=== PATIENT | female | born 1940 | race Caucasian/White ===

== ENCOUNTER 2017-02-17 17:23 | Inpatient (IN) | payer MEDICARE, OTHER ==
[~2017-02-17] VITALS: Ht 167.6 cm; Wt 94.8 kg
[~2017-02-17 17:23] MED LIST: ACID1TAB11 PO; ALBU8.5H6 IH; ASPI-482 PO; ASPI325T11 PO; ASPI325T70 PO; Amoxicillin/Potassium Clav PO; CALC667C6 PO; CALC667T PO; CARV6.25 PO; CIPR250T30 PO; CIPR500T94 PO; CITA20TA9 PO; CLOP75TA PO; DARB60DI IJ; ESCI10TA PO; ESTR42.53 VG; FAMO-63 PO; FURO-69 PO; GABA-586 PO; HYDR-2762 PO; HYDR-963 PO; HYDR25TA9 PO; INSU100I13 SQ; INSU100V8 SQ; ISOS30TA PO; ISOS30TA4 PO; LEVO250T25 PO; LEVO50TA5 PO; LEVO75TA5 PO; LOVA10TA PO; METH-37 PO; METO25TA4 PO; METR500T PO; MORP15TA PO; MORP15TA3 PO; Metoprolol Tartrate PO; NITR0.4T SL; NITR0.4T6 SL; NITR100C62 PO; OXYC-244 PO; OXYC-250 PO; OXYC15TA PO; OXYC1TAB8 PO; PANT40GR PO; PANT40TA3 PO; PROAIR HFA8.5 GM IH; TRIA10PO2 MC; TRIA15CR3 TP; VIT1TABL57 PO; WARF3TAB PO; ZOLP5TAB5 PO
[2017-02-17 19:09] VITALS: BP 109/47
[2017-02-17] MEDS ORDERED: NITROGLYCERIN SUBLINGUAL 0.4 MG BOTTLE OF 25. SL PRN (20:30)
[2017-02-17] MEDS ORDERED: FAMOTIDINE 20 MG TABLET. PO SCH (21:00)
[2017-02-17] MEDS ORDERED: INSULIN DETEMIR 300 UNITS/3 ML INSULN.PEN. SQ SCH (21:00)
[2017-02-17] MEDS: METOPROLOL TART IMMED RELEASE 25 MG TABLET. PO SCH (21:06)
[2017-02-17 23:00] VITALS: BP 118/40
[2017-02-18 02:42] VITALS: BP 152/67
[2017-02-18] MEDS: HYDROCODONE/APAP 7.5/325MG TABLET. PO PRN ×2 (03:17→09:03)
[2017-02-18 07:18] LABS: CALCIUM 7.6 mg/dL (8.5-10.1); CREATININE 7.5 mg/dL (0.6-1.0); GFR 5.3; POTASSIUM 5.1 mmol/L (3.5-5.1)
[2017-02-18 07:30] VITALS: BP 137/44
[2017-02-18] MEDS ORDERED: CLOPIDOGREL BISULFATE 75 MG TABLET PO SCH (08:00)
[2017-02-18] MEDS ORDERED: ASPIRIN ENTERIC COATED 325 MG TABLET.DR. PO SCH (08:00)
--- NOTE | 2017-02-18 08:07 | RAD ---
Abdomen radiograph History: Nausea and vomiting. Comparison: July 09, 2015. Findings: AP portable supine abdomen radiograph. Bowel gas pattern is nonspecific, without evidence of obstruction. Moderate colonic stool is seen. Multiple surgical clips are seen in the upper abdomen. Degenerative changes are present in the spine. Impression: Nonspecific bowel gas pattern.
--- NOTE | 2017-02-18 08:39 | PDOC ---
Provider Note Provider Note full H&P dictated but she missed dialysis on due to nausea, vomiting and ear pain and had myalgias "like someone beat me up" and went to ER at [facility] where troponin was 9 but that was a lab error but by the time that was discovered she had transferred here and is admitted for control of nausea, vomiting, treatment of ear pain and dialysis. She will likely be ready for discharged after dialysis today as she is feeling better and eating RAFAEL NAVARRETE MD Feb 18, 2017 08:39
[2017-02-18] MEDS ORDERED: ONDANSETRON ODT 4 MG TAB.RAPDIS. PO PRN (08:45)
[2017-02-18] MEDS ORDERED: ISOSORBIDE MONONITRATE ER 30 MG TAB.ER.24H PO SCH (09:00)
[2017-02-18] MEDS ORDERED: ESCITALOPRAM 10 MG TABLET. PO SCH (09:00)
[2017-02-18] MEDS ORDERED: FOLIC/VIT B COMP W-C (RENAL) TABLET. PO SCH (09:00)
[2017-02-18] MEDS: METOPROLOL TART IMMED RELEASE 25 MG TABLET. PO SCH (09:02)
[2017-02-18] MEDS: CALCIUM ACETATE 667 MG CAPSULE PO SCH ×3 (09:03→17:00)
[2017-02-18] MEDS: NEOMYCIN/POLYMYXIN/HC OTIC SUSPENSION 10ML BOTTLE. AD SCH ×3 (09:30→17:00)
[2017-02-18] MEDS ORDERED: AMOXICILLIN 250 MG CAPSULE. PO SCH (09:30)
[2017-02-18 11:55] VITALS: BP 99/55
--- NOTE | 2017-02-18 12:10 | PDOC2 ---
CONSULT Date of Consult Date of Consult DATE: 02/18/17 TIME: 12:03 Reason for Consult Reason for Consult: ESRD Referring Physician Referring Physician: Dr Crouch Identification/Chief Complaint Chief Complaint NV Problems: Source Source: Chart review, Patient Past Medical History Cardiovascular: CAD, CHF, HTN, GA, Hyperlipidemia, Aortic stenosis Pulmonary: COPD CENTRAL NERVOUS SYSTEM: CVA, Periperal neuropathy GI: Constipation, GERD Heme/Onc: Anemia NOS Hepatobiliary: No pertinent hx Psych: Depression Musculoskeletal: Osteoarthritis Rheumatologic: No pertinent hx Infectious disease: No pertinent hx Renal/: Chronic renal failure Endocrine: Diabetes, Hypothyroidism, Hyperparathyroidism Past Surgical History Past Surgical History: Pacemaker, Appendectomy, Cholecystectomy, Cataract Removal, Hernia Repair, Hysterectomy, Other Family History Family History: Hypertension Social History ALCOHOL: none Drugs: None Lives: with Family Domestic Violence: Neg Current Medications Current Medications Current Medications Aspirin (Ecotrin) 325 mg DAILYWBKFT PO ; Start 02/18/17 at 08:00 Clopidogrel Bisulfate (Plavix) 75 mg DAILYWBKFT PO ; Start 02/18/17 at 08:00 Escitalopram Oxalate (Lexapro) 10 mg DAILY PO ; Start 02/18/17 at 09:00 Famotidine (Pepcid) 20 mg HS PO Last administered on 02/17/17 21:06; Start 02/17 at 21:00 Acetaminophen/ Hydrocodone Bitart (Lortab 7.5/325) 1 tab PRN Q6HRS PRN PO PAIN Last administered on 02/18/17 09:03; Start 02/17/17 at 20:30 Isosorbide Mononitrate (Imdur) 30 mg DAILY PO ; Start 02/18/17 at 09:00 Metoprolol Tartrate (Lopressor) 25 mg BID PO Last administered on 02/18/17 09: 02; Start 02/17/17 at 21:00 Nitroglycerin (Nitrostat) 0.4 mg PRN Q5MIN PRN SL CHEST PAIN; Start 02/17/17 at 20:30 Calcium Acetate (Phoslo) 667 mg TIDWMEALS PO Last administered on 02/18/17 09: 03; Start 02/18/17 at 08:00 Insulin Detemir (Levemir) 14 units QHS SQ ; Start 02/17/17 at 21:00 Vitamin B Complex/ Vitamin C (Tanisha-Prashanth) 1 tab DAILY PO ; Start 02/18/17 at 09:00 Amoxicillin (Amoxil) 500 mg DAILY PO ; Start 02/18/17 at 09:30 Neomycin/ Polymyxin/ Hydrocortisone (Cortisporin Otic) 1 drop QID AD ; Start 02/18/17 at 09:30 Ondansetron HCl (Zofran Odt) 4 mg PRN Q6HRS PRN PO NAUSEA/VOMITING; Start at 08:45 Active Scripts Active Escitalopram Oxalate 10 Mg Tablet 10 Mg PO DAILY Clopidogrel (Clopidogrel Bisulfate) 75 Mg Tablet 75 Mg PO DAILYWBKFT Restart per Dr. Mayen and cardiology recommendations. Continue for 2 more weeks, then stop. Aspirin Ec (Aspirin) 325 Mg Tablet.dr 325 Mg PO DAILYWBKFT Isosorbide Mononitrate Er (Isosorbide Mononitrate) 30 Mg Tab.er.24h 30 Mg PO DAILY Pepcid (Famotidine) 20 Mg Tablet 20 Mg PO HS Nitrostat (Nitroglycerin) 0.4 Mg Tab.subl 0.4 Mg SL PRN Q5MIN PRN Reported Nephro-Prashanth Rx Tablet (Vit B Cmplx 3/Fa/Vit C/Biotin) 1 Each Tablet 1 Each PO DAILY Hydrocodone-Apap 7.5-325 (Hydrocodone Bit/Acetaminophen) 1 Each Tablet 1 Tab PO PRN Q6HRS PRN Calcium Acetate 667 Mg Tablet 667 Mg PO TIDWMEALS Metoprolol Tartrate 25 Mg Tablet 1 Tab PO BID Lantus Solostar (Insulin Glargine,Hum.rec.anlog) 100 Unit/1 Ml Insuln.pen 14 Unit SQ QHS LAST DOSE GIVEN: DATE: 07/09/16 TIME: 9 PM NEXT DOSE DUE: DATE: 07/10/16 -tonight TIME: 9 PM Allergies Allergies: Coded Allergies: Sulfa (Sulfonamide Antibiotics) (Verified Allergy, Intermediate, Nausea/ Vomiting, Rash, 09/22/16) morphine (Verified Allergy, Intermediate, itching, 09/22/16) adhesive (Verified Adverse Reaction, Intermediate, Itching, 09/22/16) ROS Review of System GEN: no Fevers no Chills EYES: no Visual Complaints ENT: no EN Drainage no Hearing deficiets CVS: no Orthopnea no CP RESP: no SOB no MATHEWS GI: + Nausea + Vomiting + Constipation : no Dysuria no Urgency HEME: no easy bruising no Palp Ly Nodes NEURO no Focal Weakness no Sz PSYCH: no Suicidal Ideation no Depression SKIN: no Rashes ENDO: no Polyuria or Polydipsia no Hot/Cold Intolerance MU SK: no Arthraigia no Myalgia Physical Exam Physical Exam General Appearance: Awake Alert Oriented x In no Distress Eyes: VIsion Unchanged Conjunctiva Normal EN: No EN Drainage Mucous Memb. moist Neck: no JVD no JVP Supple no Thyromegaly CVS: S1 S2 + Murmur No Gallop No Rub no Edema Resp: no Rales no Rhonchi no Acc. Muscle use GI: BAS +ve NO Bruit Non Tender Non Distended : no CVA tenderness; no Suprapubic Tenderness SKIN: no Rashes Breast Exam deferred Mu.Sk: Adequate ROM no Muscle Atrophy Heme: Unable to palpate Obvious LAD no pALP Splenomegaly NEURO: Good Strength and Tone Cranial Nerves II - XII grossly intact Psych: min Depressed no Active hallucination Vital Signs Vital Signs Date Time Temp Pulse Resp B/P Pulse Ox O2 Delivery O2 Flow Rate FiO2 02/18/17 11:55 97.9 60 18 99/55 95 Room Air 97.9 Assessment & Plan ESRD: Dialysis as below F 180 NR 3.5 Hrs 2 K 2.5 Ca 140 Na 40 HC03 Qb 350 + Qd 500+ Heparin 0 Units Uf to dry weight as tolerated May give 25-50 gms of 25% Albumin if needed to maintain Hemodynamic stability Treatment plan reviewed and discussed with contact lens blocker and cutter Anemia: Epogen as per OP regimen, no Hgb done here. Transfuse as needed. NV - suspect due to Viral etio or due to constipation - RN reports pt had "LARGE " BM this am HypoTN: Current BP meds reviewed. ? asso with ear infection Bone & Mineral: follow PHOS and PTh as OP Discussed Plan of Care and prognosis etc. at length withpt . Labs Labs Laboratory Tests Test 02/17/17 21:00 02/18/17 03:00 02/18/17 07:48 Troponin I Quantitative 0.031ng/mL (0.000-0.055) 0.047ng/mL (0.000-0.055) Sodium Level 132mmol/L (136-145) Potassium Level 5.1mmol/L (3.5-5.1) Chloride Level 92mmol/L (98-107) Carbon Dioxide Level 25mmol/L (21-32) Anion Gap 15 (6-14) Blood Urea Nitrogen 91mg/dL (7-20) Creatinine 7.5mg/dL (0.6-1.0) Estimated GFR (Cockcroft-Gault) 5.3 Glucose Level 143mg/dL (70-99) Calcium Level 7.6mg/dL (8.5-10.1) Glucose (Fingerstick) 132mg/dL (70-99) Laboratory Tests Test 02/17/17 21:00 02/18/17 03:00 02/18/17 07:48 Troponin I Quantitative 0.031ng/mL (0.000-0.055) 0.047ng/mL (0.000-0.055) Sodium Level 132mmol/L (136-145) Potassium Level 5.1mmol/L (3.5-5.1) Chloride Level 92mmol/L (98-107) Carbon Dioxide Level 25mmol/L (21-32) Anion Gap 15 (6-14) Blood Urea Nitrogen 91mg/dL (7-20) Creatinine 7.5mg/dL (0.6-1.0) Estimated GFR (Cockcroft-Gault) 5.3 Glucose Level 143mg/dL (70-99) Calcium Level 7.6mg/dL (8.5-10.1) Glucose (Fingerstick) 132mg/dL (70-99) Images Images Comparison: July 09, 2015. Findings: AP portable supine abdomen radiograph. Bowel gas pattern is nonspecific, without evidence of obstruction. Moderate colonic stool is seen. Multiple surgical clips are seen in the upper abdomen. Degenerative changes are present in the spine. Impression: Nonspecific bowel gas pattern. GABI SILVESTRE MD Feb 18, 2017 12:10
[2017-02-18] MEDS ORDERED: IV NORMAL SALINE 1000ML BAG 1,000 ML IV PRN (13:17)
[2017-02-18] MEDS ORDERED: ALBUMIN HUMAN 25% 200 ML IV PRN (13:30)
[2017-02-18] MEDS ORDERED: DIALYSIS PATIENT. MC PRN (13:30)
--- NOTE | 2017-02-18 14:33 | PDOC ---
Dialysis Progress Note Dialysis Note Dialysis Note Seen on Hemodialysis, tolerating treatment Okay so farl Vitals on Hemodialysis: 115/63 60 97.3 16 General Appearance: Awake: Alert Oriented x 3 Neck: No JVD or JVP Chest: CTA Amilcar Heart: S1 S2 Abdomen - Soft NTND Extremities - No Edema ESRD: Dialysis as ordered Treatment plan reviewed and discussed with guest relations manager Vitals Vital Signs Vital Signs Date Time Temp Pulse Resp B/P Pulse Ox O2 Delivery O2 Flow Rate FiO2 02/18/17 12:19 95 Room Air 02/18/17 11:55 97.9 60 18 99/55 97.9 Labs Last Labs Laboratory Tests Test 02/17/17 21:00 02/18/17 03:00 02/18/17 07:48 02/18/17 12:01 Troponin I Quantitative 0.031ng/mL (0.000-0.055) 0.047ng/mL (0.000-0.055) Sodium Level 132mmol/L (136-145) Potassium Level 5.1mmol/L (3.5-5.1) Chloride Level 92mmol/L (98-107) Carbon Dioxide Level 25mmol/L (21-32) Anion Gap 15 (6-14) Blood Urea Nitrogen 91mg/dL (7-20) Creatinine 7.5mg/dL (0.6-1.0) Estimated GFR (Cockcroft-Gault) 5.3 Glucose Level 143mg/dL (70-99) Calcium Level 7.6mg/dL (8.5-10.1) Glucose (Fingerstick) 132mg/dL (70-99) 169mg/dL (70-99) Laboratory Tests Test 02/17/17 21:00 02/18/17 03:00 02/18/17 07:48 02/18/17 12:01 Troponin I Quantitative 0.031ng/mL (0.000-0.055) 0.047ng/mL (0.000-0.055) Sodium Level 132mmol/L (136-145) Potassium Level 5.1mmol/L (3.5-5.1) Chloride Level 92mmol/L (98-107) Carbon Dioxide Level 25mmol/L (21-32) Anion Gap 15 (6-14) Blood Urea Nitrogen 91mg/dL (7-20) Creatinine 7.5mg/dL (0.6-1.0) Estimated GFR (Cockcroft-Gault) 5.3 Glucose Level 143mg/dL (70-99) Calcium Level 7.6mg/dL (8.5-10.1) Glucose (Fingerstick) 132mg/dL (70-99) 169mg/dL (70-99) GABI SILVESTRE MD Feb 18, 2017 14:33
[2017-02-18] MEDS ORDERED: CIPR10DR AD (17:54)
[2017-02-18] MEDS ORDERED: AMOX250C PO (17:54)
--- NOTE | 2017-02-18 18:10 | PDOC ---
Provider Note Provider Note summary dictation #[id number] RAFAEL NAVARRETE MD Feb 18, 2017 18:10
--- NOTE | 2017-02-18 23:15 | HP ---
ADMIT DATE: 02/18/2017 COMBINED ADMISSION HISTORY AND PHYSICAL AND DISCHARGE SUMMARY ADMISSION DIAGNOSIS: Nausea and vomiting with acute renal failure on chronic renal disease. DISCHARGE DIAGNOSIS: End-stage renal disease, requiring urgent dialysis. ASSOCIATED DIAGNOSES: Nausea and vomiting with right ear pain and otitis media, acute. HISTORY AND HOSPITAL COURSE: This is a 76-year-old white female with end-stage renal disease. She normally does Tuesday, Tuesday, and Tuesday dialysis, but on Tuesday, did not feel well enough to go to dialysis. She had some nausea. She had some ear pain. By Tuesday, her symptoms worsened and she presented to [facility] Emergency Room. In the process of evaluating there, the lab found her troponin that was elevated at 9. She has a history of a significant heart disease and it was thought her nausea and vomiting were caused by an acute cardiac event, but her EKG was unremarkable. 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 About the time of transfer though, the lab notified the Emergency Room that there was a mistake on the reading and her troponin was only mildly elevated. Still, she was transferred and admitted for serial cardiac enzymes, which have remained stable and not shown any evidence of acute myocardial damage. Her nausea and vomiting have stopped. Her ear pain persists, but other symptoms have improved. She still needs urgently dialysis, which is done today without any complications. She has been able to eat today and has not had any other new symptoms develop. PAST MEDICAL HISTORY: Significant for a prior CVA, coronary artery disease with a history of a heart attack, heart failure, valvular heart disease, cardiomyopathy, peripheral vascular disease, anticoagulant therapy, hyperlipidemia, atrial fibrillation, COPD, pneumonia, sleep apnea, irritable bowel, GERD, uterine cancer, end-stage renal disease, kidney stones, urinary tract infections, hiatal hernia, inguinal hernia, osteoarthritis, degenerative disk disease, back pain, type 2 diabetes, depression, anxiety, anemia, skin cancer, pressure ulcer, and MRSA. PAST SURGICAL HISTORY: Include cataract extraction, tonsillectomy, valve replacement, coronary stent, pacemaker with internal defibrillator, gastric bypass, appendectomy, cholecystectomy, ventral hernia repair, hysterectomy, oophorectomy, dialysis, shunt placement, and repair of left femur fracture and left fibular fracture. FAMILY HISTORY: Father and brother with heart disease. Mother with obesity. Multiple relatives with hypertension. Brother with diabetes. SOCIAL HISTORY: No tobacco or alcohol. ALLERGIES: SULFA, ADHESIVE, AND MORPHINE. HOME MEDICATIONS: Aspirin 325 mg daily with breakfast, calcium acetate 667 mg t.i.d. with meals, clopidogrel 75 mg with breakfast, Lexapro 10 mg daily, famotidine 20 mg at bedtime, hydrocodone/APAP 7.5/325 mg one q. 6h. p.r.n. pain, Lantus 14 units subcu at bedtime, isosorbide mononitrate extended release 30 mg daily, metoprolol 25 mg b.i.d., Nitrostat 0.4 mg sublingual p.r.n., and Nephro-Prashanth 1 daily. REVIEW OF SYSTEMS: HEENT: Significant for right ear pain over the last several days that has worsened. Denies sinus symptoms or other ENT symptoms. GASTROINTESTINAL: Nausea and vomiting prior to admission. GENITOURINARY: Negative for dysuria or frequency. MUSCULOSKELETAL: Arthritic joint, aches and pains without acute redness or swelling of joints. PSYCHIATRIC: Negative for mental status changes. NEUROLOGIC: Negative for seizures, headaches, or tremor. SKIN: Negative for bleeding or bruising. CARDIAC: Negative for chest pain or palpitations. PULMONARY: Negative for cough or wheezing. PHYSICAL EXAMINATION: VITAL SIGNS: Since admission, blood pressures have been controlled. She has been afebrile with room air oxygen saturations normal and normal respiratory effort. HEENT: Unable to see into her right ear, but per ER report from [facility], there was sign of infection. Sinuses are nontender. Sclerae are nonicteric. Conjunctivae are clear. Mucous membranes are moist. NECK: Supple. No bruit was heard. HEART: Paced on the monitor, rate of 60. LUNGS: Clear to auscultation. ABDOMEN: Soft and nontender. No hepatosplenomegaly was noted. No epigastric pain was noted. No other masses were noted. EXTREMITIES: Without clubbing, cyanosis, or peripheral edema. SKIN: Skin turgor was intact, warm, and dry. No significant bruising was noted. She is alert and oriented. LABORATORY DATA: Show sodium slightly low at 132, chloride slightly low at 92, potassium borderline elevated at 5.1, BUN of 91, creatinine of 7.5, glucose 143, and calcium is 7.6. Her troponins range from 0.031-0.047. KUB showed a nonspecific bowel gas pattern. There was no evidence of obstruction. There was a moderate amount of stool in the colon. Multiple surgical clips were present, and degenerative changes were noted in the spine. She was seen in Renal consultation. She was dialyzed without difficulty. A Cardiology consultation was requested, but canceled as there was no strong evidence for anything acutely cardiac-related. Her initial troponin report of 9 was a lab error. She has been able to eat, her nausea and vomiting have not returned. She was started on amoxicillin 250 mg 1 t.i.d. #30 for her ear along with the Cipro Otic drops, three drops b.i.d. She will be discharged home, resume her home medications, including her aspirin 325 mg daily, calcium acetate 667 mg t.i.d. with meals, clopidogrel 75 mg daily, Lexapro 10 mg daily, famotidine 20 mg at bedtime, hydrocodone/APAP 7.5/325 mg one q. 6h. p.r.n., Lantus 14 units at bedtime, isosorbide mononitrate 30 mg daily, metoprolol tartrate 25 mg b.i.d., Nitrostat 0.4 mg sublingual p.r.n., and her Nephro-Prashanth vitamin daily. DIET: Will be renal. ACTIVITY: As tolerated. DISCHARGE INSTRUCTIONS/PLAN: She will follow up in the office within the next week or two. She will continue her Tuesday, Tuesday, and Tuesday dialysis. W Liv NAVARRETE MD DR: LUPE/eliezer JOB#: [id number] / [id number]
--- NOTE | 2017-02-19 03:24 | CONS ---
DATE OF CONSULTATION: 02/18/2017 PRIMARY PHYSICIAN: Dr. Crouch. REASON FOR CONSULTATION: ESRD dialysis. HISTORY OF PRESENT ILLNESS: The patient is a 76-year-old female who I follow for ESRD needs. She had not gone to dialysis since Tuesday of last week. Tuesday, Tuesday and Tuesday are regular days. She claims she was not feeling good. She has had nausea and vomiting. She was seen at [facility] ER and was initially felt to have positive troponins; however, those were rechecked and were negative; however, because of her nausea and vomiting and it was felt that she needed to be transferred here for further evaluation as well as for missed dialysis. Her potassium was normal at [facility], is 5.1 this morning. She did have a large bowel movement today and is feeling much better. Her KUB did also show moderate amount of colonic stool ____ multiple surgical clips. She is hungry and willing to eat currently. She will be set up for dialysis later today. Rest of details per electronic records. GABI SILVESTRE MD DR: KELLY/eliezer JOB#: [id number] / [id number]
== END 2017-02-18 18:45 | disposition home or self-care (01) | DRG 291 ==
LOC: 2 NORTH 19:53
PROVIDERS: ADMIT Family Medicine; ATTEND Family Medicine
PROC: 5A1D00Z (ICD-10-PCS; principal; 2017-02-18)
DX: I13.2 Hypertensive heart and chronic kidney disease with heart failure and with stage 5 chronic kidney disease, or end stage renal disease (principal); N18.6 End stage renal disease; I42.9 Cardiomyopathy, unspecified; E03.9 Hypothyroidism, unspecified; E11.22 Type 2 diabetes mellitus with diabetic chronic kidney disease; E78.5 Hyperlipidemia, unspecified; G47.30 Sleep apnea, unspecified; H66.90 Otitis media, unspecified, unspecified ear; I25.10 Atherosclerotic heart disease of native coronary artery without angina pectoris; I35.0 Nonrheumatic aortic (valve) stenosis; I48.91 Unspecified atrial fibrillation; I50.9 Heart failure, unspecified; J44.9 Chronic obstructive pulmonary disease, unspecified; K21.9 Gastro-esophageal reflux disease without esophagitis; K58.9 Irritable bowel syndrome, unspecified; D64.9 Anemia, unspecified; E21.3 Hyperparathyroidism, unspecified; F32.9 Major depressive disorder, single episode, unspecified; F41.9 Anxiety disorder, unspecified; K43.9 Ventral hernia without obstruction or gangrene; M19.90 Unspecified osteoarthritis, unspecified site; Z99.2 Dependence on renal dialysis; Z98.84 Bariatric surgery status; Z95.5 Presence of coronary angioplasty implant and graft; I25.2 Old myocardial infarction; Z95.2 Presence of prosthetic heart valve; Z87.442 Personal history of urinary calculi; Z86.73 Personal history of transient ischemic attack (TIA), and cerebral infarction without residual deficits; Z85.828 Personal history of other malignant neoplasm of skin; Z85.42 Personal history of malignant neoplasm of other parts of uterus; Z82.49 Family history of ischemic heart disease and other diseases of the circulatory system; Z88.6 Allergy status to analgesic agent; Z88.2 Allergy status to sulfonamides; Z91.048 Other nonmedicinal substance allergy status
CPT/HCPCS: 36415; 74000; 80048; 82947; 84484; J1815

== ENCOUNTER 2017-04-21 18:28 | Observation (INO) | payer MEDICARE, OTHER ==
[~2017-04-21] VITALS: Ht 167.6 cm; Wt 97.1 kg
[~2017-04-21 18:28] MED LIST changes: +AMOX250C PO; +CIPR10DR AD; -ESCI10TA PO; +ESCITALOPRAM OX10 MG PO; +NITR0.4T22 SL; -NITR0.4T6 SL; -OXYC-244 PO; -OXYC-250 PO; +OXYC-327 PO; +OXYC-328 PO; -WARF3TAB PO; +WARF3TAB54 PO
[2017-04-21] MEDS ORDERED: NITROGLYCERIN SUBLINGUAL 0.4 MG BOTTLE OF 25. SL PRN (18:45)
[2017-04-21 18:59] LABS: BASO % 1 % (0-3); EOS % 9 % (0-3); HEMATOCRIT 38.2 % (36.0-47.0); HEMOGLOBIN 12.5 g/dL (12.0-15.5); LYMPH % 23 % (24-48); MEAN CORPUSCULAR HEMOGLOBIN 33 pg (25-35); MEAN CORPUSCULAR HGB CONC 33 g/dL (31-37); MEAN CORPUSCULAR VOLUME 100 fL (79-100); MONO % 16 % (0-9); NEUT % 52 % (31-73); PLATELET COUNT 118 x10^3/uL (140-400); RED BLOOD COUNT 3.84 x10^6/uL (3.50-5.40); RED CELL DISTRIBUTION WIDTH 15.2 % (11.5-14.5); WHITE BLOOD COUNT 4.6 x10^3/uL (4.0-11.0)
[2017-04-21 19:09] LABS: CALCIUM 8.6 mg/dL (8.5-10.1); CREATININE 5.1 mg/dL (0.6-1.0); GFR 8.2; POTASSIUM 4.2 mmol/L (3.5-5.1)
[2017-04-21 19:15] LABS: ALBUMIN 3.1 g/dL (3.4-5.0); DIRECT BILIRUBIN 0.2 mg/dL (0.0-0.2); MAGNESIUM 2.3 mg/dL (1.8-2.4); TOTAL BILIRUBIN 0.5 mg/dL (0.2-1.0); TOTAL PROTEIN 7.9 g/dL (6.4-8.2)
[2017-04-21] MEDS ORDERED: fentaNYL PF VIAL 100 MCG/2 ML VIAL IV ONE (19:15)
[2017-04-21] MEDS ORDERED: ONDANSETRON PF 4 MG/2 ML VIAL. IV ONE (19:15)
[2017-04-21 19:22] LABS: CKMB MASS 1.1 ng/mL (0.0-3.6)
--- NOTE | 2017-04-21 19:23 | PHYS DOC ---
Past Medical History Past Medical History: A-Fib, Diabetes-Type II, Hypertension, PA, Renal Failure Additional Past Medical Histor: kidney failure Past Surgical History: Appendectomy, Cholecystectomy, Hysterectomy, Other Additional Past Surgical Histo: FISTULA in right upper extremity, pins left femur, PACEMAKER WITH DEFIB Alcohol Use: None Drug Use: None Adult General Chief Complaint Chief Complaint: CHEST PAIN HPI HPI Patient is a 76 year old female who presents with chest pain. She has the past medical history of Coronary artery disease, ischemic cardiomyopathy , severe aortic stenosis, hypertension, hyperlipidemia, end-stage renal disease , on dialysis, COPD, chronic back pain, chronic anemia. She states it started at 4:30 this afternoon and has been constant. She states is in the right side of her chest and goes to her neck and her arm. She states is a sharp sensation. She took 3 nitroglycerin and it helped her discomfort. She denies any nausea, she states she has had a heart attack back in 2008. She has end-stage renal disease and dialyzes Tuesday. She states she takes aspirin intermittently. She states over the last several weeks she's been having a take more and more nitroglycerin for chest discomfort. She did receive 324 aspirin in route. Review of Systems Review of Systems Constitutional: Denies fever or chills [] Eyes: Denies change in visual acuity, redness, or eye pain [] HENT: Denies nasal congestion or sore throat [] Respiratory: Denies cough or shortness of breath [] Cardiovascular: No additional information not addressed in HPI [] GI: Denies abdominal pain, nausea, vomiting, bloody stools or diarrhea [] : Denies dysuria or hematuria [] Musculoskeletal: Denies back pain or joint pain [] Integument: Denies rash or skin lesions [] Neurologic: Denies headache, focal weakness or sensory changes [] Endocrine: Denies polyuria or polydipsia [] Current Medications Current Medications Current Medications Medications (Trade) Dose Ordered Sig/Payton Start Time Stop Time Status Last Admin Dose Admin Fentanyl Citrate (Fentanyl 2ml Vial) 25 mcg 1X ONCE 04/21/17 19:15 04/21/17 19:16 DC 04/21/17 19:41 25 MCG Heparin Sodium (Porcine) (Heparin Sodium) 2,400 unit PRN Q6HRS PRN 04/21/17 20:30 Heparin Sodium/ Dextrose 500 ml @ 20 mls/hr CONT PRN 04/21/17 20:30 Nitroglycerin (Nitrostat) 0.4 mg PRN Q5MIN PRN 04/21/17 18:45 04/22/17 18:44 Ondansetron HCl (Zofran) 4 mg 1X ONCE 04/21/17 19:15 04/21/17 19:16 DC 04/21/17 19:40 4 MG Allergies Allergies Allergies Coded Allergies Type Severity Reaction Last Updated Verified Sulfa (Sulfonamide Antibiotics) Allergy Intermediate Nausea/Vomiting, Rash 09/22/16 Yes morphine Allergy Intermediate itching 09/22/16 Yes adhesive Adverse Reaction Intermediate Itching 09/22/16 Yes Physical Exam Physical Exam Constitutional: Well developed, well nourished, no acute distress, non-toxic appearance. [] HENT: Normocephalic, atraumatic, bilateral external ears normal, oropharynx moist, no oral exudates, nose normal. [] Eyes: PERRLA, EOMI, conjunctiva normal, no discharge. [] Neck: Normal range of motion, no tenderness, supple, no stridor. [] Cardiovascular:Heart rate regular rhythm, no murmur [] Lungs & Thorax: Bilateral breath sounds clear to auscultation [] Abdomen: Bowel sounds normal, soft, no tenderness, no masses, no pulsatile masses. [] Skin: Warm, dry, no erythema, no rash. [] Back: No tenderness, no CVA tenderness. [] Extremities: No tenderness, no cyanosis, no clubbing, ROM intact, no edema. [] Neurologic: Alert and oriented X 3, normal motor function, normal sensory function, no focal deficits noted. [] Psychologic: Affect normal, judgement normal, mood normal. [] Current Patient Data Vital Signs Vital Signs Date Time Temp Pulse Resp B/P (MAP) Pulse Ox O2 Delivery O2 Flow Rate FiO2 04/21/17 20:36 Nasal Cannula 04/21/17 20:12 74 23 121/57 (78) 98 3.0 04/21/17 18:30 98.5 98.5 Lab Values Laboratory Tests Test 04/21/17 18:50 White Blood Count 4.6 x10^3/uL (4.0-11.0) Red Blood Count 3.84 x10^6/uL (3.50-5.40) Hemoglobin 12.5 g/dL (12.0-15.5) Hematocrit 38.2 % (36.0-47.0) Mean Corpuscular Volume 100 fL (79-100) Mean Corpuscular Hemoglobin 33 pg (25-35) Mean Corpuscular Hemoglobin Concent 33 g/dL (31-37) Red Cell Distribution Width 15.2 % (11.5-14.5) H Platelet Count 118 x10^3/uL (140-400) L Neutrophils (%) (Auto) 52 % (31-73) Lymphocytes (%) (Auto) 23 % (24-48) L Monocytes (%) (Auto) 16 % (0-9) H Eosinophils (%) (Auto) 9 % (0-3) H Basophils (%) (Auto) 1 % (0-3) Neutrophils # (Auto) 2.4 x10^3uL (1.8-7.7) Lymphocytes # (Auto) 1.0 x10^3/uL (1.0-4.8) Monocytes # (Auto) 0.7 x10^3/uL (0.0-1.1) Eosinophils # (Auto) 0.4 x10^3/uL (0.0-0.7) Basophils # (Auto) 0.0 x10^3/uL (0.0-0.2) Prothrombin Time 13.1 SEC (11.7-14.0) Prothrombin Time INR 1.1 (0.8-1.1) Sodium Level 133 mmol/L (136-145) L Potassium Level 4.2 mmol/L (3.5-5.1) Chloride Level 93 mmol/L (98-107) L Carbon Dioxide Level 31 mmol/L (21-32) Anion Gap 9 (6-14) Blood Urea Nitrogen 62 mg/dL (7-20) H Creatinine 5.1 mg/dL (0.6-1.0) H Estimated GFR (Cockcroft-Gault) 8.2 Glucose Level 153 mg/dL (70-99) H Calcium Level 8.6 mg/dL (8.5-10.1) Magnesium Level 2.3 mg/dL (1.8-2.4) Total Bilirubin 0.5 mg/dL (0.2-1.0) Direct Bilirubin 0.2 mg/dL (0.0-0.2) Aspartate Amino Transferase (AST) 32 U/L (15-37) Alanine Aminotransferase (ALT) 30 U/L (14-59) Alkaline Phosphatase 119 U/L (46-116) H Creatine Kinase 88 U/L (26-192) Creatine Kinase MB (Mass) 1.1 ng/mL (0.0-3.6) Creatine Kinase MB Relative Index 1.3 % (0-4) Troponin I Quantitative 0.093 ng/mL (0.000-0.055) AP-Siq-T-Type Natriuretic Peptide 16497 pg/mL (0-449) H Total Protein 7.9 g/dL (6.4-8.2) Albumin 3.1 g/dL (3.4-5.0) L Lipase 314 U/L (73-393) Thyroid Stimulating Hormone (TSH) 4.584 uIU/mL (0.358-3.74) H Laboratory Tests 04/21/17 18:50 Laboratory Tests 04/21/17 18:50 EKG EKG EKG shows a paced rhythm with out any ST elevations, QTC 512 ms, EKG similar to one on August 27, 2016, as interpreted by me. Radiology/Procedures Radiology/Procedures View chest x-ray does not show any focal consolidations, bony abnormalities, ICD noted in the left hemithorax, as interpreted by me. Impressions: Chest pain Coronary artery disease End stage renal disease Course & Med Decision Making Course & Med Decision Making Pertinent Labs and Imaging studies reviewed. (See chart for details) Patient presented with chest pain that is resolved now. Her troponin slightly elevated at 0.09. Her EKG looks to like similar EKGs. Patient received aspirin in route by EMS. Patient is on a heparin drip currently. Patient is admitted to the hospitalist with interim orders written. Consultation placed to Dr. Foster , who I spoke with and told him about the patient's symptoms and labs. She is in stable condition this time being admitted. Dragon Disclaimer Dragon Disclaimer This electronic medical record was generated, in whole or in part, using a voice recognition dictation system. Departure Departure Referrals: ERIC SANTO MD (PCP) BARRINGTON SAVAGE MD Apr 21, 2017 19:23
[2017-04-21 19:27] LABS: INR 1.1 (0.8-1.1); PROTHROMBIN TIME PATIENT 13.1 SEC (11.7-14.0)
--- NOTE | 2017-04-21 20:00 | ACF ---
Admission Forms Criteria CHEST PAIN Clinical Indications for Admission to Inpatient Care (Place 'X' for any and all applicable criteria): Admission is indicated for chest pain and ANY ONE of the following(1)(2)(3)(4)(5 ): [ ]I. Angina with acute coronary syndrome (Also use Myocardial Infarction or Angina guideline) [ ]II. Hemodynamic instability [ ]III. Angina needing acute intervention as indicated by ALL of the following( 11)(12): [ ]a) Unstable angina is present as indicated by angina that is ANY ONE of the following: [ ]i) New onset [ ]ii) Nocturnal [ ]iii) Prolonged at rest [ ]iv) Progressive [ ]b) Angina warrants acute intervention as indicated by ANY ONE of the following: [ ]i) Recurrent angina (e.g, not responding as previously to treatment) [ ]ii) Angina at rest or with low-level activities despite initial medical therapy [ ]iii) New or presumably new ST-segment depression on ECG [ ]iv) Signs or symptoms of heart failure (eg, dyspnea, pulmonary edema) [ ]v) New or worsening mitral regurgitation [ ]vi) Hemodynamic instability [ ]vii) Dangerous arrhythmia (eg, sustained ventricular tachycardia) [ ]viii) History of percutaneous coronary intervention within 6 months [ ]ix) History of coronary artery bypass graft surgery [ ]x) NENA risk score of 2 or greater[A] [ ]xi) History of Diabetes(14) [ ]xii) High-risk cardiac ischemia findings on noninvasive testing (e.g, echocardiogram, treadmill testing, nuclear scan) [ ]xiii) Chronic renal insufficiency (ie, estimated GFR less than 60 mL/min/1.732m) [ ]xiv) Left ventricular ejection fraction less than 40% [X]IV. Evidence of NH (eg, cardiac biomarkers positive, ST-segment elevation on ECG) also use Myocardial Infarction Criteria Form. [ ]V. Pulmonary edema [ ]. Respiratory distress [ ]VII. Chest pain indicative of serious diagnosis other than coronary artery disease (eg, aortic dissection) [ ]VIII. Contraindications and/or Inappropriate clinical situations for Observational Care in patients with Chest Pain, when ANY ONE of the following is required: [ ]a) Patient with risk factor for pulmonary embolism, acute coronary syndrome and myocardial infarction (18) [ ]b) Patient with Pulmonary embolism require an average LOS of 4.3 days, therefore emergency department observation management is inappropriate 18,23 [ ]c) Painful condition/s in the elderly, have the highest rate of recidivism after emergency department observation management (10.8%) 20,21,22 [ ]d) Elevated cardiac biomarker requires intensive and exhaustive care (19) [X]IX. General contraindications and/or Inappropriate clinical situations for Observational Care in patients with Chest Pain, when ANY ONE of the following is required: [X]a) Prediction of prolongation of LOS based on ANY ONE of the following may be considered as a contraindication for observational care 2, 3, 4, 5, 6, 7, 8, 9, 10, 11 [X]i) Age > 65 yrs. [ ]ii) Patient arriving by ambulance [ ]iii) Patient with high acuity [ ]iv) Patient requiring vital sign monitoring [ ]v) Patient on IV medication [ ]b) Systolic blood pressures 180mmHg 3,12 [ ]c) Patient with altered mental status including delirium and other alteration of consciousness, (3) [ ]d) Patient whose discharge disposition will be to a assisted home or rehabilitation home should not be managed in Emergency Department Observation Unit. CMS rule requires 3 days hospital stay before such placement. 3,13 [ ]e) Patient with failure to thrive due to broad array of etiologies 3,16,17 [ ]f) Inability to ambulate 3,14 Extended stay beyond goal length of stay may be needed for (1)(28): [ ]a) Specific condition diagnosed after evaluation (eg, pulmonary embolism, aortic dissection) [ ]b) Unstable angina [ ]c) Continued suspicion of acute coronary syndrome with inability to complete needed cardiac evaluation (eg, patient clinically unable to undergo stress testing) [ ]d) Myocardial infarction (Contents from ANGINA and CHEST PAIN clinical indications for admission to inpatient care have been integrated in this form) The original [facility] content created by [employer] has been revised. The portions of the content which have been revised are identified through the use of italic text or in bold, and [facility] has neither reviewed nor approved the modified material. All other unmodified content is copyright [facility]. Please see references footnoted in the original [facility] [employer] edition 2016 Admission Criteria Met?: Yes NIKITA HAWKINS Apr 21, 2017 20:00
[2017-04-21] MEDS ORDERED: HEPARIN for IV BOLUS 10,000 UNIT/10 ML VIAL. IV PRN (20:30)
[2017-04-21] MEDS ORDERED: HEPARIN 25,000UTS/500ML PREMIX 500 ML IV PRN (20:30)
[2017-04-21] MEDS ORDERED: ONDANSETRON PF 4 MG/2 ML VIAL. IV PRN (20:45)
[2017-04-21 21:48] VITALS: BP 145/67
[2017-04-21] MEDS ORDERED: METO50TA2 (22:03)
[2017-04-21] MEDS ORDERED: fentaNYL PF VIAL 100 MCG/2 ML VIAL IV PRN (22:15)
[2017-04-21] MEDS: METOPROLOL TART IMMED RELEASE 50 MG TABLET. PO SCH (22:56)
[2017-04-21 23:00] VITALS: BP 132/61
[2017-04-21] MEDS ORDERED: FAMOTIDINE 20 MG TABLET. PO SCH (23:00)
[2017-04-21] MEDS: INSULIN DETEMIR 300 UNITS/3 ML INSULN.PEN. SQ SCH (23:11)
[2017-04-22] MEDS: HYDROcodone/APAP 7.5/325MG 1 TAB TABLET PO PRN ×3 (02:16→20:25)
[2017-04-22 02:19] VITALS: BP 140/65
[2017-04-22 03:43] LABS: BASO # 0.1 x10^3/uL (0.0-0.2); BASO % 2 % (0-3); EOS % 10 % (0-3); HEMATOCRIT 32.2 % (36.0-47.0); HEMOGLOBIN 10.7 g/dL (12.0-15.5); LYMPH # 1.1 x10^3/uL (1.0-4.8); LYMPH % 24 % (24-48); MEAN CORPUSCULAR HEMOGLOBIN 33 pg (25-35); MEAN CORPUSCULAR HGB CONC 33 g/dL (31-37); MEAN CORPUSCULAR VOLUME 98 fL (79-100); MONO % 14 % (0-9); NEUT % 51 % (31-73); PLATELET COUNT 99 x10^3/uL (140-400); RED BLOOD COUNT 3.28 x10^6/uL (3.50-5.40); RED CELL DISTRIBUTION WIDTH 14.9 % (11.5-14.5); WHITE BLOOD COUNT 4.8 x10^3/uL (4.0-11.0)
[2017-04-22 04:05] LABS: ALBUMIN 2.5 g/dL (3.4-5.0); ALBUMIN/GLOBULIN RATIO 0.6 (1.0-1.7); CALCIUM 7.7 mg/dL (8.5-10.1); CREATININE 5.7 mg/dL (0.6-1.0); GFR 7.2; POTASSIUM 4.6 mmol/L (3.5-5.1); TOTAL BILIRUBIN 0.4 mg/dL (0.2-1.0); TOTAL PROTEIN 6.4 g/dL (6.4-8.2)
--- NOTE | 2017-04-22 06:34 | EKG ---
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
[2017-04-22 07:53] VITALS: BP 134/61
[2017-04-22] MEDS: ASPIRIN ENTERIC COATED 325 MG TABLET.DR. PO SCH (08:00)
[2017-04-22] MEDS: CLOPIDOGREL BISULFATE 75 MG TABLET PO SCH (08:00)
[2017-04-22] MEDS: CALCIUM ACETATE 667 MG CAPSULE PO SCH ×3 (08:00→17:39)
--- NOTE | 2017-04-22 08:02 | RAD ---
Indication chest pain. Shortness of breath. A single view of the chest was obtained and is compared to an exam 08/20/2016. Mild cardiomegaly is noted, similar. There are probable chronic background changes of fibrosis or emphysema. This also appears similar. An acute finding in the chest or significant change compared to the prior study is not seen. Defibrillating and tripolar cardiac pacing device is noted. There is vascular stent in the right hemithorax. Chronic deformity is noted about the left shoulder. IMPRESSION: Chronic changes. No acute finding. No significant change
[2017-04-22] MEDS: FOLIC/VIT B COMP W-C (RENAL) TABLET. PO SCH (09:00)
[2017-04-22] MEDS: METOPROLOL TART IMMED RELEASE 50 MG TABLET. PO SCH ×2 (09:00→20:26)
[2017-04-22] MEDS: ESCITALOPRAM 10 MG TABLET. PO SCH (09:00)
[2017-04-22] MEDS ORDERED: ISOSORBIDE MONONITRATE ER 30 MG TAB.ER.24H PO SCH (09:00)
[2017-04-22] MEDS ORDERED: IV NORMAL SALINE 1000ML BAG 1,000 ML IV PRN (09:25)
[2017-04-22] MEDS ORDERED: DIALYSIS PATIENT. MC PRN (09:30)
[2017-04-22] MEDS ORDERED: diphenhydrAMINE 50 MG/ML VIAL IV PRN ×2 (09:30)
--- NOTE | 2017-04-22 09:52 | PDOC1 ---
History and Physical Past Medical History Cardiovascular: CAD, CHF, HTN, CA, Hyperlipidemia, Aortic stenosis Pulmonary: COPD CENTRAL NERVOUS SYSTEM: CVA, Periperal neuropathy GI: Constipation, GERD Heme/Onc: Anemia NOS Hepatobiliary: No pertinent hx Psych: Depression Rheumatologic: No pertinent hx Infectious disease: No pertinent hx Renal/: Chronic renal failure Endocrine: Diabetes, Hypothyroidism, Hyperparathyroidism Past Surgical History Past Surgical History: Pacemaker, Appendectomy, Cholecystectomy, Cataract Removal, Hernia Repair, Hysterectomy, Other Family History Family History: Hypertension Social History ALCOHOL: none Drugs: None Current Problem List Problem List Problems Medical Problems: (1) Chest pain Status: Acute Current Medications Current Medications Current Medications Medications (Trade) Dose Ordered Sig/Payton Start Time Stop Time Status Last Admin Dose Admin Acetaminophen/ Hydrocodone Bitart (Lortab 7.5/325) 1 tab PRN Q6HRS PRN 04/21/17 22:30 04/22/17 02:16 1 TAB Aspirin (Ecotrin) 325 mg DAILYWBKFT 04/22/17 08:00 Calcium Acetate (Phoslo) 667 mg TIDWMEALS 04/22/17 08:00 Clopidogrel Bisulfate (Plavix) 75 mg DAILYWBKFT 04/22/17 08:00 Diphenhydramine HCl (Benadryl) 25 mg 1X PRN PRN 04/22/17 09:30 04/23/17 09:29 Escitalopram Oxalate (Lexapro) 10 mg DAILY 04/22/17 09:00 Famotidine (Pepcid) 20 mg HS 04/21/17 23:00 04/21/17 22:56 20 MG Fentanyl Citrate (Fentanyl 2ml Vial) 25 mcg PRN Q4HRS PRN 04/21/17 22:15 04/21/17 22:57 25 MCG Heparin Sodium (Porcine) (Heparin Sodium) 2,400 unit PRN Q6HRS PRN 04/21/17 20:30 04/21/17 21:03 2,400 UNIT Heparin Sodium/ Dextrose 500 ml @ 20 mls/hr CONT PRN 04/21/17 20:30 04/22/17 09:31 DC 04/21/17 21:02 20 MLS/HR Info (PHARMACY MONITORING -- do not chart) 1 each PRN DAILY PRN 04/22/17 09:30 Insulin Detemir (Levemir) 14 units QHS 04/21/17 23:00 04/21/17 23:11 14 UNITS Isosorbide Mononitrate (Imdur) 30 mg DAILY 04/22/17 09:00 Metoprolol Tartrate (Lopressor) 50 mg BID 04/21/17 23:00 04/21/17 22:56 50 MG Nitroglycerin (Nitrostat) 0.4 mg PRN Q5MIN PRN 04/21/17 18:45 04/22/17 18:44 04/21/17 21:55 0.4 MG Nystatin (Nystop) 1 umm BID 04/22/17 10:00 Ondansetron HCl (Zofran) 4 mg PRN Q8HRS PRN 04/21/17 20:45 04/22/17 20:44 Sodium Chloride 1,000 ml @ 1,000 mls/hr Q1H PRN 04/22/17 09:25 04/22/17 15:24 Vitamin B Complex/ Vitamin C (Tanisha-Prashanth) 1 tab DAILY 04/22/17 09:00 Allergies Allergies Allergies Coded Allergies Type Severity Reaction Last Updated Verified Sulfa (Sulfonamide Antibiotics) Allergy Intermediate Nausea/Vomiting, Rash 09/22/16 Yes morphine Allergy Intermediate itching 09/22/16 Yes adhesive Adverse Reaction Intermediate Itching 09/22/16 Yes ROS Review of System CONSTITUTIONAL: No fever or chills EYES: No recent changes SKIN: No rash or itching CARDIOVASCULAR: chest pain,NO syncope, palpitations, or edema RESPIRATORY: No SOB or cough GASTROINTESTINAL: No nausea, vomiting or abdominal pain NEUROLOGICAL: No headaches or weakness ENDOCRINE: No cold or heat intolerance GENITOURINARY: No urgency or frequency of urination MUSCULOSKELETAL: No back pain or joint pain LYMPHATICS: No enlarged lymph nodes PSYCHIATRIC: No anxiety or depression Physical Exam Physical Exam GEN.: No apparent distress. Alert and oriented times3 HEENT: Head is normocephalic, atraumatic NECK: Supple. no JV LUNGS: Clear to auscultation. HEART: RRR, S1, S2 present. Peripheral pulses intact SYSTOLIC MURMUR ABDOMEN: Soft, nontender. Positive bowel sounds. EXTREMITIES: Without any cyanosis. NEUROLOGIC: Normal speech, normal tone PSYCHIATRIC: Normal affect, normal mood. SKIN: No Visible ulcerations Vitals Vitals Vital Signs Date Time Temp Pulse Resp B/P (MAP) Pulse Ox O2 Delivery O2 Flow Rate FiO2 04/22/17 07:58 Nasal Cannula 2.0 04/22/17 07:53 97.8 60 21 134/61 (85) 98 97.8 Labs Labs Laboratory Tests Test 04/21/17 18:50 04/21/17 23:08 04/22/17 03:05 04/22/17 07:59 White Blood Count 4.6 x10^3/uL (4.0-11.0) 4.8 x10^3/uL (4.0-11.0) Red Blood Count 3.84 x10^6/uL (3.50-5.40) 3.28 x10^6/uL (3.50-5.40) Hemoglobin 12.5 g/dL (12.0-15.5) 10.7 g/dL (12.0-15.5) Hematocrit 38.2 % (36.0-47.0) 32.2 % (36.0-47.0) Mean Corpuscular Volume 100 fL (79-100) 98 fL (79-100) Mean Corpuscular Hemoglobin 33 pg (25-35) 33 pg (25-35) Mean Corpuscular Hemoglobin Concent 33 g/dL (31-37) 33 g/dL (31-37) Red Cell Distribution Width 15.2 % (11.5-14.5) 14.9 % (11.5-14.5) Platelet Count 118 x10^3/uL (140-400) 99 x10^3/uL (140-400) Neutrophils (%) (Auto) 52 % (31-73) 51 % (31-73) Lymphocytes (%) (Auto) 23 % (24-48) 24 % (24-48) Monocytes (%) (Auto) 16 % (0-9) 14 % (0-9) Eosinophils (%) (Auto) 9 % (0-3) 10 % (0-3) Basophils (%) (Auto) 1 % (0-3) 2 % (0-3) Neutrophils # (Auto) 2.4 x10^3uL (1.8-7.7) 2.5 x10^3uL (1.8-7.7) Lymphocytes # (Auto) 1.0 x10^3/uL (1.0-4.8) 1.1 x10^3/uL (1.0-4.8) Monocytes # (Auto) 0.7 x10^3/uL (0.0-1.1) 0.7 x10^3/uL (0.0-1.1) Eosinophils # (Auto) 0.4 x10^3/uL (0.0-0.7) 0.5 x10^3/uL (0.0-0.7) Basophils # (Auto) 0.0 x10^3/uL (0.0-0.2) 0.1 x10^3/uL (0.0-0.2) Prothrombin Time 13.1 SEC (11.7-14.0) Prothromb Time International Ratio 1.1 (0.8-1.1) Sodium Level 133 mmol/L (136-145) 134 mmol/L (136-145) Potassium Level 4.2 mmol/L (3.5-5.1) 4.6 mmol/L (3.5-5.1) Chloride Level 93 mmol/L (98-107) 96 mmol/L (98-107) Carbon Dioxide Level 31 mmol/L (21-32) 29 mmol/L (21-32) Anion Gap 9 (6-14) 9 (6-14) Blood Urea Nitrogen 62 mg/dL (7-20) 70 mg/dL (7-20) Creatinine 5.1 mg/dL (0.6-1.0) 5.7 mg/dL (0.6-1.0) Estimated GFR (Cockcroft-Gault) 8.2 7.2 Glucose Level 153 mg/dL (70-99) 118 mg/dL (70-99) Calcium Level 8.6 mg/dL (8.5-10.1) 7.7 mg/dL (8.5-10.1) Magnesium Level 2.3 mg/dL (1.8-2.4) Total Bilirubin 0.5 mg/dL (0.2-1.0) 0.4 mg/dL (0.2-1.0) Direct Bilirubin 0.2 mg/dL (0.0-0.2) Aspartate Amino Transf (AST/SGOT) 32 U/L (15-37) 29 U/L (15-37) Alanine Aminotransferase (ALT/SGPT) 30 U/L (14-59) 26 U/L (14-59) Alkaline Phosphatase 119 U/L (46-116) 98 U/L (46-116) Creatine Kinase 88 U/L (26-192) Creatine Kinase MB (Mass) 1.1 ng/mL (0.0-3.6) Creatine Kinase MB Relative Index 1.3 % (0-4) Troponin I Quantitative 0.093 ng/mL (0.000-0.055) 0.100 ng/mL (0.000-0.055) FP-Zbi-G-Type Natriuretic Peptide 69309 pg/mL (0-449) Total Protein 7.9 g/dL (6.4-8.2) 6.4 g/dL (6.4-8.2) Albumin 3.1 g/dL (3.4-5.0) 2.5 g/dL (3.4-5.0) Lipase 314 U/L (73-393) Thyroid Stimulating Hormone (TSH) 4.584 uIU/mL (0.358-3.74) Glucose (Fingerstick) 153 mg/dL (70-99) 87 mg/dL (70-99) Heparin Anti-Xa Act, Unfractionated 0.48 IU/mL (0.30-0.70) BUN/Creatinine Ratio 12 (6-20) Albumin/Globulin Ratio 0.6 (1.0-1.7) Test 04/22/17 08:45 Heparin Anti-Xa Act, Unfractionated > 1.10 IU/mL (0.30-0.70) Troponin I Quantitative 0.107 ng/mL (0.000-0.055) Laboratory Tests Test 04/21/17 18:50 04/21/17 23:08 04/22/17 03:05 04/22/17 07:59 White Blood Count 4.6 x10^3/uL (4.0-11.0) 4.8 x10^3/uL (4.0-11.0) Red Blood Count 3.84 x10^6/uL (3.50-5.40) 3.28 x10^6/uL (3.50-5.40) Hemoglobin 12.5 g/dL (12.0-15.5) 10.7 g/dL (12.0-15.5) Hematocrit 38.2 % (36.0-47.0) 32.2 % (36.0-47.0) Mean Corpuscular Volume 100 fL (79-100) 98 fL (79-100) Mean Corpuscular Hemoglobin 33 pg (25-35) 33 pg (25-35) Mean Corpuscular Hemoglobin Concent 33 g/dL (31-37) 33 g/dL (31-37) Red Cell Distribution Width 15.2 % (11.5-14.5) 14.9 % (11.5-14.5) Platelet Count 118 x10^3/uL (140-400) 99 x10^3/uL (140-400) Neutrophils (%) (Auto) 52 % (31-73) 51 % (31-73) Lymphocytes (%) (Auto) 23 % (24-48) 24 % (24-48) Monocytes (%) (Auto) 16 % (0-9) 14 % (0-9) Eosinophils (%) (Auto) 9 % (0-3) 10 % (0-3) Basophils (%) (Auto) 1 % (0-3) 2 % (0-3) Neutrophils # (Auto) 2.4 x10^3uL (1.8-7.7) 2.5 x10^3uL (1.8-7.7) Lymphocytes # (Auto) 1.0 x10^3/uL (1.0-4.8) 1.1 x10^3/uL (1.0-4.8) Monocytes # (Auto) 0.7 x10^3/uL (0.0-1.1) 0.7 x10^3/uL (0.0-1.1) Eosinophils # (Auto) 0.4 x10^3/uL (0.0-0.7) 0.5 x10^3/uL (0.0-0.7) Basophils # (Auto) 0.0 x10^3/uL (0.0-0.2) 0.1 x10^3/uL (0.0-0.2) Prothrombin Time 13.1 SEC (11.7-14.0) Prothromb Time International Ratio 1.1 (0.8-1.1) Sodium Level 133 mmol/L (136-145) 134 mmol/L (136-145) Potassium Level 4.2 mmol/L (3.5-5.1) 4.6 mmol/L (3.5-5.1) Chloride Level 93 mmol/L (98-107) 96 mmol/L (98-107) Carbon Dioxide Level 31 mmol/L (21-32) 29 mmol/L (21-32) Anion Gap 9 (6-14) 9 (6-14) Blood Urea Nitrogen 62 mg/dL (7-20) 70 mg/dL (7-20) Creatinine 5.1 mg/dL (0.6-1.0) 5.7 mg/dL (0.6-1.0) Estimated GFR (Cockcroft-Gault) 8.2 7.2 Glucose Level 153 mg/dL (70-99) 118 mg/dL (70-99) Calcium Level 8.6 mg/dL (8.5-10.1) 7.7 mg/dL (8.5-10.1) Magnesium Level 2.3 mg/dL (1.8-2.4) Total Bilirubin 0.5 mg/dL (0.2-1.0) 0.4 mg/dL (0.2-1.0) Direct Bilirubin 0.2 mg/dL (0.0-0.2) Aspartate Amino Transf (AST/SGOT) 32 U/L (15-37) 29 U/L (15-37) Alanine Aminotransferase (ALT/SGPT) 30 U/L (14-59) 26 U/L (14-59) Alkaline Phosphatase 119 U/L (46-116) 98 U/L (46-116) Creatine Kinase 88 U/L (26-192) Creatine Kinase MB (Mass) 1.1 ng/mL (0.0-3.6) Creatine Kinase MB Relative Index 1.3 % (0-4) Troponin I Quantitative 0.093 ng/mL (0.000-0.055) 0.100 ng/mL (0.000-0.055) NV-Kvz-T-Type Natriuretic Peptide 06835 pg/mL (0-449) Total Protein 7.9 g/dL (6.4-8.2) 6.4 g/dL (6.4-8.2) Albumin 3.1 g/dL (3.4-5.0) 2.5 g/dL (3.4-5.0) Lipase 314 U/L (73-393) Thyroid Stimulating Hormone (TSH) 4.584 uIU/mL (0.358-3.74) Glucose (Fingerstick) 153 mg/dL (70-99) 87 mg/dL (70-99) Heparin Anti-Xa Act, Unfractionated 0.48 IU/mL (0.30-0.70) BUN/Creatinine Ratio 12 (6-20) Albumin/Globulin Ratio 0.6 (1.0-1.7) Test 04/22/17 08:45 Heparin Anti-Xa Act, Unfractionated > 1.10 IU/mL (0.30-0.70) Troponin I Quantitative 0.107 ng/mL (0.000-0.055) VTE Prophylaxis Ordered VTE Prophylaxis Devices: Yes VTE Pharmacological Prophylaxi: No BRANDI CARROLL MD Apr 22, 2017 09:52
[2017-04-22] MEDS: NYSTATIN TOPICAL POWDER 15GM BOTTLE. TP SCH ×2 (10:00→20:30)
--- NOTE | 2017-04-22 13:09 | PDOC2 ---
CARDIAC CONSULT DATE OF CONSULT Date of Consult DATE: 04/22/17 TIME: 13:05 REASON FOR CONSULT Reason for Consult: chest pain REFERRING PHYSICIAN Referring Physician: Dr. Alyson Blount SOURCE Source: Chart review HISTORY OF PRESENT ILLNESS HISTORY OF PRESENT ILLNESS 76 year old female well known to this service admitted through the ER with chest pain. Reports awakening from nap about 1430 yesterday with substernal CP radiating into her back as well as both arms with numbness and right neck numbness. Dyspnea but no other symptoms. Reports routinely sleeping in a recliner. EKG V paced; troponin levels 0.1 in the setting of ESRD with Cr of 5.7. Currently pain free and evaluated in dialysis. Reason for Visit: CP PAST MEDICAL HISTORY Past Medical History Cardiovascular: CAD, CHF (ischemic cardiomyopathy with ICD [facility]), HTN, Hyperlipidemia, Other (PVD) Aortic stenosis - severe; pulmonary HTN Pulmonary: Pneumonia, O2 2LPM at home CENTRAL NERVOUS SYSTEM: Other (No pertinent history) GI: GERD, internal hemorrhoids and diverticulosis Heme/Onc: No pertinent hx Hepatobiliary: No pertinent hx Psych: No pertinent hx Musculoskeletal: Osteoarthritis Rheumatologic: No pertinent hx Infectious disease: No pertinent hx ENT: No pertinent hx Renal/: Chronic renal failure (ESRD) Endocrine: Diabetes, Hypothyroidism Dermatology: No pertinent hx PAST SURGICAL HISTORY Past Surgical History Pacemaker (CEID - [facility]), Cholecystectomy, Other (Cardiac cath with stent to LAD); (Closed left distal femur fracture with ORIF 12/21/2014) FAMILY HISTORY Family History: Hypertension SOCIAL HISTORY Social History Smoke: No ALCOHOL: none Drugs: None Lives: with Family CURRENT MEDICATIONS CURRENT MEDICATIONS Current Medications Medications (Trade) Dose Ordered Sig/Payton Route PRN Reason Start Time Stop Time Status Last Admin Dose Admin Nitroglycerin (Nitrostat) 0.4 mg PRN Q5MIN PRN SL CP RATING > 1/10 04/21/17 18:45 04/22/17 18:44 04/21/17 21:55 Fentanyl Citrate (Fentanyl 2ml Vial) 25 mcg 1X ONCE IV 04/21/17 19:15 04/21/17 19:16 DC 04/21/17 19:41 Ondansetron HCl (Zofran) 4 mg 1X ONCE IV 04/21/17 19:15 04/21/17 19:16 DC 04/21/17 19:40 Heparin Sodium/ Dextrose 500 ml @ 20 mls/hr CONT PRN IV SEE I/O RECORD 04/21/17 20:30 04/22/17 09:31 DC 04/21/17 21:02 Heparin Sodium (Porcine) (Heparin Sodium) 2,400 unit PRN Q6HRS PRN IV FOR UFH LEVEL LESS THAN 0.2 04/21/17 20:30 04/22/17 10:45 DC 04/21/17 21:03 Fentanyl Citrate (Fentanyl 2ml Vial) 25 mcg PRN Q4HRS PRN IV SEVERE PAIN 04/21/17 22:15 04/21/17 22:57 Famotidine (Pepcid) 20 mg HS PO 04/21/17 23:00 04/22/17 10:45 DC 04/21/17 22:56 Acetaminophen/ Hydrocodone Bitart (Lortab 7.5/325) 1 tab PRN Q6HRS PRN PO SEVERE PAIN 04/21/17 22:30 04/22/17 02:16 Metoprolol Tartrate (Lopressor) 50 mg BID PO 04/21/17 23:00 04/21/17 22:56 Insulin Detemir (Levemir) 14 units QHS SQ 04/21/17 23:00 04/21/17 23:11 Nystatin (Nystop) 1 umm BID TP 04/22/17 10:00 04/22/17 10:00 ALLERGIES ALLERGIES: Coded Allergies: Sulfa (Sulfonamide Antibiotics) (Verified Allergy, Intermediate, Nausea/ Vomiting, Rash, 09/22/16) morphine (Verified Allergy, Intermediate, itching, 09/22/16) adhesive (Verified Adverse Reaction, Intermediate, Itching, 09/22/16) ROS Review of System 14 point review with pertinent positives in HPI PHYSICAL EXAM General: Alert, Oriented X3, Cooperative HEENT: Atraumatic, PERRLA Lungs: Other (diminished anteriorly; no crackles) Heart: Normal S1, Normal S2, Other (2/6 LSB; left carotid bruit) Abdomen: Normal bowel sounds, Soft, Other (truncal obesity) Extremities: No edema Skin: No rashes, Other (venous stasis changes bilaterally) Neuro: Normal speech Psych/Mental Status: Mental status NL, Mood NL MUSCULOSKELETAL: Osteoarthritic changes both hands VITALS VITALS Vital Signs Date Time Temp Pulse Resp B/P (MAP) Pulse Ox O2 Delivery O2 Flow Rate FiO2 04/22/17 07:58 Nasal Cannula 2.0 04/22/17 07:53 97.8 60 21 134/61 (85) 98 97.8 LABS Lab: Laboratory Tests Test 04/21/17 18:50 04/21/17 23:08 04/22/17 03:05 04/22/17 07:59 White Blood Count 4.6 x10^3/uL (4.0-11.0) 4.8 x10^3/uL (4.0-11.0) Red Blood Count 3.84 x10^6/uL (3.50-5.40) 3.28 x10^6/uL (3.50-5.40) Hemoglobin 12.5 g/dL (12.0-15.5) 10.7 g/dL (12.0-15.5) Hematocrit 38.2 % (36.0-47.0) 32.2 % (36.0-47.0) Mean Corpuscular Volume 100 fL (79-100) 98 fL (79-100) Mean Corpuscular Hemoglobin 33 pg (25-35) 33 pg (25-35) Mean Corpuscular Hemoglobin Concent 33 g/dL (31-37) 33 g/dL (31-37) Red Cell Distribution Width 15.2 % (11.5-14.5) 14.9 % (11.5-14.5) Platelet Count 118 x10^3/uL (140-400) 99 x10^3/uL (140-400) Neutrophils (%) (Auto) 52 % (31-73) 51 % (31-73) Lymphocytes (%) (Auto) 23 % (24-48) 24 % (24-48) Monocytes (%) (Auto) 16 % (0-9) 14 % (0-9) Eosinophils (%) (Auto) 9 % (0-3) 10 % (0-3) Basophils (%) (Auto) 1 % (0-3) 2 % (0-3) Neutrophils # (Auto) 2.4 x10^3uL (1.8-7.7) 2.5 x10^3uL (1.8-7.7) Lymphocytes # (Auto) 1.0 x10^3/uL (1.0-4.8) 1.1 x10^3/uL (1.0-4.8) Monocytes # (Auto) 0.7 x10^3/uL (0.0-1.1) 0.7 x10^3/uL (0.0-1.1) Eosinophils # (Auto) 0.4 x10^3/uL (0.0-0.7) 0.5 x10^3/uL (0.0-0.7) Basophils # (Auto) 0.0 x10^3/uL (0.0-0.2) 0.1 x10^3/uL (0.0-0.2) Prothrombin Time 13.1 SEC (11.7-14.0) Prothromb Time International Ratio 1.1 (0.8-1.1) Sodium Level 133 mmol/L (136-145) 134 mmol/L (136-145) Potassium Level 4.2 mmol/L (3.5-5.1) 4.6 mmol/L (3.5-5.1) Chloride Level 93 mmol/L (98-107) 96 mmol/L (98-107) Carbon Dioxide Level 31 mmol/L (21-32) 29 mmol/L (21-32) Anion Gap 9 (6-14) 9 (6-14) Blood Urea Nitrogen 62 mg/dL (7-20) 70 mg/dL (7-20) Creatinine 5.1 mg/dL (0.6-1.0) 5.7 mg/dL (0.6-1.0) Estimated GFR (Cockcroft-Gault) 8.2 7.2 Glucose Level 153 mg/dL (70-99) 118 mg/dL (70-99) Calcium Level 8.6 mg/dL (8.5-10.1) 7.7 mg/dL (8.5-10.1) Magnesium Level 2.3 mg/dL (1.8-2.4) Total Bilirubin 0.5 mg/dL (0.2-1.0) 0.4 mg/dL (0.2-1.0) Direct Bilirubin 0.2 mg/dL (0.0-0.2) Aspartate Amino Transf (AST/SGOT) 32 U/L (15-37) 29 U/L (15-37) Alanine Aminotransferase (ALT/SGPT) 30 U/L (14-59) 26 U/L (14-59) Alkaline Phosphatase 119 U/L (46-116) 98 U/L (46-116) Creatine Kinase 88 U/L (26-192) Creatine Kinase MB (Mass) 1.1 ng/mL (0.0-3.6) Creatine Kinase MB Relative Index 1.3 % (0-4) Troponin I Quantitative 0.093 ng/mL (0.000-0.055) 0.100 ng/mL (0.000-0.055) YW-Xyu-O-Type Natriuretic Peptide 52301 pg/mL (0-449) Total Protein 7.9 g/dL (6.4-8.2) 6.4 g/dL (6.4-8.2) Albumin 3.1 g/dL (3.4-5.0) 2.5 g/dL (3.4-5.0) Lipase 314 U/L (73-393) Thyroid Stimulating Hormone (TSH) 4.584 uIU/mL (0.358-3.74) Glucose (Fingerstick) 153 mg/dL (70-99) 87 mg/dL (70-99) Heparin Anti-Xa Act, Unfractionated 0.48 IU/mL (0.30-0.70) BUN/Creatinine Ratio 12 (6-20) Albumin/Globulin Ratio 0.6 (1.0-1.7) Test 04/22/17 08:45 04/22/17 09:35 Heparin Anti-Xa Act, Unfractionated > 1.10 IU/mL (0.30-0.70) 0.44 IU/mL (0.30-0.70) Troponin I Quantitative 0.107 ng/mL (0.000-0.055) IMAGES IMAGES CXR: A single view of the chest was obtained and is compared to an exam 08/20/2016. Mild cardiomegaly is noted, similar. There are probable chronic background changes of fibrosis or emphysema. This also appears similar. An acute finding in the chest or significant change compared to the prior study is not seen. Defibrillating and tripolar cardiac pacing device is noted. There is vascular stent in the right hemithorax. Chronic deformity is noted about the left shoulder. IMPRESSION: Chronic changes. No acute finding. No significant change EKG EKG V-paced; underlying sinus ECHOCARDIOGRAM ECHOCARDIOGRAM 07/20/2016: TTE: The left ventricular systolic function is normal. The Ejection Fraction is estiamted at 50-55%. The left atrium is mildly dilated. A pacemaker is seen in the right atrium consistent with history. Severe aortic stenosis with calculated aortic valve area is 0.8 cm2 and mean pressure gradient of 37 mmHg. Mild mitral regurgitation. Moderate tricuspid regurgitation. There is severe pulmonary hypertension. The PA pressure was estimated at 80 mmHg. There is no evidence of significant pericardial effusion. HEART CATH HEART CATH 09/2016: Severe single vessel coronary disease with hemodynamically significant lesions in the proximal LAD stented with a 3.0 x 23 bare metal stent with 0% residual. Patent stents in the mid LAD and first diagonal. Moderate disease in the left circumflex vessel. Mild disease in the right coronary artery. Mild aortic stenosis. Elevated LVEDP at 26 mmHg. ASSESSMENT/PLAN ASSESSMENT/PLAN a1. CP no acute changes in EKG and troponin levels mildly elevated in the setting of ESRD symptoms more consistent with panic/anxiety given bilateral UE numbness ? also GERD due to sleeping in recliner increase Imdur 2. severe with LUCILA of 0.8 cm2 ? pain etiology not a surgical candidate with her multiple co-morbidities 3. CAD medical management with BB, statin, long acting nitrates 4. HTN control with meds 5. ESRD with HD HD today Problems: NILDA HERNANDEZ APRN Apr 22, 2017 13:09
[2017-04-22 15:00] VITALS: BP 123/57
--- NOTE | 2017-04-22 16:57 | HP ---
ADMIT DATE: 04/22/2017 CHIEF COMPLAINT: Chest pain. HISTORY OF PRESENT ILLNESS: A 76-year-old female patient with prior history of coronary artery disease, congestive heart failure, end-stage renal disease, type 2 diabetes mellitus, and other several comorbid conditions, presented to the ER with complaints of chest pain. The patient says she has symptoms for nearly 3 weeks, coming and going. However, pain was intolerable yesterday around afternoon. Symptoms are recurrent, which made her to come to the ER. She described it as sharp and this morning, she described it as an 8/10 and pain is moving sometimes to her back. She denies any nausea, vomiting or sweating. She had a coronary angiogram in 10/2016. Her symptoms improved with nitroglycerin. PAST MEDICAL HISTORY: AFib, type 2 diabetes mellitus, hypertension, PR, renal failure, and kidney failure. PAST SURGICAL HISTORY: Appendectomy, cholecystectomy, hysterectomy, fistula right upper extremity, pacemaker with defibrillator. PERSONAL HISTORY: No smoking, no alcohol, no drug abuse. FAMILY HISTORY: Hypertension ALLERGIES: SULFA, ADHESIVE, AND MORPHINE. REVIEW OF SYSTEMS: Please see my electronic H and P. PHYSICAL EXAMINATION: Please see my electronic H and P. LABORATORY DATA: 1. Sodium 134, potassium 4.6, chloride 96, carbon dioxide 29, anion gap is 9, BUN 70, creatinine 5.7. GFR is 7.2. Magnesium is not detected. Glucose is 153. 2. Troponin is 0.100 and 0.107. 3. ProBNP 13,155. 4. TSH is 4.58. 5. CBC: Hemoglobin is 12.5, MCV is 100 and MCHC 33, platelets is 118. IMAGING STUDIES: Chest x-ray: Chronic changes, no acute findings seen. EKG: Personally, reviewed. EKG is sinus rhythm at a rate around 83, no acute ST-T wave changes seen, T-wave inversions noted in V2 and V3 and V4. ASSESSMENT: 1. Elevated troponins with chest pain, needs to rule out acute coronary syndrome. The patient is at high risk for coronary artery disease. 2. Thrombocytopenia. 3. End-stage renal disease, on hemodialysis. 4. Type 2 diabetes mellitus. 5. History of atrial fibrillation. PLAN: 1. The patient has been placed in the cardiac floor, currently on telemetry. Pain has been controlled with p.r.n. fentanyl 25 mcg. 2. Cardiology has been consulted and initially, the patient was placed on heparin GTT as per ACS protocol due to her symptoms and elevated troponins and Cardiology this morning has been consulted. 3. The patient had coronary artery angiogram in 10/2016, now waiting for Cardiology final recommendations and treatment options. 4. Monitor platelets. 5. Nephrology has been consulted for hemodialysis. 6. Home medications reviewed and reconciled, sliding scale insulin. 7. CBC, BMP. 8. Continue telemetry. 9. Physical therapy and occupational therapy. 10. P.r.n. hydralazine for high blood pressure. 11. P.r.n. nitroglycerin for chest pain. 12. Prognosis is guarded. 13. Plan explained to the patient, agree with the current plan. BRANDI CARROLL MD DR: AMBER/eliezer JOB#: [id number] / [id number] EZEQUIEL
[2017-04-22 19:30] VITALS: BP 137/62
[2017-04-22] MEDS: INSULIN DETEMIR 300 UNITS/3 ML INSULN.PEN. SQ SCH (20:30)
[2017-04-22] MEDS ORDERED: FAMOTIDINE 20 MG TABLET. PO SCH (21:00)
[2017-04-22 23:31] VITALS: BP 134/50
--- NOTE | 2017-04-22 23:42 | PDOC2 ---
Consult: RENAL CONSULT / CANDIDO CC : ESRD. HISTORY OF PRESENT ILLNESS: A 76-year-old female patient with prior history of coronary artery disease, congestive heart failure, end-stage renal disease, type 2 diabetes mellitus, and other several comorbid conditions, presented to the ER with complaints of chest pain. The patient says she has symptoms for nearly 3 weeks, coming and going. However, pain was intolerable yesterday around afternoon. Symptoms are recurrent, which made her to come to the ER. She described it as sharp and this morning, she described it as an 8/10 and pain is moving sometimes to her back. She denies any nausea, vomiting or sweating. She had a coronary angiogram in 10/2016. Her symptoms improved with nitroglycerin. PAST MEDICAL HISTORY: AFib, type 2 diabetes mellitus, hypertension, CT, renal failure, and kidney failure. PAST SURGICAL HISTORY: Appendectomy, cholecystectomy, hysterectomy, fistula right upper extremity, pacemaker with defibrillator. PERSONAL HISTORY: No smoking, no alcohol, no drug abuse. FAMILY HISTORY: Hypertension ____. ALLERGIES: SULFA, ADHESIVE, AND MORPHINE. REVIEW OF SYSTEMS: Please see my electronic H and P. PHYSICAL EXAMINATION: Awake, alert. VSS Afebrile. Neck : Supple. Lungs : Non labored CVS : RRR Abd : Porlty. No masses 1 + edema A/P: ESRD HTN and DM II w CKD CHEST PAIN. Seen on HD Supportive care. Thank you. RHETT REY MD Apr 22, 2017 23:42
[2017-04-23 03:30] VITALS: BP 139/62
[2017-04-23] MEDS: HYDROcodone/APAP 7.5/325MG 1 TAB TABLET PO PRN (05:09)
[2017-04-23 07:00] VITALS: BP 132/49
--- NOTE | 2017-04-23 08:34 | PDOC ---
PROGRESS NOTES Vitals Vitals Vital Signs Date Time Temp Pulse Resp B/P (MAP) Pulse Ox O2 Delivery O2 Flow Rate FiO2 04/23/17 07:00 97.8 64 20 132/49 (76) 98 Nasal Cannula 97.8 04/23/17 05:09 1.0 Physical Exam General: Alert, Oriented X3, Cooperative Heart: Normal S1, Normal S2, Other (2/6 LSB; left carotid bruit) Lungs: Clear Abdomen: Normal bowel sounds, Soft, Other (truncal obesity) Extremities: No edema Skin: No rashes, Other (venous stasis changes bilaterally) Labs LABS Laboratory Tests Test 04/22/17 08:45 04/22/17 09:35 04/22/17 16:02 04/22/17 20:24 Heparin Anti-Xa Act, Unfractionated > 1.10 IU/mL (0.30-0.70) 0.44 IU/mL (0.30-0.70) Troponin I Quantitative 0.107 ng/mL (0.000-0.055) Glucose (Fingerstick) 145 mg/dL (70-99) 216 mg/dL (70-99) Test 04/23/17 07:30 Glucose (Fingerstick) 77 mg/dL (70-99) Assessment and Plan Assessmemt and Plan Problems Medical Problems: (1) Chest pain Status: Acute Problems: Comment Review of Relevant I have reviewed the following items adrián (where applicable) has been applied. Labs Laboratory Tests Test 04/21/17 18:50 04/21/17 23:08 04/22/17 03:05 04/22/17 07:59 White Blood Count 4.6 x10^3/uL (4.0-11.0) 4.8 x10^3/uL (4.0-11.0) Red Blood Count 3.84 x10^6/uL (3.50-5.40) 3.28 x10^6/uL (3.50-5.40) Hemoglobin 12.5 g/dL (12.0-15.5) 10.7 g/dL (12.0-15.5) Hematocrit 38.2 % (36.0-47.0) 32.2 % (36.0-47.0) Mean Corpuscular Volume 100 fL (79-100) 98 fL (79-100) Mean Corpuscular Hemoglobin 33 pg (25-35) 33 pg (25-35) Mean Corpuscular Hemoglobin Concent 33 g/dL (31-37) 33 g/dL (31-37) Red Cell Distribution Width 15.2 % (11.5-14.5) 14.9 % (11.5-14.5) Platelet Count 118 x10^3/uL (140-400) 99 x10^3/uL (140-400) Neutrophils (%) (Auto) 52 % (31-73) 51 % (31-73) Lymphocytes (%) (Auto) 23 % (24-48) 24 % (24-48) Monocytes (%) (Auto) 16 % (0-9) 14 % (0-9) Eosinophils (%) (Auto) 9 % (0-3) 10 % (0-3) Basophils (%) (Auto) 1 % (0-3) 2 % (0-3) Neutrophils # (Auto) 2.4 x10^3uL (1.8-7.7) 2.5 x10^3uL (1.8-7.7) Lymphocytes # (Auto) 1.0 x10^3/uL (1.0-4.8) 1.1 x10^3/uL (1.0-4.8) Monocytes # (Auto) 0.7 x10^3/uL (0.0-1.1) 0.7 x10^3/uL (0.0-1.1) Eosinophils # (Auto) 0.4 x10^3/uL (0.0-0.7) 0.5 x10^3/uL (0.0-0.7) Basophils # (Auto) 0.0 x10^3/uL (0.0-0.2) 0.1 x10^3/uL (0.0-0.2) Prothrombin Time 13.1 SEC (11.7-14.0) Prothromb Time International Ratio 1.1 (0.8-1.1) Sodium Level 133 mmol/L (136-145) 134 mmol/L (136-145) Potassium Level 4.2 mmol/L (3.5-5.1) 4.6 mmol/L (3.5-5.1) Chloride Level 93 mmol/L (98-107) 96 mmol/L (98-107) Carbon Dioxide Level 31 mmol/L (21-32) 29 mmol/L (21-32) Anion Gap 9 (6-14) 9 (6-14) Blood Urea Nitrogen 62 mg/dL (7-20) 70 mg/dL (7-20) Creatinine 5.1 mg/dL (0.6-1.0) 5.7 mg/dL (0.6-1.0) Estimated GFR (Cockcroft-Gault) 8.2 7.2 Glucose Level 153 mg/dL (70-99) 118 mg/dL (70-99) Calcium Level 8.6 mg/dL (8.5-10.1) 7.7 mg/dL (8.5-10.1) Magnesium Level 2.3 mg/dL (1.8-2.4) Total Bilirubin 0.5 mg/dL (0.2-1.0) 0.4 mg/dL (0.2-1.0) Direct Bilirubin 0.2 mg/dL (0.0-0.2) Aspartate Amino Transf (AST/SGOT) 32 U/L (15-37) 29 U/L (15-37) Alanine Aminotransferase (ALT/SGPT) 30 U/L (14-59) 26 U/L (14-59) Alkaline Phosphatase 119 U/L (46-116) 98 U/L (46-116) Creatine Kinase 88 U/L (26-192) Creatine Kinase MB (Mass) 1.1 ng/mL (0.0-3.6) Creatine Kinase MB Relative Index 1.3 % (0-4) Troponin I Quantitative 0.093 ng/mL (0.000-0.055) 0.100 ng/mL (0.000-0.055) SB-Qpb-L-Type Natriuretic Peptide 05584 pg/mL (0-449) Total Protein 7.9 g/dL (6.4-8.2) 6.4 g/dL (6.4-8.2) Albumin 3.1 g/dL (3.4-5.0) 2.5 g/dL (3.4-5.0) Lipase 314 U/L (73-393) Thyroid Stimulating Hormone (TSH) 4.584 uIU/mL (0.358-3.74) Glucose (Fingerstick) 153 mg/dL (70-99) 87 mg/dL (70-99) Heparin Anti-Xa Act, Unfractionated 0.48 IU/mL (0.30-0.70) BUN/Creatinine Ratio 12 (6-20) Albumin/Globulin Ratio 0.6 (1.0-1.7) Hepatitis B Surface Antigen Negative (Negative) Test 04/22/17 08:45 04/22/17 09:35 04/22/17 16:02 04/22/17 20:24 Heparin Anti-Xa Act, Unfractionated > 1.10 IU/mL (0.30-0.70) 0.44 IU/mL (0.30-0.70) Troponin I Quantitative 0.107 ng/mL (0.000-0.055) Glucose (Fingerstick) 145 mg/dL (70-99) 216 mg/dL (70-99) Test 04/23/17 07:30 Glucose (Fingerstick) 77 mg/dL (70-99) Laboratory Tests Test 04/22/17 08:45 04/22/17 09:35 04/22/17 16:02 04/22/17 20:24 Heparin Anti-Xa Act, Unfractionated > 1.10 IU/mL (0.30-0.70) 0.44 IU/mL (0.30-0.70) Troponin I Quantitative 0.107 ng/mL (0.000-0.055) Glucose (Fingerstick) 145 mg/dL (70-99) 216 mg/dL (70-99) Test 04/23/17 07:30 Glucose (Fingerstick) 77 mg/dL (70-99) Medications Current Medications Nitroglycerin (Nitrostat) 0.4 mg PRN Q5MIN PRN SL CP RATING > 1/10 Last administered on 04/21/17 21:55; Start 04/21/17 at 18:45; Stop 04/22/17 at 18:44; Status DC Fentanyl Citrate (Fentanyl 2ml Vial) 25 mcg 1X ONCE IV Last administered on 19:41; Start 04/21/17 at 19:15; Stop 04/21/17 at 19:16; Status DC Ondansetron HCl (Zofran) 4 mg 1X ONCE IV Last administered on 04/21/17 19:40; Start 04/21/17 at 19:15; Stop 04/21/17 at 19:16; Status DC Heparin Sodium/ Dextrose 500 ml @ 20 mls/hr CONT PRN IV SEE I/O RECORD Last administered on 04/21/17 21:02; Start 04/21/17 at 20:30; Stop 04/22/17 at 09:31; Status DC Heparin Sodium (Porcine) (Heparin Sodium) 2,400 unit PRN Q6HRS PRN IV FOR UFH LEVEL LESS THAN 0.2 Last administered on 04/21/17 21:03; Start 04/21/17 at 20:30 ; Stop 04/22/17 at 10:45; Status DC Ondansetron HCl (Zofran) 4 mg PRN Q8HRS PRN IV NAUSEA/VOMITING; Start 04/21/17 at 20:45; Stop 04/22/17 at 20:44; Status DC Fentanyl Citrate (Fentanyl 2ml Vial) 25 mcg PRN Q4HRS PRN IV SEVERE PAIN Last administered on 04/21/17 22:57; Start 04/21/17 at 22:15 Aspirin (Ecotrin) 325 mg DAILYWBKFT PO ; Start 04/22/17 at 08:00 Clopidogrel Bisulfate (Plavix) 75 mg DAILYWBKFT PO ; Start 04/22/17 at 08:00 Escitalopram Oxalate (Lexapro) 10 mg DAILY PO ; Start 04/22/17 at 09:00 Famotidine (Pepcid) 20 mg HS PO Last administered on 04/21/17 22:56; Start 04/21 at 23:00; Stop 04/22/17 at 10:45; Status DC Acetaminophen/ Hydrocodone Bitart (Lortab 7.5/325) 1 tab PRN Q6HRS PRN PO SEVERE PAIN Last administered on 04/23/17 05:09; Start 04/21/17 at 22:30 Isosorbide Mononitrate (Imdur) 30 mg DAILY PO ; Start 04/22/17 at 09:00; Stop 04/22/17 at 15:12; Status DC Metoprolol Tartrate (Lopressor) 50 mg BID PO Last administered on 04/22/17 20: 26; Start 04/21/17 at 23:00 Calcium Acetate (Phoslo) 667 mg TIDWMEALS PO Last administered on 04/22/17 17: 39; Start 04/22/17 at 08:00 Insulin Detemir (Levemir) 14 units QHS SQ Last administered on 04/22/17 20:30; Start 04/21/17 at 23:00 Vitamin B Complex/ Vitamin C (Tanisha-Prashanth) 1 tab DAILY PO ; Start 04/22/17 at 09:00 Nystatin (Nystop) 1 umm BID TP Last administered on 04/22/17 20:30; Start at 10:00 Sodium Chloride 1,000 ml @ 1,000 mls/hr Q1H PRN IV hypotension; Start 04/22/17 at 09:25; Stop 04/22/17 at 15:27; Status DC Diphenhydramine HCl (Benadryl) 25 mg 1X PRN PRN IV ITCHING; Start 04/22/17 at 09 :30; Stop 04/23/17 at 09:29 Diphenhydramine HCl (Benadryl) 25 mg 1X PRN PRN IV ITCHING; Start 04/22/17 at 09 :30; Stop 04/23/17 at 09:29 Info (PHARMACY MONITORING -- do not chart) 1 each PRN DAILY PRN MC SEE COMMENTS ; Start 04/22/17 at 09:30 Famotidine (Pepcid) 20 mg Q48H PO Last administered on 04/22/17 20:25; Start at 21:00 Isosorbide Mononitrate (Imdur) 60 mg DAILY PO ; Start 04/23/17 at 09:00 Active Scripts Active Escitalopram Oxalate 10 Mg Tablet 10 Mg PO DAILY Clopidogrel (Clopidogrel Bisulfate) 75 Mg Tablet 75 Mg PO DAILYWBKFT Restart per Dr. Mayen and cardiology recommendations. Continue for 2 more weeks, then stop. Aspirin Ec (Aspirin) 325 Mg Tablet.dr 325 Mg PO DAILYWBKFT Isosorbide Mononitrate Er (Isosorbide Mononitrate) 30 Mg Tab.er.24h 30 Mg PO DAILY Pepcid (Famotidine) 20 Mg Tablet 20 Mg PO HS Nitrostat (Nitroglycerin) 0.4 Mg Tab.subl 0.4 Mg SL PRN Q5MIN PRN Reported Metoprolol Tartrate 50 Mg Tablet 50 Nephro-Prashanth Rx Tablet (Vit B Cmplx 3/Fa/Vit C/Biotin) 1 Each Tablet 1 Each PO DAILY Hydrocodone-Apap 7.5-325 (Hydrocodone Bit/Acetaminophen) 1 Each Tablet 1 Tab PO PRN Q6HRS PRN Calcium Acetate 667 Mg Tablet 667 Mg PO TIDWMEALS Lantus Solostar (Insulin Glargine,Hum.rec.anlog) 100 Unit/1 Ml Insuln.pen 14 Unit SQ QHS LAST DOSE GIVEN: DATE: 07/09/16 TIME: 9 PM NEXT DOSE DUE: DATE: 07/10/16 -tonight TIME: 9 PM Vitals/I & O Vital Sign - Last 24 Hours 04/22/17 04/22/17 04/22/17 04/22/17 13:10 14:10 15:00 19:30 Temp 98.4 98.1 98.4 98.1 Pulse 72 60 Resp 14 18 22 B/P (MAP) 123/57 (79) 137/62 (87) Pulse Ox 96 100 100 94 O2 Delivery Nasal Cannula Nasal Cannula Nasal Cannula Nasal Cannula O2 Flow Rate 2.0 2.0 2.0 1.0 04/22/17 04/22/17 04/22/17 04/22/17 19:33 20:25 20:26 23:31 Temp 97.9 97.9 Pulse 66 59 Resp 14 19 B/P (MAP) 137/62 134/50 (78) Pulse Ox 95 97 O2 Delivery Nasal Cannula Nasal Cannula Room Air O2 Flow Rate 2.0 04/23/17 04/23/17 04/23/17 03:30 05:09 07:00 Temp 97.7 97.8 97.7 97.8 Pulse 67 64 Resp 20 20 B/P (MAP) 139/62 (87) 132/49 (76) Pulse Ox 98 98 98 O2 Delivery Nasal Cannula Nasal Cannula Nasal Cannula O2 Flow Rate 1.0 1.0 Intake and Output 04/22/17 04/22/17 04/23/17 15:00 23:00 07:00 Intake Total 0 ml 360 ml Output Total 15 ml 50 ml Balance -15 ml 310 ml BRANDI CARROLL MD Apr 23, 2017 08:34
[2017-04-23] MEDS ORDERED: ISOSORBIDE MONONITRATE ER 60 MG TAB.ER.24H. PO SCH (09:00)
[2017-04-23] MEDS ORDERED: FOLIC/VIT B COMP W-C (RENAL) TABLET. ONE (09:00)
[2017-04-23] MEDS: METOPROLOL TART IMMED RELEASE 50 MG TABLET. PO SCH (09:08)
[2017-04-23] MEDS: CLOPIDOGREL BISULFATE 75 MG TABLET PO SCH (09:08)
[2017-04-23] MEDS: ASPIRIN ENTERIC COATED 325 MG TABLET.DR. PO SCH (09:08)
[2017-04-23] MEDS: ESCITALOPRAM 10 MG TABLET. PO SCH (09:08)
[2017-04-23] MEDS: CALCIUM ACETATE 667 MG CAPSULE PO SCH ×2 (09:08→12:47)
[2017-04-23] MEDS: FOLIC/VIT B COMP W-C (RENAL) TABLET. PO SCH (09:08)
[2017-04-23] MEDS: NYSTATIN TOPICAL POWDER 15GM BOTTLE. TP SCH (09:09)
[2017-04-23 11:07] VITALS: BP 115/39
--- NOTE | 2017-04-23 11:11 | PDOC ---
CARDIO Progress Notes Date and Time Date of Service 04/23/17 Time of Evaluation 1105 Subjective Subjective: No Chest Pain, No shortness of breath, No Palpitations, Other (c/o "kidney pain") Comments: sitting up in chair Vitals Vitals Vital Signs Date Time Temp Pulse Resp B/P (MAP) Pulse Ox O2 Delivery O2 Flow Rate FiO2 04/23/17 11:07 97.7 61 20 115/39 (64) 97 Nasal Cannula 97.7 04/23/17 08:00 2.0 Weight Weight [ ] Input and Output Intake and Output Intake and Output 04/23/17 07:00 Intake Total 360 ml Output Total 65 ml Balance 295 ml Intake Oral 360 ml Output Urine Total 65 ml # Voids 1 Laboratory Labs Laboratory Tests Test 04/22/17 16:02 04/22/17 20:24 04/23/17 07:30 Glucose (Fingerstick) 145 mg/dL (70-99) 216 mg/dL (70-99) 77 mg/dL (70-99) Physical Exam HEENT: Neck Supple W Full Motion Chest: Symmetric LUNGS: Clear to Auscultation, Other (diminished bases ) Heart: S1S2, RRR, murmurs (2/6 systolic murmur ) Abdomen: Soft N/T, Other (truncal obesity ) Extremities: No Calf Tenderness, Other (chronic venous stasis changes to bilateral LE ) Neurology: alert, oriented, follow commands Assessment Assessment 1. Chest pain, atypical now resolved. EKG without acute changes. Mild troponin elevation likely type II, demand ischemia in the setting of ESRD. recent cath report noted Imdur increased. Continue secondary prevention Will f/u on an outpatient basis; if symptoms recurrent, could consider further ischemic workup at that time. 2. severe with LUCILA of 0.8 cm2 ? pain etiology not a surgical candidate with her multiple co-morbidities continue medical management 3. CAD medical management with DAPT, BB, statin, long acting nitrates add low-dose EUGENIA 4. HTN control with meds 5. ESRD with HD fluid offloading/management via HD per nephrology LASHAUN PERRIN APRN Apr 23, 2017 11:11
[2017-04-23] MEDS ORDERED: LISINOPRIL 5 MG TABLET. PO SCH (12:00)
[2017-04-23] MEDS ORDERED: ISOS60TA2 PO (12:53)
[2017-04-23] MEDS ORDERED: LISI-338 PO (14:51)
[2017-04-23 15:02] VITALS: BP 168/69
--- NOTE | 2017-04-28 22:46 | DS ---
DATE OF DISCHARGE: 04/23/2017 DISCHARGE DIAGNOSES: 1. Mild elevation of troponin, acute coronary syndrome ruled out due to end-stage renal disease, thrombocytopenia. 2. End-stage renal disease, on hemodialysis. 3. Type 2 diabetes mellitus. 4. History of atrial fibrillation. 5. Aortic stenosis. BRIEF HOSPITAL COURSE: This is a 76-year-old female patient admitted to the hospital for chest pain, which is atypical in nature. She has mild elevation of troponin which is likely due to end-stage renal disease. She was evaluated by Cardiology, Dr. Anderson. The patient had history of aortic stenosis and probably she may need a TAVR for symptomatic relief, this will be arranged as an outpatient. Case d/w cardiology, no further inpatient treatment is recommended , recommend her to follow up with them in clinic. DISCHARGE EXAMINATION: GENERAL: Alert, oriented x 3. HEART: S1, S2 present. CHEST: clear anterior ABDOMEN: Soft, nontender, no organomegaly. EXTREMITIES: No edema. DISCHARGE DISPOSITION: Home. DISCHARGE CONDITION: Stable. MEDICATIONS: Reviewed and reconciled. Please see MRAD. Total time spent for discharge is 31 minutes for patient education, counseling, and coordination of care. BRANDI CARROLL MD DR: AMBER/eliezer JOB#: [id number] / [id number] AYLAD
== END 2017-04-23 15:00 | disposition home or self-care (01) ==
LOC: ER 18:28 → 2 SOUTH 20:30
PROVIDERS: ADMIT Internal Medicine; ATTEND Internal Medicine
DX: R07.89 Other chest pain (principal); I25.10 Atherosclerotic heart disease of native coronary artery without angina pectoris; E03.9 Hypothyroidism, unspecified; E11.22 Type 2 diabetes mellitus with diabetic chronic kidney disease; I50.9 Heart failure, unspecified; I13.2 Hypertensive heart and chronic kidney disease with heart failure and with stage 5 chronic kidney disease, or end stage renal disease; E78.5 Hyperlipidemia, unspecified; N18.6 End stage renal disease; D69.6 Thrombocytopenia, unspecified; I07.1 Rheumatic tricuspid insufficiency; I24.8 Other forms of acute ischemic heart disease; I25.5 Ischemic cardiomyopathy; I34.0 Nonrheumatic mitral (valve) insufficiency; I35.0 Nonrheumatic aortic (valve) stenosis; J44.9 Chronic obstructive pulmonary disease, unspecified; Z82.49 Family history of ischemic heart disease and other diseases of the circulatory system; Z86.73 Personal history of transient ischemic attack (TIA), and cerebral infarction without residual deficits; Z90.49 Acquired absence of other specified parts of digestive tract; Z79.82 Long term (current) use of aspirin; Z95.5 Presence of coronary angioplasty implant and graft; Z99.2 Dependence on renal dialysis
CPT/HCPCS: 36415; 71010; 80048; 80053; 80076; 82553; 82962; 83690; 83735; 83880; 84443; 84484; 85027; 85520; 85610; 87340; 87341; 93005; 96365; 96366; 96372; 96375; 96376; 99285; G0378; J1815; J2405; J3010; G0379

== ENCOUNTER 2017-05-11 15:13 | Observation (INO) | payer MEDICARE, OTHER ==
[~2017-05-11] VITALS: Ht 167.6 cm; Wt 98.1 kg
[~2017-05-11 15:13] MED LIST changes: +ISOS60TA2 PO; +LISI-338 PO; +METO50TA2 PO
[2017-05-11] MEDS ORDERED: ASPIRIN 325 MG TABLET PO ONE (15:30)
[2017-05-11] MEDS ORDERED: fentaNYL PF VIAL 100 MCG/2 ML VIAL IV PRN ×2 (15:30→17:15)
--- NOTE | 2017-05-11 15:43 | PHYS DOC ---
Past Medical History Past Medical History: A-Fib, Diabetes-Type II, Hypertension, LA, Renal Failure Additional Past Medical Histor: kidney failure Past Surgical History: Appendectomy, Cholecystectomy, Hysterectomy, Other Additional Past Surgical Histo: FISTULA in right upper extremity, pins left femur, PACEMAKER WITH DEFIB Alcohol Use: None Drug Use: None Adult General Chief Complaint Chief Complaint: CHEST PAIN-CARDIAC NATURE HPI HPI Patient is a 76 year old female who presents with chest pain. She reports sudden onset of sharp substernal chest pain while undergoing dialysis. She states pain radiated to her back. She reports shortness of breath & nausea, denies diaphoresis. Reports bilateral lower extremity edema. She denies fevers /chills, cough. She has history of previous similar pain associated with LA and stent placement. She reports compliance with dialysis although today she had to leave 30 minutes before completing her session. She has history of diabetes, atrial fibrillation, pacemaker AICD placement. Her primary care physician is Dr. Santo and her peer specialist is Dr. Anderson. Review of Systems Review of Systems Constitutional: Denies fever or chills Eyes: Denies change in visual acuity HENT: Denies nasal congestion or sore throat Respiratory: Denies cough, reports shortness of breath Cardiovascular: Reports chest pain and edema GI: Reports nausea. Denies abdominal pain, vomiting, bloody stools or diarrhea : Denies dysuria or hematuria Musculoskeletal: Denies back pain or joint pain Integument: Denies rash or skin lesions Neurologic: Denies headache, focal weakness or sensory changes Current Medications Current Medications Current Medications Medications (Trade) Dose Ordered Sig/Payton Start Time Stop Time Status Last Admin Dose Admin Aspirin (Opal Aspirin) 325 mg 1X ONCE 05/11/17 15:30 05/11/17 15:31 DC 05/11/17 15:30 325 MG Fentanyl Citrate (Fentanyl 2ml Vial) 50 mcg PRN Q15MIN PRN 05/11/17 15:30 05/12/17 15:29 05/11/17 16:34 50 MCG Allergies Allergies Allergies Coded Allergies Type Severity Reaction Last Updated Verified Sulfa (Sulfonamide Antibiotics) Allergy Intermediate Nausea/Vomiting, Rash 09/22/16 Yes morphine Allergy Intermediate itching 09/22/16 Yes adhesive Adverse Reaction Intermediate Itching 09/22/16 Yes Physical Exam Physical Exam Constitutional: Obese, no acute distress, non-toxic appearance. HENT: Normocephalic, atraumatic, bilateral external ears normal, oropharynx moist, nose normal. Eyes: PERRLA, EOMI, conjunctiva normal, no discharge. Neck: supple, no stridor. Cardiovascular: RRR, systolic murmur, lower extremity edema as below. Lungs & Thorax: Diminished, LCTAB, no wheezing, no respiratory distress. No reproducible tenderness with palpation of her anterior chest wall. Abdomen: soft, nontender, nondistended. Skin: Warm, dry, no erythema, no rash. Back: No tenderness. Extremities: No tenderness, 3+ pitting edema to bilateral lower extremities. Neurologic: Alert and oriented X 3, no focal deficits noted. Psychologic: Affect normal, judgement normal, mood normal. Current Patient Data Vital Signs Vital Signs Date Time Temp Pulse Resp B/P (MAP) Pulse Ox O2 Delivery O2 Flow Rate FiO2 05/11/17 15:42 80 19 125/55 (78) Nasal Cannula 1.0 05/11/17 15:13 98.1 98 98.1 Lab Values Laboratory Tests Test 05/11/17 15:20 White Blood Count 6.3 x10^3/uL (4.0-11.0) Red Blood Count 3.46 x10^6/uL (3.50-5.40) L Hemoglobin 11.4 g/dL (12.0-15.5) L Hematocrit 34.3 % (36.0-47.0) L Mean Corpuscular Volume 99 fL (79-100) Mean Corpuscular Hemoglobin 33 pg (25-35) Mean Corpuscular Hemoglobin Concent 33 g/dL (31-37) Red Cell Distribution Width 14.6 % (11.5-14.5) H Platelet Count 115 x10^3/uL (140-400) L Neutrophils (%) (Auto) 67 % (31-73) Lymphocytes (%) (Auto) 13 % (24-48) L Monocytes (%) (Auto) 14 % (0-9) H Eosinophils (%) (Auto) 5 % (0-3) H Basophils (%) (Auto) 1 % (0-3) Neutrophils # (Auto) 4.2 x10^3uL (1.8-7.7) Lymphocytes # (Auto) 0.8 x10^3/uL (1.0-4.8) L Monocytes # (Auto) 0.9 x10^3/uL (0.0-1.1) Eosinophils # (Auto) 0.3 x10^3/uL (0.0-0.7) Basophils # (Auto) 0.0 x10^3/uL (0.0-0.2) Prothrombin Time 12.9 SEC (11.7-14.0) Prothrombin Time INR 1.0 (0.8-1.1) PTT 37 SEC (24-38) Sodium Level 131 mmol/L (136-145) L Potassium Level 3.4 mmol/L (3.5-5.1) L Chloride Level 93 mmol/L (98-107) L Carbon Dioxide Level 28 mmol/L (21-32) Anion Gap 10 (6-14) Blood Urea Nitrogen 32 mg/dL (7-20) H Creatinine 3.3 mg/dL (0.6-1.0) H Estimated GFR (Cockcroft-Gault) 13.6 BUN/Creatinine Ratio 10 (6-20) Glucose Level 265 mg/dL (70-99) H Calcium Level 8.0 mg/dL (8.5-10.1) L Magnesium Level 1.8 mg/dL (1.8-2.4) Total Bilirubin 0.5 mg/dL (0.2-1.0) Aspartate Amino Transferase (AST) 40 U/L (15-37) H Alanine Aminotransferase (ALT) 39 U/L (14-59) Alkaline Phosphatase 144 U/L (46-116) H Troponin I Quantitative 0.047 ng/mL (0.000-0.055) FF-Zmp-O-Type Natriuretic Peptide 06614 pg/mL (0-449) H Total Protein 7.7 g/dL (6.4-8.2) Albumin 2.9 g/dL (3.4-5.0) L Albumin/Globulin Ratio 0.6 (1.0-1.7) L Laboratory Tests 05/11/17 15:20 Laboratory Tests 05/11/17 15:20 EKG EKG Interpreted by me: Normal sinus rhythm rate 88, paced [] Radiology/Procedures Radiology/Procedures PROCEDURE: CHEST AP ONLY Indication: Mid chest pain. Time of exam 1548 hours. Correlation is made with prior exam from 04/21/2017. The heart is enlarged but stable. The cardiac defibrillator remains in place. No infiltrate or failure is detected. No effusion or pneumothorax is seen. Impression: No acute cardiopulmonary process is detected. DICTATED and SIGNED BY: BERONICA SIDDIQUI MD DATE: 05/11/17 1552[] Course & Med Decision Making Course & Med Decision Making Pertinent Labs and Imaging studies reviewed. (See chart for details) The patient presents with chest pain. She received aspirin and nitroglycerin by EMS. Obtained labs, EKG, chest x-ray. Recommended admission to the hospital for further evaluation and treatment. She agrees with plan of care. Discussed with Dr. Schultz who agrees to admit to inpatient status, consults to Dr. Anderson of cardiology & Dr. Bains of nephrology. The patient is admitted in stable condition. [] Dragon Disclaimer Dragon Disclaimer This electronic medical record was generated, in whole or in part, using a voice recognition dictation system. Departure Departure Impression: Primary Impression: Chest pain Additional Impressions: CAD (coronary artery disease) ESRD (end stage renal disease) Elevated brain natriuretic peptide (BNP) level Disposition: ADMITTED INPATIENT Condition: STABLE Referrals: ERIC SANTO MD (PCP) Problem Qualifiers DNAIEL SPRINGER MD May 11, 2017 15:43
[2017-05-11 15:51] LABS: BASO % 1 % (0-3); EOS % 5 % (0-3); HEMATOCRIT 34.3 % (36.0-47.0); HEMOGLOBIN 11.4 g/dL (12.0-15.5); LYMPH # 0.8 x10^3/uL (1.0-4.8); LYMPH % 13 % (24-48); MEAN CORPUSCULAR HEMOGLOBIN 33 pg (25-35); MEAN CORPUSCULAR HGB CONC 33 g/dL (31-37); MEAN CORPUSCULAR VOLUME 99 fL (79-100); MONO % 14 % (0-9); NEUT % 67 % (31-73); PLATELET COUNT 115 x10^3/uL (140-400); RED BLOOD COUNT 3.46 x10^6/uL (3.50-5.40); RED CELL DISTRIBUTION WIDTH 14.6 % (11.5-14.5); WHITE BLOOD COUNT 6.3 x10^3/uL (4.0-11.0)
--- NOTE | 2017-05-11 15:55 | RAD ---
Indication: Mid chest pain. Time of exam 1548 hours. Correlation is made with prior exam from 04/21/2017. The heart is enlarged but stable. The cardiac defibrillator remains in place. No infiltrate or failure is detected. No effusion or pneumothorax is seen. Impression: No acute cardiopulmonary process is detected.
[2017-05-11 15:59] LABS: PROTHROMBIN TIME PATIENT 12.9 SEC (11.7-14.0)
[2017-05-11 16:05] LABS: CREATININE 3.3 mg/dL (0.6-1.0); GFR 13.6; POTASSIUM 3.4 mmol/L (3.5-5.1)
[2017-05-11 16:11] LABS: ALBUMIN 2.9 g/dL (3.4-5.0); ALBUMIN/GLOBULIN RATIO 0.6 (1.0-1.7); MAGNESIUM 1.8 mg/dL (1.8-2.4); TOTAL BILIRUBIN 0.5 mg/dL (0.2-1.0); TOTAL PROTEIN 7.7 g/dL (6.4-8.2)
--- NOTE | 2017-05-11 16:16 | EKG ---
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
[2017-05-11] MEDS ORDERED: NITROGLYCERIN SUBLINGUAL 0.4 MG BOTTLE OF 25. SL PRN ×2 (17:15→20:45)
[2017-05-11] MEDS ORDERED: ONDANSETRON PF 4 MG/2 ML VIAL. IV PRN (17:15)
[2017-05-11] MEDS ORDERED: ACETAMINOPHEN 325 MG TABLET. PO PRN (17:15)
[2017-05-11 19:33] VITALS: BP 134/63
[2017-05-11 19:34] VITALS: BP 134/63
[2017-05-11] MEDS: FAMOTIDINE 20 MG TABLET. PO SCH (21:12)
[2017-05-11] MEDS: predniSONE 20 MG TABLET PO SCH (21:12)
--- NOTE | 2017-05-11 22:30 | PDOC1 ---
History and Physical Date of Admission Date of Admission DATE: 05/11/17 TIME: 20:30 Identification/Chief Complaint Chief Complaint Chest wall pain Problems: Source Source: Patient History of Present Illness History of Present Illness Mrs Berry is a76 y/o woman with significant heart history, including CAD, CHF, Afib, as well as ESRD on dialysis, who presented with sternal chest wall pain that started just prior to her dialysis session today, worsening during the session and prompting her to stop dialysis about 30 minutes early and come the to the ER. Pain is worse with deep breathing and direct pressure. Pain radiates to her back as well. She affirms some nausea, no vomiting. denies diaphoresis, fever, chills or cough. She states this reminds her of a previous episode when she was diagnosed with AL. Of note, she is frequently admitted to the hospital, including most recently on for chest pain. Past Medical History Cardiovascular: CAD, CHF, HTN, AL, Hyperlipidemia, Aortic stenosis Pulmonary: COPD CENTRAL NERVOUS SYSTEM: CVA, Periperal neuropathy GI: Constipation, GERD Heme/Onc: Anemia NOS Hepatobiliary: No pertinent hx Psych: Depression Musculoskeletal: Osteoarthritis Rheumatologic: No pertinent hx Infectious disease: No pertinent hx Renal/: Chronic renal failure Endocrine: Diabetes, Hypothyroidism, Hyperparathyroidism Past Surgical History Past Surgical History: Pacemaker, Appendectomy, Cholecystectomy, Cataract Removal, Hernia Repair, Hysterectomy, Other Family History Family History: Hypertension Social History Smoke: No ALCOHOL: none Drugs: None Current Problem List Problem List Problems Medical Problems: (1) CAD (coronary artery disease) Status: Acute (2) Chest pain Status: Acute (3) Elevated brain natriuretic peptide (BNP) level Status: Acute (4) ESRD (end stage renal disease) Status: Acute Problems: Current Medications Current Medications Current Medications Aspirin (Opal Aspirin) 325 mg 1X ONCE PO Last administered on 05/11/17 15:30 ; Start 05/11/17 at 15:30; Stop 05/11/17 at 15:31; Status DC Fentanyl Citrate (Fentanyl 2ml Vial) 50 mcg PRN Q15MIN PRN IV PAIN GREATER THAN 3/10 Last administered on 05/11/17 16:34; Start 05/11/17 at 15:30; Stop at 15:29 Ondansetron HCl (Zofran) 4 mg PRN Q8HRS PRN IV NAUSEA/VOMITING; Start 05/11/17 at 17:15; Stop 05/12/17 at 17:14 Fentanyl Citrate (Fentanyl 2ml Vial) 50 mcg PRN Q2HR PRN IV PAIN; Start at 17:15; Stop 05/12/17 at 17:14 Acetaminophen (Tylenol) 650 mg PRN Q4HRS PRN PO FEVER; Start 05/11/17 at 17:15 ; Stop 05/12/17 at 17:14 Nitroglycerin (Nitrostat) 0.4 mg PRN Q5MIN PRN SL CHEST PAIN; Start 05/11/17 at 17:15; Stop 05/12/17 at 17:14 Prednisone (Prednisone) 20 mg DAILY PO Last administered on 05/11/17 21:12; Start 05/11/17 at 21:00 Aspirin (Ecotrin) 325 mg DAILYWBKFT PO ; Start 05/12/17 at 08:00 Clopidogrel Bisulfate (Plavix) 75 mg DAILYWBKFT PO ; Start 05/12/17 at 08:00 Famotidine (Pepcid) 20 mg HS PO Last administered on 05/11/17 21:12; Start at 21:00 Acetaminophen/ Hydrocodone Bitart (Lortab 7.5/325) 1 tab PRN Q6HRS PRN PO PAIN ; Start 05/11/17 at 20:45 Lisinopril (Prinivil) 5 mg DAILY PO ; Start 05/12/17 at 09:00 Metoprolol Tartrate (Lopressor) 50 mg DAILY PO ; Start 05/12/17 at 09:00 Nitroglycerin (Nitrostat) 0.4 mg PRN Q5MIN PRN SL CHEST PAIN; Start 05/11/17 at 20:45 Calcium Acetate (Phoslo) 1,334 mg TIDWMEALS PO ; Start 05/12/17 at 08:00 Escitalopram Oxalate (Lexapro) 10 mg DAILY PO ; Start 05/12/17 at 09:00 Insulin Detemir (Levemir) 14 units QHS SQ ; Start 05/12/17 at 21:00 Isosorbide Mononitrate (Imdur) 60 mg DAILY PO ; Start 05/12/17 at 09:00 Vitamin B Complex/ Vitamin C (Tanisha-Prashanth) 1 tab DAILY PO ; Start 05/12/17 at 09: 00 Active Scripts Active Isosorbide Mononitrate Er (Isosorbide Mononitrate) 60 Mg Tab.er.24h 60 Mg PO DAILY 30 Days Escitalopram Oxalate 10 Mg Tablet 10 Mg PO DAILY Clopidogrel (Clopidogrel Bisulfate) 75 Mg Tablet 75 Mg PO DAILYWBKFT Restart per Dr. Mayen and cardiology recommendations. Continue for 2 more weeks, then stop. Aspirin Ec (Aspirin) 325 Mg Tablet.dr 325 Mg PO DAILYWBKFT Pepcid (Famotidine) 20 Mg Tablet 20 Mg PO HS Nitrostat (Nitroglycerin) 0.4 Mg Tab.subl 0.4 Mg SL PRN Q5MIN PRN Reported Lisinopril 5 Mg Tablet 1 Tab PO DAILY Metoprolol Tartrate 50 Mg Tablet 50 Nephro-Prashanth Rx Tablet (Vit B Cmplx 3/Fa/Vit C/Biotin) 1 Each Tablet 1 Each PO DAILY Hydrocodone-Apap 7.5-325 (Hydrocodone Bit/Acetaminophen) 1 Each Tablet 1 Tab PO PRN Q6HRS PRN Calcium Acetate 667 Mg Tablet 667 Mg PO TIDWMEALS Lantus Solostar (Insulin Glargine,Hum.rec.anlog) 100 Unit/1 Ml Insuln.pen 14 Unit SQ QHS LAST DOSE GIVEN: DATE: 07/09/16 TIME: 9 PM NEXT DOSE DUE: DATE: 07/10/16 -tonight TIME: 9 PM Allergies Allergies: Coded Allergies: Sulfa (Sulfonamide Antibiotics) (Verified Allergy, Intermediate, Nausea/ Vomiting, Rash, 09/22/16) morphine (Verified Allergy, Intermediate, itching, 09/22/16) adhesive (Verified Adverse Reaction, Intermediate, Itching, 09/22/16) ROS Review of System positive as per HPI. has chronic leg edema with some pain. denies any other symptoms in rest of organs system review. Physical Exam General: Alert, Oriented X3, Cooperative, No acute distress HEENT: Atraumatic, EOMI Lungs: Clear to auscultation Heart: RRR, murmurs Abdomen: Normal bowel sounds, Soft, No tenderness Extremities: Other (1+ LE edema) Vitals Vitals Vital Signs Date Time Temp Pulse Resp B/P (MAP) Pulse Ox O2 Delivery O2 Flow Rate FiO2 05/11/17 21:49 Nasal Cannula 1.0 05/11/17 19:34 98.3 77 20 134/63 (86) 95 98.3 Labs Labs Laboratory Tests Test 05/11/17 15:20 05/11/17 20:59 White Blood Count 6.3 x10^3/uL (4.0-11.0) Red Blood Count 3.46 x10^6/uL (3.50-5.40) Hemoglobin 11.4 g/dL (12.0-15.5) Hematocrit 34.3 % (36.0-47.0) Mean Corpuscular Volume 99 fL (79-100) Mean Corpuscular Hemoglobin 33 pg (25-35) Mean Corpuscular Hemoglobin Concent 33 g/dL (31-37) Red Cell Distribution Width 14.6 % (11.5-14.5) Platelet Count 115 x10^3/uL (140-400) Neutrophils (%) (Auto) 67 % (31-73) Lymphocytes (%) (Auto) 13 % (24-48) Monocytes (%) (Auto) 14 % (0-9) Eosinophils (%) (Auto) 5 % (0-3) Basophils (%) (Auto) 1 % (0-3) Neutrophils # (Auto) 4.2 x10^3uL (1.8-7.7) Lymphocytes # (Auto) 0.8 x10^3/uL (1.0-4.8) Monocytes # (Auto) 0.9 x10^3/uL (0.0-1.1) Eosinophils # (Auto) 0.3 x10^3/uL (0.0-0.7) Basophils # (Auto) 0.0 x10^3/uL (0.0-0.2) Prothrombin Time 12.9 SEC (11.7-14.0) Prothromb Time International Ratio 1.0 (0.8-1.1) Activated Partial Thromboplast Time 37 SEC (24-38) Sodium Level 131 mmol/L (136-145) Potassium Level 3.4 mmol/L (3.5-5.1) Chloride Level 93 mmol/L (98-107) Carbon Dioxide Level 28 mmol/L (21-32) Anion Gap 10 (6-14) Blood Urea Nitrogen 32 mg/dL (7-20) Creatinine 3.3 mg/dL (0.6-1.0) Estimated GFR (Cockcroft-Gault) 13.6 BUN/Creatinine Ratio 10 (6-20) Glucose Level 265 mg/dL (70-99) Calcium Level 8.0 mg/dL (8.5-10.1) Magnesium Level 1.8 mg/dL (1.8-2.4) Total Bilirubin 0.5 mg/dL (0.2-1.0) Aspartate Amino Transf (AST/SGOT) 40 U/L (15-37) Alanine Aminotransferase (ALT/SGPT) 39 U/L (14-59) Alkaline Phosphatase 144 U/L (46-116) Troponin I Quantitative 0.047 ng/mL (0.000-0.055) IC-Kwd-O-Type Natriuretic Peptide 64463 pg/mL (0-449) Total Protein 7.7 g/dL (6.4-8.2) Albumin 2.9 g/dL (3.4-5.0) Albumin/Globulin Ratio 0.6 (1.0-1.7) Glucose (Fingerstick) 269 mg/dL (70-99) Laboratory Tests Test 05/11/17 15:20 05/11/17 20:59 White Blood Count 6.3 x10^3/uL (4.0-11.0) Red Blood Count 3.46 x10^6/uL (3.50-5.40) Hemoglobin 11.4 g/dL (12.0-15.5) Hematocrit 34.3 % (36.0-47.0) Mean Corpuscular Volume 99 fL (79-100) Mean Corpuscular Hemoglobin 33 pg (25-35) Mean Corpuscular Hemoglobin Concent 33 g/dL (31-37) Red Cell Distribution Width 14.6 % (11.5-14.5) Platelet Count 115 x10^3/uL (140-400) Neutrophils (%) (Auto) 67 % (31-73) Lymphocytes (%) (Auto) 13 % (24-48) Monocytes (%) (Auto) 14 % (0-9) Eosinophils (%) (Auto) 5 % (0-3) Basophils (%) (Auto) 1 % (0-3) Neutrophils # (Auto) 4.2 x10^3uL (1.8-7.7) Lymphocytes # (Auto) 0.8 x10^3/uL (1.0-4.8) Monocytes # (Auto) 0.9 x10^3/uL (0.0-1.1) Eosinophils # (Auto) 0.3 x10^3/uL (0.0-0.7) Basophils # (Auto) 0.0 x10^3/uL (0.0-0.2) Prothrombin Time 12.9 SEC (11.7-14.0) Prothromb Time International Ratio 1.0 (0.8-1.1) Activated Partial Thromboplast Time 37 SEC (24-38) Sodium Level 131 mmol/L (136-145) Potassium Level 3.4 mmol/L (3.5-5.1) Chloride Level 93 mmol/L (98-107) Carbon Dioxide Level 28 mmol/L (21-32) Anion Gap 10 (6-14) Blood Urea Nitrogen 32 mg/dL (7-20) Creatinine 3.3 mg/dL (0.6-1.0) Estimated GFR (Cockcroft-Gault) 13.6 BUN/Creatinine Ratio 10 (6-20) Glucose Level 265 mg/dL (70-99) Calcium Level 8.0 mg/dL (8.5-10.1) Magnesium Level 1.8 mg/dL (1.8-2.4) Total Bilirubin 0.5 mg/dL (0.2-1.0) Aspartate Amino Transf (AST/SGOT) 40 U/L (15-37) Alanine Aminotransferase (ALT/SGPT) 39 U/L (14-59) Alkaline Phosphatase 144 U/L (46-116) Troponin I Quantitative 0.047 ng/mL (0.000-0.055) HG-Tpd-Q-Type Natriuretic Peptide 79702 pg/mL (0-449) Total Protein 7.7 g/dL (6.4-8.2) Albumin 2.9 g/dL (3.4-5.0) Albumin/Globulin Ratio 0.6 (1.0-1.7) Glucose (Fingerstick) 269 mg/dL (70-99) VTE Prophylaxis Ordered VTE Prophylaxis Devices: Yes VTE Pharmacological Prophylaxi: No Assessment/Plan Assessment/Plan Mrs Berry is a 76 y/o woman with significant heart disease who presented with acute chest wall pain. Because of her history, she has been admitted for rule out ACS. For her suspected costochondritis, she will receive a steroid dose, as NSAIDs are relatively contraindicated with her renal disease. will continue her home medications. UNA BARAJAS MD May 11, 2017 22:30
[2017-05-11 22:34] VITALS: BP 164/59
[2017-05-11] MEDS: HYDROcodone/APAP 7.5/325MG 1 TAB TABLET PO PRN (22:52)
[2017-05-12 02:31] VITALS: BP 128/48
[2017-05-12] MEDS: HYDROcodone/APAP 7.5/325MG 1 TAB TABLET PO PRN ×2 (05:38→17:48)
--- NOTE | 2017-05-12 05:44 | EKG ---
[facility] [address] [place] [address] Test Date: 2017-05-12 Test Time: 04:36:11 Pat Name: MK BIRD Department: Room: 201 1 Gender: F Assembly Associate: RONNELL : 1940 Requested By: JORDON HALL Order Number: [id number] Reading MD: Vidhi Wilkinson Measurements Intervals [place] Rate: 81 P: 56 LA: 108 QRS: 131 QRSD: 194 T: -22 QT: 450 QTc: 529 Interpretive Statements SINUS RHYTHM RIGHT BUNDLE BRANCH BLOCK Electronically Signed On 05-14-2017 14:02:23 CDT by Vidhi Wilkinson
[2017-05-12 05:45] VITALS: BP 176/60
[2017-05-12 06:52] LABS: BASO % 0 % (0-3); EOS % 0 % (0-3); HEMATOCRIT 32.8 % (36.0-47.0); HEMOGLOBIN 11.2 g/dL (12.0-15.5); LYMPH # 0.7 x10^3/uL (1.0-4.8); LYMPH % 15 % (24-48); MEAN CORPUSCULAR HEMOGLOBIN 33 pg (25-35); MEAN CORPUSCULAR HGB CONC 34 g/dL (31-37); MEAN CORPUSCULAR VOLUME 96 fL (79-100); MONO % 6 % (0-9); NEUT % 79 % (31-73); PLATELET COUNT 93 x10^3/uL (140-400); RED CELL DISTRIBUTION WIDTH 14.6 % (11.5-14.5); WHITE BLOOD COUNT 4.6 x10^3/uL (4.0-11.0)
[2017-05-12 07:00] VITALS: BP 140/53
[2017-05-12 07:14] LABS: CALCIUM 7.9 mg/dL (8.5-10.1); CREATININE 4.2 mg/dL (0.6-1.0); GFR 10.3; POTASSIUM 4.1 mmol/L (3.5-5.1)
[2017-05-12] MEDS: CALCIUM ACETATE 667 MG CAPSULE PO SCH ×3 (08:00→17:48)
[2017-05-12] MEDS ORDERED: ASPIRIN ENTERIC COATED 325 MG TABLET.DR. PO SCH (08:00)
[2017-05-12] MEDS ORDERED: METOPROLOL TART IMMED RELEASE 50 MG TABLET. PO SCH (09:00)
--- NOTE | 2017-05-12 10:38 | PDOC2 ---
CARDIAC CONSULT DATE OF CONSULT Date of Consult DATE: 05/12/17 TIME: 0945 REASON FOR CONSULT Reason for Consult: Chest pain REFERRING PHYSICIAN Referring Physician: Vanita SOURCE Source: Chart review, Patient HISTORY OF PRESENT ILLNESS HISTORY OF PRESENT ILLNESS This is a pleasant 76 yo female admitted for complains of chest pain. Reports of midchest pressure starting during dialysis when there was about 30 minutes left in her treatment. There was associated left arm numbness, mild diaphoresis mainly to her forehead and slight nausea. No SOA. Reports no palpitations and her chest pressure last about 2 hours waxing and waning. She went home initially but her CP remains promting her to call for help. Presently she denies any discomfort. She is significant for CAD with recent PCI/stent to LAD on 09/2016. She has been doing well prior to dialysis yesterday. Verbalized compliance with her medications including her DAPT PAST MEDICAL HISTORY Past Medical History Cardiovascular: CAD, CHF (ischemic cardiomyopathy with ICD [facility]), HTN, Hyperlipidemia, Other (PVD) Aortic stenosis, right groin pseudoaneurysm with thrombin inj 09/2016 Pulmonary: Pneumonia, O2 2LPM at home CENTRAL NERVOUS SYSTEM: Other (No pertinent history) GI: GERD, internal hemorrhoids and diverticulosis Heme/Onc: No pertinent hx Hepatobiliary: No pertinent hx Psych: No pertinent hx Musculoskeletal: Osteoarthritis Rheumatologic: No pertinent hx Infectious disease: No pertinent hx ENT: No pertinent hx Renal/: Chronic renal failure (ESRD) Endocrine: Diabetes, Hypothyroidism Dermatology: No pertinent hx PAST SURGICAL HISTORY Past Surgical History Pacemaker (AICD), Cholecystectomy, Other (Cardiac cath with stent to LAD); ( Closed left distal femur fracture with ORIF 12/21/2014) FAMILY HISTORY Family History: Hypertension SOCIAL HISTORY Smoke: No ALCOHOL: none Drugs: None Lives: with Family () CURRENT MEDICATIONS CURRENT MEDICATIONS Current Medications Medications (Trade) Dose Ordered Sig/Payton Route PRN Reason Start Time Stop Time Status Last Admin Dose Admin Aspirin (Opal Aspirin) 325 mg 1X ONCE PO 05/11/17 15:30 05/11/17 15:31 DC 05/11/17 15:30 Fentanyl Citrate (Fentanyl 2ml Vial) 50 mcg PRN Q15MIN PRN IV PAIN GREATER THAN 3/10 05/11/17 15:30 05/12/17 15:29 05/11/17 16:34 Prednisone (Prednisone) 20 mg DAILY PO 05/11/17 21:00 05/11/17 21:12 Famotidine (Pepcid) 20 mg HS PO 05/11/17 21:00 05/11/17 21:12 Acetaminophen/ Hydrocodone Bitart (Lortab 7.5/325) 1 tab PRN Q6HRS PRN PO PAIN 05/11/17 20:45 05/12/17 05:38 ALLERGIES ALLERGIES: Coded Allergies: Sulfa (Sulfonamide Antibiotics) (Verified Allergy, Intermediate, Nausea/ Vomiting, Rash, 09/22/16) morphine (Verified Allergy, Intermediate, itching, 09/22/16) adhesive (Verified Adverse Reaction, Intermediate, Itching, 09/22/16) ROS Review of System 14 point ROS evaluated with pertinent positives noted per HPI PHYSICAL EXAM General: Alert, Oriented X3, Cooperative, No acute distress HEENT: Atraumatic, Mucous membr. moist/pink Lungs: Clear to auscultation, Normal air movement Heart: Regular rate (paced ), Normal S1, Normal S2, Other (S4; 5/6 systolic murmur to DELFINA border) Abdomen: Soft, No tenderness, Other (large pannus) Extremities: No cyanosis, Other (1-2+ bilateral LE pitting edema) Skin: No breakdown, No significant lesion Neuro: Normal speech, Sensation intact Psych/Mental Status: Mental status NL, Mood NL MUSCULOSKELETAL: Osteoarthritic changes both hands VITALS VITALS Vital Signs Date Time Temp Pulse Resp B/P (MAP) Pulse Ox O2 Delivery O2 Flow Rate FiO2 05/12/17 07:00 97.6 74 18 140/53 (82) 96 Room Air 97.6 05/11/17 21:49 1.0 LABS Lab: Laboratory Tests Test 05/11/17 15:20 05/11/17 20:59 05/11/17 23:15 05/12/17 05:40 White Blood Count 6.3 x10^3/uL (4.0-11.0) 4.6 x10^3/uL (4.0-11.0) Red Blood Count 3.46 x10^6/uL (3.50-5.40) 3.40 x10^6/uL (3.50-5.40) Hemoglobin 11.4 g/dL (12.0-15.5) 11.2 g/dL (12.0-15.5) Hematocrit 34.3 % (36.0-47.0) 32.8 % (36.0-47.0) Mean Corpuscular Volume 99 fL (79-100) 96 fL (79-100) Mean Corpuscular Hemoglobin 33 pg (25-35) 33 pg (25-35) Mean Corpuscular Hemoglobin Concent 33 g/dL (31-37) 34 g/dL (31-37) Red Cell Distribution Width 14.6 % (11.5-14.5) 14.6 % (11.5-14.5) Platelet Count 115 x10^3/uL (140-400) 93 x10^3/uL (140-400) Neutrophils (%) (Auto) 67 % (31-73) 79 % (31-73) Lymphocytes (%) (Auto) 13 % (24-48) 15 % (24-48) Monocytes (%) (Auto) 14 % (0-9) 6 % (0-9) Eosinophils (%) (Auto) 5 % (0-3) 0 % (0-3) Basophils (%) (Auto) 1 % (0-3) 0 % (0-3) Neutrophils # (Auto) 4.2 x10^3uL (1.8-7.7) 3.6 x10^3uL (1.8-7.7) Lymphocytes # (Auto) 0.8 x10^3/uL (1.0-4.8) 0.7 x10^3/uL (1.0-4.8) Monocytes # (Auto) 0.9 x10^3/uL (0.0-1.1) 0.3 x10^3/uL (0.0-1.1) Eosinophils # (Auto) 0.3 x10^3/uL (0.0-0.7) 0.0 x10^3/uL (0.0-0.7) Basophils # (Auto) 0.0 x10^3/uL (0.0-0.2) 0.0 x10^3/uL (0.0-0.2) Prothrombin Time 12.9 SEC (11.7-14.0) Prothromb Time International Ratio 1.0 (0.8-1.1) Activated Partial Thromboplast Time 37 SEC (24-38) Sodium Level 131 mmol/L (136-145) 132 mmol/L (136-145) Potassium Level 3.4 mmol/L (3.5-5.1) 4.1 mmol/L (3.5-5.1) Chloride Level 93 mmol/L (98-107) 95 mmol/L (98-107) Carbon Dioxide Level 28 mmol/L (21-32) 24 mmol/L (21-32) Anion Gap 10 (6-14) 13 (6-14) Blood Urea Nitrogen 32 mg/dL (7-20) 49 mg/dL (7-20) Creatinine 3.3 mg/dL (0.6-1.0) 4.2 mg/dL (0.6-1.0) Estimated GFR (Cockcroft-Gault) 13.6 10.3 BUN/Creatinine Ratio 10 (6-20) Glucose Level 265 mg/dL (70-99) 232 mg/dL (70-99) Calcium Level 8.0 mg/dL (8.5-10.1) 7.9 mg/dL (8.5-10.1) Magnesium Level 1.8 mg/dL (1.8-2.4) Total Bilirubin 0.5 mg/dL (0.2-1.0) Aspartate Amino Transf (AST/SGOT) 40 U/L (15-37) Alanine Aminotransferase (ALT/SGPT) 39 U/L (14-59) Alkaline Phosphatase 144 U/L (46-116) Troponin I Quantitative 0.047 ng/mL (0.000-0.055) 0.056 ng/mL (0.000-0.055) 0.054 ng/mL (0.000-0.055) IZ-Xte-D-Type Natriuretic Peptide 87343 pg/mL (0-449) Total Protein 7.7 g/dL (6.4-8.2) Albumin 2.9 g/dL (3.4-5.0) Albumin/Globulin Ratio 0.6 (1.0-1.7) Glucose (Fingerstick) 269 mg/dL (70-99) Test 05/12/17 07:14 Glucose (Fingerstick) 216 mg/dL (70-99) ECHOCARDIOGRAM ECHOCARDIOGRAM <Conclusion> The left ventricular systolic function is normal. The Ejection Fraction is estiamted at 50-55%. The left atrium is mildly dilated. A pacemaker is seen in the right atrium consistent with history. Severe aortic stenosis with calculated aortic valve area is 0.8 cm2 and mean pressure gradient of 37 mmHg. Mild mitral regurgitation. Moderate tricuspid regurgitation. There is severe pulmonary hypertension. The PA pressure was estimated at 80 mmHg. There is no evidence of significant pericardial effusion. DATE: 08/10/16 1544 HEART CATH HEART CATH <Conclusion> Severe single vessel coronary disease with hemodynamically significant lesions in the proximal LAD stented with a 3.0 x 23 bare metal stent with 0% residual. Patent stents in the mid LAD and first diagonal. Moderate disease in the left circumflex vessel. Mild disease in the right coronary artery. Mild aortic stenosis. Elevated LVEDP at 26 mmHg. DATE: 09/22/16 1741 ASSESSMENT/PLAN ASSESSMENT/PLAN 1. Chest pain: peaked trop 0.056 in the setting of ESRD. EKG paced with no acute changes. 2. CAD: multiple stenting in the past with recent PCI/BMS to LAD 3. Severe 4. Chronic CHF with diastolic/systolic dysfunction; compensated 5. ICM: Last EF at 55% 6. 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 [facility]. notable for intermittent NSVT overnight 7. ESRD 8. HTN: 9. DM2/HLP Recommendations 1. MPI and TTE today. Check Mg and replace as warranted. 2. Continue with secondary prevention including DAPT. 3. HD per nephrology 4. Interrogate device today Problems: SILVESTRE FARNSWORTH APRN May 12, 2017 10:38
[2017-05-12 11:00] VITALS: BP 120/42
[2017-05-12] MEDS ORDERED: REGADENOSON 0.4 MG/5 ML DISP.SYRIN. IV ONE (11:45)
--- NOTE | 2017-05-12 12:31 | PDOC2 ---
CONSULT Date of Consult Date of Consult DATE: 05/12/17 TIME: 12:28 Reason for Consult Reason for Consult: ESRD Referring Physician Referring Physician: KARL Identification/Chief Complaint Chief Complaint CHEST PAIN AND SOB Problems: Source Source: Chart review, Patient History of Present Illness Reason for Visit: THIS IS A 76 YR OLD ADMITTED WITH CHEST PAIN AND SOB. SHE HAS ESRD AND IS ON OP HD ON MWF. HER LAST TX WAS YESTERDAY. LABS ARE C/W ESRD Past Medical History Cardiovascular: CAD, CHF, HTN, DE, Hyperlipidemia, Aortic stenosis Pulmonary: COPD CENTRAL NERVOUS SYSTEM: CVA, Periperal neuropathy GI: Constipation, GERD Heme/Onc: Anemia NOS Hepatobiliary: No pertinent hx Psych: Depression Musculoskeletal: Osteoarthritis Rheumatologic: No pertinent hx Infectious disease: No pertinent hx Renal/: Chronic renal failure Endocrine: Diabetes, Hypothyroidism, Hyperparathyroidism Past Surgical History Past Surgical History: Pacemaker, Appendectomy, Cholecystectomy, Cataract Removal, Hernia Repair, Hysterectomy, Other Family History Family History: Hypertension Social History No ALCOHOL: none Drugs: None Lives: with Family () Domestic Violence: Neg Current Problem List Problem List Problems Medical Problems: (1) CAD (coronary artery disease) Status: Acute (2) Chest pain Status: Acute (3) Elevated brain natriuretic peptide (BNP) level Status: Acute (4) ESRD (end stage renal disease) Status: Acute Current Medications Current Medications Current Medications Aspirin (Opal Aspirin) 325 mg 1X ONCE PO Last administered on 05/11/17 15:30 ; Start 05/11/17 at 15:30; Stop 05/11/17 at 15:31; Status DC Fentanyl Citrate (Fentanyl 2ml Vial) 50 mcg PRN Q15MIN PRN IV PAIN GREATER THAN 3/10 Last administered on 05/11/17 16:34; Start 05/11/17 at 15:30; Stop at 15:29 Ondansetron HCl (Zofran) 4 mg PRN Q8HRS PRN IV NAUSEA/VOMITING; Start 05/11/17 at 17:15; Stop 05/12/17 at 17:14 Fentanyl Citrate (Fentanyl 2ml Vial) 50 mcg PRN Q2HR PRN IV PAIN; Start at 17:15; Stop 05/12/17 at 17:14 Acetaminophen (Tylenol) 650 mg PRN Q4HRS PRN PO FEVER; Start 05/11/17 at 17:15 ; Stop 05/12/17 at 17:14 Nitroglycerin (Nitrostat) 0.4 mg PRN Q5MIN PRN SL CHEST PAIN; Start 05/11/17 at 17:15; Stop 05/12/17 at 17:14 Prednisone (Prednisone) 20 mg DAILY PO Last administered on 05/11/17 21:12; Start 05/11/17 at 21:00 Aspirin (Ecotrin) 325 mg DAILYWBKFT PO ; Start 05/12/17 at 08:00; Stop 05/12/17 at 10:38; Status DC Clopidogrel Bisulfate (Plavix) 75 mg DAILYWBKFT PO ; Start 05/12/17 at 08:00 Famotidine (Pepcid) 20 mg HS PO Last administered on 05/11/17 21:12; Start at 21:00 Acetaminophen/ Hydrocodone Bitart (Lortab 7.5/325) 1 tab PRN Q6HRS PRN PO PAIN Last administered on 05/12/17 05:38; Start 05/11/17 at 20:45 Lisinopril (Prinivil) 5 mg DAILY PO ; Start 05/12/17 at 09:00 Metoprolol Tartrate (Lopressor) 50 mg DAILY PO ; Start 05/12/17 at 09:00 Nitroglycerin (Nitrostat) 0.4 mg PRN Q5MIN PRN SL CHEST PAIN; Start 05/11/17 at 20:45 Calcium Acetate (Phoslo) 1,334 mg TIDWMEALS PO ; Start 05/12/17 at 08:00 Escitalopram Oxalate (Lexapro) 10 mg DAILY PO ; Start 05/12/17 at 09:00 Insulin Detemir (Levemir) 14 units QHS SQ ; Start 05/12/17 at 21:00 Isosorbide Mononitrate (Imdur) 60 mg DAILY PO ; Start 05/12/17 at 09:00 Vitamin B Complex/ Vitamin C (Tanisha-Prashanth) 1 tab DAILY PO ; Start 05/12/17 at 09: 00 Aspirin (Ecotrin) 81 mg DAILYWBKFT PO ; Start 05/12/17 at 11:00 Regadenoson (Lexiscan) 0.4 mg 1X ONCE IV ; Start 05/12/17 at 11:45; Stop at 11:46; Status DC Active Scripts Active Isosorbide Mononitrate Er (Isosorbide Mononitrate) 60 Mg Tab.er.24h 60 Mg PO DAILY 30 Days Escitalopram Oxalate 10 Mg Tablet 10 Mg PO DAILY Clopidogrel (Clopidogrel Bisulfate) 75 Mg Tablet 75 Mg PO DAILYWBKFT Restart per Dr. Mayen and cardiology recommendations. Continue for 2 more weeks, then stop. Aspirin Ec (Aspirin) 325 Mg Tablet.dr 325 Mg PO DAILYWBKFT Pepcid (Famotidine) 20 Mg Tablet 20 Mg PO HS Nitrostat (Nitroglycerin) 0.4 Mg Tab.subl 0.4 Mg SL PRN Q5MIN PRN Reported Lisinopril 5 Mg Tablet 1 Tab PO DAILY Metoprolol Tartrate 50 Mg Tablet 50 Nephro-Prashanth Rx Tablet (Vit B Cmplx 3/Fa/Vit C/Biotin) 1 Each Tablet 1 Each PO DAILY Hydrocodone-Apap 7.5-325 (Hydrocodone Bit/Acetaminophen) 1 Each Tablet 1 Tab PO PRN Q6HRS PRN Calcium Acetate 667 Mg Tablet 667 Mg PO TIDWMEALS Lantus Solostar (Insulin Glargine,Hum.rec.anlog) 100 Unit/1 Ml Insuln.pen 14 Unit SQ QHS LAST DOSE GIVEN: DATE: 07/09/16 TIME: 9 PM NEXT DOSE DUE: DATE: 07/10/16 -tonight TIME: 9 PM Allergies Allergies: Coded Allergies: Sulfa (Sulfonamide Antibiotics) (Verified Allergy, Intermediate, Nausea/ Vomiting, Rash, 09/22/16) morphine (Verified Allergy, Intermediate, itching, 09/22/16) adhesive (Verified Adverse Reaction, Intermediate, Itching, 09/22/16) ROS General: YES: Fatigue, Malaise PSYCHOLOGICAL ROS: YES: Anxiety, Depression Eyes: Yes Decreased vision HEENT: YES: Heacaches Respiratory: YES: Cough, Shortness of breath Cardiovascular: yes Chest Pain Gastrointestinal: Yes Constipation Genitourinary: YES Other (ANURIA) Musculoskeletal: Yes Muscular Weakness Neurological: Yes Weakness Skin: Yes Dry Skin Physical Exam General: Alert, Oriented X3, Cooperative, No acute distress HEENT: Atraumatic, PERRLA, EOMI Lungs: Clear to auscultation Heart: Regular rate, Normal S1, Normal S2 Abdomen: Normal bowel sounds, Soft, No tenderness Extremities: No clubbing, No edema Skin: No breakdown Neuro: Normal speech, Cranial nerves 3-12 NL Psych/Mental Status: Mental status NL, Mood NL MUSCULOSKELETAL: No deformity, No swelling Vitals VITALS Vital Signs Date Time Temp Pulse Resp B/P (MAP) Pulse Ox O2 Delivery O2 Flow Rate FiO2 05/12/17 11:00 97.7 65 18 120/42 (68) 98 Nasal Cannula 2.0 97.7 Labs Labs Laboratory Tests Test 05/11/17 15:20 05/11/17 20:59 05/11/17 23:15 05/12/17 05:40 White Blood Count 6.3 x10^3/uL (4.0-11.0) 4.6 x10^3/uL (4.0-11.0) Red Blood Count 3.46 x10^6/uL (3.50-5.40) 3.40 x10^6/uL (3.50-5.40) Hemoglobin 11.4 g/dL (12.0-15.5) 11.2 g/dL (12.0-15.5) Hematocrit 34.3 % (36.0-47.0) 32.8 % (36.0-47.0) Mean Corpuscular Volume 99 fL (79-100) 96 fL (79-100) Mean Corpuscular Hemoglobin 33 pg (25-35) 33 pg (25-35) Mean Corpuscular Hemoglobin Concent 33 g/dL (31-37) 34 g/dL (31-37) Red Cell Distribution Width 14.6 % (11.5-14.5) 14.6 % (11.5-14.5) Platelet Count 115 x10^3/uL (140-400) 93 x10^3/uL (140-400) Neutrophils (%) (Auto) 67 % (31-73) 79 % (31-73) Lymphocytes (%) (Auto) 13 % (24-48) 15 % (24-48) Monocytes (%) (Auto) 14 % (0-9) 6 % (0-9) Eosinophils (%) (Auto) 5 % (0-3) 0 % (0-3) Basophils (%) (Auto) 1 % (0-3) 0 % (0-3) Neutrophils # (Auto) 4.2 x10^3uL (1.8-7.7) 3.6 x10^3uL (1.8-7.7) Lymphocytes # (Auto) 0.8 x10^3/uL (1.0-4.8) 0.7 x10^3/uL (1.0-4.8) Monocytes # (Auto) 0.9 x10^3/uL (0.0-1.1) 0.3 x10^3/uL (0.0-1.1) Eosinophils # (Auto) 0.3 x10^3/uL (0.0-0.7) 0.0 x10^3/uL (0.0-0.7) Basophils # (Auto) 0.0 x10^3/uL (0.0-0.2) 0.0 x10^3/uL (0.0-0.2) Prothrombin Time 12.9 SEC (11.7-14.0) Prothromb Time International Ratio 1.0 (0.8-1.1) Activated Partial Thromboplast Time 37 SEC (24-38) Sodium Level 131 mmol/L (136-145) 132 mmol/L (136-145) Potassium Level 3.4 mmol/L (3.5-5.1) 4.1 mmol/L (3.5-5.1) Chloride Level 93 mmol/L (98-107) 95 mmol/L (98-107) Carbon Dioxide Level 28 mmol/L (21-32) 24 mmol/L (21-32) Anion Gap 10 (6-14) 13 (6-14) Blood Urea Nitrogen 32 mg/dL (7-20) 49 mg/dL (7-20) Creatinine 3.3 mg/dL (0.6-1.0) 4.2 mg/dL (0.6-1.0) Estimated GFR (Cockcroft-Gault) 13.6 10.3 BUN/Creatinine Ratio 10 (6-20) Glucose Level 265 mg/dL (70-99) 232 mg/dL (70-99) Calcium Level 8.0 mg/dL (8.5-10.1) 7.9 mg/dL (8.5-10.1) Magnesium Level 1.8 mg/dL (1.8-2.4) 2.2 mg/dL (1.8-2.4) Total Bilirubin 0.5 mg/dL (0.2-1.0) Aspartate Amino Transf (AST/SGOT) 40 U/L (15-37) Alanine Aminotransferase (ALT/SGPT) 39 U/L (14-59) Alkaline Phosphatase 144 U/L (46-116) Troponin I Quantitative 0.047 ng/mL (0.000-0.055) 0.056 ng/mL (0.000-0.055) 0.054 ng/mL (0.000-0.055) PR-Uqi-P-Type Natriuretic Peptide 45397 pg/mL (0-449) Total Protein 7.7 g/dL (6.4-8.2) Albumin 2.9 g/dL (3.4-5.0) Albumin/Globulin Ratio 0.6 (1.0-1.7) Glucose (Fingerstick) 269 mg/dL (70-99) Test 05/12/17 07:14 05/12/17 11:12 Glucose (Fingerstick) 216 mg/dL (70-99) 147 mg/dL (70-99) Laboratory Tests Test 05/11/17 15:20 05/11/17 20:59 05/11/17 23:15 05/12/17 05:40 White Blood Count 6.3 x10^3/uL (4.0-11.0) 4.6 x10^3/uL (4.0-11.0) Red Blood Count 3.46 x10^6/uL (3.50-5.40) 3.40 x10^6/uL (3.50-5.40) Hemoglobin 11.4 g/dL (12.0-15.5) 11.2 g/dL (12.0-15.5) Hematocrit 34.3 % (36.0-47.0) 32.8 % (36.0-47.0) Mean Corpuscular Volume 99 fL (79-100) 96 fL (79-100) Mean Corpuscular Hemoglobin 33 pg (25-35) 33 pg (25-35) Mean Corpuscular Hemoglobin Concent 33 g/dL (31-37) 34 g/dL (31-37) Red Cell Distribution Width 14.6 % (11.5-14.5) 14.6 % (11.5-14.5) Platelet Count 115 x10^3/uL (140-400) 93 x10^3/uL (140-400) Neutrophils (%) (Auto) 67 % (31-73) 79 % (31-73) Lymphocytes (%) (Auto) 13 % (24-48) 15 % (24-48) Monocytes (%) (Auto) 14 % (0-9) 6 % (0-9) Eosinophils (%) (Auto) 5 % (0-3) 0 % (0-3) Basophils (%) (Auto) 1 % (0-3) 0 % (0-3) Neutrophils # (Auto) 4.2 x10^3uL (1.8-7.7) 3.6 x10^3uL (1.8-7.7) Lymphocytes # (Auto) 0.8 x10^3/uL (1.0-4.8) 0.7 x10^3/uL (1.0-4.8) Monocytes # (Auto) 0.9 x10^3/uL (0.0-1.1) 0.3 x10^3/uL (0.0-1.1) Eosinophils # (Auto) 0.3 x10^3/uL (0.0-0.7) 0.0 x10^3/uL (0.0-0.7) Basophils # (Auto) 0.0 x10^3/uL (0.0-0.2) 0.0 x10^3/uL (0.0-0.2) Prothrombin Time 12.9 SEC (11.7-14.0) Prothromb Time International Ratio 1.0 (0.8-1.1) Activated Partial Thromboplast Time 37 SEC (24-38) Sodium Level 131 mmol/L (136-145) 132 mmol/L (136-145) Potassium Level 3.4 mmol/L (3.5-5.1) 4.1 mmol/L (3.5-5.1) Chloride Level 93 mmol/L (98-107) 95 mmol/L (98-107) Carbon Dioxide Level 28 mmol/L (21-32) 24 mmol/L (21-32) Anion Gap 10 (6-14) 13 (6-14) Blood Urea Nitrogen 32 mg/dL (7-20) 49 mg/dL (7-20) Creatinine 3.3 mg/dL (0.6-1.0) 4.2 mg/dL (0.6-1.0) Estimated GFR (Cockcroft-Gault) 13.6 10.3 BUN/Creatinine Ratio 10 (6-20) Glucose Level 265 mg/dL (70-99) 232 mg/dL (70-99) Calcium Level 8.0 mg/dL (8.5-10.1) 7.9 mg/dL (8.5-10.1) Magnesium Level 1.8 mg/dL (1.8-2.4) 2.2 mg/dL (1.8-2.4) Total Bilirubin 0.5 mg/dL (0.2-1.0) Aspartate Amino Transf (AST/SGOT) 40 U/L (15-37) Alanine Aminotransferase (ALT/SGPT) 39 U/L (14-59) Alkaline Phosphatase 144 U/L (46-116) Troponin I Quantitative 0.047 ng/mL (0.000-0.055) 0.056 ng/mL (0.000-0.055) 0.054 ng/mL (0.000-0.055) SB-Wiv-C-Type Natriuretic Peptide 28165 pg/mL (0-449) Total Protein 7.7 g/dL (6.4-8.2) Albumin 2.9 g/dL (3.4-5.0) Albumin/Globulin Ratio 0.6 (1.0-1.7) Glucose (Fingerstick) 269 mg/dL (70-99) Test 05/12/17 07:14 05/12/17 11:12 Glucose (Fingerstick) 216 mg/dL (70-99) 147 mg/dL (70-99) Assessment/Plan Assessment/Plan IMP CHEST PAIN ANEMIA HTN DM II ESRD PLAN CARDIOLOGY EVAL AND TX HD MWF RICKY ON HOLD DUE TO HIGH HCT WILL FOLLOW CHLOE JONES MD May 12, 2017 12:31
[2017-05-12] MEDS: ESCITALOPRAM 10 MG TABLET. PO SCH (13:47)
[2017-05-12] MEDS: ISOSORBIDE MONONITRATE ER 30 MG TAB.ER.24H PO SCH (13:48)
[2017-05-12] MEDS: predniSONE 20 MG TABLET PO SCH (13:49)
[2017-05-12] MEDS: LISINOPRIL 5 MG TABLET. PO SCH (13:49)
[2017-05-12] MEDS: FOLIC/VIT B COMP W-C (RENAL) TABLET. PO SCH (13:49)
[2017-05-12] MEDS: CLOPIDOGREL BISULFATE 75 MG TABLET PO SCH (13:50)
--- NOTE | 2017-05-12 13:55 | PDOC ---
PROGRESS NOTES Chief Complaint Chief Complaint Chest wall pain ASSESSMENT AND PLAN: 1. Chest wall pain: reproducible. suspect costochondritis. responded well to steroids last nite instead of NSAIDs. 2. CAD, CHF, Afib: appreciate cariology service input. MPI in progress, echo pending. continue 2ary prevention meds 3. ESRD: on HD; due tomorrow. Dr Nidia coughlin. 4. DM: borderline control on home levemir and ISS. possibly influenced by steroids last night. monitor for now. 5. Chronic back pain; has lortab 6. Depression: stablwe modd. cont home lexapro 7. Prophylaxis: heparin, H2B History of Present Illness History of Present Illness feels ok, CP resolved. no SOB Vitals Vitals Vital Signs Date Time Temp Pulse Resp B/P (MAP) Pulse Ox O2 Delivery O2 Flow Rate FiO2 05/12/17 11:00 97.7 65 18 120/42 (68) 98 Nasal Cannula 2.0 97.7 Physical Exam General: Alert, Oriented X3, Cooperative, No acute distress Heart: Regular rate, Other (3/6 systolic murmur) Lungs: Clear Abdomen: Normal bowel sounds, Soft, No tenderness Extremities: No clubbing, No edema Skin: No breakdown Labs LABS Laboratory Tests Test 05/11/17 15:20 05/11/17 20:59 05/11/17 23:15 05/12/17 05:40 White Blood Count 6.3 x10^3/uL (4.0-11.0) 4.6 x10^3/uL (4.0-11.0) Red Blood Count 3.46 x10^6/uL (3.50-5.40) 3.40 x10^6/uL (3.50-5.40) Hemoglobin 11.4 g/dL (12.0-15.5) 11.2 g/dL (12.0-15.5) Hematocrit 34.3 % (36.0-47.0) 32.8 % (36.0-47.0) Mean Corpuscular Volume 99 fL (79-100) 96 fL (79-100) Mean Corpuscular Hemoglobin 33 pg (25-35) 33 pg (25-35) Mean Corpuscular Hemoglobin Concent 33 g/dL (31-37) 34 g/dL (31-37) Red Cell Distribution Width 14.6 % (11.5-14.5) 14.6 % (11.5-14.5) Platelet Count 115 x10^3/uL (140-400) 93 x10^3/uL (140-400) Neutrophils (%) (Auto) 67 % (31-73) 79 % (31-73) Lymphocytes (%) (Auto) 13 % (24-48) 15 % (24-48) Monocytes (%) (Auto) 14 % (0-9) 6 % (0-9) Eosinophils (%) (Auto) 5 % (0-3) 0 % (0-3) Basophils (%) (Auto) 1 % (0-3) 0 % (0-3) Neutrophils # (Auto) 4.2 x10^3uL (1.8-7.7) 3.6 x10^3uL (1.8-7.7) Lymphocytes # (Auto) 0.8 x10^3/uL (1.0-4.8) 0.7 x10^3/uL (1.0-4.8) Monocytes # (Auto) 0.9 x10^3/uL (0.0-1.1) 0.3 x10^3/uL (0.0-1.1) Eosinophils # (Auto) 0.3 x10^3/uL (0.0-0.7) 0.0 x10^3/uL (0.0-0.7) Basophils # (Auto) 0.0 x10^3/uL (0.0-0.2) 0.0 x10^3/uL (0.0-0.2) Prothrombin Time 12.9 SEC (11.7-14.0) Prothromb Time International Ratio 1.0 (0.8-1.1) Activated Partial Thromboplast Time 37 SEC (24-38) Sodium Level 131 mmol/L (136-145) 132 mmol/L (136-145) Potassium Level 3.4 mmol/L (3.5-5.1) 4.1 mmol/L (3.5-5.1) Chloride Level 93 mmol/L (98-107) 95 mmol/L (98-107) Carbon Dioxide Level 28 mmol/L (21-32) 24 mmol/L (21-32) Anion Gap 10 (6-14) 13 (6-14) Blood Urea Nitrogen 32 mg/dL (7-20) 49 mg/dL (7-20) Creatinine 3.3 mg/dL (0.6-1.0) 4.2 mg/dL (0.6-1.0) Estimated GFR (Cockcroft-Gault) 13.6 10.3 BUN/Creatinine Ratio 10 (6-20) Glucose Level 265 mg/dL (70-99) 232 mg/dL (70-99) Calcium Level 8.0 mg/dL (8.5-10.1) 7.9 mg/dL (8.5-10.1) Magnesium Level 1.8 mg/dL (1.8-2.4) 2.2 mg/dL (1.8-2.4) Total Bilirubin 0.5 mg/dL (0.2-1.0) Aspartate Amino Transf (AST/SGOT) 40 U/L (15-37) Alanine Aminotransferase (ALT/SGPT) 39 U/L (14-59) Alkaline Phosphatase 144 U/L (46-116) Troponin I Quantitative 0.047 ng/mL (0.000-0.055) 0.056 ng/mL (0.000-0.055) 0.054 ng/mL (0.000-0.055) DD-Nkm-A-Type Natriuretic Peptide 59214 pg/mL (0-449) Total Protein 7.7 g/dL (6.4-8.2) Albumin 2.9 g/dL (3.4-5.0) Albumin/Globulin Ratio 0.6 (1.0-1.7) Glucose (Fingerstick) 269 mg/dL (70-99) Test 05/12/17 07:14 05/12/17 11:12 Glucose (Fingerstick) 216 mg/dL (70-99) 147 mg/dL (70-99) UNA BARAJAS MD May 12, 2017 13:55
[2017-05-12] MEDS: HEPARIN PF for SUB-Q USE 5,000 UNIT/0.5 ML VIAL. SQ SCH ×2 (14:00→21:27)
--- NOTE | 2017-05-12 15:18 | CARD ---
APPROVED REPORT EXAM: Two-dimensional and M-mode echocardiogram with Doppler and color Doppler. Other Information Quality : GoodHR: 66bpm Rhythm : NSR INDICATION Chest pain 2D DIMENSIONS RVDd2.6 (2.9-3.5cm)Left Atrium(2D)4.0 (1.6-4.0cm) IVSd0.9 (0.7-1.1cm)Aortic Root(2D)2.3 (2.0-3.7cm) LVDd6.6 (3.9-5.9cm)LVOT Diameter2.0 (1.8-2.4cm) PWd0.9 (0.7-1.1cm)LVDs4.1 (2.5-4.0cm) FS (%) 37.2 %SV146.4 ml LVEF(%)65.9 (>50%) Aortic Valve AoV Peak Sylvester.423.6cm/sAoV VTI86.2cm AO Peak GR.71.8mmHgLVOT Peak Sylvester.111.7cm/s AO Mean GR.48mmHgAVA (VMAX)0.85cm2 Mitral Valve MV E Ohrgqiwo59.5cm/sMV E Peak Gr.9mmHg MV DECEL [id number] A Isnovbdr843.1cm/s MV E Mean Gr.4mmHgE/A Ratio0.8 MV A [id number] LEFT VENTRICLE The Left Ventricle is mildly dilated. There is mild concentric left ventricular hypertrophy. The left ventricular systolic function is normal and the ejection fraction is within normal range. The Ejecti on Fraction is 55%. There is normal LV segmental wall motion. Septal motion consistent with conductio n abnormality. Transmitral Doppler flow pattern is Grade I-abnormal relaxation pattern. RIGHT VENTRICLE The right ventricle is normal size. There is normal right ventricular wall thickness. The right ventr icular systolic function is normal. There is a pacemaker lead in the right ventricle. ATRIA The left atrium is mildly dilated. The right atrium size is normal. The interatrial septum is intact with no evidence for an atrial septal defect or patent foramen ovale as noted on 2-D or Doppler imagi ng. AORTIC VALVE The aortic valve is severely sclerotic. The aortic valve is trileaflet. Doppler and Color Flow reveal ed no significant aortic regurgitation. There is severe valvular aortic stenosis. Calculated aortic v alve area is .9- 1.2 cm2 with maximum pressure gradient of 72 mmHg and mean pressure gradient of 48 m mHg. MITRAL VALVE Mitral annular calcification is mild. The mitral valve leaflets are thickened. There is no evidence o f mitral valve prolapse. There is no mitral valve stenosis. Doppler and Color Flow revealed no mitral valve regurgitation noted. TRICUSPID VALVE Doppler and Color Flow revealed mild tricuspid regurgitation. The pulmonary artery systolic pressure is estimated at 43 mmHg. There is mild pulmonary hypertension. PULMONIC VALVE Doppler and Color Flow revealed mild pulmonic valvular regurgitation. There is no pulmonic valvular s tenosis. GREAT VESSELS The aortic root is normal in size. The ascending aorta is normal in size. The IVC is normal in size a nd collapses >50% with inspiration. PERICARDIAL EFFUSION There is no evidence of significant pericardial effusion. Critical Notification Critical Value: No <Conclusion> The left ventricular systolic function is normal and the ejection fraction is within normal range. Th e Ejection Fraction is 55%. There is normal LV segmental wall motion. Septal motion consistent with conduction abnormality. There is a pacemaker lead in the right ventricle. There is severe valvular aortic stenosis. Calculated aortic valve area is .9- 1.2 cm2 with maximum p ressure gradient of 72 mmHg and mean pressure gradient of 48 mmHg.
--- NOTE | 2017-05-12 16:42 | RAD ---
APPROVED REPORT Test Type: Pharmacological Stress Nurse/Tech: Karlene Beltran R.N. Test Indications: Chest pain Cardiac History: AICD, Stents Medications: SEE EMR Medical History: COPD, Stroke, DM Resting ECG: SR PPM Resting Heart Rate: 65 bpm Resting Blood Pressure: 138/54mmHg Pretest Chest Pain: None Nurse/Tech Notes S1S2, Murmur, lungs CTA, diminished in bases, denied chest pain, dizziness and SOA. Consent: The procedure was explained to the patient in lay terms. Informed consent was witnessed. Mati eout was entered into [employer]. History and Stress Test performed by Karlene Beltran R.N. Pharm. Details Pharmacologic stress testing was performed using 0.4mg per 5ml of regadenoson given intravenously ove r 7-10 seconds. Stress Symptoms SOA, nausea, vomiting. POST EXERCISE Reason for Termination: Infusion complete Max HR: 113 bpm Max Blood Pressure: 148/46mmHg Blood Pressure response to exercise: Normal blood pressure response during stress. Heart Rate response to exercise: Normal Chest Pain: No. Arrhythmia: Yes. Occasional PVC's ST Change: No. INTERPRETATION Stress EKG Conclusion: Pt was V-pacing with intermittent AV pacing, occasional PVC's. Denied chest pa in. Did experience N/V. Pt was taken to cardiac center for ECHO s/p stress testing. No acute changes were noted. Imaging Protocol IMAGE PROTOCOL: Rest Tc-99m/stress Tc-99m 1 day Rest: Stress: Viability: Radiopharm.Tc99m [id number] Sestamibi Dose10.5mCi 33.6mCi Duration 15min. 15min. Img Date 05/12/2017 05/12/2017 Inj-Img [id number]. 60min. Rest Admin Site:IV - Left AntecubitalAdministrator:RT Mily (R)(N) Stress Admin Site: IV - Left AntecubitalAdministrator: RT Mily (R)(N) STRESS DATA End Diast. Vol.160.0mlAv. Heart Rate60.0bpm End Syst. Vol.84.0mlCO Index BSA0.0L/min Myocardial Ixop591.0gEject. Xcnqcibq13.0% Stress Rates Pk. Fill Rate1.78EDV/secLVtime Pk. Fill 284.88msec Pk. Empty Rate1.67ESV/secLVtime Pk. Zjoam437.38msec 1/3 Pk. Fill0.69EDV/sec Stress Scores Regional WT2.00Summed WT27.00 Regional WM0.00Summed WM8.00 LV Perfusion There is a moderate sized severe in intensity fixed apical perfusion defect suggestive of prior infar ct. There is also a large sized, mild intensity inferior/inferolateral suggestive of diaphragmatic attenu ation artifact. Wall Motion Mild LV dysfunction. EF 45%. LV Perf. Quant 17 Seg. SSS12.00 17 Seg. SRS15.00 17 Seg. SDS0.00 Stress Defect Extent (% LAD)23.80Rest Defect Extent (% LAD)20.00Rev. Defect Extent (% LAD)8.80 Stress Defect Extent (% LCX) 63.80Rest Defect Extent (% LCX)57.50Rev. Defect Extent (% LCX)3.80 Stress Defect Extent (% RCA)11.10Rest Defect Extent (% RCA)15.60Rev. Defect Extent (% RCA)0.00 Stress Defect Extent (% LILI)31.70Rest Defect Extent (% LILI)30.40Rev. Defect Extent (% LILI)3.90 Other Information Quality:Fair Risk Assessment: Moderate Risk Conclusion 1. Non diagnostic EKG due to pacing. 2. Fixed apical and inferior defects. 3. Mild LV dysfunction. EF 48% 4. Moderate risk.
[2017-05-12] MEDS: ASPIRIN ENTERIC COATED 81 MG TABLET.DR. PO SCH (17:48)
[2017-05-12 19:55] VITALS: BP 121/58
[2017-05-12] MEDS ORDERED: INSULIN DETEMIR 300 UNITS/3 ML INSULN.PEN. SQ SCH (21:00)
[2017-05-12] MEDS: FAMOTIDINE 20 MG TABLET. PO SCH (21:22)
[2017-05-12] MEDS: NYSTATIN TOPICAL POWDER 15GM BOTTLE. TP SCH (21:22)
[2017-05-12] MEDS: METOPROLOL TART IMMED RELEASE 50 MG TABLET. PO SCH (21:23)
[2017-05-12 22:45] VITALS: BP 134/60
[2017-05-13] MEDS: HYDROcodone/APAP 7.5/325MG 1 TAB TABLET PO PRN ×2 (01:01→09:26)
[2017-05-13 02:58] VITALS: BP 118/48
[2017-05-13] MEDS: HEPARIN PF for SUB-Q USE 5,000 UNIT/0.5 ML VIAL. SQ SCH ×2 (06:44→14:00)
[2017-05-13 06:59] VITALS: BP 103/45
[2017-05-13] MEDS: FOLIC/VIT B COMP W-C (RENAL) TABLET. PO SCH (09:26)
[2017-05-13] MEDS: ISOSORBIDE MONONITRATE ER 30 MG TAB.ER.24H PO SCH (09:26)
[2017-05-13] MEDS: ASPIRIN ENTERIC COATED 81 MG TABLET.DR. PO SCH (09:27)
[2017-05-13] MEDS: predniSONE 20 MG TABLET PO SCH (09:27)
[2017-05-13] MEDS: METOPROLOL TART IMMED RELEASE 50 MG TABLET. PO SCH (09:27)
[2017-05-13] MEDS: CALCIUM ACETATE 667 MG CAPSULE PO SCH ×2 (09:27→12:00)
[2017-05-13] MEDS: ESCITALOPRAM 10 MG TABLET. PO SCH (09:27)
[2017-05-13] MEDS: CLOPIDOGREL BISULFATE 75 MG TABLET PO SCH (09:27)
[2017-05-13] MEDS: LISINOPRIL 5 MG TABLET. PO SCH (09:28)
[2017-05-13] MEDS: NYSTATIN TOPICAL POWDER 15GM BOTTLE. TP SCH (09:28)
[2017-05-13 11:00] VITALS: BP 93/44
[2017-05-13] MEDS ORDERED: IV NORMAL SALINE 1000ML BAG 1,000 ML IV PRN ×2 (12:13)
[2017-05-13] MEDS ORDERED: DIALYSIS PATIENT. MC PRN ×2 (12:15)
--- NOTE | 2017-05-13 12:17 | PDOC ---
PROGRESS NOTES Chief Complaint Chief Complaint Chest wall pain ASSESSMENT AND PLAN: 1. Chest wall pain: reproducible. suspect costochondritis. responded well to steroids last nite instead of NSAIDs. 2. CAD, CHF, Afib: appreciate cariology service input. MPI with fixed hypokinesis, EF 45%, giving her moderate risk. echo report pending. continue 2ary prevention meds, no interventions indicated at this time 3. ESRD: on HD; due today. Dr Jacob following. 4. DM: control great on home levemir. hyperglycemia 2/2 steroids resolved 5. Chronic back pain; has lortab 6. Depression: stable mood. cont home lexapro 7. Prophylaxis: heparin, H2B 8. Dispo: home after HD History of Present Illness History of Present Illness feels ok, CP resolved. no SOB Vitals Vitals Vital Signs Date Time Temp Pulse Resp B/P (MAP) Pulse Ox O2 Delivery O2 Flow Rate FiO2 05/13/17 11:00 97.4 60 19 93/44 (60) 94 Nasal Cannula 2.0 97.4 Physical Exam General: Alert, Oriented X3, Cooperative, No acute distress Heart: Regular rate, Other (3/6 systolic murmur) Lungs: Clear Abdomen: Normal bowel sounds, Soft, No tenderness Extremities: No clubbing, No edema Skin: No breakdown Labs LABS Laboratory Tests Test 05/12/17 16:25 05/12/17 20:56 05/13/17 07:53 05/13/17 10:47 Glucose (Fingerstick) 283 mg/dL (70-99) 324 mg/dL (70-99) 104 mg/dL (70-99) 163 mg/dL (70-99) UNA BARAJAS MD May 13, 2017 12:17
--- NOTE | 2017-05-13 12:27 | PDOC ---
Renal-Progress Notes Subjective Notes Notes NO CHEST PAIN History of Present Illness Hx of present illness STABLE Vitals Vitals Vital Signs Date Time Temp Pulse Resp B/P (MAP) Pulse Ox O2 Delivery O2 Flow Rate FiO2 05/13/17 11:00 97.4 60 19 93/44 (60) 94 Nasal Cannula 2.0 97.4 Weight Weight [ ] I.O. Intake and Output Intake and Output 05/13/17 07:00 Intake Total 1400 ml Output Total 75 ml Balance 1325 ml Intake Oral 1400 ml Output Urine Total 75 ml # Voids 3 Labs Labs Laboratory Tests Test 05/12/17 16:25 05/12/17 20:56 05/13/17 07:53 05/13/17 10:47 Glucose (Fingerstick) 283 mg/dL (70-99) 324 mg/dL (70-99) 104 mg/dL (70-99) 163 mg/dL (70-99) Review of Systems Constitutional: yes: no symptom reported Eyes: Yes: no symptom reported Pulmonary: Yes no symptom reported Cardiovascular: Yes no symptom reported Gastrointestional: Yes: no symptom reported Genitourinary: Yes: no symptom reported Psychiatric/Neurological: Yes: no symptom reported Physical Exam General Appearance: no apparent distress Skin: warm Respiratory: decreased breath sounds Heart: S1S2, RRR Abdomen: soft, bowel sounds present Extremities: pulses present Neurology: alert Musculoskeletal: Osteoarthritis Assessment Assessment IMP CHEST PAIN ANEMIA HTN ESRD PLAN HD TODAY UF TO [facility] CHLOE ROSENTHAL MD May 13, 2017 12:27
[2017-05-13] MEDS ORDERED: NYST60PO TP (12:33)
[2017-05-13] MEDS ORDERED: ASPI-612 PO (12:33)
[2017-05-13 13:58] LABS: HEMATOCRIT 29.2 % (36.0-47.0); HEMOGLOBIN 9.8 g/dL (12.0-15.5); RED BLOOD COUNT 2.97 x10^6/uL (3.50-5.40); RED CELL DISTRIBUTION WIDTH 14.5 % (11.5-14.5); WHITE BLOOD COUNT 4.8 x10^3/uL (4.0-11.0)
[2017-05-13] MEDS ORDERED: CLOP75TA PO (16:46)
--- NOTE | 2017-05-15 18:56 | PDOC3 ---
Discharge Summary* Date of Admission: May 11, 2007 Date of Discharge: May 13, 2017 Admitting Diagnosis Chest pain Problems: Final Diagnosis Chest wall pain CAD ESRD CONSULTS Cardiology Nephrology Brief Hospital Course Mrs Berry is a76 y/o woman with significant heart history, including CAD, CHF, Afib, as well as ESRD on dialysis, who presented with sternal chest wall pain that started just prior to her dialysis session today, worsening during the session and prompting her to stop dialysis about 30 minutes early and come the to the ER. Pain is worse with deep breathing and direct pressure. Pain radiates to her back as well. She affirms some nausea, no vomiting. denies diaphoresis, fever, chills or cough. She states this reminds her of a previous episode when she was diagnosed with [place]. Of note, she is frequently admitted to the hospital, including most recently on for chest pain. 1. Chest wall pain: reproducible. suspect costochondritis. responded well to steroids last nite instead of NSAIDs. 2. CAD, CHF, Afib: appreciate cariology service input. MPI with fixed hypokinesis, EF 45%, giving her moderate risk. continue 2ary prevention meds, no interventions indicated at this time 3. ESRD: on HD; due today. Dr Nidia coughlin. 4. DM: control great on home levemir. hyperglycemia 2/2 steroids resolved 5. Chronic back pain; has lortab 6. Depression: stable mood. cont home lexapro Disposition/Orders: D/C to Home CONDITION AT DISCHARGE: Stable Diet: Renal, Cardiac Scheduled Aspirin (Aspirin Ec), 81 MG PO DAILYWBKFT Calcium Acetate (Calcium Acetate), 667 MG PO TIDWMEALS, (Reported) Clopidogrel Bisulfate (Clopidogrel), 75 MG PO DAILY, (Reported) Escitalopram Oxalate (Escitalopram Oxalate), 10 MG PO DAILY Famotidine (Pepcid), 20 MG PO HS Insulin Glargine,Hum.rec.anlog (Lantus Solostar), 14 UNIT SQ QHS, (Reported) Isosorbide Mononitrate (Isosorbide Mononitrate Er), 60 MG PO DAILY Lisinopril (Lisinopril), 1 TAB PO DAILY, (Reported) Metoprolol Tartrate (Metoprolol Tartrate), 50 MG PO BID, (Reported) Nystatin (Nystop), 1 YOLIE TP BID Vit B Cmplx 3/Fa/Vit C/Biotin (Nephro-Prashanth Rx Tablet), 1 EACH PO DAILY, ( Reported) Scheduled PRN Hydrocodone Bit/Acetaminophen (Hydrocodone-Apap 7.5-325 ), 1 TAB PO PRN Q6HRS PRN for PAIN, (Reported) Nitroglycerin (Nitrostat), 0.4 MG SL PRN Q5MIN PRN for CHEST PAIN FOLLOW UP APPOINTMENT: HD as per usual schedule. PCP in 2-4 weeks. UNA BARAJAS MD May 15, 2017 18:56
== END 2017-05-13 17:57 | disposition home or self-care (01) ==
LOC: ER 15:13 → 2 NORTH 16:20
PROVIDERS: ADMIT Internal Medicine Hematology & Oncology; ATTEND Internal Medicine Hematology & Oncology
DX: R07.89 Other chest pain (principal); E11.22 Type 2 diabetes mellitus with diabetic chronic kidney disease; I13.0 Hypertensive heart and chronic kidney disease with heart failure and stage 1 through stage 4 chronic kidney disease, or unspecified chronic kidney disease; N18.9 Chronic kidney disease, unspecified; M19.90 Unspecified osteoarthritis, unspecified site; J44.9 Chronic obstructive pulmonary disease, unspecified; K21.9 Gastro-esophageal reflux disease without esophagitis; F32.9 Major depressive disorder, single episode, unspecified; E78.5 Hyperlipidemia, unspecified; I25.10 Atherosclerotic heart disease of native coronary artery without angina pectoris; E21.3 Hyperparathyroidism, unspecified
CPT/HCPCS: 36415; 71010; 78452; 80048; 80053; 82962; 83735; 83880; 84484; 85027; 85610; 85730; 87340; 87341; 93005; 93017; 93306; 96372; 96374; 96375; 99285; A9500; G0378; J1815; J2405; J2785; J3010; J7512; 96376; G0379

== ENCOUNTER 2017-05-16 18:09 | Inpatient (IN) | payer MEDICARE, OTHER ==
[~2017-05-16] VITALS: Ht 167.6 cm; Wt 93.9 kg
[~2017-05-16 18:09] MED LIST changes: +ASPI-612 PO; +NYST60PO TP
[2017-05-16 22:30] VITALS: BP 117/71
[2017-05-16] MEDS ORDERED: ACETAMINOPHEN 325 MG TABLET. PO PRN (23:00)
[2017-05-16] MEDS ORDERED: IV NORMAL SALINE 1000ML BAG 1,000 ML IV SCH (23:00)
[2017-05-16] MEDS: HYDROcodone/APAP 7.5/325MG 1 TAB TABLET PO PRN (23:35)
[2017-05-16] MEDS: NITROGLYCERIN SUBLINGUAL 0.4 MG BOTTLE OF 25. SL PRN ×2 (23:40→23:48)
--- NOTE | 2017-05-16 23:48 | EKG ---
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1940 Requested By: MARIAM MOJICA Order Number: [id number] Reading MD: Measurements Intervals [place] Rate: 117 P: -31 [place]: 138 QRS: -120 QRSD: 126 T: 66 QT: 360 QTc: 507 Interpretive Statements SUPRAVENTRICULAR RHYTHM ABNORMAL RIGHT SUPERIOR AXIS DEVIATION S1,S2,S3 PATTERN LEFT ANTERIOR FASCICULAR BLOCK NON SPECIFIC INTRAVENTRICULAR BLOCK CONSIDER RIGHT VENTRICULAR HYPERTROPHY QRS(T) CONTOUR ABNORMALITY CONSISTENT WITH ANTEROSEPTAL INFARCT PROBABLY OLD ABNORMAL ECG RI6.01 Unconfirmed report Compared to ECG 05/12/2017 04:36:11 Supraventricular rhythm now present Right superior axis now present Left anterior fascicular block now present Myocardial infarct finding now present Sinus rhythm no longer present Right bundle-branch block no longer present
[2017-05-17] VITALS (7 sets, daily range): BP systolic 91–157; BP diastolic 30–75
[2017-05-17] MEDS ORDERED: INSULIN DETEMIR 300 UNITS/3 ML INSULN.PEN. SQ SCH
[2017-05-17] MEDS ORDERED: PIPERACILLIN/TAZOBACTAM 3.375 GM in IV NORMAL SALINE 50ML 50 ML IV SCH ×2
[2017-05-17] MEDS: PIPERACILLIN/TAZOBACTAM 2.25 GM in IV NORMAL SALINE 50ML 50 ML IV SCH ×4 (00:16→20:56)
[2017-05-17 00:41] LABS: CKMB MASS 0.7 ng/mL (0.0-3.6); CREATINE KINASE 57 U/L (26-192)
[2017-05-17 01:20] LABS: BASO % 1 % (0-3); EOS % 4 % (0-3); HEMATOCRIT 34.3 % (36.0-47.0); HEMOGLOBIN 11.4 g/dL (12.0-15.5); LYMPH # 1.9 x10^3/uL (1.0-4.8); LYMPH % 29 % (24-48); MEAN CORPUSCULAR HEMOGLOBIN 33 pg (25-35); MEAN CORPUSCULAR HGB CONC 33 g/dL (31-37); MEAN CORPUSCULAR VOLUME 100 fL (79-100); MONO % 16 % (0-9); NEUT % 50 % (31-73); PLATELET COUNT 114 x10^3/uL (140-400); RED BLOOD COUNT 3.44 x10^6/uL (3.50-5.40); RED CELL DISTRIBUTION WIDTH 15.5 % (11.5-14.5); WHITE BLOOD COUNT 6.6 x10^3/uL (4.0-11.0)
[2017-05-17 01:26] LABS: CALCIUM 7.2 mg/dL (8.5-10.1); CREATININE 3.8 mg/dL (0.6-1.0); GFR 11.5; POTASSIUM 3.3 mmol/L (3.5-5.1)
[2017-05-17] MEDS ORDERED: DEXTROSE 50% 25 GM / 50ML DISP.SYRIN. IV PRN ×2 (02:00→11:15)
[2017-05-17] MEDS ORDERED: POTASSIUM CHLORIDE 20 MEQ TABLET.ER. PO ONE (02:15)
[2017-05-17] MEDS: ONDANSETRON PF 4 MG/2 ML VIAL. IV PRN (02:32)
[2017-05-17] MEDS: HYDROcodone/APAP 7.5/325MG 1 TAB TABLET PO PRN (06:35)
[2017-05-17] MEDS: NITROGLYCERIN SUBLINGUAL 0.4 MG BOTTLE OF 25. SL PRN (08:39)
[2017-05-17] MEDS: ASPIRIN ENTERIC COATED 81 MG TABLET.DR. PO SCH (08:52)
[2017-05-17] MEDS: CLOPIDOGREL BISULFATE 75 MG TABLET PO SCH (08:53)
[2017-05-17] MEDS: FOLIC/VIT B COMP W-C (RENAL) TABLET. PO SCH (08:53)
[2017-05-17] MEDS: ESCITALOPRAM 10 MG TABLET. PO SCH (08:53)
[2017-05-17] MEDS: CALCIUM ACETATE 667 MG CAPSULE PO SCH ×3 (08:53→16:47)
--- NOTE | 2017-05-17 10:20 | EKG ---
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
[2017-05-17] MEDS: oxyCODONE/APAP 5/325 1 TAB TABLET PO PRN ×2 (10:52→17:57)
[2017-05-17] MEDS: LISINOPRIL 5 MG TABLET. PO SCH (10:53)
[2017-05-17] MEDS: METOPROLOL TART IMMED RELEASE 50 MG TABLET. PO SCH ×2 (10:53→20:55)
--- NOTE | 2017-05-17 10:53 | PDOC ---
CARDIOLOGY PROGRESS NOTE SUBJECTIVE: Brief continuity of care note. 76 y.o woman with multiple medical problems recently discharged after stress test revealed fixed defects. Has known and s/p BiV ICD. Denies any anginal pain. Has significant intraabd and pain likely related to UTI. OBJECTIVE: Vital SIgns: Vital Signs Date Time Temp Pulse Resp B/P (MAP) Pulse Ox O2 Delivery O2 Flow Rate FiO2 05/17/17 10:48 98.4 77 18 151/69 (96) 97 Room Air 98.4 I & O Intake and Output 05/17/17 07:00 Intake Total 240 ml Output Total 250 ml Balance -10 ml Intake Oral 240 ml Output Urine Total 0 ml Emesis 250 ml Objective: Moderate distress from bladder spams. pain with palpation of the chest wall and abd rrr, 4/6 systolic murmur. diminished S2 hypoactive bowel sounds mild edema in the LE. CURRENT MEDICATIONS: asa, plavix, lisinopril and imdur. DIAGNOSTIC TESTING: Trop minimally elevated. ASSESSMENT: 1. Severe 2. non-cardiac Chest pain 3. CAD s/p PCI - recent stress with fixed defects 4. UTI. 5. Debility, failure to thrive. Problems: PLAN: 1. Continue present meds. 2. Will uptitrate lisinopril and imdur after pain control if BP remains high. Supportive care. outpt eval for . Thanks TIMOTHY RUSSO MD May 17, 2017 10:53
[2017-05-17] MEDS: ISOSORBIDE MONONITRATE ER 30 MG TAB.ER.24H PO SCH (10:54)
[2017-05-17] MEDS: INSULIN ASPART 300 UNITS/3 ML INSULN.PEN SQ SCH ×2 (12:07→16:45)
[2017-05-17] MEDS: OXYBUTYNIN CHLORIDE 5 MG TABLET PO SCH ×2 (13:09→20:55)
--- NOTE | 2017-05-17 13:34 | PDOC1 ---
History and Physical Date of Admission Date of Admission 05/16/17 Identification/Chief Complaint Chief Complaint lower abd pain, chest pain Problems: Source Source: Chart review, Patient History of Present Illness History of Present Illness 71yoF, multiple commobidities including CHF, esrd on HD, was transferred from [facility] for lower abd pain Pt was actually just DCed here on 05/15 for chest pain, MPI + moderate risk , EF 48%, + chest wall tenderness, no intervention done. pt said she has had 3 days of suprabupic abd pain, still has 1-2 times of urination with HD. denies fever, chills. + UA in [facility]. denies N/V, diarrhea, constipation, cough, sob. Past Medical History Cardiovascular: CAD, CHF, HTN, ID, Hyperlipidemia, Aortic stenosis Pulmonary: COPD CENTRAL NERVOUS SYSTEM: CVA, Periperal neuropathy GI: Constipation, GERD Heme/Onc: Anemia NOS Hepatobiliary: No pertinent hx Psych: Depression Rheumatologic: No pertinent hx Infectious disease: No pertinent hx Renal/: Chronic renal failure Endocrine: Diabetes, Hypothyroidism, Hyperparathyroidism Past Surgical History Past Surgical History: Pacemaker, Appendectomy, Cholecystectomy, Cataract Removal, Hernia Repair, Hysterectomy, Other Family History Family History: Hypertension Social History Smoke: No ALCOHOL: none Drugs: None Current Medications Current Medications Current Medications Medications (Trade) Dose Ordered Sig/Payton Start Time Stop Time Status Last Admin Dose Admin Acetaminophen (Tylenol) 650 mg PRN Q6HRS PRN 05/16/17 23:00 Acetaminophen/ Hydrocodone Bitart (Lortab 7.5/325) 1 tab PRN Q6HRS PRN 05/16/17 23:00 05/17/17 11:12 DC 05/17/17 06:35 1 TAB Aspirin (Ecotrin) 81 mg DAILYWBKFT 05/17/17 08:00 05/17/17 08:52 81 MG Calcium Acetate (Phoslo) 667 mg TIDWMEALS 05/17/17 08:00 05/17/17 11:58 667 MG Clopidogrel Bisulfate (Plavix) 75 mg DAILY 05/17/17 09:00 05/17/17 08:53 75 MG Dextrose (Dextrose 50%-Water Syringe) 12.5 gm PRN Q15MIN PRN 05/17/17 11:15 Escitalopram Oxalate (Lexapro) 10 mg DAILY 05/17/17 09:00 05/17/17 08:53 10 MG Famotidine (Pepcid) 20 mg HS 05/17/17 21:00 Insulin Aspart (NovoLOG) 0-9 UNITS TIDWMEALS 05/17/17 12:00 05/17/17 12:07 5 UNITS Insulin Detemir (Levemir) 10 units QHS 05/17/17 21:00 Isosorbide Mononitrate (Imdur) 60 mg DAILY 05/17/17 09:00 05/17/17 10:54 60 MG Lisinopril (Prinivil) 5 mg DAILY 05/17/17 09:00 05/17/17 10:53 5 MG Metoprolol Tartrate (Lopressor) 50 mg BID 05/17/17 09:00 05/17/17 10:53 50 MG Nitroglycerin (Nitrostat) 0.4 mg PRN Q5MIN PRN 05/16/17 23:00 05/17/17 08:39 0.4 MG Nystatin (Nystop) 1 umm BID 05/17/17 09:00 Ondansetron HCl (Zofran) 4 mg PRN Q6HRS PRN 05/17/17 02:00 05/17/17 02:32 4 MG Oxybutynin Chloride (Ditropan) 5 mg UCQ750 05/17/17 14:00 05/17/17 13:09 5 MG Oxycodone/ Acetaminophen (Percocet 5/325) 1 tab PRN Q4HRS PRN 05/17/17 10:45 05/17/17 10:52 1 TAB Piperacillin Sod/ Tazobactam Sod 2.25 gm/Sodium Chloride 50 ml @ 100 mls/hr Q6HRS 05/17/17 00:00 05/17/17 11:59 100 MLS/HR Piperacillin Sod/ Tazobactam Sod 3.375 gm/Sodium Chloride 50 ml @ 100 mls/hr Q6HRS 05/17/17 00:00 UNV Potassium Chloride (Klor-Con) 40 meq 1X ONCE 05/17/17 02:15 05/17/17 02:16 DC 05/17/17 02:32 40 MEQ Sodium Chloride 1,000 ml @ 75 mls/hr [id number] 05/16/17 23:00 05/17/17 11:12 DC 05/17/17 00:17 75 MLS/HR Vitamin B Complex/ Vitamin C (Tanisha-Prashanth) 1 tab DAILY 05/17/17 09:00 05/17/17 08:53 1 TAB Allergies Allergies Allergies Coded Allergies Type Severity Reaction Last Updated Verified Sulfa (Sulfonamide Antibiotics) Allergy Intermediate Nausea/Vomiting, Rash 09/22/16 Yes morphine Allergy Intermediate itching 09/22/16 Yes adhesive Adverse Reaction Intermediate Itching 09/22/16 Yes ROS Review of System CONSTITUTIONAL: No fever or chills EYES: No recent changes SKIN: No rash or itching CARDIOVASCULAR: No chest pain, syncope, palpitations, or edema RESPIRATORY: No SOB or cough GASTROINTESTINAL: No nausea, vomiting or abdominal pain NEUROLOGICAL: No headaches or weakness ENDOCRINE: No cold or heat intolerance GENITOURINARY: No urgency or frequency of urination MUSCULOSKELETAL: No back pain or joint pain LYMPHATICS: No enlarged lymph nodes PSYCHIATRIC: No anxiety or depression Physical Exam Physical Exam GEN.: in pain. Alert and oriented. middle chest and lower abd + tenderness. HEENT: Head is normocephalic, atraumatic NECK: Supple. LUNGS: Clear to auscultation. HEART: RRR, S1, S2 present. Peripheral pulses intact ABDOMEN: Soft, Positive bowel sounds. EXTREMITIES: Without any cyanosis. NEUROLOGIC: Normal speech, normal tone PSYCHIATRIC: Normal affect, normal mood. SKIN: No ulcerations Vitals Vitals Vital Signs Date Time Temp Pulse Resp B/P (MAP) Pulse Ox O2 Delivery O2 Flow Rate FiO2 05/17/17 11:52 19 97 Room Air 1.0 05/17/17 10:54 94 177/80 05/17/17 10:48 98.4 98.4 Labs Labs Laboratory Tests Test 05/16/17 00:05 05/17/17 00:05 05/17/17 00:15 05/17/17 00:25 Creatine Kinase 57 U/L (26-192) Creatine Kinase MB (Mass) 0.7 ng/mL (0.0-3.6) Creatine Kinase MB Relative Index % (0-4) White Blood Count 6.6 x10^3/uL (4.0-11.0) Red Blood Count 3.44 x10^6/uL (3.50-5.40) Hemoglobin 11.4 g/dL (12.0-15.5) Hematocrit 34.3 % (36.0-47.0) Mean Corpuscular Volume 100 fL (79-100) Mean Corpuscular Hemoglobin 33 pg (25-35) Mean Corpuscular Hemoglobin Concent 33 g/dL (31-37) Red Cell Distribution Width 15.5 % (11.5-14.5) Platelet Count 114 x10^3/uL (140-400) Neutrophils (%) (Auto) 50 % (31-73) Lymphocytes (%) (Auto) 29 % (24-48) Monocytes (%) (Auto) 16 % (0-9) Eosinophils (%) (Auto) 4 % (0-3) Basophils (%) (Auto) 1 % (0-3) Neutrophils # (Auto) 3.3 x10^3uL (1.8-7.7) Lymphocytes # (Auto) 1.9 x10^3/uL (1.0-4.8) Monocytes # (Auto) 1.1 x10^3/uL (0.0-1.1) Eosinophils # (Auto) 0.3 x10^3/uL (0.0-0.7) Basophils # (Auto) 0.0 x10^3/uL (0.0-0.2) Sodium Level 138 mmol/L (136-145) Potassium Level 3.3 mmol/L (3.5-5.1) Chloride Level 96 mmol/L (98-107) Carbon Dioxide Level 31 mmol/L (21-32) Anion Gap 11 (6-14) Blood Urea Nitrogen 36 mg/dL (7-20) Creatinine 3.8 mg/dL (0.6-1.0) Estimated GFR (Cockcroft-Gault) 11.5 Glucose Level 192 mg/dL (70-99) Calcium Level 7.2 mg/dL (8.5-10.1) Magnesium Level 1.9 mg/dL (1.8-2.4) Glucose (Fingerstick) 182 mg/dL (70-99) Troponin I Quantitative 0.098 ng/mL (0.000-0.055) Test 05/17/17 07:17 05/17/17 08:09 05/17/17 11:09 Glucose (Fingerstick) 66 mg/dL (70-99) 92 mg/dL (70-99) 221 mg/dL (70-99) Laboratory Tests Test 05/17/17 00:05 05/17/17 00:15 05/17/17 00:25 05/17/17 07:17 White Blood Count 6.6 x10^3/uL (4.0-11.0) Red Blood Count 3.44 x10^6/uL (3.50-5.40) Hemoglobin 11.4 g/dL (12.0-15.5) Hematocrit 34.3 % (36.0-47.0) Mean Corpuscular Volume 100 fL (79-100) Mean Corpuscular Hemoglobin 33 pg (25-35) Mean Corpuscular Hemoglobin Concent 33 g/dL (31-37) Red Cell Distribution Width 15.5 % (11.5-14.5) Platelet Count 114 x10^3/uL (140-400) Neutrophils (%) (Auto) 50 % (31-73) Lymphocytes (%) (Auto) 29 % (24-48) Monocytes (%) (Auto) 16 % (0-9) Eosinophils (%) (Auto) 4 % (0-3) Basophils (%) (Auto) 1 % (0-3) Neutrophils # (Auto) 3.3 x10^3uL (1.8-7.7) Lymphocytes # (Auto) 1.9 x10^3/uL (1.0-4.8) Monocytes # (Auto) 1.1 x10^3/uL (0.0-1.1) Eosinophils # (Auto) 0.3 x10^3/uL (0.0-0.7) Basophils # (Auto) 0.0 x10^3/uL (0.0-0.2) Sodium Level 138 mmol/L (136-145) Potassium Level 3.3 mmol/L (3.5-5.1) Chloride Level 96 mmol/L (98-107) Carbon Dioxide Level 31 mmol/L (21-32) Anion Gap 11 (6-14) Blood Urea Nitrogen 36 mg/dL (7-20) Creatinine 3.8 mg/dL (0.6-1.0) Estimated GFR (Cockcroft-Gault) 11.5 Glucose Level 192 mg/dL (70-99) Calcium Level 7.2 mg/dL (8.5-10.1) Magnesium Level 1.9 mg/dL (1.8-2.4) Glucose (Fingerstick) 182 mg/dL (70-99) 66 mg/dL (70-99) Troponin I Quantitative 0.098 ng/mL (0.000-0.055) Test 05/17/17 08:09 05/17/17 11:09 Glucose (Fingerstick) 92 mg/dL (70-99) 221 mg/dL (70-99) VTE Prophylaxis Ordered VTE Prophylaxis Devices: Yes VTE Pharmacological Prophylaxi: Yes Assessment/Plan Assessment/Plan lower abd pain, 2/2 UTI possibly with +UA reproducible chest wall pain, 2/2 costochondritis h/o CAD stable systolic CHF EF 48% PAFIB ESRD on HD dm2 htn chronic back pain depression COPD use home o2 sometime plan: fu with renal, card HD as per renal cont zosyn for now, fu ucx in [facility]. add oxybutinin KUB cont home meds decrease levemir to 10u qhs since hypoglycemia today, SSI ptot dvt ppx add duoneb, albuterol prn pain control KOURTNEY MUSTAFA MD May 17, 2017 13:34
[2017-05-17] MEDS ORDERED: ALBUTEROL SULFATE 2.5 MG/3 ML NEBU. NEB PRN (13:45)
[2017-05-17] MEDS: NYSTATIN TOPICAL POWDER 15GM BOTTLE. TP SCH ×2 (15:03→21:00)
[2017-05-17] MEDS: HEPARIN PF for SUB-Q USE 5,000 UNIT/0.5 ML VIAL. SQ SCH ×2 (15:08→21:00)
[2017-05-17] MEDS: IPRATRPIUM/ALBUTEROL 0.5/2.5MG 3 ML NEBU. NEB SCH ×2 (15:13→19:09)
[2017-05-17] MEDS: FAMOTIDINE 20 MG TABLET. PO SCH (20:55)
[2017-05-17] MEDS: INSULIN DETEMIR 300 UNITS/3 ML INSULN.PEN. SQ SCH (20:59)
[2017-05-18] VITALS (7 sets, daily range): BP systolic 106–136; BP diastolic 25–47
--- NOTE | 2017-05-18 00:02 | PDOC2 ---
CONSULT Date of Consult Date of Consult DATE: 05/17/17 TIME: 1500 Reason for Consult Reason for Consult: ESRD History of Present Illness Reason for Visit: 71yoF, multiple commobidities including CHF, esrd on HD, was transferred from [facility] for lower abd pain Pt was actually just DCed here on 05/15 for chest pain, MPI + moderate risk , EF 48%, + chest wall tenderness, no intervention done. pt said she has had 3 days of suprabupic abd pain, still has 1-2 times of urination with HD. denies fever, chills. + UA in [facility]. denies N/V, diarrhea, constipation, cough, sob. Past Medical History Cardiovascular: CAD, CHF, HTN, PR, Hyperlipidemia, Aortic stenosis Pulmonary: COPD CENTRAL NERVOUS SYSTEM: CVA, Periperal neuropathy GI: Constipation, GERD Heme/Onc: Anemia NOS Hepatobiliary: No pertinent hx Psych: Depression Musculoskeletal: Osteoarthritis Rheumatologic: No pertinent hx Infectious disease: No pertinent hx Renal/: Chronic renal failure Endocrine: Diabetes, Hypothyroidism, Hyperparathyroidism Past Surgical History Past Surgical History: Pacemaker, Appendectomy, Cholecystectomy, Cataract Removal, Hernia Repair, Hysterectomy, Other Family History Family History: Hypertension Social History No ALCOHOL: none Drugs: None Lives: with Family Domestic Violence: Neg Current Medications Current Medications Current Medications Acetaminophen (Tylenol) 650 mg PRN Q6HRS PRN PO MILD PAIN / TEMP; Start at 23:00 Sodium Chloride 1,000 ml @ 75 mls/hr [id number] IV Last administered on 05/17/17 00:17; Start 05/16/17 at 23:00; Stop 05/17/17 at 11:12; Status DC Piperacillin Sod/ Tazobactam Sod 3.375 gm/Sodium Chloride 50 ml @ 100 mls/hr Q6HRS IV ; Start 05/17/17 at 00:00; Status UNV Aspirin (Ecotrin) 81 mg DAILYWBKFT PO Last administered on 05/17/17 08:52; Start 05/17/17 at 08:00 Clopidogrel Bisulfate (Plavix) 75 mg DAILY PO Last administered on 05/17/17 08: 53; Start 05/17/17 at 09:00 Famotidine (Pepcid) 20 mg HS PO Last administered on 05/17/17 20:55; Start 05/17 at 21:00 Acetaminophen/ Hydrocodone Bitart (Lortab 7.5/325) 1 tab PRN Q6HRS PRN PO PAIN Last administered on 05/17/17 06:35; Start 05/16/17 at 23:00; Stop 05/17/17 at 11: 12; Status DC Lisinopril (Prinivil) 5 mg DAILY PO Last administered on 05/17/17 10:53; Start 05/17/17 at 09:00 Metoprolol Tartrate (Lopressor) 50 mg BID PO Last administered on 05/17/17 20: 55; Start 05/17/17 at 09:00 Nitroglycerin (Nitrostat) 0.4 mg PRN Q5MIN PRN SL CHEST PAIN Last administered on 05/17/17 08:39; Start 05/16/17 at 23:00 Nystatin (Nystop) 1 tiffany BID TP Last administered on 05/17/17 21:00; Start at 09:00 Calcium Acetate (Phoslo) 667 mg TIDWMEALS PO Last administered on 05/17/17 16: 47; Start 05/17/17 at 08:00 Escitalopram Oxalate (Lexapro) 10 mg DAILY PO Last administered on 05/17/17 08: 53; Start 05/17/17 at 09:00 Insulin Detemir (Levemir) 14 units QHS SQ Last administered on 05/17/17 00:23; Start 05/17/17 at 00:00; Stop 05/17/17 at 11:12; Status DC Isosorbide Mononitrate (Imdur) 60 mg DAILY PO Last administered on 05/17/17 10: 54; Start 05/17/17 at 09:00 Vitamin B Complex/ Vitamin C (Tanisha-Prashanth) 1 tab DAILY PO Last administered on 08:53; Start 05/17/17 at 09:00 Piperacillin Sod/ Tazobactam Sod 2.25 gm/Sodium Chloride 50 ml @ 100 mls/hr Q6HRS IV Last administered on 05/17/17 11:59; Start 05/17/17 at 00:00; Stop 05/17 at 14:47; Status DC Potassium Chloride (Klor-Con) 40 meq 1X ONCE PO Last administered on 05/17/17 02:32; Start 05/17/17 at 02:15; Stop 05/17/17 at 02:16; Status DC Ondansetron HCl (Zofran) 4 mg PRN Q6HRS PRN IV NAUSEA/VOMITING Last administered on 05/17/17 02:32; Start 05/17/17 at 02:00 Dextrose (Dextrose 50%-Water Syringe) 12.5 gm PRN Q15MIN PRN IV SEE COMMENTS; Start 05/17/17 at 02:00; Stop 05/17/17 at 14:42; Status DC Oxycodone/ Acetaminophen (Percocet 5/325) 1 tab PRN Q4HRS PRN PO PAIN Last administered on 05/17/17 17:57; Start 05/17/17 at 10:45 Insulin Detemir (Levemir) 10 units QHS SQ Last administered on 05/17/17 20:59; Start 05/17/17 at 21:00 Oxybutynin Chloride (Ditropan) 5 mg [id number] PO Last administered on 05/17/17 20: 55; Start 05/17/17 at 14:00 Insulin Aspart (NovoLOG) 0-9 UNITS TIDWMEALS SQ Last administered on 05/17/17 12:07; Start 05/17/17 at 12:00 Dextrose (Dextrose 50%-Water Syringe) 12.5 gm PRN Q15MIN PRN IV SEE COMMENTS; Start 05/17/17 at 11:15 Heparin Sodium (Porcine) (Heparin Sq) 5,000 unit Q8HRS SQ Last administered on 05/17/17 21:00; Start 05/17/17 at 14:00 Albuterol/ Ipratropium (Duoneb) 3 ml RTQID NEB Last administered on 05/17/17 19 :09; Start 05/17/17 at 16:00 Albuterol Sulfate (Ventolin Neb Soln) 2.5 mg PRN Q2HR PRN NEB SHORTNESS OF BREATH; Start 05/17/17 at 13:45 Guaifenesin (Mucinex) 600 mg BID PO Last administered on 05/17/17 20:55; Start 05/17/17 at 21:00 Piperacillin Sod/ Tazobactam Sod 2.25 gm/Sodium Chloride 50 ml @ 100 mls/hr Q12HR IV Last administered on 05/17/17t 20:56; Start 05/17/17 at 23:00 Active Scripts Active Aspirin Ec (Aspirin) 81 Mg Tablet.dr 81 Mg PO DAILYWBKFT Nystop (Nystatin) 60 Gm Powder 1 Tiffany TP BID Isosorbide Mononitrate Er (Isosorbide Mononitrate) 60 Mg Tab.er.24h 60 Mg PO DAILY 30 Days Escitalopram Oxalate 10 Mg Tablet 10 Mg PO DAILY Pepcid (Famotidine) 20 Mg Tablet 20 Mg PO HS Nitrostat (Nitroglycerin) 0.4 Mg Tab.subl 0.4 Mg SL PRN Q5MIN PRN Reported Clopidogrel (Clopidogrel Bisulfate) 75 Mg Tablet 75 Mg PO DAILY Lisinopril 5 Mg Tablet 1 Tab PO DAILY Metoprolol Tartrate 50 Mg Tablet 50 Mg PO BID Nephro-Prashanth Rx Tablet (Vit B Cmplx 3/Fa/Vit C/Biotin) 1 Each Tablet 1 Each PO DAILY Hydrocodone-Apap 7.5-325 (Hydrocodone Bit/Acetaminophen) 1 Each Tablet 1 Tab PO PRN Q6HRS PRN Calcium Acetate 667 Mg Tablet 667 Mg PO TIDWMEALS Lantus Solostar (Insulin Glargine,Hum.rec.anlog) 100 Unit/1 Ml Insuln.pen 14 Unit SQ QHS Allergies Allergies: Coded Allergies: Sulfa (Sulfonamide Antibiotics) (Verified Allergy, Intermediate, Nausea/ Vomiting, Rash, 09/22/16) morphine (Verified Allergy, Intermediate, itching, 09/22/16) adhesive (Verified Adverse Reaction, Intermediate, Itching, 09/22/16) Vitals VITALS Vital Signs Date Time Temp Pulse Resp B/P (MAP) Pulse Ox O2 Delivery O2 Flow Rate FiO2 05/17/17 23:05 98.1 59 16 91/34 (53) 96 Nasal Cannula 2.0 98.1 Labs Labs Laboratory Tests Test 05/16/17 00:05 05/17/17 00:05 05/17/17 00:15 05/17/17 00:25 Creatine Kinase 57 U/L (26-192) Creatine Kinase MB (Mass) 0.7 ng/mL (0.0-3.6) Creatine Kinase MB Relative Index % (0-4) White Blood Count 6.6 x10^3/uL (4.0-11.0) Red Blood Count 3.44 x10^6/uL (3.50-5.40) Hemoglobin 11.4 g/dL (12.0-15.5) Hematocrit 34.3 % (36.0-47.0) Mean Corpuscular Volume 100 fL (79-100) Mean Corpuscular Hemoglobin 33 pg (25-35) Mean Corpuscular Hemoglobin Concent 33 g/dL (31-37) Red Cell Distribution Width 15.5 % (11.5-14.5) Platelet Count 114 x10^3/uL (140-400) Neutrophils (%) (Auto) 50 % (31-73) Lymphocytes (%) (Auto) 29 % (24-48) Monocytes (%) (Auto) 16 % (0-9) Eosinophils (%) (Auto) 4 % (0-3) Basophils (%) (Auto) 1 % (0-3) Neutrophils # (Auto) 3.3 x10^3uL (1.8-7.7) Lymphocytes # (Auto) 1.9 x10^3/uL (1.0-4.8) Monocytes # (Auto) 1.1 x10^3/uL (0.0-1.1) Eosinophils # (Auto) 0.3 x10^3/uL (0.0-0.7) Basophils # (Auto) 0.0 x10^3/uL (0.0-0.2) Sodium Level 138 mmol/L (136-145) Potassium Level 3.3 mmol/L (3.5-5.1) Chloride Level 96 mmol/L (98-107) Carbon Dioxide Level 31 mmol/L (21-32) Anion Gap 11 (6-14) Blood Urea Nitrogen 36 mg/dL (7-20) Creatinine 3.8 mg/dL (0.6-1.0) Estimated GFR (Cockcroft-Gault) 11.5 Glucose Level 192 mg/dL (70-99) Calcium Level 7.2 mg/dL (8.5-10.1) Magnesium Level 1.9 mg/dL (1.8-2.4) Glucose (Fingerstick) 182 mg/dL (70-99) Troponin I Quantitative 0.098 ng/mL (0.000-0.055) Test 05/17/17 07:17 05/17/17 08:09 05/17/17 11:09 05/17/17 16:11 Glucose (Fingerstick) 66 mg/dL (70-99) 92 mg/dL (70-99) 221 mg/dL (70-99) 124 mg/dL (70-99) Test 05/17/17 20:49 Glucose (Fingerstick) 230 mg/dL (70-99) Laboratory Tests Test 05/17/17 00:05 05/17/17 00:15 05/17/17 00:25 05/17/17 07:17 White Blood Count 6.6 x10^3/uL (4.0-11.0) Red Blood Count 3.44 x10^6/uL (3.50-5.40) Hemoglobin 11.4 g/dL (12.0-15.5) Hematocrit 34.3 % (36.0-47.0) Mean Corpuscular Volume 100 fL (79-100) Mean Corpuscular Hemoglobin 33 pg (25-35) Mean Corpuscular Hemoglobin Concent 33 g/dL (31-37) Red Cell Distribution Width 15.5 % (11.5-14.5) Platelet Count 114 x10^3/uL (140-400) Neutrophils (%) (Auto) 50 % (31-73) Lymphocytes (%) (Auto) 29 % (24-48) Monocytes (%) (Auto) 16 % (0-9) Eosinophils (%) (Auto) 4 % (0-3) Basophils (%) (Auto) 1 % (0-3) Neutrophils # (Auto) 3.3 x10^3uL (1.8-7.7) Lymphocytes # (Auto) 1.9 x10^3/uL (1.0-4.8) Monocytes # (Auto) 1.1 x10^3/uL (0.0-1.1) Eosinophils # (Auto) 0.3 x10^3/uL (0.0-0.7) Basophils # (Auto) 0.0 x10^3/uL (0.0-0.2) Sodium Level 138 mmol/L (136-145) Potassium Level 3.3 mmol/L (3.5-5.1) Chloride Level 96 mmol/L (98-107) Carbon Dioxide Level 31 mmol/L (21-32) Anion Gap 11 (6-14) Blood Urea Nitrogen 36 mg/dL (7-20) Creatinine 3.8 mg/dL (0.6-1.0) Estimated GFR (Cockcroft-Gault) 11.5 Glucose Level 192 mg/dL (70-99) Calcium Level 7.2 mg/dL (8.5-10.1) Magnesium Level 1.9 mg/dL (1.8-2.4) Glucose (Fingerstick) 182 mg/dL (70-99) 66 mg/dL (70-99) Troponin I Quantitative 0.098 ng/mL (0.000-0.055) Test 05/17/17 08:09 05/17/17 11:09 05/17/17 16:11 05/17/17 20:49 Glucose (Fingerstick) 92 mg/dL (70-99) 221 mg/dL (70-99) 124 mg/dL (70-99) 230 mg/dL (70-99) Assessment/Plan Assessment/Plan ESRD HTN WEAKNESS CPM HD support MWF Labs. RHETT REY MD May 18, 2017 00:02
[2017-05-18] MEDS: oxyCODONE/APAP 5/325 1 TAB TABLET PO PRN ×2 (03:48→16:04)
[2017-05-18] MEDS: HEPARIN PF for SUB-Q USE 5,000 UNIT/0.5 ML VIAL. SQ SCH ×3 (05:36→22:25)
[2017-05-18 07:00] LABS: BASO % 1 % (0-3); EOS % 7 % (0-3); HEMATOCRIT 29.8 % (36.0-47.0); HEMOGLOBIN 9.8 g/dL (12.0-15.5); LYMPH # 0.7 x10^3/uL (1.0-4.8); LYMPH % 14 % (24-48); MEAN CORPUSCULAR HEMOGLOBIN 33 pg (25-35); MEAN CORPUSCULAR HGB CONC 33 g/dL (31-37); MEAN CORPUSCULAR VOLUME 100 fL (79-100); MONO % 15 % (0-9); NEUT % 63 % (31-73); PLATELET COUNT 85 x10^3/uL (140-400); RED BLOOD COUNT 2.98 x10^6/uL (3.50-5.40); RED CELL DISTRIBUTION WIDTH 15.1 % (11.5-14.5)
[2017-05-18 07:09] LABS: CALCIUM 7.4 mg/dL (8.5-10.1); CREATININE 5.7 mg/dL (0.6-1.0); GFR 7.2; POTASSIUM 4.1 mmol/L (3.5-5.1)
--- NOTE | 2017-05-18 07:25 | PDOC ---
PROGRESS NOTES Chief Complaint Chief Complaint cc: abdominal pain A/P lower abd pain,possible UTI, Reproducible chest wall pain, 2/2 costochondritis h/o CAD stable systolic CHF EF 48% PAFIB ESRD on HD dm2 htn chronic back pain depression COPD use home o2 sometime plan HD Per nephrology labs reviewed BCX no growth pt says her symptoms similar to pervious UTI cardiology follow up supportive care PT.OT Vitals Vitals Vital Signs Date Time Temp Pulse Resp B/P (MAP) Pulse Ox O2 Delivery O2 Flow Rate FiO2 05/18/17 05:30 Room Air 05/18/17 03:48 99 05/18/17 03:28 97.7 59 20 125/46 (72) 2.0 97.7 Physical Exam General: Alert, Oriented X3 Heart: Normal S1, Normal S2 Lungs: Clear Abdomen: Normal bowel sounds Labs LABS Laboratory Tests Test 05/17/17 08:09 05/17/17 11:09 05/17/17 16:11 05/17/17 20:49 Glucose (Fingerstick) 92 mg/dL (70-99) 221 mg/dL (70-99) 124 mg/dL (70-99) 230 mg/dL (70-99) Test 05/18/17 06:20 White Blood Count 5.0 x10^3/uL (4.0-11.0) Red Blood Count 2.98 x10^6/uL (3.50-5.40) Hemoglobin 9.8 g/dL (12.0-15.5) Hematocrit 29.8 % (36.0-47.0) Mean Corpuscular Volume 100 fL (79-100) Mean Corpuscular Hemoglobin 33 pg (25-35) Mean Corpuscular Hemoglobin Concent 33 g/dL (31-37) Red Cell Distribution Width 15.1 % (11.5-14.5) Platelet Count 85 x10^3/uL (140-400) Neutrophils (%) (Auto) 63 % (31-73) Lymphocytes (%) (Auto) 14 % (24-48) Monocytes (%) (Auto) 15 % (0-9) Eosinophils (%) (Auto) 7 % (0-3) Basophils (%) (Auto) 1 % (0-3) Neutrophils # (Auto) 3.1 x10^3uL (1.8-7.7) Lymphocytes # (Auto) 0.7 x10^3/uL (1.0-4.8) Monocytes # (Auto) 0.8 x10^3/uL (0.0-1.1) Eosinophils # (Auto) 0.3 x10^3/uL (0.0-0.7) Basophils # (Auto) 0.0 x10^3/uL (0.0-0.2) Sodium Level 139 mmol/L (136-145) Potassium Level 4.1 mmol/L (3.5-5.1) Chloride Level 97 mmol/L (98-107) Carbon Dioxide Level 32 mmol/L (21-32) Anion Gap 10 (6-14) Blood Urea Nitrogen 51 mg/dL (7-20) Creatinine 5.7 mg/dL (0.6-1.0) Estimated GFR (Cockcroft-Gault) 7.2 Glucose Level 78 mg/dL (70-99) Calcium Level 7.4 mg/dL (8.5-10.1) Comment Review of Relevant I have reviewed the following items adrián (where applicable) has been applied. Labs Laboratory Tests Test 05/17/17 00:05 05/17/17 00:15 05/17/17 00:25 05/17/17 07:17 White Blood Count 6.6 x10^3/uL (4.0-11.0) Red Blood Count 3.44 x10^6/uL (3.50-5.40) Hemoglobin 11.4 g/dL (12.0-15.5) Hematocrit 34.3 % (36.0-47.0) Mean Corpuscular Volume 100 fL (79-100) Mean Corpuscular Hemoglobin 33 pg (25-35) Mean Corpuscular Hemoglobin Concent 33 g/dL (31-37) Red Cell Distribution Width 15.5 % (11.5-14.5) Platelet Count 114 x10^3/uL (140-400) Neutrophils (%) (Auto) 50 % (31-73) Lymphocytes (%) (Auto) 29 % (24-48) Monocytes (%) (Auto) 16 % (0-9) Eosinophils (%) (Auto) 4 % (0-3) Basophils (%) (Auto) 1 % (0-3) Neutrophils # (Auto) 3.3 x10^3uL (1.8-7.7) Lymphocytes # (Auto) 1.9 x10^3/uL (1.0-4.8) Monocytes # (Auto) 1.1 x10^3/uL (0.0-1.1) Eosinophils # (Auto) 0.3 x10^3/uL (0.0-0.7) Basophils # (Auto) 0.0 x10^3/uL (0.0-0.2) Sodium Level 138 mmol/L (136-145) Potassium Level 3.3 mmol/L (3.5-5.1) Chloride Level 96 mmol/L (98-107) Carbon Dioxide Level 31 mmol/L (21-32) Anion Gap 11 (6-14) Blood Urea Nitrogen 36 mg/dL (7-20) Creatinine 3.8 mg/dL (0.6-1.0) Estimated GFR (Cockcroft-Gault) 11.5 Glucose Level 192 mg/dL (70-99) Calcium Level 7.2 mg/dL (8.5-10.1) Magnesium Level 1.9 mg/dL (1.8-2.4) Glucose (Fingerstick) 182 mg/dL (70-99) 66 mg/dL (70-99) Troponin I Quantitative 0.098 ng/mL (0.000-0.055) Test 05/17/17 08:09 05/17/17 11:09 05/17/17 16:11 05/17/17 20:49 Glucose (Fingerstick) 92 mg/dL (70-99) 221 mg/dL (70-99) 124 mg/dL (70-99) 230 mg/dL (70-99) Test 05/18/17 06:20 White Blood Count 5.0 x10^3/uL (4.0-11.0) Red Blood Count 2.98 x10^6/uL (3.50-5.40) Hemoglobin 9.8 g/dL (12.0-15.5) Hematocrit 29.8 % (36.0-47.0) Mean Corpuscular Volume 100 fL (79-100) Mean Corpuscular Hemoglobin 33 pg (25-35) Mean Corpuscular Hemoglobin Concent 33 g/dL (31-37) Red Cell Distribution Width 15.1 % (11.5-14.5) Platelet Count 85 x10^3/uL (140-400) Neutrophils (%) (Auto) 63 % (31-73) Lymphocytes (%) (Auto) 14 % (24-48) Monocytes (%) (Auto) 15 % (0-9) Eosinophils (%) (Auto) 7 % (0-3) Basophils (%) (Auto) 1 % (0-3) Neutrophils # (Auto) 3.1 x10^3uL (1.8-7.7) Lymphocytes # (Auto) 0.7 x10^3/uL (1.0-4.8) Monocytes # (Auto) 0.8 x10^3/uL (0.0-1.1) Eosinophils # (Auto) 0.3 x10^3/uL (0.0-0.7) Basophils # (Auto) 0.0 x10^3/uL (0.0-0.2) Sodium Level 139 mmol/L (136-145) Potassium Level 4.1 mmol/L (3.5-5.1) Chloride Level 97 mmol/L (98-107) Carbon Dioxide Level 32 mmol/L (21-32) Anion Gap 10 (6-14) Blood Urea Nitrogen 51 mg/dL (7-20) Creatinine 5.7 mg/dL (0.6-1.0) Estimated GFR (Cockcroft-Gault) 7.2 Glucose Level 78 mg/dL (70-99) Calcium Level 7.4 mg/dL (8.5-10.1) Laboratory Tests Test 05/17/17 08:09 05/17/17 11:09 05/17/17 16:11 05/17/17 20:49 Glucose (Fingerstick) 92 mg/dL (70-99) 221 mg/dL (70-99) 124 mg/dL (70-99) 230 mg/dL (70-99) Test 05/18/17 06:20 White Blood Count 5.0 x10^3/uL (4.0-11.0) Red Blood Count 2.98 x10^6/uL (3.50-5.40) Hemoglobin 9.8 g/dL (12.0-15.5) Hematocrit 29.8 % (36.0-47.0) Mean Corpuscular Volume 100 fL (79-100) Mean Corpuscular Hemoglobin 33 pg (25-35) Mean Corpuscular Hemoglobin Concent 33 g/dL (31-37) Red Cell Distribution Width 15.1 % (11.5-14.5) Platelet Count 85 x10^3/uL (140-400) Neutrophils (%) (Auto) 63 % (31-73) Lymphocytes (%) (Auto) 14 % (24-48) Monocytes (%) (Auto) 15 % (0-9) Eosinophils (%) (Auto) 7 % (0-3) Basophils (%) (Auto) 1 % (0-3) Neutrophils # (Auto) 3.1 x10^3uL (1.8-7.7) Lymphocytes # (Auto) 0.7 x10^3/uL (1.0-4.8) Monocytes # (Auto) 0.8 x10^3/uL (0.0-1.1) Eosinophils # (Auto) 0.3 x10^3/uL (0.0-0.7) Basophils # (Auto) 0.0 x10^3/uL (0.0-0.2) Sodium Level 139 mmol/L (136-145) Potassium Level 4.1 mmol/L (3.5-5.1) Chloride Level 97 mmol/L (98-107) Carbon Dioxide Level 32 mmol/L (21-32) Anion Gap 10 (6-14) Blood Urea Nitrogen 51 mg/dL (7-20) Creatinine 5.7 mg/dL (0.6-1.0) Estimated GFR (Cockcroft-Gault) 7.2 Glucose Level 78 mg/dL (70-99) Calcium Level 7.4 mg/dL (8.5-10.1) Microbiology 05/16/17 Blood Culture - Preliminary, Resulted NO GROWTH AFTER 1 DAY Medications Current Medications Acetaminophen (Tylenol) 650 mg PRN Q6HRS PRN PO MILD PAIN / TEMP; Start at 23:00 Sodium Chloride 1,000 ml @ 75 mls/hr [id number] IV Last administered on 05/17/17t 00:17; Start 05/16/17 at 23:00; Stop 05/17/17 at 11:12; Status DC Piperacillin Sod/ Tazobactam Sod 3.375 gm/Sodium Chloride 50 ml @ 100 mls/hr Q6HRS IV ; Start 05/17/17 at 00:00; Status UNV Aspirin (Ecotrin) 81 mg DAILYWBKFT PO Last administered on 05/17/17 08:52; Start 05/17/17 at 08:00 Clopidogrel Bisulfate (Plavix) 75 mg DAILY PO Last administered on 05/17/17 08: 53; Start 05/17/17 at 09:00 Famotidine (Pepcid) 20 mg HS PO Last administered on 05/17/17 20:55; Start 05/17 at 21:00 Acetaminophen/ Hydrocodone Bitart (Lortab 7.5/325) 1 tab PRN Q6HRS PRN PO PAIN Last administered on 05/17/17 06:35; Start 05/16/17 at 23:00; Stop 05/17/17 at 11: 12; Status DC Lisinopril (Prinivil) 5 mg DAILY PO Last administered on 05/17/17 10:53; Start 05/17/17 at 09:00 Metoprolol Tartrate (Lopressor) 50 mg BID PO Last administered on 05/17/17 20: 55; Start 05/17/17 at 09:00 Nitroglycerin (Nitrostat) 0.4 mg PRN Q5MIN PRN SL CHEST PAIN Last administered on 05/17/17 08:39; Start 05/16/17 at 23:00 Nystatin (Nystop) 1 tiffany BID TP Last administered on 05/17/17 21:00; Start at 09:00 Calcium Acetate (Phoslo) 667 mg TIDWMEALS PO Last administered on 05/17/17 16: 47; Start 05/17/17 at 08:00 Escitalopram Oxalate (Lexapro) 10 mg DAILY PO Last administered on 05/17/17 08: 53; Start 05/17/17 at 09:00 Insulin Detemir (Levemir) 14 units QHS SQ Last administered on 05/17/17 00:23; Start 05/17/17 at 00:00; Stop 05/17/17 at 11:12; Status DC Isosorbide Mononitrate (Imdur) 60 mg DAILY PO Last administered on 05/17/17 10: 54; Start 05/17/17 at 09:00 Vitamin B Complex/ Vitamin C (Tanisha-Prashanth) 1 tab DAILY PO Last administered on 08:53; Start 05/17/17 at 09:00 Piperacillin Sod/ Tazobactam Sod 2.25 gm/Sodium Chloride 50 ml @ 100 mls/hr Q6HRS IV Last administered on 05/17/17 11:59; Start 05/17/17 at 00:00; Stop 05/17 at 14:47; Status DC Potassium Chloride (Klor-Con) 40 meq 1X ONCE PO Last administered on 05/17/17 02:32; Start 05/17/17 at 02:15; Stop 05/17/17 at 02:16; Status DC Ondansetron HCl (Zofran) 4 mg PRN Q6HRS PRN IV NAUSEA/VOMITING Last administered on 05/17/17 02:32; Start 05/17/17 at 02:00 Dextrose (Dextrose 50%-Water Syringe) 12.5 gm PRN Q15MIN PRN IV SEE COMMENTS; Start 05/17/17 at 02:00; Stop 05/17/17 at 14:42; Status DC Oxycodone/ Acetaminophen (Percocet 5/325) 1 tab PRN Q4HRS PRN PO PAIN Last administered on 05/18/17 03:48; Start 05/17/17 at 10:45 Insulin Detemir (Levemir) 10 units QHS SQ Last administered on 05/17/17 20:59; Start 05/17/17 at 21:00 Oxybutynin Chloride (Ditropan) 5 mg [id number] PO Last administered on 05/17/17 20: 55; Start 05/17/17 at 14:00 Insulin Aspart (NovoLOG) 0-9 UNITS TIDWMEALS SQ Last administered on 05/17/17 12:07; Start 05/17/17 at 12:00 Dextrose (Dextrose 50%-Water Syringe) 12.5 gm PRN Q15MIN PRN IV SEE COMMENTS; Start 05/17/17 at 11:15 Heparin Sodium (Porcine) (Heparin Sq) 5,000 unit Q8HRS SQ Last administered on 05/18/17 05:36; Start 05/17/17 at 14:00 Albuterol/ Ipratropium (Duoneb) 3 ml RTQID NEB Last administered on 05/17/17 19 :09; Start 05/17/17 at 16:00 Albuterol Sulfate (Ventolin Neb Soln) 2.5 mg PRN Q2HR PRN NEB SHORTNESS OF BREATH; Start 05/17/17 at 13:45 Guaifenesin (Mucinex) 600 mg BID PO Last administered on 05/17/17 20:55; Start 05/17/17 at 21:00 Piperacillin Sod/ Tazobactam Sod 2.25 gm/Sodium Chloride 50 ml @ 100 mls/hr Q12HR IV Last administered on 05/17/17 20:56; Start 05/17/17 at 23:00 Active Scripts Active Aspirin Ec (Aspirin) 81 Mg Tablet.dr 81 Mg PO DAILYWBKFT Nystop (Nystatin) 60 Gm Powder 1 Tiffany TP BID Isosorbide Mononitrate Er (Isosorbide Mononitrate) 60 Mg Tab.er.24h 60 Mg PO DAILY 30 Days Escitalopram Oxalate 10 Mg Tablet 10 Mg PO DAILY Pepcid (Famotidine) 20 Mg Tablet 20 Mg PO HS Nitrostat (Nitroglycerin) 0.4 Mg Tab.subl 0.4 Mg SL PRN Q5MIN PRN Reported Clopidogrel (Clopidogrel Bisulfate) 75 Mg Tablet 75 Mg PO DAILY Lisinopril 5 Mg Tablet 1 Tab PO DAILY Metoprolol Tartrate 50 Mg Tablet 50 Mg PO BID Nephro-Prashanth Rx Tablet (Vit B Cmplx 3/Fa/Vit C/Biotin) 1 Each Tablet 1 Each PO DAILY Hydrocodone-Apap 7.5-325 (Hydrocodone Bit/Acetaminophen) 1 Each Tablet 1 Tab PO PRN Q6HRS PRN Calcium Acetate 667 Mg Tablet 667 Mg PO TIDWMEALS Lantus Solostar (Insulin Glargine,Hum.rec.anlog) 100 Unit/1 Ml Insuln.pen 14 Unit SQ QHS Vitals/I & O Vital Sign - Last 24 Hours 05/17/17 05/17/17 05/17/17 05/17/17 07:35 08:00 08:39 10:48 Temp 98.4 98.4 Pulse 94 77 Resp 22 18 B/P (MAP) 148/70 151/69 (96) Pulse Ox 94 97 O2 Delivery Room Air Room Air Room Air 05/17/17 05/17/17 05/17/17 05/17/17 10:52 10:53 10:53 10:54 Pulse 94 94 94 Resp 22 B/P (MAP) 177/80 177/80 177/80 Pulse Ox 97 O2 Delivery Nasal Cannula O2 Flow Rate 1.0 05/17/17 05/17/17 05/17/17 05/17/17 11:52 14:22 15:16 17:57 Temp 97.8 97.8 Pulse 51 Resp 19 18 21 B/P (MAP) 92/36 (54) Pulse Ox 97 98 92 92 O2 Delivery Nasal Cannula Room Air Room Air O2 Flow Rate 1.0 2.0 2.0 05/17/17 05/17/17 05/17/17 05/17/17 19:10 19:52 20:00 20:55 Temp 98.0 98.0 Pulse 62 62 Resp 20 B/P (MAP) 104/41 (62) 104/41 Pulse Ox 100 O2 Delivery Nasal Cannula Nasal Cannula Room Air O2 Flow Rate 2.0 2.0 05/17/17 05/18/17 05/18/17 05/18/17 23:05 03:28 03:48 05:30 Temp 98.1 97.7 98.1 97.7 Pulse 59 59 Resp 16 20 B/P (MAP) 91/34 (53) 125/46 (72) Pulse Ox 96 99 99 O2 Delivery Nasal Cannula Nasal Cannula Room Air Room Air O2 Flow Rate 2.0 2.0 Intake and Output 05/17/17 05/17/17 05/18/17 15:00 23:00 07:00 Intake Total 320 ml 700 ml 300 ml Output Total 0 ml Balance 320 ml 700 ml 300 ml BRANDI CARROLL MD May 18, 2017 07:25
[2017-05-18] MEDS: CALCIUM ACETATE 667 MG CAPSULE PO SCH ×3 (08:00→17:17)
[2017-05-18] MEDS: INSULIN ASPART 300 UNITS/3 ML INSULN.PEN SQ SCH ×3 (08:00→17:00)
--- NOTE | 2017-05-18 08:09 | RAD ---
KUB, 05/17/2017: History: Abdominal pain Gas is present in large and small bowel in a nonspecific pattern. Multiple surgical clips and sutures are present in the upper abdomen. The lower pelvis was not completely included on this study. Scattered arterial calcifications are present. Moderate degenerative change is present in the lower lumbar spine. IMPRESSION: No acute abdominal abnormality is detected.
[2017-05-18] MEDS: IPRATRPIUM/ALBUTEROL 0.5/2.5MG 3 ML NEBU. NEB SCH ×4 (08:38→21:01)
[2017-05-18] MEDS: NYSTATIN TOPICAL POWDER 15GM BOTTLE. TP SCH ×2 (09:00→22:26)
[2017-05-18] MEDS: ISOSORBIDE MONONITRATE ER 30 MG TAB.ER.24H PO SCH (09:00)
[2017-05-18] MEDS: LISINOPRIL 5 MG TABLET. PO SCH (09:00)
[2017-05-18] MEDS: OXYBUTYNIN CHLORIDE 5 MG TABLET PO SCH ×3 (09:00→22:24)
[2017-05-18] MEDS: METOPROLOL TART IMMED RELEASE 50 MG TABLET. PO SCH ×2 (09:00→21:00)
[2017-05-18] MEDS: PIPERACILLIN/TAZOBACTAM 2.25 GM in IV NORMAL SALINE 50ML 50 ML IV SCH ×2 (09:00→22:19)
[2017-05-18] MEDS ORDERED: IV NORMAL SALINE 1000ML BAG 1,000 ML IV PRN ×2 (10:41)
[2017-05-18] MEDS ORDERED: diphenhydrAMINE 50 MG/ML VIAL IV PRN ×2 (10:45)
[2017-05-18] MEDS ORDERED: DIALYSIS PATIENT. MC PRN (10:45)
--- NOTE | 2017-05-18 11:15 | PDOC ---
Dialysis Progress Note Dialysis Note Dialysis Note Seen on Hemodialysis, tolerating treatment Okay so far Vitals on Hemodialysis: 118/42 62 afeb General Appearance: Awake: Alert Oriented x 3 Neck: No JVD or JVP Chest: CTA Amilcar Heart: S1 S2 Abdomen - Soft NTND Extremities - No Edema ESRD: Dialysis as below F 180 NR 3.5 Hrs 3 K 3.0 Ca 140 Na 30 HC03 Qb 350 + Qd 500+ Heparin 0 Units Uf 2- 3 Kgs or to dry weight as tolerated May give 25-50 gms of 25% Albumin if needed to maintain Hemodynamic stability Treatment plan reviewed and discussed with jalousies installer Vitals Vital Signs Vital Signs Date Time Temp Pulse Resp B/P (MAP) Pulse Ox O2 Delivery O2 Flow Rate FiO2 05/18/17 09:00 106/44 05/18/17 08:39 98 Nasal Cannula 2.0 05/18/17 07:00 97.8 60 97.8 05/18/17 03:28 20 Labs Last Labs Laboratory Tests Test 05/17/17 00:05 05/17/17 00:15 05/17/17 00:25 05/17/17 07:17 White Blood Count 6.6 x10^3/uL (4.0-11.0) Red Blood Count 3.44 x10^6/uL (3.50-5.40) Hemoglobin 11.4 g/dL (12.0-15.5) Hematocrit 34.3 % (36.0-47.0) Mean Corpuscular Volume 100 fL (79-100) Mean Corpuscular Hemoglobin 33 pg (25-35) Mean Corpuscular Hemoglobin Concent 33 g/dL (31-37) Red Cell Distribution Width 15.5 % (11.5-14.5) Platelet Count 114 x10^3/uL (140-400) Neutrophils (%) (Auto) 50 % (31-73) Lymphocytes (%) (Auto) 29 % (24-48) Monocytes (%) (Auto) 16 % (0-9) Eosinophils (%) (Auto) 4 % (0-3) Basophils (%) (Auto) 1 % (0-3) Neutrophils # (Auto) 3.3 x10^3uL (1.8-7.7) Lymphocytes # (Auto) 1.9 x10^3/uL (1.0-4.8) Monocytes # (Auto) 1.1 x10^3/uL (0.0-1.1) Eosinophils # (Auto) 0.3 x10^3/uL (0.0-0.7) Basophils # (Auto) 0.0 x10^3/uL (0.0-0.2) Sodium Level 138 mmol/L (136-145) Potassium Level 3.3 mmol/L (3.5-5.1) Chloride Level 96 mmol/L (98-107) Carbon Dioxide Level 31 mmol/L (21-32) Anion Gap 11 (6-14) Blood Urea Nitrogen 36 mg/dL (7-20) Creatinine 3.8 mg/dL (0.6-1.0) Estimated GFR (Cockcroft-Gault) 11.5 Glucose Level 192 mg/dL (70-99) Calcium Level 7.2 mg/dL (8.5-10.1) Magnesium Level 1.9 mg/dL (1.8-2.4) Glucose (Fingerstick) 182 mg/dL (70-99) 66 mg/dL (70-99) Troponin I Quantitative 0.098 ng/mL (0.000-0.055) Test 05/17/17 08:09 05/17/17 11:09 05/17/17 16:11 05/17/17 20:49 Glucose (Fingerstick) 92 mg/dL (70-99) 221 mg/dL (70-99) 124 mg/dL (70-99) 230 mg/dL (70-99) Test 05/18/17 06:20 05/18/17 07:53 White Blood Count 5.0 x10^3/uL (4.0-11.0) Red Blood Count 2.98 x10^6/uL (3.50-5.40) Hemoglobin 9.8 g/dL (12.0-15.5) Hematocrit 29.8 % (36.0-47.0) Mean Corpuscular Volume 100 fL (79-100) Mean Corpuscular Hemoglobin 33 pg (25-35) Mean Corpuscular Hemoglobin Concent 33 g/dL (31-37) Red Cell Distribution Width 15.1 % (11.5-14.5) Platelet Count 85 x10^3/uL (140-400) Neutrophils (%) (Auto) 63 % (31-73) Lymphocytes (%) (Auto) 14 % (24-48) Monocytes (%) (Auto) 15 % (0-9) Eosinophils (%) (Auto) 7 % (0-3) Basophils (%) (Auto) 1 % (0-3) Neutrophils # (Auto) 3.1 x10^3uL (1.8-7.7) Lymphocytes # (Auto) 0.7 x10^3/uL (1.0-4.8) Monocytes # (Auto) 0.8 x10^3/uL (0.0-1.1) Eosinophils # (Auto) 0.3 x10^3/uL (0.0-0.7) Basophils # (Auto) 0.0 x10^3/uL (0.0-0.2) Sodium Level 139 mmol/L (136-145) Potassium Level 4.1 mmol/L (3.5-5.1) Chloride Level 97 mmol/L (98-107) Carbon Dioxide Level 32 mmol/L (21-32) Anion Gap 10 (6-14) Blood Urea Nitrogen 51 mg/dL (7-20) Creatinine 5.7 mg/dL (0.6-1.0) Estimated GFR (Cockcroft-Gault) 7.2 Glucose Level 78 mg/dL (70-99) Calcium Level 7.4 mg/dL (8.5-10.1) Glucose (Fingerstick) 89 mg/dL (70-99) Laboratory Tests Test 05/17/17 16:11 05/17/17 20:49 05/18/17 06:20 05/18/17 07:53 Glucose (Fingerstick) 124 mg/dL (70-99) 230 mg/dL (70-99) 89 mg/dL (70-99) White Blood Count 5.0 x10^3/uL (4.0-11.0) Red Blood Count 2.98 x10^6/uL (3.50-5.40) Hemoglobin 9.8 g/dL (12.0-15.5) Hematocrit 29.8 % (36.0-47.0) Mean Corpuscular Volume 100 fL (79-100) Mean Corpuscular Hemoglobin 33 pg (25-35) Mean Corpuscular Hemoglobin Concent 33 g/dL (31-37) Red Cell Distribution Width 15.1 % (11.5-14.5) Platelet Count 85 x10^3/uL (140-400) Neutrophils (%) (Auto) 63 % (31-73) Lymphocytes (%) (Auto) 14 % (24-48) Monocytes (%) (Auto) 15 % (0-9) Eosinophils (%) (Auto) 7 % (0-3) Basophils (%) (Auto) 1 % (0-3) Neutrophils # (Auto) 3.1 x10^3uL (1.8-7.7) Lymphocytes # (Auto) 0.7 x10^3/uL (1.0-4.8) Monocytes # (Auto) 0.8 x10^3/uL (0.0-1.1) Eosinophils # (Auto) 0.3 x10^3/uL (0.0-0.7) Basophils # (Auto) 0.0 x10^3/uL (0.0-0.2) Sodium Level 139 mmol/L (136-145) Potassium Level 4.1 mmol/L (3.5-5.1) Chloride Level 97 mmol/L (98-107) Carbon Dioxide Level 32 mmol/L (21-32) Anion Gap 10 (6-14) Blood Urea Nitrogen 51 mg/dL (7-20) Creatinine 5.7 mg/dL (0.6-1.0) Estimated GFR (Cockcroft-Gault) 7.2 Glucose Level 78 mg/dL (70-99) Calcium Level 7.4 mg/dL (8.5-10.1) GABI SILVESTRE MD May 18, 2017 11:15
--- NOTE | 2017-05-18 15:36 | PDOC ---
CARDIO Progress Notes Date and Time Date of Service 05/18/17 Time of Evaluation 1320 Subjective Subjective: No shortness of breath, No Palpitations, No Dizziness Vitals Vitals Vital Signs Date Time Temp Pulse Resp B/P (MAP) Pulse Ox O2 Delivery O2 Flow Rate FiO2 05/18/17 15:29 62 117/47 (70) 05/18/17 15:00 18 100 Nasal Cannula 22.0 05/18/17 07:00 97.8 97.8 Weight Weight [ ] Input and Output Intake and Output Intake and Output 05/18/17 07:00 Intake Total 1320 ml Output Total 0 ml Balance 1320 ml Intake Oral 1320 ml Output Urine Total 0 ml # Voids 2 # Bowel Movements 1 Laboratory Labs Laboratory Tests Test 05/17/17 16:11 05/17/17 20:49 05/18/17 06:20 05/18/17 07:53 Glucose (Fingerstick) 124 mg/dL (70-99) 230 mg/dL (70-99) 89 mg/dL (70-99) White Blood Count 5.0 x10^3/uL (4.0-11.0) Red Blood Count 2.98 x10^6/uL (3.50-5.40) Hemoglobin 9.8 g/dL (12.0-15.5) Hematocrit 29.8 % (36.0-47.0) Mean Corpuscular Volume 100 fL (79-100) Mean Corpuscular Hemoglobin 33 pg (25-35) Mean Corpuscular Hemoglobin Concent 33 g/dL (31-37) Red Cell Distribution Width 15.1 % (11.5-14.5) Platelet Count 85 x10^3/uL (140-400) Neutrophils (%) (Auto) 63 % (31-73) Lymphocytes (%) (Auto) 14 % (24-48) Monocytes (%) (Auto) 15 % (0-9) Eosinophils (%) (Auto) 7 % (0-3) Basophils (%) (Auto) 1 % (0-3) Neutrophils # (Auto) 3.1 x10^3uL (1.8-7.7) Lymphocytes # (Auto) 0.7 x10^3/uL (1.0-4.8) Monocytes # (Auto) 0.8 x10^3/uL (0.0-1.1) Eosinophils # (Auto) 0.3 x10^3/uL (0.0-0.7) Basophils # (Auto) 0.0 x10^3/uL (0.0-0.2) Sodium Level 139 mmol/L (136-145) Potassium Level 4.1 mmol/L (3.5-5.1) Chloride Level 97 mmol/L (98-107) Carbon Dioxide Level 32 mmol/L (21-32) Anion Gap 10 (6-14) Blood Urea Nitrogen 51 mg/dL (7-20) Creatinine 5.7 mg/dL (0.6-1.0) Estimated GFR (Cockcroft-Gault) 7.2 Glucose Level 78 mg/dL (70-99) Calcium Level 7.4 mg/dL (8.5-10.1) Microbiology Micro Microbiology 05/16/17 Blood Culture - Preliminary, Resulted NO GROWTH AFTER 1 DAY Physical Exam HEENT: Neck Supple W Full Motion Chest: Symmetric LUNGS: Clear to Auscultation Heart: S1S2, RRR, other (tenerness with palpation to left chest, 4/6 systolic murmur) Abdomen: Soft N/T, Other (obese ) Extremities: 2+ Dorsalis Pedis, No Calf Tenderness Neurology: alert, oriented, follow commands Assessment Assessment 1. Severe 2. Chest pain, non-cardiac 3. CAD s/p PCI - recent stress with fixed defects 4. UTI; antibiotic therapy as per IM 5. Debility, failure to thrive. 6. ESRD on HD; per nephrology Recommendations Supportive care. No further cardiac workup warranted at this time Patient to follow-up an an outpatient basis with LASHAUN Lainez APRN May 18, 2017 15:36
[2017-05-18] MEDS: CLOPIDOGREL BISULFATE 75 MG TABLET PO SCH (16:01)
[2017-05-18] MEDS: ESCITALOPRAM 10 MG TABLET. PO SCH (16:01)
[2017-05-18] MEDS: FOLIC/VIT B COMP W-C (RENAL) TABLET. PO SCH (16:01)
[2017-05-18] MEDS: ASPIRIN ENTERIC COATED 81 MG TABLET.DR. PO SCH (16:01)
[2017-05-18] MEDS: ONDANSETRON PF 4 MG/2 ML VIAL. IV PRN (17:48)
[2017-05-18] MEDS: FAMOTIDINE 20 MG TABLET. PO SCH (22:24)
[2017-05-18] MEDS: INSULIN DETEMIR 300 UNITS/3 ML INSULN.PEN. SQ SCH (22:26)
[2017-05-19] MEDS: oxyCODONE/APAP 5/325 1 TAB TABLET PO PRN (03:28)
[2017-05-19 03:30] VITALS: BP 129/43
[2017-05-19] MEDS: HEPARIN PF for SUB-Q USE 5,000 UNIT/0.5 ML VIAL. SQ SCH ×2 (06:05→14:51)
[2017-05-19 06:19] LABS: BASO % 1 % (0-3); EOS % 11 % (0-3); HEMATOCRIT 29.6 % (36.0-47.0); HEMOGLOBIN 10.2 g/dL (12.0-15.5); LYMPH # 0.8 x10^3/uL (1.0-4.8); LYMPH % 20 % (24-48); MEAN CORPUSCULAR HEMOGLOBIN 34 pg (25-35); MEAN CORPUSCULAR HGB CONC 34 g/dL (31-37); MEAN CORPUSCULAR VOLUME 98 fL (79-100); MONO % 17 % (0-9); NEUT % 51 % (31-73); PLATELET COUNT 85 x10^3/uL (140-400); RED BLOOD COUNT 3.03 x10^6/uL (3.50-5.40); RED CELL DISTRIBUTION WIDTH 15.2 % (11.5-14.5); WHITE BLOOD COUNT 3.8 x10^3/uL (4.0-11.0)
[2017-05-19 07:00] VITALS: BP 131/44
[2017-05-19] MEDS: IPRATRPIUM/ALBUTEROL 0.5/2.5MG 3 ML NEBU. NEB SCH ×3 (07:37→15:36)
[2017-05-19] MEDS: INSULIN ASPART 300 UNITS/3 ML INSULN.PEN SQ SCH ×2 (08:00→12:00)
[2017-05-19] MEDS: METOPROLOL TART IMMED RELEASE 50 MG TABLET. PO SCH (09:00)
[2017-05-19] MEDS: NYSTATIN TOPICAL POWDER 15GM BOTTLE. TP SCH (09:00)
[2017-05-19] MEDS: LISINOPRIL 5 MG TABLET. PO SCH (09:00)
[2017-05-19] MEDS: ASPIRIN ENTERIC COATED 81 MG TABLET.DR. PO SCH (09:17)
[2017-05-19] MEDS: CALCIUM ACETATE 667 MG CAPSULE PO SCH ×2 (09:17→12:25)
[2017-05-19] MEDS: FOLIC/VIT B COMP W-C (RENAL) TABLET. PO SCH (09:17)
[2017-05-19] MEDS: CLOPIDOGREL BISULFATE 75 MG TABLET PO SCH (09:18)
[2017-05-19] MEDS: OXYBUTYNIN CHLORIDE 5 MG TABLET PO SCH ×2 (09:18→14:49)
[2017-05-19] MEDS: ESCITALOPRAM 10 MG TABLET. PO SCH (09:18)
[2017-05-19] MEDS: PIPERACILLIN/TAZOBACTAM 2.25 GM in IV NORMAL SALINE 50ML 50 ML IV SCH (10:16)
[2017-05-19] MEDS: ISOSORBIDE MONONITRATE ER 30 MG TAB.ER.24H PO SCH (10:25)
--- NOTE | 2017-05-19 10:39 | PDOC ---
SUBJECTIVE ROS ESRD Doing and feeling OK Overall CVS: no Orthopnea, no CP RESP: no SOB, no MATHEWS GI: no Nausea, no Vomiting : no Dysuria, no Urgency OBJECTIVE Vital Signs Vital Signs Date Time Temp Pulse Resp B/P (MAP) Pulse Ox O2 Delivery O2 Flow Rate FiO2 05/19/17 10:25 63 135/44 05/19/17 08:00 Room Air 05/19/17 07:38 94 05/19/17 07:00 98.6 18 98.6 05/18/17 17:10 22.0 I & 0 Intake and Output 05/19/17 07:00 Intake Total 1070 ml Balance 1070 ml Intake Oral 1070 ml # Bowel Movements 3 PHYSICAL EXAM Physical Exam GEN: Awake, Oriented x 3, In no distress EYES: Vision Unchanged, Conjunctiva Normal EN: No EN Drainage, Mucous Membranes moist NECK: no JVD, no JVP, Supple, no Thyromegaly CVS: S1S2, + Murmur, No Gallop, No Rub,no Edema RESP: no Rales, no Rhonchi,no Acc. Muscle Use GI: BS + ve, NO Bruit, Non Tender, Non Distended : no CVA tenderness, no Suprapubic Tenderness DIAGNOSIS/ASSESSMENT Assessment & Plan ESRD: Current fluid and E-lyte status does not necessitate emergent need for dialysis. Will re-evaluate for dialysis in the am and continue on MWF schedule. ANEMIA; Aranesp as ordered, Transfuse with next HD as needed HTN: Current BP meds as reviewed. See orders for changes. BONE & MINERAL: will follow phos and alter binder regimen as needed Discussed Plan of Care with pt at bedside Problems: COMMENT/RELEVANT DATA Meds Current Medications Medications (Trade) Dose Ordered Sig/Payton Start Time Stop Time Status Last Admin Dose Admin Acetaminophen (Tylenol) 650 mg PRN Q6HRS PRN 05/16/17 23:00 Acetaminophen/ Hydrocodone Bitart (Lortab 7.5/325) 1 tab PRN Q6HRS PRN 05/16/17 23:00 05/17/17 11:12 DC 05/17/17 06:35 1 TAB Albuterol Sulfate (Ventolin Neb Soln) 2.5 mg PRN Q2HR PRN 05/17/17 13:45 Albuterol/ Ipratropium (Duoneb) 3 ml RTQID 7/4/17 16:00 05/19/17 07:37 3 ML Aspirin (Ecotrin) 81 mg [id number] 05/17/17 08:00 05/19/17 09:17 81 MG Calcium Acetate (Phoslo) 667 mg TIDWMEALS 05/17/17 08:00 05/19/17 09:17 667 MG Clopidogrel Bisulfate (Plavix) 75 mg DAILY 05/17/17 09:00 05/19/17 09:18 75 MG Dextrose (Dextrose 50%-Water Syringe) 12.5 gm PRN Q15MIN PRN 05/17/17 11:15 Diphenhydramine HCl (Benadryl) 25 mg 1X PRN PRN 05/18/17 10:45 05/19/17 10:44 Escitalopram Oxalate (Lexapro) 10 mg DAILY 05/17/17 09:00 05/19/17 09:18 10 MG Famotidine (Pepcid) 20 mg HS 05/17/17 21:00 05/18/17 22:24 20 MG Guaifenesin (Mucinex) 600 mg BID 05/17/17 21:00 05/19/17 09:18 600 MG Heparin Sodium (Porcine) (Heparin Sq) 5,000 unit Q8HRS 05/17/17 14:00 05/19/17 06:05 5,000 UNIT Info (PHARMACY MONITORING -- do not chart) 1 each PRN DAILY PRN 05/18/17 10:45 Insulin Aspart (NovoLOG) 0-9 UNITS TIDWMEALS 05/17/17 12:00 05/17/17 12:07 5 UNITS Insulin Detemir (Levemir) 10 units QHS 05/17/17 21:00 05/18/17 22:26 10 UNITS Isosorbide Mononitrate (Imdur) 60 mg DAILY 05/17/17 09:00 05/19/17 10:25 60 MG Lisinopril (Prinivil) 5 mg DAILY 05/17/17 09:00 05/17/17 10:53 5 MG Metoprolol Tartrate (Lopressor) 50 mg BID 05/17/17 09:00 05/17/17 20:55 50 MG Nitroglycerin (Nitrostat) 0.4 mg PRN Q5MIN PRN 05/16/17 23:00 05/17/17 08:39 0.4 MG Nystatin (Nystop) 1 umm BID 05/17/17 09:00 05/19/17 09:00 1 UMM Ondansetron HCl (Zofran) 4 mg PRN Q6HRS PRN 05/17/17 02:00 05/18/17 17:48 4 MG Oxybutynin Chloride (Ditropan) 5 mg [id number] 05/17/17 14:00 05/19/17 09:18 5 MG Oxycodone/ Acetaminophen (Percocet 5/325) 1 tab PRN Q4HRS PRN 05/17/17 10:45 05/19/17 03:28 1 TAB Piperacillin Sod/ Tazobactam Sod 2.25 gm/Sodium Chloride 50 ml @ 100 mls/hr Q12HR 05/17/17 23:00 05/19/17 10:16 100 MLS/HR Piperacillin Sod/ Tazobactam Sod 3.375 gm/Sodium Chloride 50 ml @ 100 mls/hr Q6HRS 05/17/17 00:00 UNV Potassium Chloride (Klor-Con) 40 meq 1X ONCE 05/17/17 02:15 05/17/17 02:16 DC 05/17/17 02:32 40 MEQ Sodium Chloride 1,000 ml @ 400 mls/hr Q2H30M PRN 05/18/17 10:41 05/18/17 22:40 DC Vitamin B Complex/ Vitamin C (Tanisha-Prashanth) 1 tab DAILY 05/17/17 09:00 05/19/17 09:17 1 TAB Lab Laboratory Tests Test 05/18/17 16:33 05/18/17 20:55 05/19/17 06:00 05/19/17 08:02 Glucose (Fingerstick) 99 mg/dL (70-99) 141 mg/dL (70-99) 71 mg/dL (70-99) White Blood Count 3.8 x10^3/uL (4.0-11.0) Red Blood Count 3.03 x10^6/uL (3.50-5.40) Hemoglobin 10.2 g/dL (12.0-15.5) Hematocrit 29.6 % (36.0-47.0) Mean Corpuscular Volume 98 fL (79-100) Mean Corpuscular Hemoglobin 34 pg (25-35) Mean Corpuscular Hemoglobin Concent 34 g/dL (31-37) Red Cell Distribution Width 15.2 % (11.5-14.5) Platelet Count 85 x10^3/uL (140-400) Neutrophils (%) (Auto) 51 % (31-73) Lymphocytes (%) (Auto) 20 % (24-48) Monocytes (%) (Auto) 17 % (0-9) Eosinophils (%) (Auto) 11 % (0-3) Basophils (%) (Auto) 1 % (0-3) Neutrophils # (Auto) 1.9 x10^3uL (1.8-7.7) Lymphocytes # (Auto) 0.8 x10^3/uL (1.0-4.8) Monocytes # (Auto) 0.7 x10^3/uL (0.0-1.1) Eosinophils # (Auto) 0.4 x10^3/uL (0.0-0.7) Basophils # (Auto) 0.0 x10^3/uL (0.0-0.2) GABI SILVESTRE MD May 19, 2017 10:39
[2017-05-19 11:00] VITALS: BP 135/44
--- NOTE | 2017-05-19 14:39 | PDOC ---
PROGRESS NOTES Subjective Subjective The patient is more comfortable today. Objective Objective Vital Signs Date Time Temp Pulse Resp B/P (MAP) Pulse Ox O2 Delivery O2 Flow Rate FiO2 05/19/17 11:00 98.7 63 18 135/44 (74) 94 Room Air 98.7 05/18/17 17:10 22.0 Intake and Output 05/19/17 07:00 Intake Total 1070 ml Balance 1070 ml Intake Oral 1070 ml # Bowel Movements 3 Physical Exam Abdomen: Normal bowel sounds Heart: Regular rate General: mild distress Lungs: Other (mildly decreased breath sounds) Assessment Assessment Assessment 1. Severe . Continuing medical treatment at this time. 2. Chest pain, no acute ischemic changes. Continue present treatments. 3. CAD s/p PCI - recent stress with fixed defects 4. UTI; antibiotic therapy as per IM 5. Debility, failure to thrive. 6. ESRD on HD; per nephrology Comment Review of Relevant I have reviewed the following items adrián (where applicable) has been applied. Labs Laboratory Tests Test 05/17/17 16:11 05/17/17 20:49 05/18/17 06:20 05/18/17 07:53 Glucose (Fingerstick) 124 mg/dL (70-99) 230 mg/dL (70-99) 89 mg/dL (70-99) White Blood Count 5.0 x10^3/uL (4.0-11.0) Red Blood Count 2.98 x10^6/uL (3.50-5.40) Hemoglobin 9.8 g/dL (12.0-15.5) Hematocrit 29.8 % (36.0-47.0) Mean Corpuscular Volume 100 fL (79-100) Mean Corpuscular Hemoglobin 33 pg (25-35) Mean Corpuscular Hemoglobin Concent 33 g/dL (31-37) Red Cell Distribution Width 15.1 % (11.5-14.5) Platelet Count 85 x10^3/uL (140-400) Neutrophils (%) (Auto) 63 % (31-73) Lymphocytes (%) (Auto) 14 % (24-48) Monocytes (%) (Auto) 15 % (0-9) Eosinophils (%) (Auto) 7 % (0-3) Basophils (%) (Auto) 1 % (0-3) Neutrophils # (Auto) 3.1 x10^3uL (1.8-7.7) Lymphocytes # (Auto) 0.7 x10^3/uL (1.0-4.8) Monocytes # (Auto) 0.8 x10^3/uL (0.0-1.1) Eosinophils # (Auto) 0.3 x10^3/uL (0.0-0.7) Basophils # (Auto) 0.0 x10^3/uL (0.0-0.2) Sodium Level 139 mmol/L (136-145) Potassium Level 4.1 mmol/L (3.5-5.1) Chloride Level 97 mmol/L (98-107) Carbon Dioxide Level 32 mmol/L (21-32) Anion Gap 10 (6-14) Blood Urea Nitrogen 51 mg/dL (7-20) Creatinine 5.7 mg/dL (0.6-1.0) Estimated GFR (Cockcroft-Gault) 7.2 Glucose Level 78 mg/dL (70-99) Calcium Level 7.4 mg/dL (8.5-10.1) Test 05/18/17 16:33 05/18/17 20:55 05/19/17 06:00 05/19/17 08:02 Glucose (Fingerstick) 99 mg/dL (70-99) 141 mg/dL (70-99) 71 mg/dL (70-99) White Blood Count 3.8 x10^3/uL (4.0-11.0) Red Blood Count 3.03 x10^6/uL (3.50-5.40) Hemoglobin 10.2 g/dL (12.0-15.5) Hematocrit 29.6 % (36.0-47.0) Mean Corpuscular Volume 98 fL (79-100) Mean Corpuscular Hemoglobin 34 pg (25-35) Mean Corpuscular Hemoglobin Concent 34 g/dL (31-37) Red Cell Distribution Width 15.2 % (11.5-14.5) Platelet Count 85 x10^3/uL (140-400) Neutrophils (%) (Auto) 51 % (31-73) Lymphocytes (%) (Auto) 20 % (24-48) Monocytes (%) (Auto) 17 % (0-9) Eosinophils (%) (Auto) 11 % (0-3) Basophils (%) (Auto) 1 % (0-3) Neutrophils # (Auto) 1.9 x10^3uL (1.8-7.7) Lymphocytes # (Auto) 0.8 x10^3/uL (1.0-4.8) Monocytes # (Auto) 0.7 x10^3/uL (0.0-1.1) Eosinophils # (Auto) 0.4 x10^3/uL (0.0-0.7) Basophils # (Auto) 0.0 x10^3/uL (0.0-0.2) Test 05/19/17 11:50 Glucose (Fingerstick) 150 mg/dL (70-99) Laboratory Tests Test 05/18/17 16:33 05/18/17 20:55 05/19/17 06:00 05/19/17 08:02 Glucose (Fingerstick) 99 mg/dL (70-99) 141 mg/dL (70-99) 71 mg/dL (70-99) White Blood Count 3.8 x10^3/uL (4.0-11.0) Red Blood Count 3.03 x10^6/uL (3.50-5.40) Hemoglobin 10.2 g/dL (12.0-15.5) Hematocrit 29.6 % (36.0-47.0) Mean Corpuscular Volume 98 fL (79-100) Mean Corpuscular Hemoglobin 34 pg (25-35) Mean Corpuscular Hemoglobin Concent 34 g/dL (31-37) Red Cell Distribution Width 15.2 % (11.5-14.5) Platelet Count 85 x10^3/uL (140-400) Neutrophils (%) (Auto) 51 % (31-73) Lymphocytes (%) (Auto) 20 % (24-48) Monocytes (%) (Auto) 17 % (0-9) Eosinophils (%) (Auto) 11 % (0-3) Basophils (%) (Auto) 1 % (0-3) Neutrophils # (Auto) 1.9 x10^3uL (1.8-7.7) Lymphocytes # (Auto) 0.8 x10^3/uL (1.0-4.8) Monocytes # (Auto) 0.7 x10^3/uL (0.0-1.1) Eosinophils # (Auto) 0.4 x10^3/uL (0.0-0.7) Basophils # (Auto) 0.0 x10^3/uL (0.0-0.2) Test 05/19/17 11:50 Glucose (Fingerstick) 150 mg/dL (70-99) Microbiology 05/16/17 Blood Culture - Preliminary, Resulted NO GROWTH AFTER 2 DAYS Medications Current Medications Acetaminophen (Tylenol) 650 mg PRN Q6HRS PRN PO MILD PAIN / TEMP; Start at 23:00 Sodium Chloride 1,000 ml @ 75 mls/hr [id number] IV Last administered on 05/17/17 00:17; Start 05/16/17 at 23:00; Stop 05/17/17 at 11:12; Status DC Piperacillin Sod/ Tazobactam Sod 3.375 gm/Sodium Chloride 50 ml @ 100 mls/hr Q6HRS IV ; Start 05/17/17 at 00:00; Status UNV Aspirin (Ecotrin) 81 mg DAILYWBKFT PO Last administered on 05/19/17 09:17; Start 05/17/17 at 08:00 Clopidogrel Bisulfate (Plavix) 75 mg DAILY PO Last administered on 05/19/17 09: 18; Start 05/17/17 at 09:00 Famotidine (Pepcid) 20 mg HS PO Last administered on 05/18/17 22:24; Start 05/17 at 21:00 Acetaminophen/ Hydrocodone Bitart (Lortab 7.5/325) 1 tab PRN Q6HRS PRN PO PAIN Last administered on 05/17/17 06:35; Start 05/16/17 at 23:00; Stop 05/17/17 at 11: 12; Status DC Lisinopril (Prinivil) 5 mg DAILY PO Last administered on 05/17/17 10:53; Start 05/17/17 at 09:00 Metoprolol Tartrate (Lopressor) 50 mg BID PO Last administered on 05/17/17 20: 55; Start 05/17/17 at 09:00 Nitroglycerin (Nitrostat) 0.4 mg PRN Q5MIN PRN SL CHEST PAIN Last administered on 05/17/17 08:39; Start 05/16/17 at 23:00 Nystatin (Nystop) 1 tiffany BID TP Last administered on 05/19/17 09:00; Start at 09:00 Calcium Acetate (Phoslo) 667 mg TIDWMEALS PO Last administered on 05/19/17 12: 25; Start 05/17/17 at 08:00 Escitalopram Oxalate (Lexapro) 10 mg DAILY PO Last administered on 05/19/17 09: 18; Start 05/17/17 at 09:00 Insulin Detemir (Levemir) 14 units QHS SQ Last administered on 05/17/17 00:23; Start 05/17/17 at 00:00; Stop 05/17/17 at 11:12; Status DC Isosorbide Mononitrate (Imdur) 60 mg DAILY PO Last administered on 05/19/17 10: 25; Start 05/17/17 at 09:00 Vitamin B Complex/ Vitamin C (Tanisha-Prashanth) 1 tab DAILY PO Last administered on 09:17; Start 05/17/17 at 09:00 Piperacillin Sod/ Tazobactam Sod 2.25 gm/Sodium Chloride 50 ml @ 100 mls/hr Q6HRS IV Last administered on 05/17/17 11:59; Start 05/17/17 at 00:00; Stop 05/17 at 14:47; Status DC Potassium Chloride (Klor-Con) 40 meq 1X ONCE PO Last administered on 05/17/17 02:32; Start 05/17/17 at 02:15; Stop 05/17/17 at 02:16; Status DC Ondansetron HCl (Zofran) 4 mg PRN Q6HRS PRN IV NAUSEA/VOMITING Last administered on 05/18/17 17:48; Start 05/17/17 at 02:00 Dextrose (Dextrose 50%-Water Syringe) 12.5 gm PRN Q15MIN PRN IV SEE COMMENTS; Start 05/17/17 at 02:00; Stop 05/17/17 at 14:42; Status DC Oxycodone/ Acetaminophen (Percocet 5/325) 1 tab PRN Q4HRS PRN PO PAIN Last administered on 05/19/17 03:28; Start 05/17/17 at 10:45 Insulin Detemir (Levemir) 10 units QHS SQ Last administered on 05/18/17 22:26; Start 05/17/17 at 21:00 Oxybutynin Chloride (Ditropan) 5 mg [id number] PO Last administered on 05/19/17 09: 18; Start 05/17/17 at 14:00 Insulin Aspart (NovoLOG) 0-9 UNITS TIDWMEALS SQ Last administered on 05/17/17 12:07; Start 05/17/17 at 12:00 Dextrose (Dextrose 50%-Water Syringe) 12.5 gm PRN Q15MIN PRN IV SEE COMMENTS; Start 05/17/17 at 11:15 Heparin Sodium (Porcine) (Heparin Sq) 5,000 unit Q8HRS SQ Last administered on 05/19/17 06:05; Start 05/17/17 at 14:00 Albuterol/ Ipratropium (Duoneb) 3 ml RTQID NEB Last administered on 05/19/17 10 :57; Start 05/17/17 at 16:00 Albuterol Sulfate (Ventolin Neb Soln) 2.5 mg PRN Q2HR PRN NEB SHORTNESS OF BREATH; Start 05/17/17 at 13:45 Guaifenesin (Mucinex) 600 mg BID PO Last administered on 05/19/17 09:18; Start 05/17/17 at 21:00 Piperacillin Sod/ Tazobactam Sod 2.25 gm/Sodium Chloride 50 ml @ 100 mls/hr Q12HR IV Last administered on 05/19/17 10:16; Start 05/17/17 at 23:00 Sodium Chloride 1,000 ml @ 1,000 mls/hr Q1H PRN IV hypotension; Start 05/18/17 at 10:41; Stop 05/18/17 at 16:40; Status DC Diphenhydramine HCl (Benadryl) 25 mg 1X PRN PRN IV ITCHING; Start 05/18/17 at 10 :45; Stop 05/19/17 at 10:44; Status DC Diphenhydramine HCl (Benadryl) 25 mg 1X PRN PRN IV ITCHING; Start 05/18/17 at 10 :45; Stop 05/19/17 at 10:44; Status DC Sodium Chloride 1,000 ml @ 400 mls/hr Q2H30M PRN IV PATENCY; Start 05/18/17 at 10:41; Stop 05/18/17 at 22:40; Status DC Info (PHARMACY MONITORING -- do not chart) 1 each PRN DAILY PRN MC SEE COMMENTS ; Start 05/18/17 at 10:45 Darbepoetin James (Aranesp) 60 mcg Th SQ ; Start 05/19/17 at 21:00 Active Scripts Active Aspirin Ec (Aspirin) 81 Mg Tablet.dr 81 Mg PO [id number] Nystop (Nystatin) 60 Gm Powder 1 Tiffany TP BID Isosorbide Mononitrate Er (Isosorbide Mononitrate) 60 Mg Tab.er.24h 60 Mg PO DAILY 30 Days Escitalopram Oxalate 10 Mg Tablet 10 Mg PO DAILY Pepcid (Famotidine) 20 Mg Tablet 20 Mg PO HS Nitrostat (Nitroglycerin) 0.4 Mg Tab.subl 0.4 Mg SL PRN Q5MIN PRN Reported Clopidogrel (Clopidogrel Bisulfate) 75 Mg Tablet 75 Mg PO DAILY Lisinopril 5 Mg Tablet 1 Tab PO DAILY Metoprolol Tartrate 50 Mg Tablet 50 Mg PO BID Nephro-Prashanth Rx Tablet (Vit B Cmplx 3/Fa/Vit C/Biotin) 1 Each Tablet 1 Each PO DAILY Hydrocodone-Apap 7.5-325 (Hydrocodone Bit/Acetaminophen) 1 Each Tablet 1 Tab PO PRN Q6HRS PRN Calcium Acetate 667 Mg Tablet 667 Mg PO TIDWMEALS Lantus Solostar (Insulin Glargine,Hum.rec.anlog) 100 Unit/1 Ml Insuln.pen 14 Unit SQ QHS Vitals/I & O Vital Sign - Last 24 Hours 05/18/17 05/18/17 05/18/17 05/18/17 15:00 15:15 15:29 16:03 Pulse 61 62 62 Resp 18 B/P (MAP) 124/25 (58) 136/38 (70) 117/47 (70) Pulse Ox 100 98 O2 Delivery Nasal Cannula Nasal Cannula O2 Flow Rate 22.0 2.0 05/18/17 05/18/17 05/18/17 05/18/17 16:04 17:10 19:43 20:00 Temp 99.3 99.3 Pulse 64 Resp 16 B/P (MAP) 109/33 (58) Pulse Ox 100 100 93 O2 Delivery Room Air Room Air Room Air O2 Flow Rate 22.0 22.0 05/18/17 05/18/17 05/18/17 05/18/17 21:00 21:03 23:40 23:40 Temp 98.8 98.8 Pulse 64 68 Resp 16 B/P (MAP) 109/33 116/35 (62) 119/28 (58) Pulse Ox 95 94 O2 Delivery Room Air Room Air 05/19/17 05/19/17 05/19/17 05/19/17 03:28 03:30 04:25 07:00 Temp 99.3 98.6 99.3 98.6 Pulse 63 68 Resp 20 20 16 18 B/P (MAP) 129/43 (71) 131/44 (73) Pulse Ox 99 96 O2 Delivery Room Air Room Air Room Air Room Air 05/19/17 05/19/17 05/19/17 05/19/17 07:38 08:00 09:00 09:00 Pulse 63 63 B/P (MAP) 135/44 135/44 Pulse Ox 94 O2 Delivery Room Air Room Air 05/19/17 05/19/17 05/19/17 10:25 10:57 11:00 Temp 98.7 98.7 Pulse 63 63 Resp 18 B/P (MAP) 135/44 135/44 (74) Pulse Ox 96 94 O2 Delivery Room Air Room Air Intake and Output 05/18/17 05/18/17 05/19/17 15:00 23:00 07:00 Intake Total 200 ml 870 ml Balance 200 ml 870 ml JORDON HALL MD May 19, 2017 14:39
[2017-05-19 15:00] VITALS: BP 117/52
[2017-05-19] MEDS ORDERED: DARBEPOETIN ALFA 60 MCG/0.3 ML DISP.SYRIN. SQ SCH (21:00)
[2017-05-20 18:11] LABS: HEP B SURFACE ABDY Non Reactive (.)
== END 2017-05-19 16:25 | disposition home health service (06) | DRG 205 ==
LOC: 6 SOUTH 22:14
PROVIDERS: ADMIT Internal Medicine; ATTEND Internal Medicine
PROC: 5A1D00Z (ICD-10-PCS; principal; 2017-05-18)
DX: M94.0 Chondrocostal junction syndrome [Tietze] (principal); N18.6 End stage renal disease; N39.0 Urinary tract infection, site not specified; I13.2 Hypertensive heart and chronic kidney disease with heart failure and with stage 5 chronic kidney disease, or end stage renal disease; I50.20 Unspecified systolic (congestive) heart failure; F32.9 Major depressive disorder, single episode, unspecified; E11.22 Type 2 diabetes mellitus with diabetic chronic kidney disease; E03.9 Hypothyroidism, unspecified; E78.5 Hyperlipidemia, unspecified; G89.29 Other chronic pain; I35.0 Nonrheumatic aortic (valve) stenosis; I25.10 Atherosclerotic heart disease of native coronary artery without angina pectoris; E21.3 Hyperparathyroidism, unspecified; E11.42 Type 2 diabetes mellitus with diabetic polyneuropathy; M19.90 Unspecified osteoarthritis, unspecified site; K59.00 Constipation, unspecified; M54.9 Dorsalgia, unspecified; I48.0 Paroxysmal atrial fibrillation; R07.89 Other chest pain; J44.9 Chronic obstructive pulmonary disease, unspecified; K21.9 Gastro-esophageal reflux disease without esophagitis; R62.7 Adult failure to thrive; Z82.49 Family history of ischemic heart disease and other diseases of the circulatory system; Z86.73 Personal history of transient ischemic attack (TIA), and cerebral infarction without residual deficits; Z95.810 Presence of automatic (implantable) cardiac defibrillator; Z98.61 Coronary angioplasty status; Z99.2 Dependence on renal dialysis; Z90.49 Acquired absence of other specified parts of digestive tract; Z90.710 Acquired absence of both cervix and uterus; Z88.2 Allergy status to sulfonamides; Z88.5 Allergy status to narcotic agent; Z88.8 Allergy status to other drugs, medicaments and biological substances
CPT/HCPCS: 36415; 71010; 74000; 78452; 80048; 80053; 82553; 82962; 83735; 83880; 84484; 85027; 85610; 85730; 86706; 87040; 87340; 87341; 93005; 93017; 93306; 94640; 94667; 94760; A6539; A9500; J1815; J2405; J2543; J7030; J7620; 97530

== ENCOUNTER 2017-05-28 22:37 | Inpatient (IN) | payer MEDICARE, OTHER ==
[~2017-05-28] VITALS: Ht 167.6 cm; Wt 100.7 kg
[2017-05-28] MEDS ORDERED: fentaNYL PF VIAL 100 MCG/2 ML VIAL IV ONE (23:00)
[2017-05-28 23:03] LABS: BASO % 1 % (0-3); EOS % 8 % (0-3); HEMATOCRIT 31.4 % (36.0-47.0); HEMOGLOBIN 10.7 g/dL (12.0-15.5); LYMPH # 0.9 x10^3/uL (1.0-4.8); LYMPH % 21 % (24-48); MEAN CORPUSCULAR HEMOGLOBIN 34 pg (25-35); MEAN CORPUSCULAR HGB CONC 34 g/dL (31-37); MEAN CORPUSCULAR VOLUME 98 fL (79-100); MONO % 17 % (0-9); NEUT % 54 % (31-73); PLATELET COUNT 126 x10^3/uL (140-400); RED BLOOD COUNT 3.21 x10^6/uL (3.50-5.40); RED CELL DISTRIBUTION WIDTH 15.4 % (11.5-14.5); WHITE BLOOD COUNT 4.3 x10^3/uL (4.0-11.0)
[2017-05-28 23:09] LABS: POTASSIUM ISTAT 3.5 mmol/L (3.5-5.0)
[2017-05-28 23:23] LABS: CALCIUM 7.6 mg/dL (8.5-10.1); CREATININE 4.3 mg/dL (0.6-1.0); POTASSIUM 3.3 mmol/L (3.5-5.1)
[2017-05-28] MEDS ORDERED: ONDANSETRON PF 4 MG/2 ML VIAL. IV PRN (23:30)
[2017-05-28 23:32] LABS: ALBUMIN 2.7 g/dL (3.4-5.0); ALBUMIN/GLOBULIN RATIO 0.6 (1.0-1.7); TOTAL BILIRUBIN 0.5 mg/dL (0.2-1.0)
--- NOTE | 2017-05-28 23:47 | PHYS DOC ---
Past Medical History Past Medical History: A-Fib, Arthritis, COPD, CVA, Diabetes-Type II, Hypertension, [place], Renal Failure Additional Past Medical Histor: kidney failure Past Surgical History: Appendectomy, Cholecystectomy, Hysterectomy, Other Additional Past Surgical Histo: FISTULA in right upper extremity, pins left femur, PACEMAKER WITH DEFIB Alcohol Use: None Drug Use: None Adult General Chief Complaint Chief Complaint: CHEST PAIN HPI HPI Patient is a 76 year old female presenting to the emergency department for evaluation of chest pain that she says started approximately 1 hour prior to arrival when she was walking back from the bathroom. Said that she started feeling intense central chest pressure made her short of breath but no nausea vomiting or diaphoresis. It felt the same as when she had her prior heart attacks and required stents. Patient said home nitroglycerin did not help and EMS gave her 325 mg of aspirin. Patient is in no obvious distress with normal vital signs. Review of Systems Review of Systems Constitutional: Denies fever or chills [] Eyes: Denies change in visual acuity, redness, or eye pain [] HENT: Denies nasal congestion or sore throat [] Respiratory: Denies cough. + shortness of breath [] Cardiovascular: + CP GI: Denies abdominal pain, nausea, vomiting, bloody stools or diarrhea [] : Denies dysuria or hematuria [] Musculoskeletal: Denies back pain or joint pain [] Integument: Denies rash or skin lesions [] Neurologic: Denies headache, focal weakness or sensory changes [] Current Medications Current Medications Current Medications Medications (Trade) Dose Ordered Sig/Payton Start Time Stop Time Status Last Admin Dose Admin Fentanyl Citrate (Fentanyl 2ml Vial) 50 mcg 1X ONCE 05/28/17 23:00 05/28/17 23:01 DC 05/28/17 23:14 50 MCG Allergies Allergies Allergies Coded Allergies Type Severity Reaction Last Updated Verified Sulfa (Sulfonamide Antibiotics) Allergy Intermediate Nausea/Vomiting, Rash 09/22/16 Yes morphine Allergy Intermediate itching 09/22/16 Yes adhesive Adverse Reaction Intermediate Itching 09/22/16 Yes Physical Exam Physical Exam Constitutional: Well developed, well nourished, no acute distress, non-toxic appearance. [] HENT: Normocephalic, atraumatic, bilateral external ears normal, oropharynx moist, no oral exudates, nose normal. [] Eyes: PERRLA, EOMI, conjunctiva normal, no discharge. [] Neck: Normal range of motion, no tenderness, supple, no stridor. [] Cardiovascular:Heart rate regular rhythm, no murmur [] Lungs & Thorax: Bilateral breath sounds clear to auscultation [] Abdomen: Bowel sounds normal, soft, no tenderness, no masses, no pulsatile masses. [] Skin: Warm, dry, no erythema, no rash. [] Back: No tenderness, no CVA tenderness. [] Extremities: No tenderness, no cyanosis, no clubbing, ROM intact, no edema. [] Neurologic: Alert and oriented X 3, normal motor function, normal sensory function, no focal deficits noted. [] Current Patient Data Vital Signs Vital Signs Date Time Temp Pulse Resp B/P (MAP) Pulse Ox O2 Delivery O2 Flow Rate FiO2 05/28/17 22:37 98.0 86 18 150/67 (94) 96 Room Air 98.0 Lab Values Laboratory Tests Test 05/28/17 22:52 05/28/17 22:55 POC Troponin I 0.05 ng/ml (<0.08) White Blood Count 4.3 x10^3/uL (4.0-11.0) Red Blood Count 3.21 x10^6/uL (3.50-5.40) L Hemoglobin 10.7 g/dL (12.0-15.5) L POC Hemoglobin 10.9 g/dL (12-15) L Hematocrit 31.4 % (36.0-47.0) L POC Hematocrit 32 % (36-40) L Mean Corpuscular Volume 98 fL (79-100) Mean Corpuscular Hemoglobin 34 pg (25-35) Mean Corpuscular Hemoglobin Concent 34 g/dL (31-37) Red Cell Distribution Width 15.4 % (11.5-14.5) H Platelet Count 126 x10^3/uL (140-400) L Neutrophils (%) (Auto) 54 % (31-73) Lymphocytes (%) (Auto) 21 % (24-48) L Monocytes (%) (Auto) 17 % (0-9) H Eosinophils (%) (Auto) 8 % (0-3) H Basophils (%) (Auto) 1 % (0-3) Neutrophils # (Auto) 2.3 x10^3uL (1.8-7.7) Lymphocytes # (Auto) 0.9 x10^3/uL (1.0-4.8) L Monocytes # (Auto) 0.7 x10^3/uL (0.0-1.1) Eosinophils # (Auto) 0.3 x10^3/uL (0.0-0.7) Basophils # (Auto) 0.0 x10^3/uL (0.0-0.2) Prothrombin Time 13.0 SEC (11.7-14.0) Prothrombin Time INR 1.0 (0.8-1.1) PTT 34 SEC (24-38) POC Sodium 133 mmol/L (135-145) L Sodium Level 137 mmol/L (136-145) POC Potassium 3.5 mmol/L (3.5-5.0) Potassium Level 3.3 mmol/L (3.5-5.1) L POC Chloride 90 mmol/L (98-110) L Chloride Level 96 mmol/L (98-107) L Carbon Dioxide Level 33 mmol/L (21-32) H POC Total CO2 30 mmol/L (23-32) Anion Gap 17 mmol/L (6-14) H POC Blood Urea Nitrogen 43 mg/dL (8-26) H Blood Urea Nitrogen 45 mg/dL (7-20) H Creatinine 4.3 mg/dL (0.6-1.0) H POC Creatinine 4.4 mg/dL (0.5-1.4) H Estimated GFR (Cockcroft-Gault) 10.0 BUN/Creatinine Ratio 10 (6-20) Glucose Level 200 mg/dL (70-99) H Calcium Level 7.6 mg/dL (8.5-10.1) L POC Ionized Calcium (Keesha) 0.88 mmol/L (1.13-1.32) L Magnesium Level 2.0 mg/dL (1.8-2.4) Total Bilirubin 0.5 mg/dL (0.2-1.0) Aspartate Amino Transferase (AST) 48 U/L (15-37) H Alanine Aminotransferase (ALT) 36 U/L (14-59) Alkaline Phosphatase 134 U/L (46-116) H Creatine Kinase 67 U/L (26-192) Troponin I Quantitative 0.096 ng/mL (0.000-0.055) WB-Oia-A-Type Natriuretic Peptide 03118 pg/mL (0-449) H Total Protein 7.0 g/dL (6.4-8.2) Albumin 2.7 g/dL (3.4-5.0) L Albumin/Globulin Ratio 0.6 (1.0-1.7) L Lipase 332 U/L (73-393) Ethyl Alcohol Level < 10 mg/dL (0-10) Laboratory Tests 05/28/17 22:55 Laboratory Tests 05/28/17 22:55 EKG EKG Sinus rhythm at 85 bpm with right axis deviation and apparent left bundle branch block with ST depression in anterior leads with diffuse T-wave inversions in leads V1 through V6. EKG essentially unchanged from prior. Radiology/Procedures Radiology/Procedures Normal mediastinum and cardiomegaly no obvious free air pneumothorax or opacity. Interstitial edema noted. Course & Med Decision Making Course & Med Decision Making Patient with concerning story to her chest pain and given her multiple risk factors and prior cardiac events she will be admitted for further observation and treatment. Of note her troponin is elevated but looking through all of her old troponins it is basically in line with most of her other troponins that were drawn. We will defer further anticoagulation for now. Dragon Disclaimer Dragon Disclaimer This electronic medical record was generated, in whole or in part, using a voice recognition dictation system. Departure Departure Impression: Primary Impression: Chest pain Additional Impressions: CAD (coronary artery disease) End stage renal failure on dialysis Elevated troponin Disposition: ADMITTED INPATIENT Admitting Physician: Fito Fontanez Condition: STABLE Referrals: ERIC SANTO MD (PCP) Problem Qualifiers MADI MONTENEGRO DO May 28, 2017 23:47
[2017-05-29 00:24] VITALS: BP 122/46
[2017-05-29] MEDS: fentaNYL PF VIAL 100 MCG/2 ML VIAL IV PRN ×2 (01:20→06:38)
--- NOTE | 2017-05-29 03:18 | ACF ---
Admission Forms Criteria CARDIOLOGY [facility] Clinical Indications for Admission to Inpatient Care ( Place 'X' for any and all applicable criteria): Hospital admission is needed for appropriate care of the patient because of ANY ONE of the following (1): [ ] I. Hemodynamic instability as indicated by ALL of the following (1)(2)(3) (4)(5) [ ]a) Vital signs or other findings not as expected for chronic patient condition or baseline [ ]b) Instability indicated by ANY ONE of the following: [ ]i) Hypotension [ ]ii) Symptomatic Tachycardia unresponsive to treatment ( e.g., analgesia, fluids, sedation as indicated) [ ]iii) Inadequate perfusion indicated by ANY ONE of the following: [ ] 1) Lactic acidosis (> 2 mmol/L) [ ] 2) New abnormal capillary refill (> 3 seconds) [ ] 3) Reduced urine output [ ] 4) New altered mental status [ ]iv) Orthostatic vital sign changes unresponsive to treatment (e.g., fluids) [ ]v) IV inotropic or vasopressor medication required to maintain adequate blood pressure or perfusion [ ] II. Severe heart failure as indicated by ANY ONE of the following(17)(18) [ ]a) Respiratory distress [ ]b) Hypotension [ ]c) Anasarca (refractory to outpatient therapy) [ ]d) Cardiac arrhythmias of immediate concern [ ]e) Myocardial ischemia [ ] III. Cardiac arrhythmias or findings of immediate concern indicated by ANY ONE of the following (19)(20): [ ] a) Heart rhythms that are inherently dangerous or unstable indicated by ANY ONE of the following (21)(22)(23): [ ] i) Resuscitated ventricular fibrillation or cardiac arrest [ ] ii) Ventricular escape rhythm [ ] iii) Sustained ventricular tachycardia (30 seconds or more of ventricular rhythm at greater than 100 beats per minute) [ ] iv) Nonsustained ventricular tachycardia and ANY ONE of the following: [ ] 1) Suspected cardiac ischemia as cause or consequence of ventricular tachycardia [ ] 2) In setting of acute myocarditis [ ] b) Unstable cardiac conduction defects indicated by ANY ONE of the following(23)(24)(25) [ ] i) Type II second-degree atrioventricular block [ ]ii) Third-degree atrioventricular block [ ]iii) New-onset left bundle branch block with suspected myocardial ischemia [ ]c) Any heart rhythm and ANY ONE of the following (21)(22)(26)(27) (28) [ ] i) Continuous long-term ECG monitoring needed (e.g., initiation of drug requiring monitoring for more than 24 hours) [ ] ii) Patient has automatic implanted cardioverter defibrillator that is repeatedly firing, malfunctioning, or in need of immediate adjustment of settings beyond the scope of ambulatory or observation care [ ]d) Heart rhythms of concern due to ANY ONE of the following: [ ] i) Hypotension [ ] ii) Respiratory distress [ ] iii) Association with other significant symptoms (e.g., bradycardia with syncope or ongoing dizziness, supraventricular tachycardia with chest pain (14)(15)(17) [ ] IV. Monitoring for cardiac contusion beyond the scope of observation care needed [A](30)(31)(32) [ ] V. Surgical or device complication (e.g., valve replacement complication , pacemaker dysfunction) (35)(41)(44)(45)(46) [ ] . Inpatient palliative care needed. [B](49) Also use Inpatient Palliative Care Criteria [ ] VII. Nonbacterial thrombotic (marantic) endocarditis (36)(43)(47)(48) [ X] VIII. Cardiology condition, symptom, or finding for which emergency and observation care has failed or are not considered appropriate. [ ] IX. Acute valvular disease requiring inpatient as indicated by ANY ONE of the following (41) [ ]a) Acute valvular regurgitation (42) [ ]b) Noninfectious valvulitis (43) [ ]c) Obstructive valve thrombosis [ ]d) Paravalvular leak [ ]e) Other significant valvular disorder remaining after emergency or observation level of care (as appropriate) [ ]X. Pericardial disease requiring inpatient treatment as indicated by ANY ONE of the following (33)(34)(35)(36)(37) [ ]a) Suspected tamponade (38)(39)(40) [ ]b) Hemopericardium [ ]c) Other significant pericardial disorder remaining after emergency or observation level of care (as appropriate) [ ] XI. Cardiac ischemia beyond scope of emergency and observation care. [ ] XII. Hypertension requiring inpatient treatment as indicated by ANY ONE of the following (6)(7)(8) [ ]a) SBP greater than 220 mm Hg or DBP greater than 120 mmHg despite treatment [ ]b) SBP greater than 140 mm Hg or DBP greater than 100 mm Hg with evidence of acute end organ damage as indicated by ANY ONE of the following [ ] i) Encephalopathy [ ] ii) Acute renal failure as indicated by new onset of ANY ONE of the following (9)(10)(11)(12)(13) [ ]1) 3-fold rise in serum creatinine from baseline [ ]2) Serum creatinine greater than 4 mg/dL ( 354 micromoles/L) with acute rise greater than 0.5 mg/dL (44.2 micromoles/L) [ ]3) Reduction of more than 75% in estimated glomerular filtration rate from baseline [ ]4) Estimated glomerular filtration rate less than 35 mL/min/1.73m2 (0.59 mL/sec/1.73m2) in child up to 18 years of age [ ]5) Cessation of urine output indicated by ALL of the following [ ]A. Adequate volume status [ ]B. Inadequate urine output as indicated by ANY ONE of the following [ ]a. Urine output less than 0.3 mL/kg/hr for 24 hours [ ]b. Anuria (urine output less than 0.1 mL/kg/hr) for 12 hours [ ] iii) Aortic dissection [ ] iv) Myocardial Ischemia [ ] v) Left ventricular heart failure [ ]vi) Retinal Hemorrhage [ ]vii) Other significant finding [ ]c) Hypertension in child requiring inpatient treatment as indicated by ALL of the following(14)(15)(16) [ ] i) Outpatient treatment not effective, not available, or not appropriate [ ]ii) SBP or DBP greater than 95th percentile for age [ ]iii) Evidence of acute end organ damage as indicated by ANY ONE of the following [ ]1) Altered mental status [ ]2) Acute renal failure as indicated by new onset of ANY ONE of the following(9)(10)(11)(12)(13) [ ]A. 3-fold rise in serum creatinine from baseline [ ]B. Serum creatinine greater than 4 mg/dL (354 micromoles/L) with acute rise greater than 0.5 mg/dL (44.2 micromoles/L) [ ]C. Reduction of more than 75% in estimated glomerular filtration rate from baseline [ ]D. Estimated glomerular filtration rate less than 35 mL/min/1.73m2 (0.59 mL/sec/1.73m2) in child up to 18 years of age [ ]E. Cessation of urine output indicated by ALL of the following [ ]a. Adequate volume status [ ]b. Inadequate urine output as indicated by ANY ONE of the following [ ]i) Urine output less than 0.3 mL/kg/hr for 24 hours [ ]ii) Anuria ( urine output less than 0.1 mL/kg/hr) for 12 hours [ ]3) Severe headache [ ]4) Visual disturbance [ ]5) Retinal hemorrhage [ ]6) Other significant finding [ ]XIII. Complications of transplanted heart indicated by ANY ONE of the following(61): [ ]a) Acute graft rejection requiring inpatient management (eg, intravenous immunosuppression)(62)(63) [ ]b) Acute graft heart failure indicated by ANY ONE of the following(64): [ ]i) Hemodynamic instability [ ]ii) Cardiac arrhythmias of immediate concern [ ]iii) Pulmonary edema that is very severe (eg, mechanical ventilation needed, imminent or likely, need for 100% oxygen to keep oxygen saturation above 90%) [ ]iv) Pulmonary edema that is persistent as indicated by ALL of the following: [ ]1) New need for oxygen therapy to keep oxygen saturation above 90% (or increased FiO2 need from baseline) [ ]2) Has not improved sufficiently with emergency department or observation care IV diuretics or other heart failure treatments[E] [ ]v) Altered mental status that is severe or persistent [ ]vi) Increased creatinine (new on laboratory test) with reduction of more than 50% in estimated glomerular filtration rate from baseline [ ]vii) Progressively (ongoing) rising creatinine (known from past laboratory test) with reduction of more than 25% in estimated glomerular filtration rate from baseline [ ]viii) Acute renal failure [ ]ix) Acute peripheral ischemia (eg, examination shows pulseless, cool, mottled, or cyanotic extremity) [ ]x) Pulmonary artery catheter monitoring needed [ ]xi) Other sign or symptom of heart failure requiring inpatient treatment (ie, too severe or not responsive to outpatient and observation care treatment) [ ]c) Infection requiring inpatient management (eg, Hemodynamic instability, need for intravenous antimicrobial treatment)(66)(67)(68)(69)(70) [ ]d) Cardiac allograft vasculopathy requiring inpatient management ( eg evidence of cardiac ischemia)(71) [ ]e) Other complication of transplanted heart (eg, stroke, severe pulmonary hypertension, severe valvular dysfunction) requiring inpatient management(72) The original [facility] content created by [facility] has been revised. The portions of the content which have been revised are identified through the use of italic text or in bold, and [facility] has neither reviewed nor approved the modified material. All other unmodified content is copyright [facility]. Please see references footnoted in the original [facility] edition 2016 Admission Criteria Met?: Yes MARCELA RAYO May 29, 2017 03:18
[2017-05-29 05:49] LABS: BASO % 1 % (0-3); EOS % 9 % (0-3); HEMATOCRIT 27.5 % (36.0-47.0); HEMOGLOBIN 9.5 g/dL (12.0-15.5); LYMPH % 25 % (24-48); MEAN CORPUSCULAR HEMOGLOBIN 33 pg (25-35); MEAN CORPUSCULAR HGB CONC 35 g/dL (31-37); MEAN CORPUSCULAR VOLUME 97 fL (79-100); MONO % 16 % (0-9); NEUT % 49 % (31-73); PLATELET COUNT 85 x10^3/uL (140-400); RED BLOOD COUNT 2.84 x10^6/uL (3.50-5.40); RED CELL DISTRIBUTION WIDTH 15.3 % (11.5-14.5)
[2017-05-29 06:04] LABS: CALCIUM 7.1 mg/dL (8.5-10.1); CREATININE 4.6 mg/dL (0.6-1.0); GFR 9.2; POTASSIUM 3.5 mmol/L (3.5-5.1)
[2017-05-29 07:00] VITALS: BP 144/61
--- NOTE | 2017-05-29 07:38 | RAD ---
Portable AP chest. History: Chest pain Portable AP view was taken of the chest. Heart is upper normal in size. Left pacemaker is unchanged. There is an old humerus fracture on the left. There is slight interstitial prominence from fibrosis without change from old studies. There are no confluent infiltrates. There is no effusion. Impression: 1. No acute infiltrates.
[2017-05-29] MEDS ORDERED: ONDANSETRON PF 4 MG/2 ML VIAL. IV PRN (08:40)
[2017-05-29] MEDS ORDERED: NITROGLYCERIN SUBLINGUAL 0.4 MG BOTTLE OF 25. SL PRN (08:45)
[2017-05-29] MEDS ORDERED: ACETAMINOPHEN 325 MG TABLET. PO PRN (08:45)
[2017-05-29] MEDS ORDERED: DEXTROSE 50% 25 GM / 50ML DISP.SYRIN. IV PRN (08:45)
[2017-05-29] MEDS: ISOSORBIDE MONONITRATE ER 30 MG TAB.ER.24H PO SCH (09:55)
[2017-05-29] MEDS: LISINOPRIL 5 MG TABLET. PO SCH (09:55)
[2017-05-29] MEDS: ASPIRIN ENTERIC COATED 81 MG TABLET.DR. PO SCH (09:55)
[2017-05-29] MEDS: CLOPIDOGREL BISULFATE 75 MG TABLET PO SCH (09:55)
[2017-05-29] MEDS: ESCITALOPRAM 10 MG TABLET. PO SCH (09:55)
[2017-05-29] MEDS: FOLIC/VIT B COMP W-C (RENAL) TABLET. PO SCH (09:55)
[2017-05-29] MEDS: NYSTATIN TOPICAL POWDER 15GM BOTTLE. TP SCH ×2 (09:56→20:46)
[2017-05-29] MEDS: CALCIUM ACETATE 667 MG CAPSULE PO SCH ×3 (09:56→17:19)
[2017-05-29] MEDS: METOPROLOL TART IMMED RELEASE 50 MG TABLET. PO SCH ×2 (09:56→20:39)
[2017-05-29 11:00] VITALS: BP 130/78
--- NOTE | 2017-05-29 11:00 | EKG ---
[facility] [address] [place] [address] Test Date: 2017-05-28 Test Time: 22:42:37 Pat Name: MK BIRD Department: Room: 502 Gender: F Teaching Specialists: : [id number] Requested By: MADI MONTENEGRO Order Number: [id number] Reading MD: Measurements Intervals [place] Rate: 85 P: 42 NC: 134 QRS: 144 QRSD: 182 T: -28 QT: 432 QTc: 514 Interpretive Statements SINUS RHYTHM WPW PATTERN, TYPE A ABNORMAL RIGHT AXIS DEVIATION RI6.01 Unconfirmed report Compared to ECG 05/12/2017 04:36:11 Ventricular preexcitation now present Right-axis deviation now present Right bundle-branch block no longer present
--- NOTE | 2017-05-29 11:53 | PDOC1 ---
History and Physical Date of Admission Date of Admission DATE: 05/29/17 TIME: 11:46 Identification/Chief Complaint Chief Complaint chest pains at home Problems: Source Source: Caregiver, Chart review, Patient History of Present Illness History of Present Illness 76 y/o female lives at home with elderly , moves with assistive device, went to the bathroom attempted to void, but had midsternal CP. Known CAd with indwelling stents, claims compliance to home meds, NO radiation, no presyncopal sxs or SOA, lasted 20 mins, relieved somewhat by the second dose of NTG SL she took at home, NO identifiable precipitating factor Trops 0.103 CREa 4.6, HD pt MWF CP free, cards saw today for [facility] yahir Past Medical History Cardiovascular: CAD, CHF, HTN, [place], Hyperlipidemia, Aortic stenosis Pulmonary: COPD CENTRAL NERVOUS SYSTEM: CVA, Periperal neuropathy GI: Constipation, GERD Heme/Onc: Anemia NOS Hepatobiliary: No pertinent hx Psych: Depression Musculoskeletal: Osteoarthritis Rheumatologic: No pertinent hx Infectious disease: No pertinent hx Renal/: Chronic renal failure Endocrine: Diabetes, Hypothyroidism, Hyperparathyroidism Past Surgical History Past Surgical History: Pacemaker, Appendectomy, Cholecystectomy, Cataract Removal, Hernia Repair, Hysterectomy, Other Family History Family History: Hypertension Social History Smoke: No ALCOHOL: none Drugs: None Current Problem List Problem List Problems Medical Problems: (1) CAD (coronary artery disease) Status: Acute (2) Chest pain Status: Acute (3) Elevated troponin Status: Acute (4) End stage renal failure on dialysis Status: Acute Problems: Current Medications Current Medications Current Medications Fentanyl Citrate (Fentanyl 2ml Vial) 50 mcg 1X ONCE IV Last administered on 23:14; Start 05/28/17 at 23:00; Stop 05/28/17 at 23:01; Status DC Ondansetron HCl (Zofran) 4 mg PRN Q8HRS PRN IV NAUSEA/VOMITING; Start 05/28/17 at 23:30; Stop 05/29/17 at 08:41; Status DC Fentanyl Citrate (Fentanyl 2ml Vial) 50 mcg PRN Q2HR PRN IV PAIN Last administered on 05/29/17 06:38; Start 05/28/17 at 23:30; Stop 05/29/17 at 23:29 Ondansetron HCl (Zofran) 4 mg PRN Q6HRS PRN IV NAUSEA/VOMITING; Start 05/29/17 at 08:40; Stop 05/30/17 at 08:39 Acetaminophen (Tylenol) 650 mg PRN Q6HRS PRN PO pain; Start 05/29/17 at 08:45 Aspirin (Ecotrin) 81 mg DAILYWBKFT PO Last administered on 05/29/17 09:55; Start 05/29/17 at 09:00 Clopidogrel Bisulfate (Plavix) 75 mg DAILY PO Last administered on 05/29/17 09 :55; Start 05/29/17 at 09:00 Famotidine (Pepcid) 20 mg HS PO ; Start 05/29/17 at 21:00 Acetaminophen/ Hydrocodone Bitart (Lortab 7.5/325) 1 tab PRN Q6HRS PRN PO PAIN ; Start 05/29/17 at 08:45 Lisinopril (Prinivil) 5 mg DAILY PO Last administered on 05/29/17 09:55; Start 05/29/17 at 09:00 Metoprolol Tartrate (Lopressor) 50 mg BID PO Last administered on 05/29/17 09: 56; Start 05/29/17 at 09:00 Nitroglycerin (Nitrostat) 0.4 mg PRN Q5MIN PRN SL CHEST PAIN; Start 05/29/17 at 08:45 Nystatin (Nystop) 1 tiffany BID TP Last administered on 05/29/17 09:56; Start at 09:00 Calcium Acetate (Phoslo) 1,334 mg TIDWMEALS PO Last administered on 05/29/17 09:56; Start 05/29/17 at 09:00 Escitalopram Oxalate (Lexapro) 10 mg DAILY PO Last administered on 05/29/17 09 :55; Start 05/29/17 at 09:00 Insulin Detemir (Levemir) 14 units QHS SQ ; Start 05/29/17 at 21:00 Isosorbide Mononitrate (Imdur) 60 mg DAILY PO Last administered on 05/29/17 09 :55; Start 05/29/17 at 09:00 Vitamin B Complex/ Vitamin C (Tanisha-Prashanth) 1 tab DAILY PO Last administered on 09:55; Start 05/29/17 at 09:00 Insulin Aspart (NovoLOG) 0-9 UNITS TIDWMEALS SQ ; Start 05/29/17 at 12:00 Dextrose (Dextrose 50%-Water Syringe) 12.5 gm PRN Q15MIN PRN IV SEE COMMENTS; Start 05/29/17 at 08:45 Active Scripts Active Aspirin Ec (Aspirin) 81 Mg Tablet.dr 81 Mg PO DAILYWBKFT Nystop (Nystatin) 60 Gm Powder 1 Tiffany TP BID Isosorbide Mononitrate Er (Isosorbide Mononitrate) 60 Mg Tab.er.24h 60 Mg PO DAILY 30 Days Escitalopram Oxalate 10 Mg Tablet 10 Mg PO DAILY Pepcid (Famotidine) 20 Mg Tablet 20 Mg PO HS Nitrostat (Nitroglycerin) 0.4 Mg Tab.subl 0.4 Mg SL PRN Q5MIN PRN Reported Clopidogrel (Clopidogrel Bisulfate) 75 Mg Tablet 75 Mg PO DAILY Lisinopril 5 Mg Tablet 1 Tab PO DAILY Metoprolol Tartrate 50 Mg Tablet 50 Mg PO BID Nephro-Prashanth Rx Tablet (Vit B Cmplx 3/Fa/Vit C/Biotin) 1 Each Tablet 1 Each PO DAILY Hydrocodone-Apap 7.5-325 (Hydrocodone Bit/Acetaminophen) 1 Each Tablet 1 Tab PO PRN Q6HRS PRN Calcium Acetate 667 Mg Tablet 667 Mg PO TIDWMEALS Lantus Solostar (Insulin Glargine,Hum.rec.anlog) 100 Unit/1 Ml Insuln.pen 14 Unit SQ QHS Allergies Allergies: Coded Allergies: Sulfa (Sulfonamide Antibiotics) (Verified Allergy, Intermediate, Nausea/ Vomiting, Rash, 09/22/16) morphine (Verified Allergy, Intermediate, itching, 09/22/16) adhesive (Verified Adverse Reaction, Intermediate, Itching, 09/22/16) ROS General: No: Chills, Night Sweats, Fatigue, Malaise, Appetite, Other PSYCHOLOGICAL ROS: No: Anxiety, Behavioral Disorder, Concentration difficultie , Decreased libido, Depression, Disorientation, Hallucinations, Hostility, Irritablity, Memory difficulties, Mood Swings, Obsessive thoughts, Physical abuse, Sexual abuse, Sleep disturbances, Suicidal ideation, Other Eyes: No Blurry vision, No Decreased vision, No Double vision, No Dry eyes, No Excessive tearing, No Eye Pain, No Itchy Eyes, No Loss of vision, No Photophobia , No Scotomata, No Uses contacts, No Uses glasses, No Other HEENT: No: Heacaches, Visual Changes, Hearing change, Nasal congestion, Nasal discharge, Oral lesions, Sinus pain, Sore Throat, Epistaxis, Sneezing, Snoring, Tinnitus, Vertigo, Vocal changes, Other ALLERGY AND IMMUNOLOGY: No: Hives, Insect Bite Sensitivity, Itchy/Watery Eyes, Nasal Congestion, Post Nasal Drip, Seasonal Allergies, Other Hematological and Lymphatic: No: Bleeding Problems, Blood Clots, Blood Transfusions, Brusing, Night Sweats, Pallor, Swollen Lymph Nodes, Other ENDOCRINE: No: Breast Changes, Galactorrhea, Hair Pattern Changes, Hot Flashes , Malaise/lethargy, Mood Swings, Palpitations, Polydipsia/polyuria, Skin Changes , Temperature Intolerance, Unexpected Weight Changes, Other Breast: No New/Changing Breast Lumps, No Nipple changes, No Nipple discharge, No Other Respiratory: No: Cough, Hemoptysis, Orthopnea, Pleuritic Pain, Shortness of breath, SOB with excertion, Sputum Changes, Stridor, Tachypnea, Wheezing, Other Cardiovascular: No Chest Pain, No Palpitations, No Orthopnea, No Paroxysmal Noc. Dyspnea, No Edema, No Lt Headedness, No Other Gastrointestinal: No Nausea, No Vomiting, No Abdominal Pain, No Diarrhea, No Constipation, No Melena, No Hematochezia, No Other Genitourinary: No Dysuria, No Frequency, No Incontinence, No Hematuria, No Retention, No Discharge, No Urgency, No Pain, No Flank Pain, No Other, No , No , No , No , No , No , No Musculoskeletal: No Gait Disturbance, No Joint Pain, No Joint Stiffness, No Joint Swelling, No Muscle Pain, No Muscular Weakness, No Pain In:, No Swelling In:, No Other Neurological: No Behavorial Changes, No Bowel/Bladder ControlChng, No Confusion , No Dizziness, No Gait Disturbance, No Headaches, No Impaired Coord/balance, No Memory Loss, No Numbness/Tingling, No Seizures, No Speech Problems, No Tremors, No Visual Changes, No Weakness, No Other Skin: No Dry Skin, No Eczema, No Hair Changes, No Lumps, No Mole Changes, No Mottling, No Nail Changes, No Pruritus, No Rash, No Skin Lesion Changes, No Other, No Acne Physical Exam General: Alert, Oriented X3, Cooperative, No acute distress HEENT: Atraumatic, PERRLA, EOMI Lungs: Clear to auscultation, Normal air movement Heart: S1S2, RRR, no thrills, no rubs, no gallops, no murmurs Cardiovascular: S1, S2 Breasts: Normal, Rt breast nml w/o mass, Lt breast nml w/o mass, Nipples normal Abdomen: Normal bowel sounds, Soft, No tenderness, No hepatosplenomegaly, No masses Rectal Exam: not examined PELVIC: Nml ext genitalia Extremities: No clubbing, No cyanosis, No edema, Normal pulses, No tenderness/ swelling Skin: No rashes, No breakdown, No significant lesion Neuro: Normal gait, Normal speech, Strength at 5/5 X4 ext, Normal tone, Sensation intact, Cranial nerves 3-12 NL, Reflexes 2+ Psych/Mental Status: Mental status NL, Mood NL Vitals Vitals Vital Signs Date Time Temp Pulse Resp B/P (MAP) Pulse Ox O2 Delivery O2 Flow Rate FiO2 05/29/17 09:56 73 144/61 05/29/17 07:30 Room Air 05/29/17 07:08 18 96 2.0 05/29/17 07:00 97.3 97.3 Labs Labs Laboratory Tests Test 05/28/17 22:52 05/28/17 22:55 05/29/17 05:30 05/29/17 08:06 Bedside Troponin I 0.05 ng/ml (<0.08) White Blood Count 4.3 x10^3/uL (4.0-11.0) 4.0 x10^3/uL (4.0-11.0) Red Blood Count 3.21 x10^6/uL (3.50-5.40) 2.84 x10^6/uL (3.50-5.40) Hemoglobin 10.7 g/dL (12.0-15.5) 9.5 g/dL (12.0-15.5) Bedside Hemoglobin 10.9 g/dL (12-15) Hematocrit 31.4 % (36.0-47.0) 27.5 % (36.0-47.0) Bedside Hematocrit 32 % (36-40) Mean Corpuscular Volume 98 fL (79-100) 97 fL (79-100) Mean Corpuscular Hemoglobin 34 pg (25-35) 33 pg (25-35) Mean Corpuscular Hemoglobin Concent 34 g/dL (31-37) 35 g/dL (31-37) Red Cell Distribution Width 15.4 % (11.5-14.5) 15.3 % (11.5-14.5) Platelet Count 126 x10^3/uL (140-400) 85 x10^3/uL (140-400) Neutrophils (%) (Auto) 54 % (31-73) 49 % (31-73) Lymphocytes (%) (Auto) 21 % (24-48) 25 % (24-48) Monocytes (%) (Auto) 17 % (0-9) 16 % (0-9) Eosinophils (%) (Auto) 8 % (0-3) 9 % (0-3) Basophils (%) (Auto) 1 % (0-3) 1 % (0-3) Neutrophils # (Auto) 2.3 x10^3uL (1.8-7.7) 1.9 x10^3uL (1.8-7.7) Lymphocytes # (Auto) 0.9 x10^3/uL (1.0-4.8) 1.0 x10^3/uL (1.0-4.8) Monocytes # (Auto) 0.7 x10^3/uL (0.0-1.1) 0.6 x10^3/uL (0.0-1.1) Eosinophils # (Auto) 0.3 x10^3/uL (0.0-0.7) 0.4 x10^3/uL (0.0-0.7) Basophils # (Auto) 0.0 x10^3/uL (0.0-0.2) 0.0 x10^3/uL (0.0-0.2) Prothrombin Time 13.0 SEC (11.7-14.0) Prothromb Time International Ratio 1.0 (0.8-1.1) Activated Partial Thromboplast Time 34 SEC (24-38) Bedside Sodium 133 mmol/L (135-145) Sodium Level 137 mmol/L (136-145) 138 mmol/L (136-145) Bedside Potassium 3.5 mmol/L (3.5-5.0) Potassium Level 3.3 mmol/L (3.5-5.1) 3.5 mmol/L (3.5-5.1) Bedside Chloride 90 mmol/L (98-110) Chloride Level 96 mmol/L (98-107) 98 mmol/L (98-107) Carbon Dioxide Level 33 mmol/L (21-32) 32 mmol/L (21-32) Bedside Total CO2 30 mmol/L (23-32) Anion Gap 17 mmol/L (6-14) 8 (6-14) Bedside Blood Urea Nitrogen 43 mg/dL (8-26) Blood Urea Nitrogen 45 mg/dL (7-20) 52 mg/dL (7-20) Creatinine 4.3 mg/dL (0.6-1.0) 4.6 mg/dL (0.6-1.0) Bedside Creatinine 4.4 mg/dL (0.5-1.4) Estimated GFR (Cockcroft-Gault) 10.0 9.2 BUN/Creatinine Ratio 10 (6-20) Glucose Level 200 mg/dL (70-99) 115 mg/dL (70-99) Calcium Level 7.6 mg/dL (8.5-10.1) 7.1 mg/dL (8.5-10.1) Bedside Ionized Calcium (Keesha) 0.88 mmol/L (1.13-1.32) Magnesium Level 2.0 mg/dL (1.8-2.4) Total Bilirubin 0.5 mg/dL (0.2-1.0) Aspartate Amino Transf (AST/SGOT) 48 U/L (15-37) Alanine Aminotransferase (ALT/SGPT) 36 U/L (14-59) Alkaline Phosphatase 134 U/L (46-116) Creatine Kinase 67 U/L (26-192) Troponin I Quantitative 0.096 ng/mL (0.000-0.055) 0.103 ng/mL (0.000-0.055) UC-Xde-Z-Type Natriuretic Peptide 50767 pg/mL (0-449) Total Protein 7.0 g/dL (6.4-8.2) Albumin 2.7 g/dL (3.4-5.0) Albumin/Globulin Ratio 0.6 (1.0-1.7) Lipase 332 U/L (73-393) Ethyl Alcohol Level < 10 mg/dL (0-10) Glucose (Fingerstick) 125 mg/dL (70-99) Laboratory Tests Test 05/28/17 22:52 05/28/17 22:55 05/29/17 05:30 05/29/17 08:06 Bedside Troponin I 0.05 ng/ml (<0.08) White Blood Count 4.3 x10^3/uL (4.0-11.0) 4.0 x10^3/uL (4.0-11.0) Red Blood Count 3.21 x10^6/uL (3.50-5.40) 2.84 x10^6/uL (3.50-5.40) Hemoglobin 10.7 g/dL (12.0-15.5) 9.5 g/dL (12.0-15.5) Bedside Hemoglobin 10.9 g/dL (12-15) Hematocrit 31.4 % (36.0-47.0) 27.5 % (36.0-47.0) Bedside Hematocrit 32 % (36-40) Mean Corpuscular Volume 98 fL (79-100) 97 fL (79-100) Mean Corpuscular Hemoglobin 34 pg (25-35) 33 pg (25-35) Mean Corpuscular Hemoglobin Concent 34 g/dL (31-37) 35 g/dL (31-37) Red Cell Distribution Width 15.4 % (11.5-14.5) 15.3 % (11.5-14.5) Platelet Count 126 x10^3/uL (140-400) 85 x10^3/uL (140-400) Neutrophils (%) (Auto) 54 % (31-73) 49 % (31-73) Lymphocytes (%) (Auto) 21 % (24-48) 25 % (24-48) Monocytes (%) (Auto) 17 % (0-9) 16 % (0-9) Eosinophils (%) (Auto) 8 % (0-3) 9 % (0-3) Basophils (%) (Auto) 1 % (0-3) 1 % (0-3) Neutrophils # (Auto) 2.3 x10^3uL (1.8-7.7) 1.9 x10^3uL (1.8-7.7) Lymphocytes # (Auto) 0.9 x10^3/uL (1.0-4.8) 1.0 x10^3/uL (1.0-4.8) Monocytes # (Auto) 0.7 x10^3/uL (0.0-1.1) 0.6 x10^3/uL (0.0-1.1) Eosinophils # (Auto) 0.3 x10^3/uL (0.0-0.7) 0.4 x10^3/uL (0.0-0.7) Basophils # (Auto) 0.0 x10^3/uL (0.0-0.2) 0.0 x10^3/uL (0.0-0.2) Prothrombin Time 13.0 SEC (11.7-14.0) Prothromb Time International Ratio 1.0 (0.8-1.1) Activated Partial Thromboplast Time 34 SEC (24-38) Bedside Sodium 133 mmol/L (135-145) Sodium Level 137 mmol/L (136-145) 138 mmol/L (136-145) Bedside Potassium 3.5 mmol/L (3.5-5.0) Potassium Level 3.3 mmol/L (3.5-5.1) 3.5 mmol/L (3.5-5.1) Bedside Chloride 90 mmol/L (98-110) Chloride Level 96 mmol/L (98-107) 98 mmol/L (98-107) Carbon Dioxide Level 33 mmol/L (21-32) 32 mmol/L (21-32) Bedside Total CO2 30 mmol/L (23-32) Anion Gap 17 mmol/L (6-14) 8 (6-14) Bedside Blood Urea Nitrogen 43 mg/dL (8-26) Blood Urea Nitrogen 45 mg/dL (7-20) 52 mg/dL (7-20) Creatinine 4.3 mg/dL (0.6-1.0) 4.6 mg/dL (0.6-1.0) Bedside Creatinine 4.4 mg/dL (0.5-1.4) Estimated GFR (Cockcroft-Gault) 10.0 9.2 BUN/Creatinine Ratio 10 (6-20) Glucose Level 200 mg/dL (70-99) 115 mg/dL (70-99) Calcium Level 7.6 mg/dL (8.5-10.1) 7.1 mg/dL (8.5-10.1) Bedside Ionized Calcium (Keesha) 0.88 mmol/L (1.13-1.32) Magnesium Level 2.0 mg/dL (1.8-2.4) Total Bilirubin 0.5 mg/dL (0.2-1.0) Aspartate Amino Transf (AST/SGOT) 48 U/L (15-37) Alanine Aminotransferase (ALT/SGPT) 36 U/L (14-59) Alkaline Phosphatase 134 U/L (46-116) Creatine Kinase 67 U/L (26-192) Troponin I Quantitative 0.096 ng/mL (0.000-0.055) 0.103 ng/mL (0.000-0.055) NO-Mog-F-Type Natriuretic Peptide 36110 pg/mL (0-449) Total Protein 7.0 g/dL (6.4-8.2) Albumin 2.7 g/dL (3.4-5.0) Albumin/Globulin Ratio 0.6 (1.0-1.7) Lipase 332 U/L (73-393) Ethyl Alcohol Level < 10 mg/dL (0-10) Glucose (Fingerstick) 125 mg/dL (70-99) VTE Prophylaxis Ordered VTE Prophylaxis Devices: Yes VTE Pharmacological Prophylaxi: Yes Assessment/Plan Assessment/Plan 1. Chest pain, known CAD with indwelling stents 2. ESRD on HD MWF 3. AOCD 4. Mil to mod pCM 5. HTN. controlled 6. DM 2 insulin req, controlled 7. Dyslipidemia PLAN: Admit NPO post [facility] yahir SSI Resume home meds HD per renal DW RN at bedside BRIELLE BRIONES MD May 29, 2017 11:53
[2017-05-29] MEDS: INSULIN ASPART 300 UNITS/3 ML INSULN.PEN SQ SCH ×2 (12:00→17:21)
--- NOTE | 2017-05-29 13:01 | PDOC2 ---
CONSULT Date of Consult Date of Consult DATE: 05/29/17 TIME: 12:58 Reason for Consult Reason for Consult: ESRD Referring Physician Referring Physician: RAMSEY Identification/Chief Complaint Chief Complaint CHEST PAIN Problems: Source Source: Chart review, Patient History of Present Illness Reason for Visit: THIS IS A 76 YR OLD ESRD PT WITH CHEST PAIN DESCRIBED BEING INTENSE. SHE IS TO UNDERGO CARDIOLOGY EVAL. SHE HAS OP HD ON MWF AND LAST HAD HER HD ON TUESDAY. LABS ARE C/W ESRD. SHE HAS HTN AND DM II Past Medical History Cardiovascular: CAD, CHF, HTN, PA, Hyperlipidemia, Aortic stenosis Pulmonary: COPD CENTRAL NERVOUS SYSTEM: CVA, Periperal neuropathy GI: Constipation, GERD Heme/Onc: Anemia NOS Hepatobiliary: No pertinent hx Psych: Depression Musculoskeletal: Osteoarthritis Rheumatologic: No pertinent hx Infectious disease: No pertinent hx Renal/: Chronic renal failure Endocrine: Diabetes, Hypothyroidism, Hyperparathyroidism Past Surgical History Past Surgical History: Pacemaker, Appendectomy, Cholecystectomy, Cataract Removal, Hernia Repair, Hysterectomy, Other Family History Family History: Hypertension Social History No ALCOHOL: none Drugs: None Lives: with Family Domestic Violence: Neg Current Problem List Problem List Problems Medical Problems: (1) CAD (coronary artery disease) Status: Acute (2) Chest pain Status: Acute (3) Elevated troponin Status: Acute (4) End stage renal failure on dialysis Status: Acute Current Medications Current Medications Current Medications Fentanyl Citrate (Fentanyl 2ml Vial) 50 mcg 1X ONCE IV Last administered on 23:14; Start 05/28/17 at 23:00; Stop 05/28/17 at 23:01; Status DC Ondansetron HCl (Zofran) 4 mg PRN Q8HRS PRN IV NAUSEA/VOMITING; Start 05/28/17 at 23:30; Stop 05/29/17 at 08:41; Status DC Fentanyl Citrate (Fentanyl 2ml Vial) 50 mcg PRN Q2HR PRN IV PAIN Last administered on 05/29/17 06:38; Start 05/28/17 at 23:30; Stop 05/29/17 at 23:29 Ondansetron HCl (Zofran) 4 mg PRN Q6HRS PRN IV NAUSEA/VOMITING; Start 05/29/17 at 08:40; Stop 05/30/17 at 08:39 Acetaminophen (Tylenol) 650 mg PRN Q6HRS PRN PO pain; Start 05/29/17 at 08:45 Aspirin (Ecotrin) 81 mg DAILYWBKFT PO Last administered on 05/29/17 09:55; Start 05/29/17 at 09:00 Clopidogrel Bisulfate (Plavix) 75 mg DAILY PO Last administered on 05/29/17 09 :55; Start 05/29/17 at 09:00 Famotidine (Pepcid) 20 mg HS PO ; Start 05/29/17 at 21:00 Acetaminophen/ Hydrocodone Bitart (Lortab 7.5/325) 1 tab PRN Q6HRS PRN PO PAIN ; Start 05/29/17 at 08:45 Lisinopril (Prinivil) 5 mg DAILY PO Last administered on 05/29/17 09:55; Start 05/29/17 at 09:00 Metoprolol Tartrate (Lopressor) 50 mg BID PO Last administered on 05/29/17 09: 56; Start 05/29/17 at 09:00 Nitroglycerin (Nitrostat) 0.4 mg PRN Q5MIN PRN SL CHEST PAIN; Start 05/29/17 at 08:45 Nystatin (Nystop) 1 tiffany BID TP Last administered on 05/29/17 09:56; Start at 09:00 Calcium Acetate (Phoslo) 1,334 mg TIDWMEALS PO Last administered on 05/29/17 11:57; Start 05/29/17 at 09:00 Escitalopram Oxalate (Lexapro) 10 mg DAILY PO Last administered on 05/29/17 09 :55; Start 05/29/17 at 09:00 Insulin Detemir (Levemir) 14 units QHS SQ ; Start 05/29/17 at 21:00 Isosorbide Mononitrate (Imdur) 60 mg DAILY PO Last administered on 05/29/17 09 :55; Start 05/29/17 at 09:00 Vitamin B Complex/ Vitamin C (Tanisha-Prashanth) 1 tab DAILY PO Last administered on 09:55; Start 05/29/17 at 09:00 Insulin Aspart (NovoLOG) 0-9 UNITS TIDWMEALS SQ Last administered on 05/29/17 12:00; Start 05/29/17 at 12:00 Dextrose (Dextrose 50%-Water Syringe) 12.5 gm PRN Q15MIN PRN IV SEE COMMENTS; Start 05/29/17 at 08:45 Active Scripts Active Aspirin Ec (Aspirin) 81 Mg Tablet.dr 81 Mg PO DAILYWBKFT Nystop (Nystatin) 60 Gm Powder 1 Tiffany TP BID Isosorbide Mononitrate Er (Isosorbide Mononitrate) 60 Mg Tab.er.24h 60 Mg PO DAILY 30 Days Escitalopram Oxalate 10 Mg Tablet 10 Mg PO DAILY Pepcid (Famotidine) 20 Mg Tablet 20 Mg PO HS Nitrostat (Nitroglycerin) 0.4 Mg Tab.subl 0.4 Mg SL PRN Q5MIN PRN Reported Clopidogrel (Clopidogrel Bisulfate) 75 Mg Tablet 75 Mg PO DAILY Lisinopril 5 Mg Tablet 1 Tab PO DAILY Metoprolol Tartrate 50 Mg Tablet 50 Mg PO BID Nephro-Prashanth Rx Tablet (Vit B Cmplx 3/Fa/Vit C/Biotin) 1 Each Tablet 1 Each PO DAILY Hydrocodone-Apap 7.5-325 (Hydrocodone Bit/Acetaminophen) 1 Each Tablet 1 Tab PO PRN Q6HRS PRN Calcium Acetate 667 Mg Tablet 667 Mg PO TIDWMEALS Lantus Solostar (Insulin Glargine,Hum.rec.anlog) 100 Unit/1 Ml Insuln.pen 14 Unit SQ QHS Allergies Allergies: Coded Allergies: Sulfa (Sulfonamide Antibiotics) (Verified Allergy, Intermediate, Nausea/ Vomiting, Rash, 09/22/16) morphine (Verified Allergy, Intermediate, itching, 09/22/16) adhesive (Verified Adverse Reaction, Intermediate, Itching, 09/22/16) ROS General: YES: Fatigue, Malaise, Appetite PSYCHOLOGICAL ROS: YES: Anxiety Eyes: Yes Decreased vision HEENT: YES: Heacaches Respiratory: YES: Cough, Shortness of breath Cardiovascular: yes Chest Pain, yes Edema Gastrointestinal: Yes Constipation Genitourinary: YES Other (ANURIA) Musculoskeletal: Yes Muscular Weakness Neurological: Yes Weakness Skin: Yes Dry Skin Physical Exam General: Alert, Oriented X3, Cooperative, No acute distress, moderate distress HEENT: Atraumatic, PERRLA, Mucous membr. moist/pink Lungs: Clear to auscultation Heart: Regular rate, Normal S1, Normal S2 Abdomen: Normal bowel sounds, Soft, No tenderness Extremities: No clubbing, Normal pulses Skin: No rashes Neuro: Normal speech, Cranial nerves 3-12 NL Psych/Mental Status: Mood NL MUSCULOSKELETAL: No joint tenderness, No deformity, No swelling Vitals VITALS Vital Signs Date Time Temp Pulse Resp B/P (MAP) Pulse Ox O2 Delivery O2 Flow Rate FiO2 05/29/17 09:56 73 144/61 05/29/17 07:30 Room Air 05/29/17 07:08 18 96 2.0 05/29/17 07:00 97.3 97.3 Labs Labs Laboratory Tests Test 05/28/17 22:52 05/28/17 22:55 05/29/17 05:30 05/29/17 08:06 Bedside Troponin I 0.05 ng/ml (<0.08) White Blood Count 4.3 x10^3/uL (4.0-11.0) 4.0 x10^3/uL (4.0-11.0) Red Blood Count 3.21 x10^6/uL (3.50-5.40) 2.84 x10^6/uL (3.50-5.40) Hemoglobin 10.7 g/dL (12.0-15.5) 9.5 g/dL (12.0-15.5) Bedside Hemoglobin 10.9 g/dL (12-15) Hematocrit 31.4 % (36.0-47.0) 27.5 % (36.0-47.0) Bedside Hematocrit 32 % (36-40) Mean Corpuscular Volume 98 fL (79-100) 97 fL (79-100) Mean Corpuscular Hemoglobin 34 pg (25-35) 33 pg (25-35) Mean Corpuscular Hemoglobin Concent 34 g/dL (31-37) 35 g/dL (31-37) Red Cell Distribution Width 15.4 % (11.5-14.5) 15.3 % (11.5-14.5) Platelet Count 126 x10^3/uL (140-400) 85 x10^3/uL (140-400) Neutrophils (%) (Auto) 54 % (31-73) 49 % (31-73) Lymphocytes (%) (Auto) 21 % (24-48) 25 % (24-48) Monocytes (%) (Auto) 17 % (0-9) 16 % (0-9) Eosinophils (%) (Auto) 8 % (0-3) 9 % (0-3) Basophils (%) (Auto) 1 % (0-3) 1 % (0-3) Neutrophils # (Auto) 2.3 x10^3uL (1.8-7.7) 1.9 x10^3uL (1.8-7.7) Lymphocytes # (Auto) 0.9 x10^3/uL (1.0-4.8) 1.0 x10^3/uL (1.0-4.8) Monocytes # (Auto) 0.7 x10^3/uL (0.0-1.1) 0.6 x10^3/uL (0.0-1.1) Eosinophils # (Auto) 0.3 x10^3/uL (0.0-0.7) 0.4 x10^3/uL (0.0-0.7) Basophils # (Auto) 0.0 x10^3/uL (0.0-0.2) 0.0 x10^3/uL (0.0-0.2) Prothrombin Time 13.0 SEC (11.7-14.0) Prothromb Time International Ratio 1.0 (0.8-1.1) Activated Partial Thromboplast Time 34 SEC (24-38) Bedside Sodium 133 mmol/L (135-145) Sodium Level 137 mmol/L (136-145) 138 mmol/L (136-145) Bedside Potassium 3.5 mmol/L (3.5-5.0) Potassium Level 3.3 mmol/L (3.5-5.1) 3.5 mmol/L (3.5-5.1) Bedside Chloride 90 mmol/L (98-110) Chloride Level 96 mmol/L (98-107) 98 mmol/L (98-107) Carbon Dioxide Level 33 mmol/L (21-32) 32 mmol/L (21-32) Bedside Total CO2 30 mmol/L (23-32) Anion Gap 17 mmol/L (6-14) 8 (6-14) Bedside Blood Urea Nitrogen 43 mg/dL (8-26) Blood Urea Nitrogen 45 mg/dL (7-20) 52 mg/dL (7-20) Creatinine 4.3 mg/dL (0.6-1.0) 4.6 mg/dL (0.6-1.0) Bedside Creatinine 4.4 mg/dL (0.5-1.4) Estimated GFR (Cockcroft-Gault) 10.0 9.2 BUN/Creatinine Ratio 10 (6-20) Glucose Level 200 mg/dL (70-99) 115 mg/dL (70-99) Calcium Level 7.6 mg/dL (8.5-10.1) 7.1 mg/dL (8.5-10.1) Bedside Ionized Calcium (Keesha) 0.88 mmol/L (1.13-1.32) Magnesium Level 2.0 mg/dL (1.8-2.4) Total Bilirubin 0.5 mg/dL (0.2-1.0) Aspartate Amino Transf (AST/SGOT) 48 U/L (15-37) Alanine Aminotransferase (ALT/SGPT) 36 U/L (14-59) Alkaline Phosphatase 134 U/L (46-116) Creatine Kinase 67 U/L (26-192) Troponin I Quantitative 0.096 ng/mL (0.000-0.055) 0.103 ng/mL (0.000-0.055) LO-Irj-J-Type Natriuretic Peptide 28574 pg/mL (0-449) Total Protein 7.0 g/dL (6.4-8.2) Albumin 2.7 g/dL (3.4-5.0) Albumin/Globulin Ratio 0.6 (1.0-1.7) Lipase 332 U/L (73-393) Ethyl Alcohol Level < 10 mg/dL (0-10) Glucose (Fingerstick) 125 mg/dL (70-99) Test 05/29/17 11:15 Lactic Acid Level 2.0 mmol/L (0.4-2.0) Troponin I Quantitative 0.093 ng/mL (0.000-0.055) Laboratory Tests Test 05/28/17 22:52 05/28/17 22:55 05/29/17 05:30 05/29/17 08:06 Bedside Troponin I 0.05 ng/ml (<0.08) White Blood Count 4.3 x10^3/uL (4.0-11.0) 4.0 x10^3/uL (4.0-11.0) Red Blood Count 3.21 x10^6/uL (3.50-5.40) 2.84 x10^6/uL (3.50-5.40) Hemoglobin 10.7 g/dL (12.0-15.5) 9.5 g/dL (12.0-15.5) Bedside Hemoglobin 10.9 g/dL (12-15) Hematocrit 31.4 % (36.0-47.0) 27.5 % (36.0-47.0) Bedside Hematocrit 32 % (36-40) Mean Corpuscular Volume 98 fL (79-100) 97 fL (79-100) Mean Corpuscular Hemoglobin 34 pg (25-35) 33 pg (25-35) Mean Corpuscular Hemoglobin Concent 34 g/dL (31-37) 35 g/dL (31-37) Red Cell Distribution Width 15.4 % (11.5-14.5) 15.3 % (11.5-14.5) Platelet Count 126 x10^3/uL (140-400) 85 x10^3/uL (140-400) Neutrophils (%) (Auto) 54 % (31-73) 49 % (31-73) Lymphocytes (%) (Auto) 21 % (24-48) 25 % (24-48) Monocytes (%) (Auto) 17 % (0-9) 16 % (0-9) Eosinophils (%) (Auto) 8 % (0-3) 9 % (0-3) Basophils (%) (Auto) 1 % (0-3) 1 % (0-3) Neutrophils # (Auto) 2.3 x10^3uL (1.8-7.7) 1.9 x10^3uL (1.8-7.7) Lymphocytes # (Auto) 0.9 x10^3/uL (1.0-4.8) 1.0 x10^3/uL (1.0-4.8) Monocytes # (Auto) 0.7 x10^3/uL (0.0-1.1) 0.6 x10^3/uL (0.0-1.1) Eosinophils # (Auto) 0.3 x10^3/uL (0.0-0.7) 0.4 x10^3/uL (0.0-0.7) Basophils # (Auto) 0.0 x10^3/uL (0.0-0.2) 0.0 x10^3/uL (0.0-0.2) Prothrombin Time 13.0 SEC (11.7-14.0) Prothromb Time International Ratio 1.0 (0.8-1.1) Activated Partial Thromboplast Time 34 SEC (24-38) Bedside Sodium 133 mmol/L (135-145) Sodium Level 137 mmol/L (136-145) 138 mmol/L (136-145) Bedside Potassium 3.5 mmol/L (3.5-5.0) Potassium Level 3.3 mmol/L (3.5-5.1) 3.5 mmol/L (3.5-5.1) Bedside Chloride 90 mmol/L (98-110) Chloride Level 96 mmol/L (98-107) 98 mmol/L (98-107) Carbon Dioxide Level 33 mmol/L (21-32) 32 mmol/L (21-32) Bedside Total CO2 30 mmol/L (23-32) Anion Gap 17 mmol/L (6-14) 8 (6-14) Bedside Blood Urea Nitrogen 43 mg/dL (8-26) Blood Urea Nitrogen 45 mg/dL (7-20) 52 mg/dL (7-20) Creatinine 4.3 mg/dL (0.6-1.0) 4.6 mg/dL (0.6-1.0) Bedside Creatinine 4.4 mg/dL (0.5-1.4) Estimated GFR (Cockcroft-Gault) 10.0 9.2 BUN/Creatinine Ratio 10 (6-20) Glucose Level 200 mg/dL (70-99) 115 mg/dL (70-99) Calcium Level 7.6 mg/dL (8.5-10.1) 7.1 mg/dL (8.5-10.1) Bedside Ionized Calcium (Keesha) 0.88 mmol/L (1.13-1.32) Magnesium Level 2.0 mg/dL (1.8-2.4) Total Bilirubin 0.5 mg/dL (0.2-1.0) Aspartate Amino Transf (AST/SGOT) 48 U/L (15-37) Alanine Aminotransferase (ALT/SGPT) 36 U/L (14-59) Alkaline Phosphatase 134 U/L (46-116) Creatine Kinase 67 U/L (26-192) Troponin I Quantitative 0.096 ng/mL (0.000-0.055) 0.103 ng/mL (0.000-0.055) IZ-Pfv-J-Type Natriuretic Peptide 29756 pg/mL (0-449) Total Protein 7.0 g/dL (6.4-8.2) Albumin 2.7 g/dL (3.4-5.0) Albumin/Globulin Ratio 0.6 (1.0-1.7) Lipase 332 U/L (73-393) Ethyl Alcohol Level < 10 mg/dL (0-10) Glucose (Fingerstick) 125 mg/dL (70-99) Test 05/29/17 11:15 Lactic Acid Level 2.0 mmol/L (0.4-2.0) Troponin I Quantitative 0.093 ng/mL (0.000-0.055) Assessment/Plan Assessment/Plan IMP ESRD ANEMIA HTN DM II CHEST PAIN PLAN HD TOMORROW CARDIOLOGY EVAL AND TX CHLOE GUAJARDO MD May 29, 2017 13:01
[2017-05-29] MEDS: HYDROcodone/APAP 7.5/325MG 1 TAB TABLET PO PRN ×2 (14:19→20:39)
[2017-05-29 15:00] VITALS: BP 100/48
--- NOTE | 2017-05-29 15:01 | PDOC2 ---
CONSULT Date of Consult Date of Consult DATE: 05/29/17 TIME: 14:56 Reason for Consult Reason for Consult: chest pain Referring Physician Referring Physician: Dr. Fontanez Identification/Chief Complaint Chief Complaint Chest pain Problems: Source Source: Patient History of Present Illness Reason for Visit: The patient is a 76-year-old female well known to our service with a history of coronary artery disease, myocardial infarction, previous stenting and atrial fibrillation. The patient is on hemodialysis for end-stage renal disease and has had several recent hospitalizations for shortness of breath and chest discomfort. On this hospitalization she ruled out for myocardial infarction and was treated for heart failure. Her last catheterization was in September 2016 which time an LAD stent was placed. Overnight she has been feeling better. This morning she denies chest pain. Her EKG shows no acute ischemic changes. Past Medical History Cardiovascular: AFIB, CAD, CHF, HTN, AL, Hyperlipidemia, Aortic stenosis Pulmonary: COPD CENTRAL NERVOUS SYSTEM: CVA, Periperal neuropathy GI: Constipation, GERD Heme/Onc: Anemia NOS Hepatobiliary: No pertinent hx Psych: Depression Musculoskeletal: Osteoarthritis Rheumatologic: No pertinent hx Infectious disease: No pertinent hx Renal/: Chronic renal failure Endocrine: Diabetes, Hypothyroidism, Hyperparathyroidism Past Surgical History Past Surgical History: Pacemaker, Appendectomy, Cholecystectomy, Cataract Removal, Hernia Repair, Hysterectomy, Other (coronary stents.) Family History Family History: Hypertension Social History No ALCOHOL: none Drugs: None Lives: with Family Domestic Violence: Neg Current Problem List Problem List Problems Medical Problems: (1) CAD (coronary artery disease) Status: Acute (2) Chest pain Status: Acute (3) Elevated troponin Status: Acute (4) End stage renal failure on dialysis Status: Acute Current Medications Current Medications Current Medications Fentanyl Citrate (Fentanyl 2ml Vial) 50 mcg 1X ONCE IV Last administered on 23:14; Start 05/28/17 at 23:00; Stop 05/28/17 at 23:01; Status DC Ondansetron HCl (Zofran) 4 mg PRN Q8HRS PRN IV NAUSEA/VOMITING; Start 05/28/17 at 23:30; Stop 05/29/17 at 08:41; Status DC Fentanyl Citrate (Fentanyl 2ml Vial) 50 mcg PRN Q2HR PRN IV PAIN Last administered on 05/29/17 06:38; Start 05/28/17 at 23:30; Stop 05/29/17 at 23:29 Ondansetron HCl (Zofran) 4 mg PRN Q6HRS PRN IV NAUSEA/VOMITING; Start 05/29/17 at 08:40; Stop 05/30/17 at 08:39 Acetaminophen (Tylenol) 650 mg PRN Q6HRS PRN PO pain; Start 05/29/17 at 08:45 Aspirin (Ecotrin) 81 mg DAILYWBKFT PO Last administered on 05/29/17 09:55; Start 05/29/17 at 09:00 Clopidogrel Bisulfate (Plavix) 75 mg DAILY PO Last administered on 05/29/17 09 :55; Start 05/29/17 at 09:00 Famotidine (Pepcid) 20 mg HS PO ; Start 05/29/17 at 21:00 Acetaminophen/ Hydrocodone Bitart (Lortab 7.5/325) 1 tab PRN Q6HRS PRN PO PAIN Last administered on 05/29/17 14:19; Start 05/29/17 at 08:45 Lisinopril (Prinivil) 5 mg DAILY PO Last administered on 05/29/17 09:55; Start 05/29/17 at 09:00 Metoprolol Tartrate (Lopressor) 50 mg BID PO Last administered on 05/29/17 09: 56; Start 05/29/17 at 09:00 Nitroglycerin (Nitrostat) 0.4 mg PRN Q5MIN PRN SL CHEST PAIN; Start 05/29/17 at 08:45 Nystatin (Nystop) 1 tiffany BID TP Last administered on 05/29/17 09:56; Start at 09:00 Calcium Acetate (Phoslo) 1,334 mg TIDWMEALS PO Last administered on 05/29/17 11:57; Start 05/29/17 at 09:00 Escitalopram Oxalate (Lexapro) 10 mg DAILY PO Last administered on 05/29/17 09 :55; Start 05/29/17 at 09:00 Insulin Detemir (Levemir) 14 units QHS SQ ; Start 05/29/17 at 21:00 Isosorbide Mononitrate (Imdur) 60 mg DAILY PO Last administered on 05/29/17 09 :55; Start 7/16/17 at 09:00 Vitamin B Complex/ Vitamin C (Tanisha-Prashanth) 1 tab DAILY PO Last administered on 09:55; Start 05/29/17 at 09:00 Insulin Aspart (NovoLOG) 0-9 UNITS TIDWMEALS SQ Last administered on 05/29/17 12:00; Start 05/29/17 at 12:00 Dextrose (Dextrose 50%-Water Syringe) 12.5 gm PRN Q15MIN PRN IV SEE COMMENTS; Start 05/29/17 at 08:45 Darbepoetin James (Aranesp) 60 mcg [place] SQ ; Start 05/29/17 at 21:00 Active Scripts Active Aspirin Ec (Aspirin) 81 Mg Tablet.dr 81 Mg PO DAILYWBKFT Nystop (Nystatin) 60 Gm Powder 1 Tiffany TP BID Isosorbide Mononitrate Er (Isosorbide Mononitrate) 60 Mg Tab.er.24h 60 Mg PO DAILY 30 Days Escitalopram Oxalate 10 Mg Tablet 10 Mg PO DAILY Pepcid (Famotidine) 20 Mg Tablet 20 Mg PO HS Nitrostat (Nitroglycerin) 0.4 Mg Tab.subl 0.4 Mg SL PRN Q5MIN PRN Reported Clopidogrel (Clopidogrel Bisulfate) 75 Mg Tablet 75 Mg PO DAILY Lisinopril 5 Mg Tablet 1 Tab PO DAILY Metoprolol Tartrate 50 Mg Tablet 50 Mg PO BID Nephro-Prashanth Rx Tablet (Vit B Cmplx 3/Fa/Vit C/Biotin) 1 Each Tablet 1 Each PO DAILY Hydrocodone-Apap 7.5-325 (Hydrocodone Bit/Acetaminophen) 1 Each Tablet 1 Tab PO PRN Q6HRS PRN Calcium Acetate 667 Mg Tablet 667 Mg PO TIDWMEALS Lantus Solostar (Insulin Glargine,Hum.rec.anlog) 100 Unit/1 Ml Insuln.pen 14 Unit SQ QHS Allergies Allergies: Coded Allergies: Sulfa (Sulfonamide Antibiotics) (Verified Allergy, Intermediate, Nausea/ Vomiting, Rash, 09/22/16) morphine (Verified Allergy, Intermediate, itching, 09/22/16) adhesive (Verified Adverse Reaction, Intermediate, Itching, 09/22/16) ROS General: YES: Fatigue Respiratory: YES: Shortness of breath Cardiovascular: yes Chest Pain Physical Exam General: mild distress HEENT: Atraumatic Lungs: Clear to auscultation Heart: Other (irregularly irregular) Abdomen: Normal bowel sounds Vitals VITALS Vital Signs Date Time Temp Pulse Resp B/P (MAP) Pulse Ox O2 Delivery O2 Flow Rate FiO2 05/29/17 14:19 Nasal Cannula 2.0 05/29/17 11:00 98.4 74 20 130/78 (95) 96 98.4 Labs Labs Laboratory Tests Test 05/28/17 22:52 05/28/17 22:55 05/29/17 05:30 05/29/17 08:06 Bedside Troponin I 0.05 ng/ml (<0.08) White Blood Count 4.3 x10^3/uL (4.0-11.0) 4.0 x10^3/uL (4.0-11.0) Red Blood Count 3.21 x10^6/uL (3.50-5.40) 2.84 x10^6/uL (3.50-5.40) Hemoglobin 10.7 g/dL (12.0-15.5) 9.5 g/dL (12.0-15.5) Bedside Hemoglobin 10.9 g/dL (12-15) Hematocrit 31.4 % (36.0-47.0) 27.5 % (36.0-47.0) Bedside Hematocrit 32 % (36-40) Mean Corpuscular Volume 98 fL (79-100) 97 fL (79-100) Mean Corpuscular Hemoglobin 34 pg (25-35) 33 pg (25-35) Mean Corpuscular Hemoglobin Concent 34 g/dL (31-37) 35 g/dL (31-37) Red Cell Distribution Width 15.4 % (11.5-14.5) 15.3 % (11.5-14.5) Platelet Count 126 x10^3/uL (140-400) 85 x10^3/uL (140-400) Neutrophils (%) (Auto) 54 % (31-73) 49 % (31-73) Lymphocytes (%) (Auto) 21 % (24-48) 25 % (24-48) Monocytes (%) (Auto) 17 % (0-9) 16 % (0-9) Eosinophils (%) (Auto) 8 % (0-3) 9 % (0-3) Basophils (%) (Auto) 1 % (0-3) 1 % (0-3) Neutrophils # (Auto) 2.3 x10^3uL (1.8-7.7) 1.9 x10^3uL (1.8-7.7) Lymphocytes # (Auto) 0.9 x10^3/uL (1.0-4.8) 1.0 x10^3/uL (1.0-4.8) Monocytes # (Auto) 0.7 x10^3/uL (0.0-1.1) 0.6 x10^3/uL (0.0-1.1) Eosinophils # (Auto) 0.3 x10^3/uL (0.0-0.7) 0.4 x10^3/uL (0.0-0.7) Basophils # (Auto) 0.0 x10^3/uL (0.0-0.2) 0.0 x10^3/uL (0.0-0.2) Prothrombin Time 13.0 SEC (11.7-14.0) Prothromb Time International Ratio 1.0 (0.8-1.1) Activated Partial Thromboplast Time 34 SEC (24-38) Bedside Sodium 133 mmol/L (135-145) Sodium Level 137 mmol/L (136-145) 138 mmol/L (136-145) Bedside Potassium 3.5 mmol/L (3.5-5.0) Potassium Level 3.3 mmol/L (3.5-5.1) 3.5 mmol/L (3.5-5.1) Bedside Chloride 90 mmol/L (98-110) Chloride Level 96 mmol/L (98-107) 98 mmol/L (98-107) Carbon Dioxide Level 33 mmol/L (21-32) 32 mmol/L (21-32) Bedside Total CO2 30 mmol/L (23-32) Anion Gap 17 mmol/L (6-14) 8 (6-14) Bedside Blood Urea Nitrogen 43 mg/dL (8-26) Blood Urea Nitrogen 45 mg/dL (7-20) 52 mg/dL (7-20) Creatinine 4.3 mg/dL (0.6-1.0) 4.6 mg/dL (0.6-1.0) Bedside Creatinine 4.4 mg/dL (0.5-1.4) Estimated GFR (Cockcroft-Gault) 10.0 9.2 BUN/Creatinine Ratio 10 (6-20) Glucose Level 200 mg/dL (70-99) 115 mg/dL (70-99) Calcium Level 7.6 mg/dL (8.5-10.1) 7.1 mg/dL (8.5-10.1) Bedside Ionized Calcium (Keesha) 0.88 mmol/L (1.13-1.32) Magnesium Level 2.0 mg/dL (1.8-2.4) Total Bilirubin 0.5 mg/dL (0.2-1.0) Aspartate Amino Transf (AST/SGOT) 48 U/L (15-37) Alanine Aminotransferase (ALT/SGPT) 36 U/L (14-59) Alkaline Phosphatase 134 U/L (46-116) Creatine Kinase 67 U/L (26-192) Troponin I Quantitative 0.096 ng/mL (0.000-0.055) 0.103 ng/mL (0.000-0.055) RY-Nat-C-Type Natriuretic Peptide 15426 pg/mL (0-449) Total Protein 7.0 g/dL (6.4-8.2) Albumin 2.7 g/dL (3.4-5.0) Albumin/Globulin Ratio 0.6 (1.0-1.7) Lipase 332 U/L (73-393) Ethyl Alcohol Level < 10 mg/dL (0-10) Glucose (Fingerstick) 125 mg/dL (70-99) Test 05/29/17 11:15 Lactic Acid Level 2.0 mmol/L (0.4-2.0) Troponin I Quantitative 0.093 ng/mL (0.000-0.055) Laboratory Tests Test 05/28/17 22:52 05/28/17 22:55 05/29/17 05:30 05/29/17 08:06 Bedside Troponin I 0.05 ng/ml (<0.08) White Blood Count 4.3 x10^3/uL (4.0-11.0) 4.0 x10^3/uL (4.0-11.0) Red Blood Count 3.21 x10^6/uL (3.50-5.40) 2.84 x10^6/uL (3.50-5.40) Hemoglobin 10.7 g/dL (12.0-15.5) 9.5 g/dL (12.0-15.5) Bedside Hemoglobin 10.9 g/dL (12-15) Hematocrit 31.4 % (36.0-47.0) 27.5 % (36.0-47.0) Bedside Hematocrit 32 % (36-40) Mean Corpuscular Volume 98 fL (79-100) 97 fL (79-100) Mean Corpuscular Hemoglobin 34 pg (25-35) 33 pg (25-35) Mean Corpuscular Hemoglobin Concent 34 g/dL (31-37) 35 g/dL (31-37) Red Cell Distribution Width 15.4 % (11.5-14.5) 15.3 % (11.5-14.5) Platelet Count 126 x10^3/uL (140-400) 85 x10^3/uL (140-400) Neutrophils (%) (Auto) 54 % (31-73) 49 % (31-73) Lymphocytes (%) (Auto) 21 % (24-48) 25 % (24-48) Monocytes (%) (Auto) 17 % (0-9) 16 % (0-9) Eosinophils (%) (Auto) 8 % (0-3) 9 % (0-3) Basophils (%) (Auto) 1 % (0-3) 1 % (0-3) Neutrophils # (Auto) 2.3 x10^3uL (1.8-7.7) 1.9 x10^3uL (1.8-7.7) Lymphocytes # (Auto) 0.9 x10^3/uL (1.0-4.8) 1.0 x10^3/uL (1.0-4.8) Monocytes # (Auto) 0.7 x10^3/uL (0.0-1.1) 0.6 x10^3/uL (0.0-1.1) Eosinophils # (Auto) 0.3 x10^3/uL (0.0-0.7) 0.4 x10^3/uL (0.0-0.7) Basophils # (Auto) 0.0 x10^3/uL (0.0-0.2) 0.0 x10^3/uL (0.0-0.2) Prothrombin Time 13.0 SEC (11.7-14.0) Prothromb Time International Ratio 1.0 (0.8-1.1) Activated Partial Thromboplast Time 34 SEC (24-38) Bedside Sodium 133 mmol/L (135-145) Sodium Level 137 mmol/L (136-145) 138 mmol/L (136-145) Bedside Potassium 3.5 mmol/L (3.5-5.0) Potassium Level 3.3 mmol/L (3.5-5.1) 3.5 mmol/L (3.5-5.1) Bedside Chloride 90 mmol/L (98-110) Chloride Level 96 mmol/L (98-107) 98 mmol/L (98-107) Carbon Dioxide Level 33 mmol/L (21-32) 32 mmol/L (21-32) Bedside Total CO2 30 mmol/L (23-32) Anion Gap 17 mmol/L (6-14) 8 (6-14) Bedside Blood Urea Nitrogen 43 mg/dL (8-26) Blood Urea Nitrogen 45 mg/dL (7-20) 52 mg/dL (7-20) Creatinine 4.3 mg/dL (0.6-1.0) 4.6 mg/dL (0.6-1.0) Bedside Creatinine 4.4 mg/dL (0.5-1.4) Estimated GFR (Cockcroft-Gault) 10.0 9.2 BUN/Creatinine Ratio 10 (6-20) Glucose Level 200 mg/dL (70-99) 115 mg/dL (70-99) Calcium Level 7.6 mg/dL (8.5-10.1) 7.1 mg/dL (8.5-10.1) Bedside Ionized Calcium (Keesha) 0.88 mmol/L (1.13-1.32) Magnesium Level 2.0 mg/dL (1.8-2.4) Total Bilirubin 0.5 mg/dL (0.2-1.0) Aspartate Amino Transf (AST/SGOT) 48 U/L (15-37) Alanine Aminotransferase (ALT/SGPT) 36 U/L (14-59) Alkaline Phosphatase 134 U/L (46-116) Creatine Kinase 67 U/L (26-192) Troponin I Quantitative 0.096 ng/mL (0.000-0.055) 0.103 ng/mL (0.000-0.055) GM-Hob-R-Type Natriuretic Peptide 32907 pg/mL (0-449) Total Protein 7.0 g/dL (6.4-8.2) Albumin 2.7 g/dL (3.4-5.0) Albumin/Globulin Ratio 0.6 (1.0-1.7) Lipase 332 U/L (73-393) Ethyl Alcohol Level < 10 mg/dL (0-10) Glucose (Fingerstick) 125 mg/dL (70-99) Test 05/29/17 11:15 Lactic Acid Level 2.0 mmol/L (0.4-2.0) Troponin I Quantitative 0.093 ng/mL (0.000-0.055) Assessment/Plan Assessment/Plan 1. Recurrent chest pain. History of myocardial infarction and previous stents. Will rule out for myocardial infarction. In the setting of multiple recent admissions with recommend catheterization. Risks and benefits were discussed with the patient. The patient has agreed to proceed. 2. End-stage renal disease. Hemodialysis as per the renal service. 3. Severe COPD. We'll continue oxygen and pulmonary treatments. 4. Hypertension. Continue present medications. 5. Diabetes mellitus as per the primary service. 6. History of arrhythmias including atrial fibrillation. Pacemaker placed. Continue to monitor. 7. History of a CVA. Thank you for allowing us to participate in the care of your patient. We'll schedule catheterization for tomorrow. JORDON HALL MD May 29, 2017 15:01
[2017-05-29 19:00] VITALS: BP 149/66
[2017-05-29] MEDS: FAMOTIDINE 20 MG TABLET. PO SCH (20:39)
[2017-05-29] MEDS: INSULIN DETEMIR 300 UNITS/3 ML INSULN.PEN. SQ SCH (20:45)
[2017-05-29] MEDS ORDERED: DARBEPOETIN ALFA 60 MCG/0.3 ML DISP.SYRIN. SQ SCH (21:00)
[2017-05-29 22:52] VITALS: BP 93/43
[2017-05-30] VITALS (17 sets, daily range): BP systolic 118–171; BP diastolic 45–70
[2017-05-30 04:40] LABS: HEMATOCRIT 30.6 % (36.0-47.0); HEMOGLOBIN 10.2 g/dL (12.0-15.5); RED BLOOD COUNT 3.09 x10^6/uL (3.50-5.40); RED CELL DISTRIBUTION WIDTH 15.5 % (11.5-14.5); WHITE BLOOD COUNT 5.5 x10^3/uL (4.0-11.0)
[2017-05-30 04:56] LABS: CALCIUM 7.4 mg/dL (8.5-10.1); CREATININE 5.7 mg/dL (0.6-1.0); GFR 7.2; POTASSIUM 3.7 mmol/L (3.5-5.1)
[2017-05-30] MEDS ORDERED: IV NORMAL SALINE 1000ML BAG 1,000 ML IV PRN ×2 (07:13)
[2017-05-30] MEDS ORDERED: diphenhydrAMINE 50 MG/ML VIAL IV PRN ×2 (07:15)
[2017-05-30] MEDS ORDERED: DIALYSIS PATIENT. MC PRN ×2 (07:15)
[2017-05-30] MEDS: INSULIN ASPART 300 UNITS/3 ML INSULN.PEN SQ SCH ×3 (08:00→16:41)
[2017-05-30] MEDS: IV NORMAL SALINE 1000ML BAG 1,000 ML IV SCH (08:00)
[2017-05-30] MEDS: ASPIRIN ENTERIC COATED 81 MG TABLET.DR. PO SCH (08:00)
[2017-05-30] MEDS: CALCIUM ACETATE 667 MG CAPSULE PO SCH ×3 (08:00→16:44)
[2017-05-30] MEDS: HYDROcodone/APAP 7.5/325MG 1 TAB TABLET PO PRN ×3 (08:03→23:23)
[2017-05-30] MEDS: CLOPIDOGREL BISULFATE 75 MG TABLET PO SCH (09:00)
[2017-05-30] MEDS: ISOSORBIDE MONONITRATE ER 30 MG TAB.ER.24H PO SCH (09:00)
[2017-05-30] MEDS: NYSTATIN TOPICAL POWDER 15GM BOTTLE. TP SCH ×2 (09:00→23:23)
[2017-05-30] MEDS: LISINOPRIL 5 MG TABLET. PO SCH (09:00)
[2017-05-30] MEDS: ESCITALOPRAM 10 MG TABLET. PO SCH (09:00)
[2017-05-30] MEDS: FOLIC/VIT B COMP W-C (RENAL) TABLET. PO SCH (09:00)
[2017-05-30] MEDS: METOPROLOL TART IMMED RELEASE 50 MG TABLET. PO SCH ×2 (09:00→21:41)
--- NOTE | 2017-05-30 09:29 | PDOC ---
PROGRESS NOTES Chief Complaint Chief Complaint 1. Chest pain 2. Elevated troponins 3. CAD with stent in 09/2016 to LAD and pacemaker 4. HTN 5. CHF 6. HLP 7. 8. COPD 9. CVA 10. Gerd 11. Anemia NOS 12. OA 13. DM type 2 14. Hypothyroidism History of Present Illness History of Present Illness pt is resting comfortably in bed receiving hemodialysis, she states she is doing well with no complaints, she is prepared for cath today but does not remember getting stent in September Vitals Vitals Vital Signs Date Time Temp Pulse Resp B/P (MAP) Pulse Ox O2 Delivery O2 Flow Rate FiO2 05/30/17 08:03 18 97 Room Air 05/30/17 07:00 96.7 65 118/58 (78) 96.7 05/29/17 21:39 2.0 Physical Exam General: Alert, Oriented X3, Cooperative, No acute distress Heart: Regular rate, Other (2/6 systolic ejection) Lungs: Clear Abdomen: Normal bowel sounds, Soft, No tenderness Extremities: No clubbing, No cyanosis, No edema Skin: No rashes, No breakdown, No significant lesion Labs LABS Laboratory Tests Test 05/29/17 11:11 05/29/17 11:15 05/29/17 17:16 05/29/17 20:41 Glucose (Fingerstick) 181 mg/dL (70-99) 217 mg/dL (70-99) 121 mg/dL (70-99) Lactic Acid Level 2.0 mmol/L (0.4-2.0) Troponin I Quantitative 0.093 ng/mL (0.000-0.055) Test 05/30/17 03:50 05/30/17 07:37 White Blood Count 5.5 x10^3/uL (4.0-11.0) Red Blood Count 3.09 x10^6/uL (3.50-5.40) Hemoglobin 10.2 g/dL (12.0-15.5) Hematocrit 30.6 % (36.0-47.0) Mean Corpuscular Volume 99 fL (79-100) Mean Corpuscular Hemoglobin 33 pg (25-35) Mean Corpuscular Hemoglobin Concent 33 g/dL (31-37) Red Cell Distribution Width 15.5 % (11.5-14.5) Platelet Count 101 x10^3/uL (140-400) Sodium Level 137 mmol/L (136-145) Potassium Level 3.7 mmol/L (3.5-5.1) Chloride Level 97 mmol/L (98-107) Carbon Dioxide Level 30 mmol/L (21-32) Anion Gap 10 (6-14) Blood Urea Nitrogen 62 mg/dL (7-20) Creatinine 5.7 mg/dL (0.6-1.0) Estimated GFR (Cockcroft-Gault) 7.2 Glucose Level 67 mg/dL (70-99) Calcium Level 7.4 mg/dL (8.5-10.1) Glucose (Fingerstick) 67 mg/dL (70-99) Review of Systems Review of Systems denies N/V/D and WHEELER Assessment and Plan Assessmemt and Plan Assessment 1. Chest pain 2. Elevated troponins 3. CAD with stent in 09/2016 to LAD and pacemaker 4. HTN 5. CHF 6. HLP 7. 8. COPD 9. CVA 10. Gerd 11. Anemia NOS 12. OA 13. DM type 2 14. Hypothyroidism Plan 1. Cath today 2. HD MWF 3. Follow troponins, 0.96 today 4. Cardiac workup per cardiology 5. Appreciate subspecialty input 6. Cont home meds 7. Discussed plan of care with nursing 8. PT/OT 9. Recheck BMP and CBC tomorrow 10. Zofran prn for nausea Problems: Comment Review of Relevant I have reviewed the following items adrián (where applicable) has been applied. Labs Laboratory Tests Test 05/28/17 22:52 05/28/17 22:55 05/29/17 05:30 05/29/17 08:06 Bedside Troponin I 0.05 ng/ml (<0.08) White Blood Count 4.3 x10^3/uL (4.0-11.0) 4.0 x10^3/uL (4.0-11.0) Red Blood Count 3.21 x10^6/uL (3.50-5.40) 2.84 x10^6/uL (3.50-5.40) Hemoglobin 10.7 g/dL (12.0-15.5) 9.5 g/dL (12.0-15.5) Bedside Hemoglobin 10.9 g/dL (12-15) Hematocrit 31.4 % (36.0-47.0) 27.5 % (36.0-47.0) Bedside Hematocrit 32 % (36-40) Mean Corpuscular Volume 98 fL (79-100) 97 fL (79-100) Mean Corpuscular Hemoglobin 34 pg (25-35) 33 pg (25-35) Mean Corpuscular Hemoglobin Concent 34 g/dL (31-37) 35 g/dL (31-37) Red Cell Distribution Width 15.4 % (11.5-14.5) 15.3 % (11.5-14.5) Platelet Count 126 x10^3/uL (140-400) 85 x10^3/uL (140-400) Neutrophils (%) (Auto) 54 % (31-73) 49 % (31-73) Lymphocytes (%) (Auto) 21 % (24-48) 25 % (24-48) Monocytes (%) (Auto) 17 % (0-9) 16 % (0-9) Eosinophils (%) (Auto) 8 % (0-3) 9 % (0-3) Basophils (%) (Auto) 1 % (0-3) 1 % (0-3) Neutrophils # (Auto) 2.3 x10^3uL (1.8-7.7) 1.9 x10^3uL (1.8-7.7) Lymphocytes # (Auto) 0.9 x10^3/uL (1.0-4.8) 1.0 x10^3/uL (1.0-4.8) Monocytes # (Auto) 0.7 x10^3/uL (0.0-1.1) 0.6 x10^3/uL (0.0-1.1) Eosinophils # (Auto) 0.3 x10^3/uL (0.0-0.7) 0.4 x10^3/uL (0.0-0.7) Basophils # (Auto) 0.0 x10^3/uL (0.0-0.2) 0.0 x10^3/uL (0.0-0.2) Prothrombin Time 13.0 SEC (11.7-14.0) Prothromb Time International Ratio 1.0 (0.8-1.1) Activated Partial Thromboplast Time 34 SEC (24-38) Bedside Sodium 133 mmol/L (135-145) Sodium Level 137 mmol/L (136-145) 138 mmol/L (136-145) Bedside Potassium 3.5 mmol/L (3.5-5.0) Potassium Level 3.3 mmol/L (3.5-5.1) 3.5 mmol/L (3.5-5.1) Bedside Chloride 90 mmol/L (98-110) Chloride Level 96 mmol/L (98-107) 98 mmol/L (98-107) Carbon Dioxide Level 33 mmol/L (21-32) 32 mmol/L (21-32) Bedside Total CO2 30 mmol/L (23-32) Anion Gap 17 mmol/L (6-14) 8 (6-14) Bedside Blood Urea Nitrogen 43 mg/dL (8-26) Blood Urea Nitrogen 45 mg/dL (7-20) 52 mg/dL (7-20) Creatinine 4.3 mg/dL (0.6-1.0) 4.6 mg/dL (0.6-1.0) Bedside Creatinine 4.4 mg/dL (0.5-1.4) Estimated GFR (Cockcroft-Gault) 10.0 9.2 BUN/Creatinine Ratio 10 (6-20) Glucose Level 200 mg/dL (70-99) 115 mg/dL (70-99) Calcium Level 7.6 mg/dL (8.5-10.1) 7.1 mg/dL (8.5-10.1) Bedside Ionized Calcium (Keesha) 0.88 mmol/L (1.13-1.32) Magnesium Level 2.0 mg/dL (1.8-2.4) Total Bilirubin 0.5 mg/dL (0.2-1.0) Aspartate Amino Transf (AST/SGOT) 48 U/L (15-37) Alanine Aminotransferase (ALT/SGPT) 36 U/L (14-59) Alkaline Phosphatase 134 U/L (46-116) Creatine Kinase 67 U/L (26-192) Troponin I Quantitative 0.096 ng/mL (0.000-0.055) 0.103 ng/mL (0.000-0.055) VC-Swp-Z-Type Natriuretic Peptide 15456 pg/mL (0-449) Total Protein 7.0 g/dL (6.4-8.2) Albumin 2.7 g/dL (3.4-5.0) Albumin/Globulin Ratio 0.6 (1.0-1.7) Lipase 332 U/L (73-393) Ethyl Alcohol Level < 10 mg/dL (0-10) Glucose (Fingerstick) 125 mg/dL (70-99) Test 05/29/17 11:11 05/29/17 11:15 05/29/17 17:16 05/29/17 20:41 Glucose (Fingerstick) 181 mg/dL (70-99) 217 mg/dL (70-99) 121 mg/dL (70-99) Lactic Acid Level 2.0 mmol/L (0.4-2.0) Troponin I Quantitative 0.093 ng/mL (0.000-0.055) Test 05/30/17 03:50 05/30/17 07:37 White Blood Count 5.5 x10^3/uL (4.0-11.0) Red Blood Count 3.09 x10^6/uL (3.50-5.40) Hemoglobin 10.2 g/dL (12.0-15.5) Hematocrit 30.6 % (36.0-47.0) Mean Corpuscular Volume 99 fL (79-100) Mean Corpuscular Hemoglobin 33 pg (25-35) Mean Corpuscular Hemoglobin Concent 33 g/dL (31-37) Red Cell Distribution Width 15.5 % (11.5-14.5) Platelet Count 101 x10^3/uL (140-400) Sodium Level 137 mmol/L (136-145) Potassium Level 3.7 mmol/L (3.5-5.1) Chloride Level 97 mmol/L (98-107) Carbon Dioxide Level 30 mmol/L (21-32) Anion Gap 10 (6-14) Blood Urea Nitrogen 62 mg/dL (7-20) Creatinine 5.7 mg/dL (0.6-1.0) Estimated GFR (Cockcroft-Gault) 7.2 Glucose Level 67 mg/dL (70-99) Calcium Level 7.4 mg/dL (8.5-10.1) Glucose (Fingerstick) 67 mg/dL (70-99) Laboratory Tests Test 05/29/17 11:11 05/29/17 11:15 05/29/17 17:16 05/29/17 20:41 Glucose (Fingerstick) 181 mg/dL (70-99) 217 mg/dL (70-99) 121 mg/dL (70-99) Lactic Acid Level 2.0 mmol/L (0.4-2.0) Troponin I Quantitative 0.093 ng/mL (0.000-0.055) Test 05/30/17 03:50 05/30/17 07:37 White Blood Count 5.5 x10^3/uL (4.0-11.0) Red Blood Count 3.09 x10^6/uL (3.50-5.40) Hemoglobin 10.2 g/dL (12.0-15.5) Hematocrit 30.6 % (36.0-47.0) Mean Corpuscular Volume 99 fL (79-100) Mean Corpuscular Hemoglobin 33 pg (25-35) Mean Corpuscular Hemoglobin Concent 33 g/dL (31-37) Red Cell Distribution Width 15.5 % (11.5-14.5) Platelet Count 101 x10^3/uL (140-400) Sodium Level 137 mmol/L (136-145) Potassium Level 3.7 mmol/L (3.5-5.1) Chloride Level 97 mmol/L (98-107) Carbon Dioxide Level 30 mmol/L (21-32) Anion Gap 10 (6-14) Blood Urea Nitrogen 62 mg/dL (7-20) Creatinine 5.7 mg/dL (0.6-1.0) Estimated GFR (Cockcroft-Gault) 7.2 Glucose Level 67 mg/dL (70-99) Calcium Level 7.4 mg/dL (8.5-10.1) Glucose (Fingerstick) 67 mg/dL (70-99) Medications Current Medications Fentanyl Citrate (Fentanyl 2ml Vial) 50 mcg 1X ONCE IV Last administered on t 23:14; Start 05/28/17 at 23:00; Stop 05/28/17 at 23:01; Status DC Ondansetron HCl (Zofran) 4 mg PRN Q8HRS PRN IV NAUSEA/VOMITING; Start 05/28/17 at 23:30; Stop 05/29/17 at 08:41; Status DC Fentanyl Citrate (Fentanyl 2ml Vial) 50 mcg PRN Q2HR PRN IV PAIN Last administered on 05/29/17 06:38; Start 05/28/17 at 23:30; Stop 05/29/17 at 23:29 ; Status DC Ondansetron HCl (Zofran) 4 mg PRN Q6HRS PRN IV NAUSEA/VOMITING; Start 05/29/17 at 08:40; Stop 05/30/17 at 08:39; Status DC Acetaminophen (Tylenol) 650 mg PRN Q6HRS PRN PO pain; Start 05/29/17 at 08:45 Aspirin (Ecotrin) 81 mg DAILYWBKFT PO Last administered on 05/29/17 09:55; Start 05/29/17 at 09:00 Clopidogrel Bisulfate (Plavix) 75 mg DAILY PO Last administered on 05/29/17 09 :55; Start 05/29/17 at 09:00 Famotidine (Pepcid) 20 mg HS PO Last administered on 05/29/17 20:39; Start at 21:00 Acetaminophen/ Hydrocodone Bitart (Lortab 7.5/325) 1 tab PRN Q6HRS PRN PO PAIN Last administered on 05/30/17 08:03; Start 05/29/17 at 08:45 Lisinopril (Prinivil) 5 mg DAILY PO Last administered on 05/29/17 09:55; Start 05/29/17 at 09:00 Metoprolol Tartrate (Lopressor) 50 mg BID PO Last administered on 05/29/17 20: 39; Start 05/29/17 at 09:00 Nitroglycerin (Nitrostat) 0.4 mg PRN Q5MIN PRN SL CHEST PAIN; Start 05/29/17 at 08:45 Nystatin (Nystop) 1 tiffany BID TP Last administered on 05/29/17 20:46; Start at 09:00 Calcium Acetate (Phoslo) 1,334 mg TIDWMEALS PO Last administered on 05/29/17 17:19; Start 05/29/17 at 09:00 Escitalopram Oxalate (Lexapro) 10 mg DAILY PO Last administered on 05/29/17 09 :55; Start 05/29/17 at 09:00 Insulin Detemir (Levemir) 14 units QHS SQ Last administered on 05/29/17 20:45 ; Start 05/29/17 at 21:00 Isosorbide Mononitrate (Imdur) 60 mg DAILY PO Last administered on 05/29/17 09 :55; Start 05/29/17 at 09:00 Vitamin B Complex/ Vitamin C (Tanisha-Prashanth) 1 tab DAILY PO Last administered on 09:55; Start 05/29/17 at 09:00 Insulin Aspart (NovoLOG) 0-9 UNITS TIDWMEALS SQ Last administered on 05/29/17 17:21; Start 05/29/17 at 12:00 Dextrose (Dextrose 50%-Water Syringe) 12.5 gm PRN Q15MIN PRN IV SEE COMMENTS Last administered on 05/30/17 08:04; Start 05/29/17 at 08:45 Darbepoetin James (Aranesp) 60 mcg [place] SQ Last administered on 05/29/17 20:39; Start 05/29/17 at 21:00 Sodium Chloride 1,000 ml @ 60 mls/hr [id number] IV ; Start 05/30/17 at 08:00 Sodium Chloride 1,000 ml @ 1,000 mls/hr Q1H PRN IV hypotension; Start 05/30/17 at 07:13; Stop 05/30/17 at 13:12 Diphenhydramine HCl (Benadryl) 25 mg 1X PRN PRN IV ITCHING; Start 05/30/17 at 07:15; Stop 05/31/17 at 07:14 Diphenhydramine HCl (Benadryl) 25 mg 1X PRN PRN IV ITCHING; Start 05/30/17 at 07:15; Stop 05/31/17 at 07:14 Sodium Chloride 1,000 ml @ 400 mls/hr Q2H30M PRN IV PATENCY; Start 05/30/17 at 07:13; Stop 05/30/17 at 19:12 Info (PHARMACY MONITORING -- do not chart) 1 each PRN DAILY PRN MC SEE COMMENTS ; Start 05/30/17 at 07:15; Status UNV Info (PHARMACY MONITORING -- do not chart) 1 each PRN DAILY PRN MC SEE COMMENTS ; Start 05/30/17 at 07:15 Active Scripts Active Aspirin Ec (Aspirin) 81 Mg Tablet.dr 81 Mg PO DAILYWBKFT Nystop (Nystatin) 60 Gm Powder 1 Tiffany TP BID Isosorbide Mononitrate Er (Isosorbide Mononitrate) 60 Mg Tab.er.24h 60 Mg PO DAILY 30 Days Escitalopram Oxalate 10 Mg Tablet 10 Mg PO DAILY Pepcid (Famotidine) 20 Mg Tablet 20 Mg PO HS Nitrostat (Nitroglycerin) 0.4 Mg Tab.subl 0.4 Mg SL PRN Q5MIN PRN Reported Clopidogrel (Clopidogrel Bisulfate) 75 Mg Tablet 75 Mg PO DAILY Lisinopril 5 Mg Tablet 1 Tab PO DAILY Metoprolol Tartrate 50 Mg Tablet 50 Mg PO BID Nephro-Prashanth Rx Tablet (Vit B Cmplx 3/Fa/Vit C/Biotin) 1 Each Tablet 1 Each PO DAILY Hydrocodone-Apap 7.5-325 (Hydrocodone Bit/Acetaminophen) 1 Each Tablet 1 Tab PO PRN Q6HRS PRN Calcium Acetate 667 Mg Tablet 667 Mg PO TIDWMEALS Lantus Solostar (Insulin Glargine,Hum.rec.anlog) 100 Unit/1 Ml Insuln.pen 14 Unit SQ QHS Vitals/I & O Vital Sign - Last 24 Hours 05/29/17 05/29/17 05/29/17 05/29/17 09:55 09:55 09:56 11:00 Temp 98.4 98.4 Pulse 73 73 73 74 Resp 20 B/P (MAP) 144/61 144/61 144/61 130/78 (95) Pulse Ox 96 O2 Delivery Room Air 05/29/17 05/29/17 05/29/17 05/29/17 14:19 15:00 19:00 20:00 Temp 98.2 97.9 98.2 97.9 Pulse 58 62 Resp 18 19 B/P (MAP) 100/48 (65) 149/66 (93) Pulse Ox 96 99 O2 Delivery Nasal Cannula Room Air Room Air O2 Flow Rate 2.0 2.0 05/29/17 05/29/17 05/29/17 05/29/17 20:39 20:39 21:39 22:52 Temp 98.0 98.0 Pulse 62 61 Resp 20 B/P (MAP) 149/66 93/43 (60) Pulse Ox 99 99 93 O2 Delivery Room Air Room Air Room Air O2 Flow Rate 2.0 2.0 05/30/17 05/30/17 05/30/17 03:10 07:00 08:03 Temp 97.9 96.7 97.9 96.7 Pulse 60 65 Resp 20 18 18 B/P (MAP) 136/45 (75) 118/58 (78) Pulse Ox 97 96 97 O2 Delivery Room Air Room Air Room Air Intake and Output 05/29/17 05/29/17 05/30/17 15:00 23:00 07:00 Intake Total 590 ml 680 ml Output Total 0 ml Balance 590 ml 680 ml MARIAM MOJICA III DO May 30, 2017 09:29
--- NOTE | 2017-05-30 09:54 | PDOC ---
Dialysis Progress Note Dialysis Note Dialysis Note Seen on Hemodialysis, tolerating treatment Okay so far Vitals on Hemodialysis: 110/49 60 afeb General Appearance: Awake: Alert Oriented x 3 Neck: No JVD or JVP Chest: CTA Amilcar Heart: S1 S2 Abdomen - Soft NTND Extremities - No Edema ESRD: Dialysis as below F 180 NR 3.5 Hrs 4 K 2.5 Ca 140 Na 35 HC03 Qb 350 + Qd 500+ Heparin 0 Units Uf 2-3 Kgs or to dry weight as tolerated May give 25-50 gms of 25% Albumin if needed to maintain Hemodynamic stability Treatment plan reviewed and discussed with scientific research associate Vitals Vital Signs Vital Signs Date Time Temp Pulse Resp B/P (MAP) Pulse Ox O2 Delivery O2 Flow Rate FiO2 05/30/17 08:03 18 97 Room Air 05/30/17 07:00 96.7 65 118/58 (78) 96.7 05/29/17 21:39 2.0 Labs Last Labs Laboratory Tests Test 05/28/17 22:52 05/28/17 22:55 05/29/17 05:30 05/29/17 08:06 Bedside Troponin I 0.05 ng/ml (<0.08) White Blood Count 4.3 x10^3/uL (4.0-11.0) 4.0 x10^3/uL (4.0-11.0) Red Blood Count 3.21 x10^6/uL (3.50-5.40) 2.84 x10^6/uL (3.50-5.40) Hemoglobin 10.7 g/dL (12.0-15.5) 9.5 g/dL (12.0-15.5) Bedside Hemoglobin 10.9 g/dL (12-15) Hematocrit 31.4 % (36.0-47.0) 27.5 % (36.0-47.0) Bedside Hematocrit 32 % (36-40) Mean Corpuscular Volume 98 fL (79-100) 97 fL (79-100) Mean Corpuscular Hemoglobin 34 pg (25-35) 33 pg (25-35) Mean Corpuscular Hemoglobin Concent 34 g/dL (31-37) 35 g/dL (31-37) Red Cell Distribution Width 15.4 % (11.5-14.5) 15.3 % (11.5-14.5) Platelet Count 126 x10^3/uL (140-400) 85 x10^3/uL (140-400) Neutrophils (%) (Auto) 54 % (31-73) 49 % (31-73) Lymphocytes (%) (Auto) 21 % (24-48) 25 % (24-48) Monocytes (%) (Auto) 17 % (0-9) 16 % (0-9) Eosinophils (%) (Auto) 8 % (0-3) 9 % (0-3) Basophils (%) (Auto) 1 % (0-3) 1 % (0-3) Neutrophils # (Auto) 2.3 x10^3uL (1.8-7.7) 1.9 x10^3uL (1.8-7.7) Lymphocytes # (Auto) 0.9 x10^3/uL (1.0-4.8) 1.0 x10^3/uL (1.0-4.8) Monocytes # (Auto) 0.7 x10^3/uL (0.0-1.1) 0.6 x10^3/uL (0.0-1.1) Eosinophils # (Auto) 0.3 x10^3/uL (0.0-0.7) 0.4 x10^3/uL (0.0-0.7) Basophils # (Auto) 0.0 x10^3/uL (0.0-0.2) 0.0 x10^3/uL (0.0-0.2) Prothrombin Time 13.0 SEC (11.7-14.0) Prothromb Time International Ratio 1.0 (0.8-1.1) Activated Partial Thromboplast Time 34 SEC (24-38) Bedside Sodium 133 mmol/L (135-145) Sodium Level 137 mmol/L (136-145) 138 mmol/L (136-145) Bedside Potassium 3.5 mmol/L (3.5-5.0) Potassium Level 3.3 mmol/L (3.5-5.1) 3.5 mmol/L (3.5-5.1) Bedside Chloride 90 mmol/L (98-110) Chloride Level 96 mmol/L (98-107) 98 mmol/L (98-107) Carbon Dioxide Level 33 mmol/L (21-32) 32 mmol/L (21-32) Bedside Total CO2 30 mmol/L (23-32) Anion Gap 17 mmol/L (6-14) 8 (6-14) Bedside Blood Urea Nitrogen 43 mg/dL (8-26) Blood Urea Nitrogen 45 mg/dL (7-20) 52 mg/dL (7-20) Creatinine 4.3 mg/dL (0.6-1.0) 4.6 mg/dL (0.6-1.0) Bedside Creatinine 4.4 mg/dL (0.5-1.4) Estimated GFR (Cockcroft-Gault) 10.0 9.2 BUN/Creatinine Ratio 10 (6-20) Glucose Level 200 mg/dL (70-99) 115 mg/dL (70-99) Calcium Level 7.6 mg/dL (8.5-10.1) 7.1 mg/dL (8.5-10.1) Bedside Ionized Calcium (Keesha) 0.88 mmol/L (1.13-1.32) Magnesium Level 2.0 mg/dL (1.8-2.4) Total Bilirubin 0.5 mg/dL (0.2-1.0) Aspartate Amino Transf (AST/SGOT) 48 U/L (15-37) Alanine Aminotransferase (ALT/SGPT) 36 U/L (14-59) Alkaline Phosphatase 134 U/L (46-116) Creatine Kinase 67 U/L (26-192) Troponin I Quantitative 0.096 ng/mL (0.000-0.055) 0.103 ng/mL (0.000-0.055) RC-Fyu-D-Type Natriuretic Peptide 80581 pg/mL (0-449) Total Protein 7.0 g/dL (6.4-8.2) Albumin 2.7 g/dL (3.4-5.0) Albumin/Globulin Ratio 0.6 (1.0-1.7) Lipase 332 U/L (73-393) Ethyl Alcohol Level < 10 mg/dL (0-10) Glucose (Fingerstick) 125 mg/dL (70-99) Test 05/29/17 11:11 05/29/17 11:15 05/29/17 17:16 05/29/17 20:41 Glucose (Fingerstick) 181 mg/dL (70-99) 217 mg/dL (70-99) 121 mg/dL (70-99) Lactic Acid Level 2.0 mmol/L (0.4-2.0) Troponin I Quantitative 0.093 ng/mL (0.000-0.055) Test 05/30/17 03:50 05/30/17 07:37 White Blood Count 5.5 x10^3/uL (4.0-11.0) Red Blood Count 3.09 x10^6/uL (3.50-5.40) Hemoglobin 10.2 g/dL (12.0-15.5) Hematocrit 30.6 % (36.0-47.0) Mean Corpuscular Volume 99 fL (79-100) Mean Corpuscular Hemoglobin 33 pg (25-35) Mean Corpuscular Hemoglobin Concent 33 g/dL (31-37) Red Cell Distribution Width 15.5 % (11.5-14.5) Platelet Count 101 x10^3/uL (140-400) Sodium Level 137 mmol/L (136-145) Potassium Level 3.7 mmol/L (3.5-5.1) Chloride Level 97 mmol/L (98-107) Carbon Dioxide Level 30 mmol/L (21-32) Anion Gap 10 (6-14) Blood Urea Nitrogen 62 mg/dL (7-20) Creatinine 5.7 mg/dL (0.6-1.0) Estimated GFR (Cockcroft-Gault) 7.2 Glucose Level 67 mg/dL (70-99) Calcium Level 7.4 mg/dL (8.5-10.1) Glucose (Fingerstick) 67 mg/dL (70-99) Laboratory Tests Test 05/29/17 11:11 05/29/17 11:15 05/29/17 17:16 05/29/17 20:41 Glucose (Fingerstick) 181 mg/dL (70-99) 217 mg/dL (70-99) 121 mg/dL (70-99) Lactic Acid Level 2.0 mmol/L (0.4-2.0) Troponin I Quantitative 0.093 ng/mL (0.000-0.055) Test 05/30/17 03:50 05/30/17 07:37 White Blood Count 5.5 x10^3/uL (4.0-11.0) Red Blood Count 3.09 x10^6/uL (3.50-5.40) Hemoglobin 10.2 g/dL (12.0-15.5) Hematocrit 30.6 % (36.0-47.0) Mean Corpuscular Volume 99 fL (79-100) Mean Corpuscular Hemoglobin 33 pg (25-35) Mean Corpuscular Hemoglobin Concent 33 g/dL (31-37) Red Cell Distribution Width 15.5 % (11.5-14.5) Platelet Count 101 x10^3/uL (140-400) Sodium Level 137 mmol/L (136-145) Potassium Level 3.7 mmol/L (3.5-5.1) Chloride Level 97 mmol/L (98-107) Carbon Dioxide Level 30 mmol/L (21-32) Anion Gap 10 (6-14) Blood Urea Nitrogen 62 mg/dL (7-20) Creatinine 5.7 mg/dL (0.6-1.0) Estimated GFR (Cockcroft-Gault) 7.2 Glucose Level 67 mg/dL (70-99) Calcium Level 7.4 mg/dL (8.5-10.1) Glucose (Fingerstick) 67 mg/dL (70-99) Assessment Assessment Problems Medical Problems: (1) CAD (coronary artery disease) Status: Acute (2) Chest pain Status: Acute (3) Elevated troponin Status: Acute (4) End stage renal failure on dialysis Status: Acute Problems: Plan Plan of Care Problems Medical Problems: (1) CAD (coronary artery disease) Status: Acute (2) Chest pain Status: Acute (3) Elevated troponin Status: Acute (4) End stage renal failure on dialysis Status: Acute GABI SILVESTRE MD May 30, 2017 09:54
[2017-05-30] MEDS ORDERED: IOHEXOL 300 MG/ML 100ML VIAL. ONE ×2 (11:58→13:21)
[2017-05-30] MEDS ORDERED: LIDOCAINE 2% 20 ML VIAL. ONE (11:58)
[2017-05-30] MEDS ORDERED: NITROGLYCERIN 200 MCG/2 ML SYRINGE FOR CATH/VASC LAB. ONE ×2 (12:24→13:38)
[2017-05-30] MEDS ORDERED: fentaNYL PF VIAL 100 MCG/2 ML VIAL ONE ×2 (12:25→13:34)
[2017-05-30] MEDS ORDERED: VERAPAMIL 5 MG/2 ML VIAL. ONE (12:25)
[2017-05-30] MEDS ORDERED: MIDAZOLAM HCL/PF 2 MG/2 ML VIAL. ONE (12:25)
[2017-05-30] MEDS ORDERED: HEPARIN for IV BOLUS 10,000 UNIT/10 ML VIAL. ONE (12:25)
[2017-05-30] MEDS ORDERED: MIDAZOLAM HCL/PF 2 MG/2 ML VIAL. IV ONE (13:00)
[2017-05-30] MEDS ORDERED: LIDOCAINE 2% 20 ML VIAL. IJ ONE (13:00)
[2017-05-30] MEDS ORDERED: fentaNYL PF VIAL 100 MCG/2 ML VIAL IV ONE (13:00)
[2017-05-30] MEDS ORDERED: IOHEXOL 300 MG/ML 100ML VIAL. IART ONE (13:00)
[2017-05-30] MEDS ORDERED: HEPARIN for IV BOLUS 10,000 UNIT/10 ML VIAL. IV ONE (13:07)
[2017-05-30] MEDS ORDERED: BIVALIRUDIN 250 MG VIAL. IV ONE ×2 (13:14→13:30)
[2017-05-30] MEDS ORDERED: NITROGLYCERIN 200 MCG/2 ML SYRINGE FOR CATH/VASC LAB. ICAR ONE (13:30)
[2017-05-30] MEDS ORDERED: CLOPIDOGREL BISULFATE 75 MG TABLET PO ONE (13:30)
[2017-05-30] MEDS ORDERED: ASPIRIN 325 MG TABLET PO ONE (13:30)
[2017-05-30] MEDS ORDERED: ASPIRIN 325 MG TABLET ONE (13:34)
[2017-05-30] MEDS ORDERED: CLOPIDOGREL BISULFATE 75 MG TABLET ONE (13:34)
[2017-05-30] MEDS: IV 1/2 NORMAL SALINE 1,000 ML IV SCH (14:11)
--- NOTE | 2017-05-30 14:11 | PDOC ---
MODERATE SEDATION ASSESSMENT RISKS/ALTERNATIVES Risks/Alternatives Risks and alternatives of this type of sedation and procedure discussed with: RISK/ALTERNATIVES: Patient H & P ON CHART H & P H & P on chart and reviewed for co-morbid conditions and appropriate labs. H&P ON CHART: Yes STATUS PREG STATUS ASSESSED: N/A MEDS/ALLERGIES REVIEWED Meds/Allergies Reviewed Medications and Allergies including time and route of recently administered narcotics and sedatives. MEDS/ALLERGIES REVIEWED: Yes ASA RATING ASA RATING: II AIRWAY ASSESSMENT Airway Assessment Airway patency, oral function limitations, presence of caps, crowns, dentures, partials, and ability to extend neck assessed. AIRWAY ASSESSMENT: Yes MALLAMPATI SCORE MALLAMPATI SCORE: II PRE-SEDATION ASSESSMENT PRE-SEDATION ASSESSMENT: Yes CAT MURRAY MD May 30, 2017 14:11
[2017-05-30] MEDS ORDERED: ATROPINE 0.5 MG/5 ML DISP.SYRIN. IV PRN (14:15)
[2017-05-30] MEDS ORDERED: ACETAMINOPHEN 325 MG TABLET. PO PRN (14:15)
[2017-05-30] MEDS ORDERED: fentaNYL PF VIAL 100 MCG/2 ML VIAL IV PRN (14:15)
[2017-05-30] MEDS ORDERED: NITROGLYCERIN SUBLINGUAL 0.4 MG BOTTLE OF 25. SL PRN (14:15)
[2017-05-30] MEDS ORDERED: LIDOCAINE 2% 100 MG/5 ML SYRINGE. IV PRN (14:15)
--- NOTE | 2017-05-30 14:56 | CARD ---
APPROVED REPORT Procedure(s) performed: 1. Left heart catheterization and selective coronary angiography 2. Instantaneous wave free ratio (IFR) to the left circumflex artery 3. Successful PCI/drug eluting stent placement to the left circumflex artery INDICATION The indication(s) include : Unstable angina. PROCEDURE NARRATIVE After explaining the risks, benefits and alternative options, informed consent was obtained from una ent. Patient was brought to the cardiac Oxyacetylene Burner and his right groin was prepped and draped in the us ual fashion. 20 mL of 2% lidocaine was infiltrated into the skin and subcutaneous tissues for local a nesthesia. Arterial access was obtained the right common femoral artery and 6 Cymraes sheath was inser mariia. 6 Cymraes JL4 and 6 Cymraes JR4 catheters were used to perform selective angiography of the left a nd right coronary arteries. Since patient was found to have angiographically borderline significant s tenosis involving the left circumflex artery, a decision was made to perform instantaneous wave free ratio (IFR) to assess the physiologic significance. The stenosis in the proximal segment was crossed with MediaHound Verrata PressureWire and IFR measurement was made that came back physiologically signifi cant at 0.77. FINDINGS 1. The left main coronary artery arose from the left sinus of Valsalva, gave rise to the left anteri or descending and left circumflex arteries and showed 20% stenosis involving the ostial segment. 2. The left anterior descending artery showed widely patent stents in the proximal and mid segments. The previously placed stent in the diagonal branch was also widely patent. 3. The left circumflex artery showed 60-70% stenosis in the proximal segment was found to be physiol ogically significant based on IFR measurement of 0.77. 4. The right coronary artery was a large and dominant vessel arising from the right sinus of Valsalv a that showed 20% stenosis in the distal segment. INTERVENTION The 60-70% stenosis involving the proximal segment of left circumflex artery was found to be physiolo gically significant based on IFR measurement of 0.77 as stated above. Hence a decision was made to in tervene on this stenosis. The left main coronary artery was engaged with a 6 Cymraes XB 3.5 guide cath eter, the stenosis in the proximal segment of left circumflex artery was crossed with a 0.014 inch [place] a[place] prowater guidewire, predilated with 3.0 x 15 mm trek balloon following which this was successfull y treated with 3.0 x 15 mm Xience Alpine drug-eluting stent. Follow-up angiorrhaphy showed resolution of the stenosis to 0% with NENA-3 distal flow. Patient tolerated the procedure well. Hemostasis in t he right groin was achieved using manual compression after attempts to use mynx closure device failed . Of note, pre-closure angiography incidentally showed 90% calcified stenosis involving the proximal segment of right superficial femoral artery. Patient tolerated the procedure well. There were no imme diate complications. Conclusion 1. Severe single-vessel coronary disease. 60-70% stenosis of left circumflex artery, physiologic sig nificant based on IFR measurement of 0.77. The previously placed stents in the left anterior descendi ng artery and diagonal branch were widely patent. 2. Successful PCI/drug eluting stent placement to the left circumflex artery. 3. Incidental finding of 90% calcified stenosis involving the proximal segment of right superficial femoral artery. Recommendations 1. Aspirin 325 mg daily 2. Plavix 75 mg daily for preferably one year 3. Cardiovascular risk factor modification.
[2017-05-30] MEDS: FAMOTIDINE 20 MG TABLET. PO SCH (21:41)
[2017-05-30] MEDS: INSULIN DETEMIR 300 UNITS/3 ML INSULN.PEN. SQ SCH (21:44)
[2017-05-31] MEDS: IV NORMAL SALINE 1000ML BAG 1,000 ML IV SCH (00:40)
[2017-05-31] MEDS: IV 1/2 NORMAL SALINE 1,000 ML IV SCH (02:10)
[2017-05-31 03:00] VITALS: BP 142/54
[2017-05-31 06:09] LABS: BASO % 1 % (0-3); EOS % 11 % (0-3); HEMATOCRIT 28.5 % (36.0-47.0); HEMOGLOBIN 9.8 g/dL (12.0-15.5); LYMPH # 0.8 x10^3/uL (1.0-4.8); LYMPH % 21 % (24-48); MEAN CORPUSCULAR HEMOGLOBIN 34 pg (25-35); MEAN CORPUSCULAR HGB CONC 35 g/dL (31-37); MEAN CORPUSCULAR VOLUME 98 fL (79-100); MONO % 14 % (0-9); NEUT % 53 % (31-73); PLATELET COUNT 87 x10^3/uL (140-400); RED BLOOD COUNT 2.92 x10^6/uL (3.50-5.40); RED CELL DISTRIBUTION WIDTH 15.5 % (11.5-14.5); WHITE BLOOD COUNT 3.7 x10^3/uL (4.0-11.0)
[2017-05-31 06:20] LABS: CREATININE 3.6 mg/dL (0.6-1.0); GFR 12.3; POTASSIUM 4.8 mmol/L (3.5-5.1)
[2017-05-31 06:59] VITALS: BP 148/46
--- NOTE | 2017-05-31 07:30 | EKG ---
[address] [place] [id number] Test Date: 2017-05-31 Test Time: 07:20:49 Pat Name: MK BIRD Department: Room: 262 1 Gender: F [employer]: FARA : 1940 Requested By: CAT MURRAY Order Number: [id number] Reading MD: Measurements Intervals [place] Rate: 67 P: 34 NC: 144 QRS: 141 QRSD: 182 T: -16 QT: 468 QTc: 498 Interpretive Statements SINUS RHYTHM WPW PATTERN, TYPE A ABNORMAL RIGHT AXIS DEVIATION ABNORMAL ECG RI6.01 Compared to ECG 05/12/2017 04:36:11 Ventricular preexcitation now present Right-axis deviation now present Right bundle-branch block no longer present
[2017-05-31] MEDS: INSULIN ASPART 300 UNITS/3 ML INSULN.PEN SQ SCH ×2 (08:00→12:00)
[2017-05-31] MEDS: ISOSORBIDE MONONITRATE ER 30 MG TAB.ER.24H PO SCH (08:38)
[2017-05-31] MEDS: CALCIUM ACETATE 667 MG CAPSULE PO SCH ×2 (08:40→13:24)
[2017-05-31] MEDS: CLOPIDOGREL BISULFATE 75 MG TABLET PO SCH (08:40)
[2017-05-31] MEDS: LISINOPRIL 5 MG TABLET. PO SCH (08:40)
[2017-05-31] MEDS: FOLIC/VIT B COMP W-C (RENAL) TABLET. PO SCH (08:40)
[2017-05-31] MEDS: METOPROLOL TART IMMED RELEASE 50 MG TABLET. PO SCH (08:42)
[2017-05-31] MEDS: ASPIRIN ENTERIC COATED 81 MG TABLET.DR. PO SCH (08:42)
[2017-05-31] MEDS: NYSTATIN TOPICAL POWDER 15GM BOTTLE. TP SCH (08:42)
--- NOTE | 2017-05-31 08:43 | RAD ---
INDICATION:RECURRENT UTI COMPARISON: None. FINDINGS: Focused ultrasound images of bladder. Prevoid the bladder measures 50 x 22 x 43 mm, 24.4 cc. Postvoid the bladder is not seen which could be secondary to very little postvoid residual urine. IMPRESSION: There is not a significant amount of postvoid residual urine within the bladder
[2017-05-31] MEDS: ESCITALOPRAM 10 MG TABLET. PO SCH (08:47)
--- NOTE | 2017-05-31 10:27 | PDOC ---
SUBJECTIVE ROS ESRD Doign well today CVS: no Orthopnea, no CP RESP: no SOB, no MATHEWS GI: no Nausea, no Vomiting : occ Dysuria, no Urgency OBJECTIVE Vital Signs Vital Signs Date Time Temp Pulse Resp B/P (MAP) Pulse Ox O2 Delivery O2 Flow Rate FiO2 05/31/17 08:42 69 176/70 05/31/17 08:00 Room Air 05/31/17 06:59 97.5 18 98 2.0 97.5 I & 0 Intake and Output 05/31/17 07:00 Intake Total 460 ml Output Total 50 ml Balance 410 ml Intake Oral 460 ml Output Urine Total 50 ml # Voids 2 PHYSICAL EXAM Physical Exam GEN: Awake, Oriented x 3, In no distress EYES: Vision Unchanged, Conjunctiva Normal EN: No EN Drainage, Mucous Membranes moist NECK: no JVD, min JVP, Supple, no Thyromegaly CVS: S1S2, + Murmur, No Gallop, No Rub,no Edema RESP: no Rales, no Rhonchi,no Acc. Muscle Use GI: BS + ve, NO Bruit, Non Tender, Non Distended : no CVA tenderness, no Suprapubic Tenderness DIAGNOSIS/ASSESSMENT Assessment & Plan ESRD: Current fluid and E-lyte status does not necessitate emergent need for dialysis. Will re-evaluate for dialysis in the am and continue on MWF schedule. ANEMIA; Aranesp as ordered, Transfuse with next HD as needed HTN: BP meds as reviewed. Defer to Cardiology for changes to BP meds in setting of PCI BONE & MINERAL: follow phos and later binder regimen as needed based on PO intake and trends CAD - now s/p PCI Problems: COMMENT/RELEVANT DATA Meds Current Medications Medications (Trade) Dose Ordered Sig/Payton Start Time Stop Time Status Last Admin Dose Admin Acetaminophen (Tylenol) 650 mg PRN Q6HRS PRN 05/30/17 14:15 Acetaminophen/ Hydrocodone Bitart (Lortab 7.5/325) 1 tab PRN Q6HRS PRN 05/29/17 08:45 05/30/17 23:23 1 TAB Aspirin (Opal Aspirin) 325 mg STK-MED ONCE 05/30/17 13:34 05/30/17 13:35 DC Aspirin (Ecotrin) 81 mg DAILYWBKFT 05/29/17 09:00 05/31/17 08:42 81 MG Atropine Sulfate 0.5 mg PRN 1X PRN 05/30/17 14:15 Bivalirudin (Angiomax) 250 mg 1X ONCE 05/30/17 13:30 05/30/17 13:31 DC 05/30/17 13:54 250 MG Calcium Acetate (Phoslo) 1,334 mg TIDWMEALS 05/29/17 09:00 05/31/17 08:40 1,334 MG Clopidogrel Bisulfate (Plavix) 75 mg STK-MED ONCE 05/30/17 13:34 05/30/17 13:35 DC Darbepoetin James (Aranesp) 60 mcg [place]acosta 05/29/17 21:00 05/29/17 20:39 60 MCG Dextrose (Dextrose 50%-Water Syringe) 12.5 gm PRN Q15MIN PRN 05/29/17 08:45 05/30/17 08:04 12.5 GM Diphenhydramine HCl (Benadryl) 25 mg 1X PRN PRN 05/30/17 07:15 05/31/17 07:14 DC Escitalopram Oxalate (Lexapro) 10 mg DAILY 05/29/17 09:00 05/31/17 08:47 10 MG Famotidine (Pepcid) 20 mg HS 05/29/17 21:00 05/30/17 21:41 20 MG Fentanyl Citrate (Fentanyl 2ml Vial) 50 mcg PRN Q1HR PRN 05/30/17 14:15 05/30/17 19:29 50 MCG Heparin Sodium (Porcine) (Heparin Sodium) 5,000 unit 1X ONCE 05/30/17 13:07 05/30/17 13:14 DC 05/30/17 14:14 5,000 UNIT Heparin Sodium/ Sodium Chloride 1,000 unit 1X ONCE 05/30/17 13:00 05/30/17 13:02 DC 05/30/17 13:51 1,000 UNIT Info (PHARMACY MONITORING -- do not chart) 1 each PRN DAILY PRN 05/30/17 07:15 Insulin Aspart (NovoLOG) 0-9 UNITS TIDWMEALS 05/29/17 12:00 05/29/17 17:21 5 UNITS Insulin Detemir (Levemir) 14 units QHS 05/29/17 21:00 05/30/17 21:44 14 UNITS Iohexol (Omnipaque 300 Mg/ml) 100 ml STK-MED ONCE 05/30/17 13:21 05/30/17 13:22 DC Isosorbide Mononitrate (Imdur) 60 mg DAILY 05/29/17 09:00 05/31/17 08:38 60 MG Lidocaine HCl (Lidocaine HCl 2% Abboject) 100 mg 1X PRN PRN 05/30/17 14:15 Lisinopril (Prinivil) 5 mg DAILY 05/29/17 09:00 05/31/17 08:40 5 MG Metoprolol Tartrate (Lopressor) 50 mg BID 05/29/17 09:00 05/31/17 08:42 50 MG Midazolam HCl (Versed) 2 mg 1X ONCE 05/30/17 13:00 05/30/17 13:02 DC 05/30/17 13:53 2 MG Nitroglycerin (Nitroglycerin) 200 mcg STK-MED ONCE 05/30/17 13:38 05/30/17 13:39 DC Nitroglycerin (Nitrostat) 0.4 mg PRN Q5MIN PRN 05/30/17 14:15 Nystatin (Nystop) 1 umm BID 05/29/17 09:00 05/31/17 08:42 1 UMM Ondansetron HCl (Zofran) 4 mg PRN Q6HRS PRN 05/29/17 08:40 05/30/17 08:39 DC Sodium Chloride 1,000 ml @ 75 mls/hr [id number] 05/30/17 14:11 Verapamil HCl (Verapamil) 5 mg STK-MED ONCE 05/30/17 12:25 05/30/17 12:26 DC Vitamin B Complex/ Vitamin C (Tanisha-Prashanth) 1 tab DAILY 05/29/17 09:00 05/31/17 08:40 1 TAB Lab Laboratory Tests Test 05/30/17 16:34 05/30/17 21:39 05/31/17 05:25 05/31/17 08:35 Glucose (Fingerstick) 85 mg/dL (70-99) 188 mg/dL (70-99) 66 mg/dL (70-99) White Blood Count 3.7 x10^3/uL (4.0-11.0) Red Blood Count 2.92 x10^6/uL (3.50-5.40) Hemoglobin 9.8 g/dL (12.0-15.5) Hematocrit 28.5 % (36.0-47.0) Mean Corpuscular Volume 98 fL (79-100) Mean Corpuscular Hemoglobin 34 pg (25-35) Mean Corpuscular Hemoglobin Concent 35 g/dL (31-37) Red Cell Distribution Width 15.5 % (11.5-14.5) Platelet Count 87 x10^3/uL (140-400) Neutrophils (%) (Auto) 53 % (31-73) Lymphocytes (%) (Auto) 21 % (24-48) Monocytes (%) (Auto) 14 % (0-9) Eosinophils (%) (Auto) 11 % (0-3) Basophils (%) (Auto) 1 % (0-3) Neutrophils # (Auto) 2.0 x10^3uL (1.8-7.7) Lymphocytes # (Auto) 0.8 x10^3/uL (1.0-4.8) Monocytes # (Auto) 0.5 x10^3/uL (0.0-1.1) Eosinophils # (Auto) 0.4 x10^3/uL (0.0-0.7) Basophils # (Auto) 0.0 x10^3/uL (0.0-0.2) Sodium Level 137 mmol/L (136-145) Potassium Level 4.8 mmol/L (3.5-5.1) Chloride Level 101 mmol/L (98-107) Carbon Dioxide Level 30 mmol/L (21-32) Anion Gap 6 (6-14) Blood Urea Nitrogen 30 mg/dL (7-20) Creatinine 3.6 mg/dL (0.6-1.0) Estimated GFR (Cockcroft-Gault) 12.3 Glucose Level 83 mg/dL (70-99) Calcium Level 8.0 mg/dL (8.5-10.1) Test 05/31/17 09:40 Glucose (Fingerstick) 154 mg/dL (70-99) GABI SILVESTRE MD May 31, 2017 10:27
[2017-05-31] MEDS ORDERED: MAGNESIUM SULFATE 2GM 50 ML IV PRN (10:30)
[2017-05-31 11:00] VITALS: BP 104/41
--- NOTE | 2017-05-31 11:30 | PDOC ---
PROGRESS NOTES Chief Complaint Chief Complaint 1. Chest pain 2. Elevated troponins 3. CAD with stent in 09/2016 to LAD and pacemaker 4. HTN 5. CHF 6. HLP 7. 8. COPD 9. CVA 10. Gerd 11. Anemia NOS 12. OA 13. DM type 2 14. Hypothyroidism History of Present Illness History of Present Illness pt sitting comfortably in chair this morning, she denied any complaints, her cath and arteriogram results as well as stent to stent to LCX were discussed at length Vitals Vitals Vital Signs Date Time Temp Pulse Resp B/P (MAP) Pulse Ox O2 Delivery O2 Flow Rate FiO2 05/31/17 08:42 69 176/70 05/31/17 08:00 Room Air 05/31/17 06:59 97.5 18 98 2.0 97.5 Physical Exam General: Alert, Oriented X3, Cooperative, No acute distress Heart: Regular rate, Other (2/6 systolic ejection) Lungs: Clear Abdomen: Normal bowel sounds, Soft, No tenderness Extremities: No clubbing, No cyanosis, No edema Skin: No rashes, No breakdown, No significant lesion Labs LABS Laboratory Tests Test 05/30/17 16:34 05/30/17 21:39 05/31/17 05:25 05/31/17 08:35 Glucose (Fingerstick) 85 mg/dL (70-99) 188 mg/dL (70-99) 66 mg/dL (70-99) White Blood Count 3.7 x10^3/uL (4.0-11.0) Red Blood Count 2.92 x10^6/uL (3.50-5.40) Hemoglobin 9.8 g/dL (12.0-15.5) Hematocrit 28.5 % (36.0-47.0) Mean Corpuscular Volume 98 fL (79-100) Mean Corpuscular Hemoglobin 34 pg (25-35) Mean Corpuscular Hemoglobin Concent 35 g/dL (31-37) Red Cell Distribution Width 15.5 % (11.5-14.5) Platelet Count 87 x10^3/uL (140-400) Neutrophils (%) (Auto) 53 % (31-73) Lymphocytes (%) (Auto) 21 % (24-48) Monocytes (%) (Auto) 14 % (0-9) Eosinophils (%) (Auto) 11 % (0-3) Basophils (%) (Auto) 1 % (0-3) Neutrophils # (Auto) 2.0 x10^3uL (1.8-7.7) Lymphocytes # (Auto) 0.8 x10^3/uL (1.0-4.8) Monocytes # (Auto) 0.5 x10^3/uL (0.0-1.1) Eosinophils # (Auto) 0.4 x10^3/uL (0.0-0.7) Basophils # (Auto) 0.0 x10^3/uL (0.0-0.2) Sodium Level 137 mmol/L (136-145) Potassium Level 4.8 mmol/L (3.5-5.1) Chloride Level 101 mmol/L (98-107) Carbon Dioxide Level 30 mmol/L (21-32) Anion Gap 6 (6-14) Blood Urea Nitrogen 30 mg/dL (7-20) Creatinine 3.6 mg/dL (0.6-1.0) Estimated GFR (Cockcroft-Gault) 12.3 Glucose Level 83 mg/dL (70-99) Calcium Level 8.0 mg/dL (8.5-10.1) Test 05/31/17 09:40 Glucose (Fingerstick) 154 mg/dL (70-99) Review of Systems Review of Systems denies N/V/D and WHEELER Assessment and Plan Assessmemt and Plan Assessment 1. Chest pain 2. Elevated troponins 3. CAD with stent in 09/2016 to LAD and pacemaker 4. HTN 5. CHF 6. HLP 7. 8. COPD 9. CVA 10. Gerd 11. Anemia NOS 12. OA 13. DM type 2 14. Hypothyroidism Plan 1. Arteriogram showed 60-70% stenosis in LCX so PCI/JAISON for stent 2. HD MWF 3. Follow troponins, 0.093 on 05/29, 0.096 at admission on 05/28 4. Cardiac workup per cardiology 5. Appreciate subspecialty input 6. Cont home meds 7. Discussed plan of care with nursing 8. PT/OT 9. Recheck BMP and CBC tomorrow 10. Zofran prn for nausea 11. Cont ASA 325 and prasugrel per cardio 12. Probable DC today if ok per cardiology Problems: Comment Review of Relevant I have reviewed the following items adrián (where applicable) has been applied. Labs Laboratory Tests Test 05/29/17 17:16 05/29/17 20:41 05/30/17 03:50 05/30/17 07:37 Glucose (Fingerstick) 217 mg/dL (70-99) 121 mg/dL (70-99) 67 mg/dL (70-99) White Blood Count 5.5 x10^3/uL (4.0-11.0) Red Blood Count 3.09 x10^6/uL (3.50-5.40) Hemoglobin 10.2 g/dL (12.0-15.5) Hematocrit 30.6 % (36.0-47.0) Mean Corpuscular Volume 99 fL (79-100) Mean Corpuscular Hemoglobin 33 pg (25-35) Mean Corpuscular Hemoglobin Concent 33 g/dL (31-37) Red Cell Distribution Width 15.5 % (11.5-14.5) Platelet Count 101 x10^3/uL (140-400) Sodium Level 137 mmol/L (136-145) Potassium Level 3.7 mmol/L (3.5-5.1) Chloride Level 97 mmol/L (98-107) Carbon Dioxide Level 30 mmol/L (21-32) Anion Gap 10 (6-14) Blood Urea Nitrogen 62 mg/dL (7-20) Creatinine 5.7 mg/dL (0.6-1.0) Estimated GFR (Cockcroft-Gault) 7.2 Glucose Level 67 mg/dL (70-99) Calcium Level 7.4 mg/dL (8.5-10.1) Test 05/30/17 16:34 05/30/17 21:39 05/31/17 05:25 05/31/17 08:35 Glucose (Fingerstick) 85 mg/dL (70-99) 188 mg/dL (70-99) 66 mg/dL (70-99) White Blood Count 3.7 x10^3/uL (4.0-11.0) Red Blood Count 2.92 x10^6/uL (3.50-5.40) Hemoglobin 9.8 g/dL (12.0-15.5) Hematocrit 28.5 % (36.0-47.0) Mean Corpuscular Volume 98 fL (79-100) Mean Corpuscular Hemoglobin 34 pg (25-35) Mean Corpuscular Hemoglobin Concent 35 g/dL (31-37) Red Cell Distribution Width 15.5 % (11.5-14.5) Platelet Count 87 x10^3/uL (140-400) Neutrophils (%) (Auto) 53 % (31-73) Lymphocytes (%) (Auto) 21 % (24-48) Monocytes (%) (Auto) 14 % (0-9) Eosinophils (%) (Auto) 11 % (0-3) Basophils (%) (Auto) 1 % (0-3) Neutrophils # (Auto) 2.0 x10^3uL (1.8-7.7) Lymphocytes # (Auto) 0.8 x10^3/uL (1.0-4.8) Monocytes # (Auto) 0.5 x10^3/uL (0.0-1.1) Eosinophils # (Auto) 0.4 x10^3/uL (0.0-0.7) Basophils # (Auto) 0.0 x10^3/uL (0.0-0.2) Sodium Level 137 mmol/L (136-145) Potassium Level 4.8 mmol/L (3.5-5.1) Chloride Level 101 mmol/L (98-107) Carbon Dioxide Level 30 mmol/L (21-32) Anion Gap 6 (6-14) Blood Urea Nitrogen 30 mg/dL (7-20) Creatinine 3.6 mg/dL (0.6-1.0) Estimated GFR (Cockcroft-Gault) 12.3 Glucose Level 83 mg/dL (70-99) Calcium Level 8.0 mg/dL (8.5-10.1) Test 05/31/17 09:40 Glucose (Fingerstick) 154 mg/dL (70-99) Laboratory Tests Test 05/30/17 16:34 05/30/17 21:39 05/31/17 05:25 05/31/17 08:35 Glucose (Fingerstick) 85 mg/dL (70-99) 188 mg/dL (70-99) 66 mg/dL (70-99) White Blood Count 3.7 x10^3/uL (4.0-11.0) Red Blood Count 2.92 x10^6/uL (3.50-5.40) Hemoglobin 9.8 g/dL (12.0-15.5) Hematocrit 28.5 % (36.0-47.0) Mean Corpuscular Volume 98 fL (79-100) Mean Corpuscular Hemoglobin 34 pg (25-35) Mean Corpuscular Hemoglobin Concent 35 g/dL (31-37) Red Cell Distribution Width 15.5 % (11.5-14.5) Platelet Count 87 x10^3/uL (140-400) Neutrophils (%) (Auto) 53 % (31-73) Lymphocytes (%) (Auto) 21 % (24-48) Monocytes (%) (Auto) 14 % (0-9) Eosinophils (%) (Auto) 11 % (0-3) Basophils (%) (Auto) 1 % (0-3) Neutrophils # (Auto) 2.0 x10^3uL (1.8-7.7) Lymphocytes # (Auto) 0.8 x10^3/uL (1.0-4.8) Monocytes # (Auto) 0.5 x10^3/uL (0.0-1.1) Eosinophils # (Auto) 0.4 x10^3/uL (0.0-0.7) Basophils # (Auto) 0.0 x10^3/uL (0.0-0.2) Sodium Level 137 mmol/L (136-145) Potassium Level 4.8 mmol/L (3.5-5.1) Chloride Level 101 mmol/L (98-107) Carbon Dioxide Level 30 mmol/L (21-32) Anion Gap 6 (6-14) Blood Urea Nitrogen 30 mg/dL (7-20) Creatinine 3.6 mg/dL (0.6-1.0) Estimated GFR (Cockcroft-Gault) 12.3 Glucose Level 83 mg/dL (70-99) Calcium Level 8.0 mg/dL (8.5-10.1) Test 05/31/17 09:40 Glucose (Fingerstick) 154 mg/dL (70-99) Medications Current Medications Fentanyl Citrate (Fentanyl 2ml Vial) 50 mcg 1X ONCE IV Last administered on t 23:14; Start 05/28/17 at 23:00; Stop 05/28/17 at 23:01; Status DC Ondansetron HCl (Zofran) 4 mg PRN Q8HRS PRN IV NAUSEA/VOMITING; Start 05/28/17 at 23:30; Stop 05/29/17 at 08:41; Status DC Fentanyl Citrate (Fentanyl 2ml Vial) 50 mcg PRN Q2HR PRN IV PAIN Last administered on 05/29/17 06:38; Start 05/28/17 at 23:30; Stop 05/29/17 at 23:29 ; Status DC Ondansetron HCl (Zofran) 4 mg PRN Q6HRS PRN IV NAUSEA/VOMITING; Start 05/29/17 at 08:40; Stop 05/30/17 at 08:39; Status DC Acetaminophen (Tylenol) 650 mg PRN Q6HRS PRN PO pain; Start 05/29/17 at 08:45; Stop 05/30/17 at 14:15; Status DC Aspirin (Ecotrin) 81 mg DAILYWBKFT PO Last administered on 05/31/17 08:42; Start 05/29/17 at 09:00 Clopidogrel Bisulfate (Plavix) 75 mg DAILY PO Last administered on 05/31/17 08 :40; Start 05/29/17 at 09:00 Famotidine (Pepcid) 20 mg HS PO Last administered on 05/30/17 21:41; Start at 21:00 Acetaminophen/ Hydrocodone Bitart (Lortab 7.5/325) 1 tab PRN Q6HRS PRN PO PAIN Last administered on 05/30/17 23:23; Start 05/29/17 at 08:45 Lisinopril (Prinivil) 5 mg DAILY PO Last administered on 05/31/17 08:40; Start 05/29/17 at 09:00 Metoprolol Tartrate (Lopressor) 50 mg BID PO Last administered on 05/31/17 08: 42; Start 05/29/17 at 09:00 Nitroglycerin (Nitrostat) 0.4 mg PRN Q5MIN PRN SL CHEST PAIN; Start 05/29/17 at 08:45; Stop 05/30/17 at 14:43; Status DC Nystatin (Nystop) 1 tiffany BID TP Last administered on 05/31/17 08:42; Start at 09:00 Calcium Acetate (Phoslo) 1,334 mg TIDWMEALS PO Last administered on 05/31/17 08:40; Start 05/29/17 at 09:00 Escitalopram Oxalate (Lexapro) 10 mg DAILY PO Last administered on 05/31/17 08 :47; Start 05/29/17 at 09:00 Insulin Detemir (Levemir) 14 units QHS SQ Last administered on 05/30/17 21:44 ; Start 05/29/17 at 21:00 Isosorbide Mononitrate (Imdur) 60 mg DAILY PO Last administered on 05/31/17 08 :38; Start 05/29/17 at 09:00 Vitamin B Complex/ Vitamin C (Tanisha-Prashanth) 1 tab DAILY PO Last administered on 08:40; Start 05/29/17 at 09:00 Insulin Aspart (NovoLOG) 0-9 UNITS TIDWMEALS SQ Last administered on 05/29/17 17:21; Start 05/29/17 at 12:00 Dextrose (Dextrose 50%-Water Syringe) 12.5 gm PRN Q15MIN PRN IV SEE COMMENTS Last administered on 05/30/17 08:04; Start 05/29/17 at 08:45 Darbepoetin James (Aranesp) 60 mcg [place]acosta SQ Last administered on 05/29/17 20:39; Start 05/29/17 at 21:00 Sodium Chloride 1,000 ml @ 60 mls/hr [id number] IV ; Start 05/30/17 at 08:00 Sodium Chloride 1,000 ml @ 1,000 mls/hr Q1H PRN IV hypotension; Start 05/30/17 at 07:13; Stop 05/30/17 at 13:12; Status DC Diphenhydramine HCl (Benadryl) 25 mg 1X PRN PRN IV ITCHING; Start 05/30/17 at 07:15; Stop 05/31/17 at 07:14; Status DC Diphenhydramine HCl (Benadryl) 25 mg 1X PRN PRN IV ITCHING; Start 05/30/17 at 07:15; Stop 05/31/17 at 07:14; Status DC Sodium Chloride 1,000 ml @ 400 mls/hr Q2H30M PRN IV PATENCY; Start 05/30/17 at 07:13; Stop 05/30/17 at 19:12; Status DC Info (PHARMACY MONITORING -- do not chart) 1 each PRN DAILY PRN MC SEE COMMENTS ; Start 05/30/17 at 07:15; Status UNV Info (PHARMACY MONITORING -- do not chart) 1 each PRN DAILY PRN MC SEE COMMENTS ; Start 05/30/17 at 07:15 Lidocaine HCl 20 ml STK-MED ONCE .ROUTE ; Start 05/30/17 at 11:58; Stop at 11:59; Status DC Heparin Sodium/ Sodium Chloride 500 ml @ As Directed STK-MED ONCE .ROUTE ; Start 05/30/17 at 11:58; Stop 05/30/17 at 11:59; Status DC Iohexol (Omnipaque 300 Mg/ml) 100 ml STK-MED ONCE .ROUTE ; Start 05/30/17 at 11: 58; Stop 05/30/17 at 11:59; Status DC Nitroglycerin (Nitroglycerin) 200 mcg STK-MED ONCE .ROUTE ; Start 05/30/17 at 12 :24; Stop 05/30/17 at 12:25; Status DC Verapamil HCl (Verapamil) 5 mg STK-MED ONCE .ROUTE ; Start 05/30/17 at 12:25; Stop 05/30/17 at 12:26; Status DC Midazolam HCl (Versed) 2 mg STK-MED ONCE .ROUTE ; Start 05/30/17 at 12:25; Stop 05/30/17 at 12:26; Status DC Fentanyl Citrate (Fentanyl 2ml Vial) 100 mcg STK-MED ONCE .ROUTE ; Start at 12:25; Stop 05/30/17 at 12:26; Status DC Heparin Sodium (Porcine) (Heparin Sodium) 10,000 unit STK-MED ONCE .ROUTE ; Start 05/30/17 at 12:25; Stop 05/30/17 at 12:26; Status DC Heparin Sodium/ Sodium Chloride 1,000 unit 1X ONCE IART Last administered on t 13:51; Start 05/30/17 at 13:00; Stop 05/30/17 at 13:02; Status DC Midazolam HCl (Versed) 2 mg 1X ONCE IV Last administered on 05/30/17 13:53; Start 05/30/17 at 13:00; Stop 05/30/17 at 13:02; Status DC Fentanyl Citrate (Fentanyl 2ml Vial) 100 mcg 1X ONCE IV Last administered on 13:53; Start 05/30/17 at 13:00; Stop 05/30/17 at 13:02; Status DC Iohexol (Omnipaque 300 Mg/ml) 100 ml 1X ONCE IART Last administered on 13:51; Start 05/30/17 at 13:00; Stop 05/30/17 at 13:02; Status DC Lidocaine HCl 20 ml 1X ONCE IJ Last administered on 05/30/17 13:51; Start at 13:00; Stop 05/30/17 at 13:02; Status DC Heparin Sodium (Porcine) (Heparin Sodium) 5,000 unit 1X ONCE IV Last administered on 05/30/17 14:14; Start 05/30/17 at 13:07; Stop 05/30/17 at 13:14 ; Status DC Bivalirudin (Angiomax) 250 mg STK-MED ONCE IV ; Start 05/30/17 at 13:14; Stop at 13:15; Status DC Iohexol (Omnipaque 300 Mg/ml) 100 ml STK-MED ONCE .ROUTE ; Start 05/30/17 at 13: 21; Stop 05/30/17 at 13:22; Status DC Bivalirudin (Angiomax) 250 mg 1X ONCE IV Last administered on 05/30/17 13:54 ; Start 05/30/17 at 13:30; Stop 05/30/17 at 13:31; Status DC Aspirin (Opal Aspirin) 325 mg 1X ONCE PO Last administered on 05/30/17 13:53 ; Start 05/30/17 at 13:30; Stop 05/30/17 at 13:31; Status DC Clopidogrel Bisulfate (Plavix) 150 mg 1X ONCE PO Last administered on 13:54; Start 05/30/17 at 13:30; Stop 05/30/17 at 13:31; Status DC Aspirin (Opal Aspirin) 325 mg STK-MED ONCE .ROUTE ; Start 05/30/17 at 13:34; Stop 05/30/17 at 13:35; Status DC Clopidogrel Bisulfate (Plavix) 75 mg STK-MED ONCE .ROUTE ; Start 05/30/17 at 13: 34; Stop 05/30/17 at 13:35; Status DC Fentanyl Citrate (Fentanyl 2ml Vial) 100 mcg STK-MED ONCE .ROUTE ; Start at 13:34; Stop 05/30/17 at 13:35; Status DC Nitroglycerin (Nitroglycerin) 200 mcg 1X ONCE ICAR Last administered on t 13:52; Start 05/30/17 at 13:30; Stop 05/30/17 at 13:38; Status DC Nitroglycerin (Nitroglycerin) 200 mcg STK-MED ONCE .ROUTE ; Start 05/30/17 at 13 :38; Stop 05/30/17 at 13:39; Status DC Sodium Chloride 1,000 ml @ 75 mls/hr [id number] IV ; Start 05/30/17 at 14:11 Acetaminophen (Tylenol) 650 mg PRN Q6HRS PRN PO MILD PAIN / TEMP; Start at 14:15 Fentanyl Citrate (Fentanyl 2ml Vial) 50 mcg PRN Q1HR PRN IV MODERATE OR SEVERE PAIN Last administered on 05/30/17t 19:29; Start 05/30/17 at 14:15 Nitroglycerin (Nitrostat) 0.4 mg PRN Q5MIN PRN SL CHEST PAIN; Start 05/30/17 at 14:15 Lidocaine HCl (Lidocaine HCl 2% Abboject) 100 mg 1X PRN PRN IV FOR VENTRICULAR TACHYCARDIA; Start 05/30/17 at 14:15 Atropine Sulfate 0.5 mg PRN 1X PRN IV BRADYCARDIA; Start 05/30/17 at 14:15 Magnesium Sulfate/ Dextrose 50 ml @ 25 mls/hr PRN DAILY PRN IV for Mag < 1.7 on am labs; Start 05/31/17 at 10:30 Active Scripts Active Aspirin Ec (Aspirin) 81 Mg Tablet.dr 81 Mg PO DAILYWBKFT Nystop (Nystatin) 60 Gm Powder 1 Tiffany TP BID Isosorbide Mononitrate Er (Isosorbide Mononitrate) 60 Mg Tab.er.24h 60 Mg PO DAILY 30 Days Escitalopram Oxalate 10 Mg Tablet 10 Mg PO DAILY Pepcid (Famotidine) 20 Mg Tablet 20 Mg PO HS Nitrostat (Nitroglycerin) 0.4 Mg Tab.subl 0.4 Mg SL PRN Q5MIN PRN Reported Clopidogrel (Clopidogrel Bisulfate) 75 Mg Tablet 75 Mg PO DAILY Lisinopril 5 Mg Tablet 1 Tab PO DAILY Metoprolol Tartrate 50 Mg Tablet 50 Mg PO BID Nephro-Prashanth Rx Tablet (Vit B Cmplx 3/Fa/Vit C/Biotin) 1 Each Tablet 1 Each PO DAILY Hydrocodone-Apap 7.5-325 (Hydrocodone Bit/Acetaminophen) 1 Each Tablet 1 Tab PO PRN Q6HRS PRN Calcium Acetate 667 Mg Tablet 667 Mg PO TIDWMEALS Lantus Solostar (Insulin Glargine,Hum.rec.anlog) 100 Unit/1 Ml Insuln.pen 14 Unit SQ QHS Vitals/I & O Vital Sign - Last 24 Hours 05/30/17 05/30/17 05/30/17 05/30/17 13:53 14:14 15:00 15:15 Temp 97.7 97.7 Pulse 60 62 60 Resp 18 19 18 18 B/P (MAP) 135/45 (75) 124/58 (80) Pulse Ox 98 95 92 92 O2 Delivery Nasal Cannula Room Air Room Air Room Air O2 Flow Rate 2.0 05/30/17 05/30/17 05/30/17 05/30/17 15:30 15:45 16:00 16:15 Pulse 60 60 60 60 Resp 18 18 18 18 B/P (MAP) 123/53 (76) 126/60 (82) 124/56 (78) 129/58 (81) Pulse Ox 93 92 95 95 O2 Delivery Room Air Room Air Room Air Room Air 05/30/17 05/30/17 05/30/17 05/30/17 16:30 16:44 16:45 17:00 Pulse 66 68 64 Resp 18 18 18 B/P (MAP) 157/65 (95) 163/70 (101) 158/66 (96) Pulse Ox 98 98 98 O2 Delivery Room Air Room Air Room Air Room Air 05/30/17 05/30/17 05/30/17 05/30/17 17:15 19:00 19:00 19:15 Temp 98.9 98.9 Pulse 74 69 Resp 18 16 B/P (MAP) 171/68 (102) 136/60 (85) 142/58 (86) Pulse Ox 98 95 O2 Delivery Room Air Room Air Room Air 05/30/17 05/30/17 05/30/17 05/30/17 19:29 19:30 20:00 20:01 Pulse 70 66 Resp 16 16 B/P (MAP) 141/61 (87) 160/68 (98) Pulse Ox 96 92 O2 Delivery Room Air Room Air 05/30/17 05/30/17 05/30/17 05/31/17 21:41 23:17 23:23 00:23 Temp 98.1 98.1 Pulse 74 72 Resp 16 16 16 B/P (MAP) 160/68 152/69 (96) Pulse Ox 95 97 97 O2 Delivery Room Air Room Air Room Air 05/31/17 05/31/17 05/31/17 05/31/17 03:00 06:59 08:00 08:38 Temp 97.7 97.5 97.7 97.5 Pulse 62 62 70 Resp 16 18 B/P (MAP) 142/54 (83) 148/46 (80) 148/46 Pulse Ox 100 98 O2 Delivery Room Air Nasal Cannula Room Air O2 Flow Rate 2.0 05/31/17 05/31/17 08:40 08:42 Pulse 69 69 B/P (MAP) 176/70 176/70 Intake and Output 05/30/17 05/30/17 05/31/17 15:00 23:00 07:00 Intake Total 240 ml 220 ml Output Total 50 ml Balance 240 ml 170 ml Nutrition Consultation Dietary Evaluation: Recommendations by RD: Increase Calorie Intake Comments: Continue nutrition care plan Update food preferences in diet order Encourage good PO intake/nutrient dense food options Refuses to drink the Novasource Renal protein shakes-will d/c Expected Outcomes/Goals: meet 75% estimated nutrition needs Malnutrition Findings: Reduced Sprinkler Irrigation Equipment Mechanic Strength: N/A Reduced Sprinkler Irrigation Equipment Mechanic Strength (Non-Sev: N/A Malnutrition related to morbid: No Weight Status: Obese MARIAM MOJICA III DO May 31, 2017 11:30
--- NOTE | 2017-05-31 11:51 | PDOC3 ---
Discharge Summary Visit Information Date of Discharge: May 31, 2017 Final Diagnosis Problems Medical Problems: (1) CAD (coronary artery disease) Status: Acute (2) Chest pain Status: Acute (3) Elevated troponin Status: Acute (4) End stage renal failure on dialysis Status: Acute Brief Hospital Course Allergies Allergies Coded Allergies Type Severity Reaction Last Updated Verified Sulfa (Sulfonamide Antibiotics) Allergy Intermediate Nausea/Vomiting, Rash 09/22/16 Yes morphine Allergy Intermediate itching 09/22/16 Yes adhesive Adverse Reaction Intermediate Itching 09/22/16 Yes Vital Signs Vital Signs Date Time Temp Pulse Resp B/P (MAP) Pulse Ox O2 Delivery O2 Flow Rate FiO2 05/31/17 08:42 69 176/70 05/31/17 08:00 Room Air 05/31/17 06:59 97.5 18 98 2.0 97.5 Lab Results Laboratory Tests Test 05/29/17 17:16 05/29/17 20:41 05/30/17 03:50 05/30/17 07:37 Glucose (Fingerstick) 217 mg/dL (70-99) 121 mg/dL (70-99) 67 mg/dL (70-99) White Blood Count 5.5 x10^3/uL (4.0-11.0) Red Blood Count 3.09 x10^6/uL (3.50-5.40) Hemoglobin 10.2 g/dL (12.0-15.5) Hematocrit 30.6 % (36.0-47.0) Mean Corpuscular Volume 99 fL (79-100) Mean Corpuscular Hemoglobin 33 pg (25-35) Mean Corpuscular Hemoglobin Concent 33 g/dL (31-37) Red Cell Distribution Width 15.5 % (11.5-14.5) Platelet Count 101 x10^3/uL (140-400) Sodium Level 137 mmol/L (136-145) Potassium Level 3.7 mmol/L (3.5-5.1) Chloride Level 97 mmol/L (98-107) Carbon Dioxide Level 30 mmol/L (21-32) Anion Gap 10 (6-14) Blood Urea Nitrogen 62 mg/dL (7-20) Creatinine 5.7 mg/dL (0.6-1.0) Estimated GFR (Cockcroft-Gault) 7.2 Glucose Level 67 mg/dL (70-99) Calcium Level 7.4 mg/dL (8.5-10.1) Test 05/30/17 16:34 05/30/17 21:39 05/31/17 05:25 05/31/17 08:35 Glucose (Fingerstick) 85 mg/dL (70-99) 188 mg/dL (70-99) 66 mg/dL (70-99) White Blood Count 3.7 x10^3/uL (4.0-11.0) Red Blood Count 2.92 x10^6/uL (3.50-5.40) Hemoglobin 9.8 g/dL (12.0-15.5) Hematocrit 28.5 % (36.0-47.0) Mean Corpuscular Volume 98 fL (79-100) Mean Corpuscular Hemoglobin 34 pg (25-35) Mean Corpuscular Hemoglobin Concent 35 g/dL (31-37) Red Cell Distribution Width 15.5 % (11.5-14.5) Platelet Count 87 x10^3/uL (140-400) Neutrophils (%) (Auto) 53 % (31-73) Lymphocytes (%) (Auto) 21 % (24-48) Monocytes (%) (Auto) 14 % (0-9) Eosinophils (%) (Auto) 11 % (0-3) Basophils (%) (Auto) 1 % (0-3) Neutrophils # (Auto) 2.0 x10^3uL (1.8-7.7) Lymphocytes # (Auto) 0.8 x10^3/uL (1.0-4.8) Monocytes # (Auto) 0.5 x10^3/uL (0.0-1.1) Eosinophils # (Auto) 0.4 x10^3/uL (0.0-0.7) Basophils # (Auto) 0.0 x10^3/uL (0.0-0.2) Sodium Level 137 mmol/L (136-145) Potassium Level 4.8 mmol/L (3.5-5.1) Chloride Level 101 mmol/L (98-107) Carbon Dioxide Level 30 mmol/L (21-32) Anion Gap 6 (6-14) Blood Urea Nitrogen 30 mg/dL (7-20) Creatinine 3.6 mg/dL (0.6-1.0) Estimated GFR (Cockcroft-Gault) 12.3 Glucose Level 83 mg/dL (70-99) Calcium Level 8.0 mg/dL (8.5-10.1) Test 05/31/17 09:40 05/31/17 11:30 Glucose (Fingerstick) 154 mg/dL (70-99) 157 mg/dL (70-99) Laboratory Tests Test 05/30/17 16:34 05/30/17 21:39 05/31/17 05:25 05/31/17 08:35 Glucose (Fingerstick) 85 mg/dL (70-99) 188 mg/dL (70-99) 66 mg/dL (70-99) White Blood Count 3.7 x10^3/uL (4.0-11.0) Red Blood Count 2.92 x10^6/uL (3.50-5.40) Hemoglobin 9.8 g/dL (12.0-15.5) Hematocrit 28.5 % (36.0-47.0) Mean Corpuscular Volume 98 fL (79-100) Mean Corpuscular Hemoglobin 34 pg (25-35) Mean Corpuscular Hemoglobin Concent 35 g/dL (31-37) Red Cell Distribution Width 15.5 % (11.5-14.5) Platelet Count 87 x10^3/uL (140-400) Neutrophils (%) (Auto) 53 % (31-73) Lymphocytes (%) (Auto) 21 % (24-48) Monocytes (%) (Auto) 14 % (0-9) Eosinophils (%) (Auto) 11 % (0-3) Basophils (%) (Auto) 1 % (0-3) Neutrophils # (Auto) 2.0 x10^3uL (1.8-7.7) Lymphocytes # (Auto) 0.8 x10^3/uL (1.0-4.8) Monocytes # (Auto) 0.5 x10^3/uL (0.0-1.1) Eosinophils # (Auto) 0.4 x10^3/uL (0.0-0.7) Basophils # (Auto) 0.0 x10^3/uL (0.0-0.2) Sodium Level 137 mmol/L (136-145) Potassium Level 4.8 mmol/L (3.5-5.1) Chloride Level 101 mmol/L (98-107) Carbon Dioxide Level 30 mmol/L (21-32) Anion Gap 6 (6-14) Blood Urea Nitrogen 30 mg/dL (7-20) Creatinine 3.6 mg/dL (0.6-1.0) Estimated GFR (Cockcroft-Gault) 12.3 Glucose Level 83 mg/dL (70-99) Calcium Level 8.0 mg/dL (8.5-10.1) Test 05/31/17 09:40 05/31/17 11:30 Glucose (Fingerstick) 154 mg/dL (70-99) 157 mg/dL (70-99) Brief Hospital Course Ms. Berry is a 76 old [sex] who presented with [ angina nd a slight bump in her troponin. Admitted, taken to pathology laboratory aide. Got a stent to the circumflex This am she is seen and examined VSS At baseline Will dc Total time 31 minutes] Discharge Information Scheduled Aspirin (Aspirin Ec), 81 MG PO DAILYWBKFT Calcium Acetate (Calcium Acetate), 667 MG PO TIDWMEALS, (Reported) Clopidogrel Bisulfate (Clopidogrel), 75 MG PO DAILY, (Reported) Escitalopram Oxalate (Escitalopram Oxalate), 10 MG PO DAILY Famotidine (Pepcid), 20 MG PO HS Insulin Glargine,Hum.rec.anlog (Lantus Solostar), 14 UNIT SQ QHS, (Reported) Isosorbide Mononitrate (Isosorbide Mononitrate Er), 60 MG PO DAILY Lisinopril (Lisinopril), 1 TAB PO DAILY, (Reported) Metoprolol Tartrate (Metoprolol Tartrate), 50 MG PO BID, (Reported) Nystatin (Nystop), 1 YOLIE TP BID Vit B Cmplx 3/Fa/Vit C/Biotin (Nephro-Prashanth Rx Tablet), 1 EACH PO DAILY, ( Reported) Scheduled PRN Hydrocodone Bit/Acetaminophen (Hydrocodone-Apap 7.5-325 ), 1 TAB PO PRN Q6HRS PRN for PAIN, (Reported) Nitroglycerin (Nitrostat), 0.4 MG SL PRN Q5MIN PRN for CHEST PAIN MARIAM MOJICA III DO May 31, 2017 11:51
--- NOTE | 2017-05-31 12:16 | PDOC ---
CARDIO Progress Notes Date and Time Date of Service 05/31/17 Time of Evaluation 1200 Subjective Subjective: No Chest Pain, No shortness of breath, No Palpitations Vitals Vitals Vital Signs Date Time Temp Pulse Resp B/P (MAP) Pulse Ox O2 Delivery O2 Flow Rate FiO2 05/31/17 08:42 69 176/70 05/31/17 08:00 Room Air 05/31/17 06:59 97.5 18 98 2.0 97.5 Weight Weight [ ] Input and Output Intake and Output Intake and Output 05/31/17 07:00 Intake Total 460 ml Output Total 50 ml Balance 410 ml Intake Oral 460 ml Output Urine Total 50 ml # Voids 2 Laboratory Labs Laboratory Tests Test 05/30/17 16:34 05/30/17 21:39 05/31/17 05:25 05/31/17 08:35 Glucose (Fingerstick) 85 mg/dL (70-99) 188 mg/dL (70-99) 66 mg/dL (70-99) White Blood Count 3.7 x10^3/uL (4.0-11.0) Red Blood Count 2.92 x10^6/uL (3.50-5.40) Hemoglobin 9.8 g/dL (12.0-15.5) Hematocrit 28.5 % (36.0-47.0) Mean Corpuscular Volume 98 fL (79-100) Mean Corpuscular Hemoglobin 34 pg (25-35) Mean Corpuscular Hemoglobin Concent 35 g/dL (31-37) Red Cell Distribution Width 15.5 % (11.5-14.5) Platelet Count 87 x10^3/uL (140-400) Neutrophils (%) (Auto) 53 % (31-73) Lymphocytes (%) (Auto) 21 % (24-48) Monocytes (%) (Auto) 14 % (0-9) Eosinophils (%) (Auto) 11 % (0-3) Basophils (%) (Auto) 1 % (0-3) Neutrophils # (Auto) 2.0 x10^3uL (1.8-7.7) Lymphocytes # (Auto) 0.8 x10^3/uL (1.0-4.8) Monocytes # (Auto) 0.5 x10^3/uL (0.0-1.1) Eosinophils # (Auto) 0.4 x10^3/uL (0.0-0.7) Basophils # (Auto) 0.0 x10^3/uL (0.0-0.2) Sodium Level 137 mmol/L (136-145) Potassium Level 4.8 mmol/L (3.5-5.1) Chloride Level 101 mmol/L (98-107) Carbon Dioxide Level 30 mmol/L (21-32) Anion Gap 6 (6-14) Blood Urea Nitrogen 30 mg/dL (7-20) Creatinine 3.6 mg/dL (0.6-1.0) Estimated GFR (Cockcroft-Gault) 12.3 Glucose Level 83 mg/dL (70-99) Calcium Level 8.0 mg/dL (8.5-10.1) Test 05/31/17 09:40 05/31/17 11:30 Glucose (Fingerstick) 154 mg/dL (70-99) 157 mg/dL (70-99) Physical Exam HEENT: Neck Supple W Full Motion Chest: Symmetric LUNGS: Clear to Auscultation Heart: S1S2, RRR, no thrills, no rubs, no gallops, no murmurs Abdomen: Soft N/T, Other (truncal obesity ) Extremities: No Edema, Other (right femoral arteriotomy sited soft, clean, and dry. No ecchymosis, erythema, or hematoma present. Neurovascular status intact. Bilateral LE chronic venous stasis changes) Neurology: alert, oriented, follow commands Assessment Assessment 1. CAD; c/p JAISON to LCx. No acute events overnight on telemetry 2. Severe with LUCILA of 0.8 cm2; not a surgical candidate with her multiple co -morbidities. continue medical management 3. HTN; controlled with meds 4. ESRD with HD; per nephrology 5. Diabetes; per PCP Recommendations Secondary prevention measures including DAPT with Aspirin 325 mg daily and Plavix 75 mg daily for preferably one year Risk factor modification Cardiac rehab referral May discharge from a CV standpoint and f/u in our office in 4 weeks. LASHAUN PERRIN APRN May 31, 2017 12:16
[2017-06-01] MEDS ORDERED: ESCITALOPRAM 5 MG TABLET. PO SCH (09:00)
== END 2017-05-31 14:53 | disposition home or self-care (01) | DRG 246 ==
LOC: ER 22:37 → 5 NORTH 23:09 → 2 SOUTH 05-30 14:06
PROVIDERS: ADMIT Internal Medicine; ATTEND Internal Medicine
PROC: 027034Z Dilation of Coronary Artery, One Artery with Drug-eluting Intraluminal Device, Percutaneous Approach (ICD-10-PCS; principal; 2017-05-28)
PROC: 4A023N7 Measurement of Cardiac Sampling and Pressure, Left Heart, Percutaneous Approach (ICD-10-PCS; 2017-05-28)
PROC: B2111ZZ Fluoroscopy of Multiple Coronary Arteries using Low Osmolar Contrast (ICD-10-PCS; 2017-05-28)
PROC: 5A1D00Z (ICD-10-PCS; 2017-05-30)
DX: I25.110 Atherosclerotic heart disease of native coronary artery with unstable angina pectoris (principal); N18.6 End stage renal disease; E44.0 Moderate protein-calorie malnutrition; I13.2 Hypertensive heart and chronic kidney disease with heart failure and with stage 5 chronic kidney disease, or end stage renal disease; E78.5 Hyperlipidemia, unspecified; E11.22 Type 2 diabetes mellitus with diabetic chronic kidney disease; I48.91 Unspecified atrial fibrillation; E03.9 Hypothyroidism, unspecified; K21.9 Gastro-esophageal reflux disease without esophagitis; J44.9 Chronic obstructive pulmonary disease, unspecified; F32.9 Major depressive disorder, single episode, unspecified; E21.3 Hyperparathyroidism, unspecified; K59.00 Constipation, unspecified; M19.90 Unspecified osteoarthritis, unspecified site; E11.42 Type 2 diabetes mellitus with diabetic polyneuropathy; D63.8 Anemia in other chronic diseases classified elsewhere; I50.9 Heart failure, unspecified; I35.0 Nonrheumatic aortic (valve) stenosis; Z90.49 Acquired absence of other specified parts of digestive tract; I25.2 Old myocardial infarction; Z90.710 Acquired absence of both cervix and uterus; Z82.49 Family history of ischemic heart disease and other diseases of the circulatory system; Z86.73 Personal history of transient ischemic attack (TIA), and cerebral infarction without residual deficits; Z99.2 Dependence on renal dialysis; Z95.5 Presence of coronary angioplasty implant and graft; Z88.8 Allergy status to other drugs, medicaments and biological substances; Z88.2 Allergy status to sulfonamides; Z88.5 Allergy status to narcotic agent; Z79.899 Other long term (current) drug therapy; Z79.1 Long term (current) use of non-steroidal anti-inflammatories (NSAID); Z68.35 Body mass index [BMI] 35.0-35.9, adult; Z98.49 Cataract extraction status, unspecified eye; Z79.82 Long term (current) use of aspirin; Z79.4 Long term (current) use of insulin
CPT/HCPCS: 36415; 71010; 76857; 80047; 80048; 80053; 82550; 82962; 83605; 83690; 83735; 83880; 84484; 85027; 85610; 85730; 92928; 93005; 93454; 93571; 96374; 99152; 99153; A6539; C1725; C1769; C1771; C1874; C1887; C1892; G0269; G0480; J0583; J0881; J1644; J1815; J2001; J2250; J3010; J3490; J7042; Q9967; 97110; 97530; 97535; 99285-25

== ENCOUNTER 2017-06-20 17:37 | Inpatient (IN) | payer MEDICARE, OTHER ==
[~2017-06-20] VITALS: Ht 167.6 cm; Wt 102.2 kg
[2017-06-20] MEDS ORDERED: NITROGLYCERIN SUBLINGUAL 0.4 MG BOTTLE OF 25. SL PRN (18:15)
[2017-06-20 18:20] LABS: BASO % 1 % (0-3); EOS % 7 % (0-3); HEMATOCRIT 29.5 % (36.0-47.0); LYMPH # 0.4 x10^3/uL (1.0-4.8); LYMPH % 10 % (24-48); MEAN CORPUSCULAR HEMOGLOBIN 34 pg (25-35); MEAN CORPUSCULAR HGB CONC 34 g/dL (31-37); MEAN CORPUSCULAR VOLUME 100 fL (79-100); MONO % 13 % (0-9); NEUT % 69 % (31-73); PLATELET COUNT 95 x10^3/uL (140-400); RED BLOOD COUNT 2.95 x10^6/uL (3.50-5.40); RED CELL DISTRIBUTION WIDTH 16.1 % (11.5-14.5); WHITE BLOOD COUNT 4.1 x10^3/uL (4.0-11.0)
[2017-06-20 18:36] LABS: CALCIUM 7.2 mg/dL (8.5-10.1); CREATININE 2.8 mg/dL (0.6-1.0); GFR 16.4; POTASSIUM 3.9 mmol/L (3.5-5.1)
[2017-06-20 18:42] LABS: ALBUMIN 2.8 g/dL (3.4-5.0); DIRECT BILIRUBIN 0.1 mg/dL (0.0-0.2); TOTAL BILIRUBIN 0.3 mg/dL (0.2-1.0); TOTAL PROTEIN 6.4 g/dL (6.4-8.2)
[2017-06-20] MEDS: fentaNYL PF VIAL 100 MCG/2 ML VIAL IV PRN ×2 (18:46→20:13)
--- NOTE | 2017-06-20 19:48 | ED.ADGEN ---
Past Medical History Past Medical History: A-Fib, Arthritis, COPD, CVA, Diabetes-Type II, Hypertension, [place], Renal Failure Additional Past Medical Histor: kidney failure, pacemaker Past Surgical History: Appendectomy, Cholecystectomy, Hysterectomy, Other Additional Past Surgical Histo: FISTULA in right upper extremity, pins left femur, PACEMAKER WITH DEFIB Alcohol Use: None Drug Use: None Adult General Chief Complaint Chief Complaint: CHEST PAIN HPI HPI Patient is a 76 year old woman, history of end-stage renal disease on hemodialysis, CAD status post several PCI's, including stent placement in April of this year, hypertension, hyperlipidemia, who presents to the emergency department with a complaint of chest pain. Patient states the chest pain is the same pain that brought her to the ED and admission to the hospital last week. She states that she had a full dialysis session today, states the pain began this morning as the groin worse, so she was shortness breath, nausea, and one episode of emesis at home. Denies any diarrhea, or abdominal pain. States the pain is located across the anterior portion of her chest, and radiates to her back with deep inspiration. She denies any travel or surgery, and he missed doses of medications or changes medication. No weakness, numbness or tingling, no headache, no injuries. Review of Systems Review of Systems Constitutional: Denies fever or chills. [] Eyes: Denies change in visual acuity. [] HENT: Denies nasal congestion or sore throat. [] Respiratory: Denies cough, complaining of worsening shortness of breath and chest pain worse with deep inspiration and motion. Cardiovascular: Denies chest pain or edema. [] GI: Denies abdominal pain, bloody stools or diarrhea. [] One episode of vomiting, nonbloody nonbilious, associated nausea. : Denies dysuria. [] Musculoskeletal: Denies back pain or joint pain. [] Some swelling of the extremities. Integument: Denies rash. [] Neurologic: Denies headache, focal weakness or sensory changes. [] Endocrine: Denies polyuria or polydipsia. [] Lymphatic: Denies swollen glands. [] Psychiatric: Denies depression or anxiety. [] Current Medications Current Medications Current Medications Medications (Trade) Dose Ordered Sig/Payton Start Time Stop Time Status Last Admin Dose Admin Acetaminophen/ Hydrocodone Bitart (Lortab 5/325) 1 tab QID PRN 8/7/17 20:30 Acetaminophen/ Hydrocodone Bitart (Lortab 7.5/325) 1 tab PRN Q6HRS PRN 06/20/17 20:30 Dextrose (Dextrose 50%-Water Syringe) 12.5 gm PRN Q15MIN PRN 06/20/17 20:30 Fentanyl Citrate (Fentanyl 2ml Vial) 25 mcg PRN Q2HR PRN 06/20/17 20:30 Nitroglycerin (Nitrostat) 0.4 mg PRN Q5MIN PRN 06/20/17 20:30 Allergies Allergies Allergies Coded Allergies Type Severity Reaction Last Updated Verified Sulfa (Sulfonamide Antibiotics) Allergy Intermediate Nausea/Vomiting, Rash 09/22/16 Yes morphine Allergy Intermediate itching 09/22/16 Yes adhesive Adverse Reaction Intermediate Itching 09/22/16 Yes Physical Exam Physical Exam Constitutional: Well developed, well nourished, no acute distress, non-toxic appearance. [] HENT: Normocephalic, atraumatic, bilateral external ears normal, oropharynx moist, no oral exudates, nose normal. [] Eyes: PERRLA, EOMI, conjunctiva normal, no discharge. [] Neck: Normal range of motion, no tenderness, supple, no stridor. [] Cardiovascular:Heart rate regular rhythm, no murmur [] Lungs & Thorax: Bilateral breath sounds clear to auscultation [] Abdomen: Bowel sounds normal, soft, no tenderness, no masses, no pulsatile masses. [] Skin: Warm, dry, no erythema, no rash. [] Back: No tenderness, no CVA tenderness. [] Extremities: No tenderness, no cyanosis, no clubbing, ROM intact, no edema. [] Neurologic: Alert and oriented X 3, normal motor function, normal sensory function, no focal deficits noted. [] Psychologic: Affect normal, judgement normal, mood normal. [] Current Patient Data Vital Signs Vital Signs Date Time Temp Pulse Resp B/P (MAP) Pulse Ox O2 Delivery O2 Flow Rate FiO2 06/20/17 20:13 20 96 Room Air 06/20/17 20:00 76 103/55 (71) 06/20/17 17:55 98.5 98.5 Lab Values Laboratory Tests Test 06/20/17 18:10 White Blood Count 4.1 x10^3/uL (4.0-11.0) Red Blood Count 2.95 x10^6/uL (3.50-5.40) L Hemoglobin 10.0 g/dL (12.0-15.5) L Hematocrit 29.5 % (36.0-47.0) L Mean Corpuscular Volume 100 fL (79-100) Mean Corpuscular Hemoglobin 34 pg (25-35) Mean Corpuscular Hemoglobin Concent 34 g/dL (31-37) Red Cell Distribution Width 16.1 % (11.5-14.5) H Platelet Count 95 x10^3/uL (140-400) L Neutrophils (%) (Auto) 69 % (31-73) Lymphocytes (%) (Auto) 10 % (24-48) L Monocytes (%) (Auto) 13 % (0-9) H Eosinophils (%) (Auto) 7 % (0-3) H Basophils (%) (Auto) 1 % (0-3) Neutrophils # (Auto) 2.8 x10^3uL (1.8-7.7) Lymphocytes # (Auto) 0.4 x10^3/uL (1.0-4.8) L Monocytes # (Auto) 0.5 x10^3/uL (0.0-1.1) Eosinophils # (Auto) 0.3 x10^3/uL (0.0-0.7) Basophils # (Auto) 0.0 x10^3/uL (0.0-0.2) Sodium Level 139 mmol/L (136-145) Potassium Level 3.9 mmol/L (3.5-5.1) Chloride Level 99 mmol/L (98-107) Carbon Dioxide Level 33 mmol/L (21-32) H Anion Gap 7 (6-14) Blood Urea Nitrogen 28 mg/dL (7-20) H Creatinine 2.8 mg/dL (0.6-1.0) H Estimated GFR (Cockcroft-Gault) 16.4 Glucose Level 311 mg/dL (70-99) H Calcium Level 7.2 mg/dL (8.5-10.1) L Total Bilirubin 0.3 mg/dL (0.2-1.0) Direct Bilirubin 0.1 mg/dL (0.0-0.2) Aspartate Amino Transferase (AST) 33 U/L (15-37) Alanine Aminotransferase (ALT) 28 U/L (14-59) Alkaline Phosphatase 132 U/L (46-116) H Troponin I Quantitative 0.066 ng/mL (0.000-0.055) YK-Lig-A-Type Natriuretic Peptide 63035 pg/mL (0-449) H Total Protein 6.4 g/dL (6.4-8.2) Albumin 2.8 g/dL (3.4-5.0) L Laboratory Tests 06/20/17 18:10 Laboratory Tests 06/20/17 18:10 EKG EKG EC: Paced rhythm, 92 bpm, right axis deviation noted, rotation is limited secondary to paced rhythm, QTC of 513, QRS of 176, when compared to previous ECG from 06/02/2017, ST depressions noted in the anterior lateral leads , no other changes identified, no elevations noted. Abnormal ECG. As interpreted by me. [] Radiology/Procedures Radiology/Procedures Chest x-ray: One view: Patient with mild interval worsening of bilateral interstitial infiltrates, no of small effusions possible AICD pacemaker in place , no pneumothorax, no bony or soft tissue abnormalities identified. [] Course & Med Decision Making Course & Med Decision Making Pertinent Labs and Imaging studies reviewed. (See chart for details) Patient with some worsening of ST depressions noted in the anterolateral leads, as stated is a paced rhythm, with left internal hypertrophy noted, troponin is trace positive, with in line with the patient's previous troponins, proBNP is greater than 15,000, in light of patient's prior as well. I did discuss findings as above with Dr. Camp cardiology, at this time we will continue to monitor patient, she had recent PCI, less than a month ago, and had patent stents noted at that time. Due to patient's persistent pain, which shortness of breath, will admit for continued monitoring, and evaluation also determine if additional dialysis will be beneficial, findings as above discussed with Dr. Acosta of internal medicine, patient accepted to her service a full admission to the medical telemetry floor with bridge orders entered per discussion. Dragon Disclaimer Dragon Disclaimer This electronic medical record was generated, in whole or in part, using a voice recognition dictation system. Departure Impression: Primary Impression: Chest pain Disposition: 09 ADMITTED INPATIENT Admitting Physician: Nanette Acosta Condition: IMPROVED ELDER ROBERTO DO Jun 20, 2017 19:48
[2017-06-20 20:10] VITALS: BP 106/27
[2017-06-20] MEDS ORDERED: fentaNYL PF VIAL 100 MCG/2 ML VIAL IV PRN (20:30)
[2017-06-20] MEDS ORDERED: DEXTROSE 50% 25 GM / 50ML DISP.SYRIN. IV PRN (20:30)
--- NOTE | 2017-06-20 20:38 | PDOC1 ---
History and Physical Date of Admission Date of Admission DATE: 06/20/17 TIME: 20:32 Identification/Chief Complaint Chief Complaint CP, weak, SOA Problems: Source Source: Caregiver, Chart review, Patient History of Present Illness History of Present Illness 76 y.o female, known to me, I just admitted her and dcd her after 2 overnight stay here for the ff dx: Date of Admission: Jun 10, 2017 Date of Discharge: Jun 12, 2017 Admitting Diagnosis Comment: 1. Chest pains 2. KNown CAD with recent PCI 3. ESRD on HD MWF 4. Dyslipidemia 5. 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 HTN. controlled 7. DM 2 insulin req, controlled BAsicallys he has advanced CHF, ESRD on HD, severe that is not surgical candidate, SHe is compliant with her meds but with nature of her dse, she can get fluid overloaded easily and gets fluid off load during HD. She was able to finish complete course of HD today, LAbs chronic Trop, and ESRD values, PUlmo congestion on CXR unchanged or similar to previous ones and deep T waves on EKG - cards aware, nothing really more to do but CPM and I agree, I did discuss all these to pt and she knows the nature of her dse,a nd that it can cause freq readmissions, I did discuss SNU, she adamantly still refuses it, lives at home with , HAs been to 2-3 diff SNU places, none of which she liked. Past Medical History Cardiovascular: AFIB, CAD, CHF, HTN, SC, Hyperlipidemia, Aortic stenosis Pulmonary: COPD CENTRAL NERVOUS SYSTEM: CVA, Periperal neuropathy GI: Constipation, GERD Heme/Onc: Anemia NOS Hepatobiliary: No pertinent hx Psych: Depression Musculoskeletal: Osteoarthritis Rheumatologic: No pertinent hx Infectious disease: No pertinent hx Renal/: Chronic renal failure Endocrine: Diabetes, Hypothyroidism, Hyperparathyroidism Past Surgical History Past Surgical History: Pacemaker, Appendectomy, Cholecystectomy, Cataract Removal, Hernia Repair, Hysterectomy, Other Family History Family History: Hypertension Social History ALCOHOL: none Drugs: None Current Medications Current Medications Current Medications Nitroglycerin (Nitrostat) 0.4 mg PRN Q5MIN PRN SL CHEST PAIN; Start 06/20/17 at 18:15 Fentanyl Citrate (Fentanyl 2ml Vial) 25 mcg PRN Q15MIN PRN IV PAIN GREATER THAN 3/10 Last administered on 06/20/17t 20:13; Start 06/20/17 at 18:15; Stop 06/21 at 18:14 Aspirin (Ecotrin) 81 mg DAILYWBKFT PO ; Start 06/21/17 at 08:00; Status UNV Clopidogrel Bisulfate (Plavix) 75 mg DAILY PO ; Start 06/21/17 at 09:00; Status UNV Famotidine (Pepcid) 20 mg HS PO ; Start 06/20/17 at 21:00; Status UNV Acetaminophen/ Hydrocodone Bitart (Lortab 7.5/325) 1 tab PRN Q6HRS PRN PO PAIN ; Start 06/20/17 at 20:30; Status UNV Lisinopril (Prinivil) 5 mg DAILY PO ; Start 06/21/17 at 09:00; Status UNV Metoprolol Tartrate (Lopressor) 50 mg BID PO ; Start 06/20/17 at 21:00; Status UNV Nitroglycerin (Nitrostat) 0.4 mg PRN Q5MIN PRN SL CHEST PAIN; Start 06/20/17 at 20:30; Status UNV Nystatin (Nystop) 1 tiffany BID TP ; Start 06/20/17 at 21:00; Status UNV Non-Formulary Medication 667 mg TIDWMEALS PO ; Start 06/21/17 at 08:00; Status UNV Non-Formulary Medication 10 mg DAILY PO ; Start 06/21/17 at 09:00; Status UNV Non-Formulary Medication 14 unit QHS SQ ; Start 06/20/17 at 21:00; Status UNV Non-Formulary Medication 60 mg DAILY PO ; Start 06/21/17 at 09:00; Status UNV Non-Formulary Medication 1 each DAILY PO ; Start 06/21/17 at 09:00; Status UNV Active Scripts Active Aspirin Ec (Aspirin) 81 Mg Tablet.dr 81 Mg PO DAILYWBKFT Nystop (Nystatin) 60 Gm Powder 1 Tiffany TP BID Isosorbide Mononitrate Er (Isosorbide Mononitrate) 60 Mg Tab.er.24h 60 Mg PO DAILY 30 Days Escitalopram Oxalate 10 Mg Tablet 10 Mg PO DAILY Pepcid (Famotidine) 20 Mg Tablet 20 Mg PO HS Nitrostat (Nitroglycerin) 0.4 Mg Tab.subl 0.4 Mg SL PRN Q5MIN PRN Reported Clopidogrel (Clopidogrel Bisulfate) 75 Mg Tablet 75 Mg PO DAILY Lisinopril 5 Mg Tablet 1 Tab PO DAILY Metoprolol Tartrate 50 Mg Tablet 50 Mg PO BID Nephro-Prashanth Rx Tablet (Vit B Cmplx 3/Fa/Vit C/Biotin) 1 Each Tablet 1 Each PO DAILY Hydrocodone-Apap 7.5-325 (Hydrocodone Bit/Acetaminophen) 1 Each Tablet 1 Tab PO PRN Q6HRS PRN Calcium Acetate 667 Mg Tablet 667 Mg PO TIDWMEALS Lantus Solostar (Insulin Glargine,Hum.rec.anlog) 100 Unit/1 Ml Insuln.pen 14 Unit SQ QHS Allergies Allergies: Coded Allergies: Sulfa (Sulfonamide Antibiotics) (Verified Allergy, Intermediate, Nausea/ Vomiting, Rash, 09/22/16) morphine (Verified Allergy, Intermediate, itching, 09/22/16) adhesive (Verified Adverse Reaction, Intermediate, Itching, 09/22/16) ROS Review of System weak, FARMWORKER DAIRY, SOA, swollen, otherwise all else is neg Physical Exam General: Alert, Oriented X3, Cooperative, No acute distress HEENT: Atraumatic Lungs: Normal air movement, Other (dec BS, minor crackles, no wheezes) Heart: no gallops Cardiovascular: S1, S2 Breasts: Normal, Rt breast nml w/o mass, Lt breast nml w/o mass, Nipples normal Abdomen: Normal bowel sounds, Soft, No tenderness, No hepatosplenomegaly, No masses Rectal Exam: not examined PELVIC: Nml ext genitalia Extremities: No clubbing, No cyanosis, No edema, Normal pulses, No tenderness/ swelling Skin: No rashes, No breakdown, No significant lesion Neuro: Normal gait, Normal speech, Strength at 5/5 X4 ext, Normal tone, Sensation intact, Cranial nerves 3-12 NL, Reflexes 2+ Psych/Mental Status: Mental status NL, Mood NL Vitals Vitals Vital Signs Date Time Temp Pulse Resp B/P (MAP) Pulse Ox O2 Delivery O2 Flow Rate FiO2 06/20/17 20:13 20 96 Room Air 06/20/17 20:00 76 103/55 (71) 06/20/17 17:55 98.5 98.5 Labs Labs Laboratory Tests Test 06/20/17 18:10 White Blood Count 4.1 x10^3/uL (4.0-11.0) Red Blood Count 2.95 x10^6/uL (3.50-5.40) Hemoglobin 10.0 g/dL (12.0-15.5) Hematocrit 29.5 % (36.0-47.0) Mean Corpuscular Volume 100 fL (79-100) Mean Corpuscular Hemoglobin 34 pg (25-35) Mean Corpuscular Hemoglobin Concent 34 g/dL (31-37) Red Cell Distribution Width 16.1 % (11.5-14.5) Platelet Count 95 x10^3/uL (140-400) Neutrophils (%) (Auto) 69 % (31-73) Lymphocytes (%) (Auto) 10 % (24-48) Monocytes (%) (Auto) 13 % (0-9) Eosinophils (%) (Auto) 7 % (0-3) Basophils (%) (Auto) 1 % (0-3) Neutrophils # (Auto) 2.8 x10^3uL (1.8-7.7) Lymphocytes # (Auto) 0.4 x10^3/uL (1.0-4.8) Monocytes # (Auto) 0.5 x10^3/uL (0.0-1.1) Eosinophils # (Auto) 0.3 x10^3/uL (0.0-0.7) Basophils # (Auto) 0.0 x10^3/uL (0.0-0.2) Sodium Level 139 mmol/L (136-145) Potassium Level 3.9 mmol/L (3.5-5.1) Chloride Level 99 mmol/L (98-107) Carbon Dioxide Level 33 mmol/L (21-32) Anion Gap 7 (6-14) Blood Urea Nitrogen 28 mg/dL (7-20) Creatinine 2.8 mg/dL (0.6-1.0) Estimated GFR (Cockcroft-Gault) 16.4 Glucose Level 311 mg/dL (70-99) Calcium Level 7.2 mg/dL (8.5-10.1) Total Bilirubin 0.3 mg/dL (0.2-1.0) Direct Bilirubin 0.1 mg/dL (0.0-0.2) Aspartate Amino Transf (AST/SGOT) 33 U/L (15-37) Alanine Aminotransferase (ALT/SGPT) 28 U/L (14-59) Alkaline Phosphatase 132 U/L (46-116) Troponin I Quantitative 0.066 ng/mL (0.000-0.055) BT-Chn-I-Type Natriuretic Peptide 31227 pg/mL (0-449) Total Protein 6.4 g/dL (6.4-8.2) Albumin 2.8 g/dL (3.4-5.0) Laboratory Tests Test 06/20/17 18:10 White Blood Count 4.1 x10^3/uL (4.0-11.0) Red Blood Count 2.95 x10^6/uL (3.50-5.40) Hemoglobin 10.0 g/dL (12.0-15.5) Hematocrit 29.5 % (36.0-47.0) Mean Corpuscular Volume 100 fL (79-100) Mean Corpuscular Hemoglobin 34 pg (25-35) Mean Corpuscular Hemoglobin Concent 34 g/dL (31-37) Red Cell Distribution Width 16.1 % (11.5-14.5) Platelet Count 95 x10^3/uL (140-400) Neutrophils (%) (Auto) 69 % (31-73) Lymphocytes (%) (Auto) 10 % (24-48) Monocytes (%) (Auto) 13 % (0-9) Eosinophils (%) (Auto) 7 % (0-3) Basophils (%) (Auto) 1 % (0-3) Neutrophils # (Auto) 2.8 x10^3uL (1.8-7.7) Lymphocytes # (Auto) 0.4 x10^3/uL (1.0-4.8) Monocytes # (Auto) 0.5 x10^3/uL (0.0-1.1) Eosinophils # (Auto) 0.3 x10^3/uL (0.0-0.7) Basophils # (Auto) 0.0 x10^3/uL (0.0-0.2) Sodium Level 139 mmol/L (136-145) Potassium Level 3.9 mmol/L (3.5-5.1) Chloride Level 99 mmol/L (98-107) Carbon Dioxide Level 33 mmol/L (21-32) Anion Gap 7 (6-14) Blood Urea Nitrogen 28 mg/dL (7-20) Creatinine 2.8 mg/dL (0.6-1.0) Estimated GFR (Cockcroft-Gault) 16.4 Glucose Level 311 mg/dL (70-99) Calcium Level 7.2 mg/dL (8.5-10.1) Total Bilirubin 0.3 mg/dL (0.2-1.0) Direct Bilirubin 0.1 mg/dL (0.0-0.2) Aspartate Amino Transf (AST/SGOT) 33 U/L (15-37) Alanine Aminotransferase (ALT/SGPT) 28 U/L (14-59) Alkaline Phosphatase 132 U/L (46-116) Troponin I Quantitative 0.066 ng/mL (0.000-0.055) LZ-Hxg-M-Type Natriuretic Peptide 40836 pg/mL (0-449) Total Protein 6.4 g/dL (6.4-8.2) Albumin 2.8 g/dL (3.4-5.0) VTE Prophylaxis Ordered VTE Prophylaxis Devices: Yes VTE Pharmacological Prophylaxi: Yes Assessment/Plan Assessment/Plan Admitting Diagnosis 1. Chest pains 2. [place]own CAD with recent PCI 3. ESRD on HD MWF 4. Dyslipidemia 5. 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 HTN. controlled 7. DM 2 insulin req, controlled PLAN: Admit CArds consulted REsume home meds SSI high dose DVt prophy PT.OT Unfortunately nature of her advanced chronic dse will cause frequent readmission /exacerbations,. Unfortunately refuses SNU too. Seen at ER [address] BRIELLE Patten MD Jun 20, 2017 20:38
[2017-06-20] MEDS ORDERED: NAPR250T2 PO (21:20)
[2017-06-20] MEDS: HYDROcodone/APAP 5/325MG 1 TAB TABLET PO PRN (22:03)
[2017-06-20] MEDS: FAMOTIDINE 20 MG TABLET. PO SCH (22:04)
[2017-06-20] MEDS: METOPROLOL TART IMMED RELEASE 50 MG TABLET. PO SCH (22:04)
[2017-06-20] MEDS: NYSTATIN TOPICAL POWDER 15GM BOTTLE. TP SCH (22:04)
[2017-06-20] MEDS: INSULIN DETEMIR 300 UNITS/3 ML INSULN.PEN. SQ SCH (22:12)
[2017-06-20] MEDS: HEPARIN PF for SUB-Q USE 5,000 UNIT/0.5 ML VIAL. SQ SCH (22:13)
[2017-06-20 23:00] VITALS: BP 108/33
[2017-06-21] VITALS (10 sets, daily range): BP systolic 103–134; BP diastolic 31–71
--- NOTE | 2017-06-21 04:01 | ACF ---
Admission Forms Criteria CHEST PAIN Clinical Indications for Admission to Inpatient Care (Place 'X' for any and all applicable criteria): Admission is indicated for chest pain and ANY ONE of the following(1)(2)(3)(4)(5 ): [ ]I. Angina with acute coronary syndrome (Also use Myocardial Infarction or Angina guideline) [ ]II. Hemodynamic instability [ ]III. Angina needing acute intervention as indicated by ALL of the following( 11)(12): [ ]a) Unstable angina is present as indicated by angina that is ANY ONE of the following: [ ]i) New onset [ ]ii) Nocturnal [ ]iii) Prolonged at rest [ ]iv) Progressive [ ]b) Angina warrants acute intervention as indicated by ANY ONE of the following: [ ]i) Recurrent angina (e.g, not responding as previously to treatment) [ ]ii) Angina at rest or with low-level activities despite initial medical therapy [ ]iii) New or presumably new ST-segment depression on ECG [ ]iv) Signs or symptoms of heart failure (eg, dyspnea, pulmonary edema) [ ]v) New or worsening mitral regurgitation [ ]vi) Hemodynamic instability [ ]vii) Dangerous arrhythmia (eg, sustained ventricular tachycardia) [ ]viii) History of percutaneous coronary intervention within 6 months [ ]ix) History of coronary artery bypass graft surgery [ ]x) NENA risk score of 2 or greater[A] [ ]xi) History of Diabetes(14) [ ]xii) High-risk cardiac ischemia findings on noninvasive testing (e.g, echocardiogram, treadmill testing, nuclear scan) [ ]xiii) Chronic renal insufficiency (ie, estimated GFR less than 60 mL/min/1.732m) [ ]xiv) Left ventricular ejection fraction less than 40% [ ]IV. Evidence of NM (eg, cardiac biomarkers positive, ST-segment elevation on ECG) also use Myocardial Infarction Criteria Form. [ ]V. Pulmonary edema [ ]. Respiratory distress [ ]VII. Chest pain indicative of serious diagnosis other than coronary artery disease (eg, aortic dissection) [X]VIII. Contraindications and/or Inappropriate clinical situations for Observational Care in patients with Chest Pain, when ANY ONE of the following is required: [ ]a) Patient with risk factor for pulmonary embolism, acute coronary syndrome and myocardial infarction (18) [ ]b) Patient with Pulmonary embolism require an average LOS of 4.3 days, therefore emergency department observation management is inappropriate 18,23 [ ]c) Painful condition/s in the elderly, have the highest rate of recidivism after emergency department observation management (10.8%) 20,21,22 [X]d) Elevated cardiac biomarker requires intensive and exhaustive care (19) [ ]IX. General contraindications and/or Inappropriate clinical situations for Observational Care in patients with Chest Pain, when ANY ONE of the following is required: [ ]a) Prediction of prolongation of LOS based on ANY ONE of the following may be considered as a contraindication for observational care 2, 3, 4, 5, 6, 7, 8, 9, 10, 11 [ ]i) Age > 65 yrs. [ ]ii) Patient arriving by ambulance [ ]iii) Patient with high acuity [ ]iv) Patient requiring vital sign monitoring [ ]v) Patient on IV medication [ ]b) Systolic blood pressures 180mmHg 3,12 [ ]c) Patient with altered mental status including delirium and other alteration of consciousness, (3) [ ]d) Patient whose discharge disposition will be to a care home home or rehabilitation home should not be managed in Emergency Department Observation Unit. CMS rule requires 3 days hospital stay before such placement. 3,13 [ ]e) Patient with failure to thrive due to broad array of etiologies 3,16,17 [ ]f) Inability to ambulate 3,14 Extended stay beyond goal length of stay may be needed for (1)(28): [ ]a) Specific condition diagnosed after evaluation (eg, pulmonary embolism, aortic dissection) [ ]b) Unstable angina [ ]c) Continued suspicion of acute coronary syndrome with inability to complete needed cardiac evaluation (eg, patient clinically unable to undergo stress testing) [ ]d) Myocardial infarction (Contents from ANGINA and CHEST PAIN clinical indications for admission to inpatient care have been integrated in this form) The original [facility] content created by [employer] has been revised. The portions of the content which have been revised are identified through the use of italic text or in bold, and [facility] has neither reviewed nor approved the modified material. All other unmodified content is copyright [facility]. Please see references footnoted in the original [facility] [email or web address] edition 2016 Admission Criteria Met?: Yes SAMMY BOO Jun 21, 2017 04:01
[2017-06-21] MEDS: HEPARIN PF for SUB-Q USE 5,000 UNIT/0.5 ML VIAL. SQ SCH (05:42)
--- NOTE | 2017-06-21 06:21 | EKG ---
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
[2017-06-21] MEDS: INSULIN ASPART 300 UNITS/3 ML INSULN.PEN SQ SCH ×3 (08:00→17:00)
--- NOTE | 2017-06-21 08:18 | RAD ---
Indication chest pain. Shortness of breath. A single view of the chest was obtained and is compared to an examination 06/12/2017. Heart size and pulmonary vessels are unchanged there are background changes compatible with fibrosis. An acute parenchymal infiltrate is not seen. Cardiac pacing device is noted. Chronic deformity about the left shoulder is noted. Vascular stent is noted overlying the right hemithorax IMPRESSION: Chronic changes. No definite acute finding apparent in the chest
[2017-06-21] MEDS: ESCITALOPRAM 5 MG TABLET. PO SCH (08:25)
[2017-06-21] MEDS: ISOSORBIDE MONONITRATE ER 30 MG TAB.ER.24H PO SCH (08:26)
[2017-06-21] MEDS: CALCIUM ACETATE 667 MG CAPSULE PO SCH ×3 (08:27→16:28)
[2017-06-21] MEDS: FOLIC/VIT B COMP W-C (RENAL) TABLET. PO SCH (08:27)
[2017-06-21] MEDS: ASPIRIN ENTERIC COATED 81 MG TABLET.DR. PO SCH (08:27)
[2017-06-21] MEDS: CLOPIDOGREL BISULFATE 75 MG TABLET PO SCH (08:27)
[2017-06-21] MEDS: METOPROLOL TART IMMED RELEASE 50 MG TABLET. PO SCH ×2 (08:28→21:28)
[2017-06-21] MEDS: NYSTATIN TOPICAL POWDER 15GM BOTTLE. TP SCH ×2 (08:35→21:28)
[2017-06-21] MEDS: HYDROcodone/APAP 5/325MG 1 TAB TABLET PO PRN (08:47)
[2017-06-21] MEDS ORDERED: LISINOPRIL 5 MG TABLET. PO SCH (09:00)
[2017-06-21] MEDS ORDERED: HEPARIN 25,000UTS/500ML PREMIX 500 ML IV PRN (09:45)
[2017-06-21] MEDS ORDERED: HEPARIN for IV BOLUS 10,000 UNIT/10 ML VIAL. IV PRN (09:45)
[2017-06-21] MEDS: HYDROcodone/APAP 7.5/325MG 1 TAB TABLET PO PRN ×2 (10:13→16:44)
[2017-06-21] MEDS: HEPARIN 25,000UTS/500ML PREMIX 500 ML IV PRN (10:18)
--- NOTE | 2017-06-21 10:19 | PDOC2 ---
CARDIAC CONSULT DATE OF CONSULT Date of Consult DATE: 06/21/17 TIME: 10:11 REASON FOR CONSULT Reason for Consult: CHF REFERRING PHYSICIAN Referring Physician: Dr. Acosta SOURCE Source: Chart review, Patient HISTORY OF PRESENT ILLNESS HISTORY OF PRESENT ILLNESS This is a 76 yo female, who is well-known to us with an extensive cardiac history, who presented with complaints of chest pain. Patient reports pain began yesterday afternoon. Located in her central chest. Radiated through to her back. Describes as sharp and burning. Associated with SOA, dizziness, diaphoresis, and nausea and episode of vomiting. Took nitro x3 and pain pill without relief so she came into the ED for further evaluation and treatment. Pain resolved in ED and has not returned. Denies any present SOA. Has history of CAD s/p PCI/stent placement with most recent stent to LCX this past May. Patient reports compliance with DAPT. Second troponin noted at 6, heparin gtt was initiated. PAST MEDICAL HISTORY Past Medical History Cardiovascular: CAD, CHF (ischemic cardiomyopathy with ICD [facility]), HTN, Hyperlipidemia, Other (PVD) Aortic stenosis, right groin pseudoaneurysm with thrombin inj 09/2016 Pulmonary: Pneumonia, O2 2LPM at home CENTRAL NERVOUS SYSTEM: Other (No pertinent history) GI: GERD, internal hemorrhoids and diverticulosis Heme/Onc: No pertinent hx Hepatobiliary: No pertinent hx Psych: No pertinent hx Musculoskeletal: Osteoarthritis Rheumatologic: No pertinent hx Infectious disease: No pertinent hx ENT: No pertinent hx Renal/: Chronic renal failure (ESRD) Endocrine: Diabetes, Hypothyroidism Dermatology: No pertinent hx PAST SURGICAL HISTORY Past Surgical History Pacemaker (AICD), Cholecystectomy, Other (Cardiac cath with stent to LAD); ( Closed left distal femur fracture with ORIF 12/21/2014), recent PCI/JAISON to LCx 2016 FAMILY HISTORY Family History: Hypertension SOCIAL HISTORY Social History Smoke: No ALCOHOL: none Drugs: None Lives: with Family () CURRENT MEDICATIONS CURRENT MEDICATIONS Current Medications Medications (Trade) Dose Ordered Sig/Payton Route PRN Reason Start Time Stop Time Status Last Admin Dose Admin Fentanyl Citrate (Fentanyl 2ml Vial) 25 mcg PRN Q15MIN PRN IV PAIN GREATER THAN 3/10 06/20/17 18:15 06/21/17 18:14 06/20/17 20:13 Aspirin (Ecotrin) 81 mg DAILYWBKFT PO 06/21/17 08:00 06/21/17 08:27 Clopidogrel Bisulfate (Plavix) 75 mg DAILY PO 06/21/17 09:00 06/21/17 08:27 Famotidine (Pepcid) 20 mg HS PO 06/20/17 21:00 06/20/17 22:04 Lisinopril (Prinivil) 5 mg DAILY PO 06/21/17 09:00 06/21/17 08:27 Metoprolol Tartrate (Lopressor) 50 mg BID PO 06/20/17 21:00 06/21/17 08:28 Nystatin (Nystop) 1 umm BID TP 06/20/17 21:00 06/21/17 08:35 Calcium Acetate (Phoslo) 667 mg TIDWMEALS PO 06/21/17 08:00 06/21/17 08:27 Escitalopram Oxalate (Lexapro) 10 mg DAILY PO 06/21/17 09:00 06/21/17 08:25 Insulin Detemir (Levemir) 14 units QHS SQ 06/20/17 21:00 06/20/17 22:12 Isosorbide Mononitrate (Imdur) 60 mg DAILY PO 06/21/17 09:00 06/21/17 08:26 Vitamin B Complex/ Vitamin C (Tanisha-Prashanth) 1 tab DAILY PO 06/21/17 09:00 06/21/17 08:27 Acetaminophen/ Hydrocodone Bitart (Lortab 5/325) 1 tab QID PRN PO MODERATE PAIN 06/20/17 20:30 06/21/17 08:47 Heparin Sodium (Porcine) (Heparin Sq) 5,000 unit Q8HRS SQ 06/20/17 22:00 06/21/17 09:52 DC 06/21/17 05:42 ALLERGIES ALLERGIES: Coded Allergies: Sulfa (Sulfonamide Antibiotics) (Verified Allergy, Intermediate, Nausea/ Vomiting, Rash, 09/22/16) morphine (Verified Allergy, Intermediate, itching, 09/22/16) adhesive (Verified Adverse Reaction, Intermediate, Itching, 09/22/16) ROS Review of System 14 point ROS conducted with pertinent positives noted above in HPI. PHYSICAL EXAM PHYSICAL EXAM General: Alert, Oriented X3, Cooperative, No acute distress HEENT: Atraumatic, Mucous membr. moist/pink Lungs: Clear to auscultation, Normal air movement Heart: Regular rate, Normal S1, Normal S2, Other (3/6 systolic murmur to DELFINA border; paced) Abdomen: Soft, No tenderness, Other (truncal obesity) Extremities: No cyanosis, Other (1+ bilateral LE pitting edema, bilateral venous stasis changes to LE) Skin: No breakdown, No significant lesion Neuro: Normal speech, Sensation intact Psych/Mental Status: Mental status NL, Mood NL MUSCULOSKELETAL: Osteoarthritic changes both hands VITALS VITALS Vital Signs Date Time Temp Pulse Resp B/P (MAP) Pulse Ox O2 Delivery O2 Flow Rate FiO2 06/21/17 09:52 96 Nasal Cannula 2.0 06/21/17 08:28 68 113/39 06/21/17 07:00 97.8 18 97.8 LABS Lab: Laboratory Tests Test 06/20/17 18:10 06/20/17 22:01 06/21/17 08:18 06/21/17 08:35 White Blood Count 4.1 x10^3/uL (4.0-11.0) Red Blood Count 2.95 x10^6/uL (3.50-5.40) Hemoglobin 10.0 g/dL (12.0-15.5) Hematocrit 29.5 % (36.0-47.0) Mean Corpuscular Volume 100 fL (79-100) Mean Corpuscular Hemoglobin 34 pg (25-35) Mean Corpuscular Hemoglobin Concent 34 g/dL (31-37) Red Cell Distribution Width 16.1 % (11.5-14.5) Platelet Count 95 x10^3/uL (140-400) Neutrophils (%) (Auto) 69 % (31-73) Lymphocytes (%) (Auto) 10 % (24-48) Monocytes (%) (Auto) 13 % (0-9) Eosinophils (%) (Auto) 7 % (0-3) Basophils (%) (Auto) 1 % (0-3) Neutrophils # (Auto) 2.8 x10^3uL (1.8-7.7) Lymphocytes # (Auto) 0.4 x10^3/uL (1.0-4.8) Monocytes # (Auto) 0.5 x10^3/uL (0.0-1.1) Eosinophils # (Auto) 0.3 x10^3/uL (0.0-0.7) Basophils # (Auto) 0.0 x10^3/uL (0.0-0.2) Sodium Level 139 mmol/L (136-145) Potassium Level 3.9 mmol/L (3.5-5.1) Chloride Level 99 mmol/L (98-107) Carbon Dioxide Level 33 mmol/L (21-32) Anion Gap 7 (6-14) Blood Urea Nitrogen 28 mg/dL (7-20) Creatinine 2.8 mg/dL (0.6-1.0) Estimated GFR (Cockcroft-Gault) 16.4 Glucose Level 311 mg/dL (70-99) Calcium Level 7.2 mg/dL (8.5-10.1) Total Bilirubin 0.3 mg/dL (0.2-1.0) Direct Bilirubin 0.1 mg/dL (0.0-0.2) Aspartate Amino Transf (AST/SGOT) 33 U/L (15-37) Alanine Aminotransferase (ALT/SGPT) 28 U/L (14-59) Alkaline Phosphatase 132 U/L (46-116) Troponin I Quantitative 0.066 ng/mL (0.000-0.055) 6.825 ng/mL (0.000-0.055) AF-Wvk-L-Type Natriuretic Peptide 39421 pg/mL (0-449) Total Protein 6.4 g/dL (6.4-8.2) Albumin 2.8 g/dL (3.4-5.0) Glucose (Fingerstick) 164 mg/dL (70-99) 61 mg/dL (70-99) Test 06/21/17 09:50 Glucose (Fingerstick) 176 mg/dL (70-99) ECHOCARDIOGRAM ECHOCARDIOGRAM ECHOCARDIOGRAM <Conclusion> The left ventricular systolic function is normal and the ejection fraction is within normal range. The Ejection Fraction is 55%. There is normal LV segmental wall motion. Septal motion consistent with conduction abnormality. There is a pacemaker lead in the right ventricle. There is severe valvular aortic stenosis. Calculated aortic valve area is .9- 1.2 cm2 with maximum pressure gradient of 72 mmHg and mean pressure gradient of 48 mmHg. DATE: 05/12/171516 HEART CATH HEART CATH HEART CATH Conclusion 1. Severe single-vessel coronary disease. 60-70% stenosis of left circumflex artery, physiologic significant based on IFR measurement of 0.77. The previously placed stents in the left anterior descending artery and diagonal branch were widely patent. 2. Successful PCI/drug eluting stent placement to the left circumflex artery. 3. Incidental finding of 90% calcified stenosis involving the proximal segment of right superficial femoral artery. Recommendations 1. Aspirin 325 mg daily 2. Plavix 75 mg daily for preferably one year 3. Cardiovascular risk factor modification. DATE: 05/30/17 1456 ASSESSMENT/PLAN ASSESSMENT/PLAN 1. Chest pain, with typical and atypical features. now resolved. 2. NSTEMI: highest trop 6. Heparin initiated. 3. CAD: Recent PCI/JAISON 05/30/2017 to LCx with patent other stents. on DAPT therapy with ASA and Plavix 4. Chronic CHF with diastolic/systolic dysfunction; BNP elevated but CXR without vascular congestion. appears compensated for a HF standpoint. continue optimization therapy 5. Severe ; continue medical therapy 6. 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 V paced. Recent echo with LV improvement; EF at 55% 7. ESRD on HD 8. HTN: Controlled. continue present medications 9. DM2/HLP 10. PVD: incidental finding of 90% calcified stenosis of proximal right SFA No claudication symptoms. Continue medical therapy. Will f/u on an outpatient basis. Recommendation Transfer to 2N/S Trend troponin Continue heparin gtt. Consider addition of nitro if chest pain returns. Imdur has been resumed Keep NPO p MN. Will monitor overnight and consider for LHC versus medical management in am. Will d/w primary medical apparatus model maker. Continue DAPT with ASA and Plavix. Problems: LASHAUN PERRIN APRN Jun 21, 2017 10:19
--- NOTE | 2017-06-21 10:53 | PDOC ---
PROGRESS NOTES Chief Complaint Chief Complaint 1. Chest pains 2. [place] CAD with recent PCI 3. ESRD on HD MWF 4. Dyslipidemia 5. 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 HTN. controlled 7. DM 2 insulin req, controlled History of Present Illness History of Present Illness NO acute events overnight Seen less than 12 hrs ago CArds note reviewed Fluid off load during HD Due HD MWF Pt knows nature of her dse, all medical conservative mx (not surgical candidate for ), and the frequency of exacerbation/re hospitalizations REfuses SNU PLAN: PT/OT HD yahir HOme with HH upon dc Vitals Vitals Vital Signs Date Time Temp Pulse Resp B/P (MAP) Pulse Ox O2 Delivery O2 Flow Rate FiO2 06/21/17 10:13 96 Nasal Cannula 2.0 06/21/17 08:28 68 113/39 06/21/17 07:00 97.8 18 97.8 Physical Exam General: Alert, Oriented X3, Cooperative, No acute distress Lungs: Clear Abdomen: Normal bowel sounds, Soft, No tenderness, No hepatosplenomegaly, No masses Extremities: No clubbing, No cyanosis, No edema, Normal pulses, No tenderness/ swelling Skin: No rashes, No breakdown, No significant lesion Labs LABS Laboratory Tests Test 06/20/17 18:10 06/20/17 22:01 06/21/17 08:18 06/21/17 08:35 White Blood Count 4.1 x10^3/uL (4.0-11.0) Red Blood Count 2.95 x10^6/uL (3.50-5.40) Hemoglobin 10.0 g/dL (12.0-15.5) Hematocrit 29.5 % (36.0-47.0) Mean Corpuscular Volume 100 fL (79-100) Mean Corpuscular Hemoglobin 34 pg (25-35) Mean Corpuscular Hemoglobin Concent 34 g/dL (31-37) Red Cell Distribution Width 16.1 % (11.5-14.5) Platelet Count 95 x10^3/uL (140-400) Neutrophils (%) (Auto) 69 % (31-73) Lymphocytes (%) (Auto) 10 % (24-48) Monocytes (%) (Auto) 13 % (0-9) Eosinophils (%) (Auto) 7 % (0-3) Basophils (%) (Auto) 1 % (0-3) Neutrophils # (Auto) 2.8 x10^3uL (1.8-7.7) Lymphocytes # (Auto) 0.4 x10^3/uL (1.0-4.8) Monocytes # (Auto) 0.5 x10^3/uL (0.0-1.1) Eosinophils # (Auto) 0.3 x10^3/uL (0.0-0.7) Basophils # (Auto) 0.0 x10^3/uL (0.0-0.2) Sodium Level 139 mmol/L (136-145) Potassium Level 3.9 mmol/L (3.5-5.1) Chloride Level 99 mmol/L (98-107) Carbon Dioxide Level 33 mmol/L (21-32) Anion Gap 7 (6-14) Blood Urea Nitrogen 28 mg/dL (7-20) Creatinine 2.8 mg/dL (0.6-1.0) Estimated GFR (Cockcroft-Gault) 16.4 Glucose Level 311 mg/dL (70-99) Calcium Level 7.2 mg/dL (8.5-10.1) Total Bilirubin 0.3 mg/dL (0.2-1.0) Direct Bilirubin 0.1 mg/dL (0.0-0.2) Aspartate Amino Transf (AST/SGOT) 33 U/L (15-37) Alanine Aminotransferase (ALT/SGPT) 28 U/L (14-59) Alkaline Phosphatase 132 U/L (46-116) Troponin I Quantitative 0.066 ng/mL (0.000-0.055) 6.825 ng/mL (0.000-0.055) XD-Wnz-B-Type Natriuretic Peptide 92949 pg/mL (0-449) Total Protein 6.4 g/dL (6.4-8.2) Albumin 2.8 g/dL (3.4-5.0) Glucose (Fingerstick) 164 mg/dL (70-99) 61 mg/dL (70-99) Test 06/21/17 09:50 Glucose (Fingerstick) 176 mg/dL (70-99) Review of Systems Review of Systems no inc in soa, no inc in CP, 14 pt reviewed Assessment and Plan Assessmemt and Plan Problems Medical Problems: (1) Chest pain Status: Acute Problems: Comment Review of Relevant I have reviewed the following items adrián (where applicable) has been applied. Labs Laboratory Tests Test 06/20/17 18:10 06/20/17 22:01 06/21/17 08:18 06/21/17 08:35 White Blood Count 4.1 x10^3/uL (4.0-11.0) Red Blood Count 2.95 x10^6/uL (3.50-5.40) Hemoglobin 10.0 g/dL (12.0-15.5) Hematocrit 29.5 % (36.0-47.0) Mean Corpuscular Volume 100 fL (79-100) Mean Corpuscular Hemoglobin 34 pg (25-35) Mean Corpuscular Hemoglobin Concent 34 g/dL (31-37) Red Cell Distribution Width 16.1 % (11.5-14.5) Platelet Count 95 x10^3/uL (140-400) Neutrophils (%) (Auto) 69 % (31-73) Lymphocytes (%) (Auto) 10 % (24-48) Monocytes (%) (Auto) 13 % (0-9) Eosinophils (%) (Auto) 7 % (0-3) Basophils (%) (Auto) 1 % (0-3) Neutrophils # (Auto) 2.8 x10^3uL (1.8-7.7) Lymphocytes # (Auto) 0.4 x10^3/uL (1.0-4.8) Monocytes # (Auto) 0.5 x10^3/uL (0.0-1.1) Eosinophils # (Auto) 0.3 x10^3/uL (0.0-0.7) Basophils # (Auto) 0.0 x10^3/uL (0.0-0.2) Sodium Level 139 mmol/L (136-145) Potassium Level 3.9 mmol/L (3.5-5.1) Chloride Level 99 mmol/L (98-107) Carbon Dioxide Level 33 mmol/L (21-32) Anion Gap 7 (6-14) Blood Urea Nitrogen 28 mg/dL (7-20) Creatinine 2.8 mg/dL (0.6-1.0) Estimated GFR (Cockcroft-Gault) 16.4 Glucose Level 311 mg/dL (70-99) Calcium Level 7.2 mg/dL (8.5-10.1) Total Bilirubin 0.3 mg/dL (0.2-1.0) Direct Bilirubin 0.1 mg/dL (0.0-0.2) Aspartate Amino Transf (AST/SGOT) 33 U/L (15-37) Alanine Aminotransferase (ALT/SGPT) 28 U/L (14-59) Alkaline Phosphatase 132 U/L (46-116) Troponin I Quantitative 0.066 ng/mL (0.000-0.055) 6.825 ng/mL (0.000-0.055) EB-Hpb-U-Type Natriuretic Peptide 22220 pg/mL (0-449) Total Protein 6.4 g/dL (6.4-8.2) Albumin 2.8 g/dL (3.4-5.0) Glucose (Fingerstick) 164 mg/dL (70-99) 61 mg/dL (70-99) Test 06/21/17 09:50 Glucose (Fingerstick) 176 mg/dL (70-99) Laboratory Tests Test 06/20/17 18:10 06/20/17 22:01 06/21/17 08:18 06/21/17 08:35 White Blood Count 4.1 x10^3/uL (4.0-11.0) Red Blood Count 2.95 x10^6/uL (3.50-5.40) Hemoglobin 10.0 g/dL (12.0-15.5) Hematocrit 29.5 % (36.0-47.0) Mean Corpuscular Volume 100 fL (79-100) Mean Corpuscular Hemoglobin 34 pg (25-35) Mean Corpuscular Hemoglobin Concent 34 g/dL (31-37) Red Cell Distribution Width 16.1 % (11.5-14.5) Platelet Count 95 x10^3/uL (140-400) Neutrophils (%) (Auto) 69 % (31-73) Lymphocytes (%) (Auto) 10 % (24-48) Monocytes (%) (Auto) 13 % (0-9) Eosinophils (%) (Auto) 7 % (0-3) Basophils (%) (Auto) 1 % (0-3) Neutrophils # (Auto) 2.8 x10^3uL (1.8-7.7) Lymphocytes # (Auto) 0.4 x10^3/uL (1.0-4.8) Monocytes # (Auto) 0.5 x10^3/uL (0.0-1.1) Eosinophils # (Auto) 0.3 x10^3/uL (0.0-0.7) Basophils # (Auto) 0.0 x10^3/uL (0.0-0.2) Sodium Level 139 mmol/L (136-145) Potassium Level 3.9 mmol/L (3.5-5.1) Chloride Level 99 mmol/L (98-107) Carbon Dioxide Level 33 mmol/L (21-32) Anion Gap 7 (6-14) Blood Urea Nitrogen 28 mg/dL (7-20) Creatinine 2.8 mg/dL (0.6-1.0) Estimated GFR (Cockcroft-Gault) 16.4 Glucose Level 311 mg/dL (70-99) Calcium Level 7.2 mg/dL (8.5-10.1) Total Bilirubin 0.3 mg/dL (0.2-1.0) Direct Bilirubin 0.1 mg/dL (0.0-0.2) Aspartate Amino Transf (AST/SGOT) 33 U/L (15-37) Alanine Aminotransferase (ALT/SGPT) 28 U/L (14-59) Alkaline Phosphatase 132 U/L (46-116) Troponin I Quantitative 0.066 ng/mL (0.000-0.055) 6.825 ng/mL (0.000-0.055) BJ-Gzm-W-Type Natriuretic Peptide 25523 pg/mL (0-449) Total Protein 6.4 g/dL (6.4-8.2) Albumin 2.8 g/dL (3.4-5.0) Glucose (Fingerstick) 164 mg/dL (70-99) 61 mg/dL (70-99) Test 06/21/17 09:50 Glucose (Fingerstick) 176 mg/dL (70-99) Medications Current Medications Nitroglycerin (Nitrostat) 0.4 mg PRN Q5MIN PRN SL CHEST PAIN; Start 06/20/17 at 18:15 Fentanyl Citrate (Fentanyl 2ml Vial) 25 mcg PRN Q15MIN PRN IV PAIN GREATER THAN 3/10 Last administered on 06/20/17 20:13; Start 06/20/17 at 18:15; Stop 06/21 at 18:14 Aspirin (Ecotrin) 81 mg DAILYWBKFT PO Last administered on 06/21/17 08:27; Start 06/21/17 at 08:00 Clopidogrel Bisulfate (Plavix) 75 mg DAILY PO Last administered on 06/21/17 08: 27; Start 06/21/17 at 09:00 Famotidine (Pepcid) 20 mg HS PO Last administered on 06/20/17 22:04; Start 06/20 at 21:00 Acetaminophen/ Hydrocodone Bitart (Lortab 7.5/325) 1 tab PRN Q6HRS PRN PO SEVERE PAIN Last administered on 06/21/17 10:13; Start 06/20/17 at 20:30 Lisinopril (Prinivil) 5 mg DAILY PO Last administered on 06/21/17 08:27; Start 06/21/17 at 09:00 Metoprolol Tartrate (Lopressor) 50 mg BID PO Last administered on 06/21/17 08: 28; Start 06/20/17 at 21:00 Nitroglycerin (Nitrostat) 0.4 mg PRN Q5MIN PRN SL CHEST PAIN; Start 06/20/17 at 20:30 Nystatin (Nystop) 1 tiffany BID TP Last administered on 06/21/17 08:35; Start at 21:00 Calcium Acetate (Phoslo) 667 mg TIDWMEALS PO Last administered on 06/21/17 08: 27; Start 06/21/17 at 08:00 Escitalopram Oxalate (Lexapro) 10 mg DAILY PO Last administered on 06/21/17 08: 25; Start 06/21/17 at 09:00 Insulin Detemir (Levemir) 14 units QHS SQ Last administered on 06/20/17 22:12; Start 06/20/17 at 21:00 Isosorbide Mononitrate (Imdur) 60 mg DAILY PO Last administered on 06/21/17 08: 26; Start 06/21/17 at 09:00 Vitamin B Complex/ Vitamin C (Tanisha-Prashanth) 1 tab DAILY PO Last administered on 08:27; Start 06/21/17 at 09:00 Insulin Aspart (NovoLOG) 0-9 UNITS TIDWMEALS SQ ; Start 06/21/17 at 08:00 Dextrose (Dextrose 50%-Water Syringe) 12.5 gm PRN Q15MIN PRN IV SEE COMMENTS; Start 06/20/17 at 20:30 Fentanyl Citrate (Fentanyl 2ml Vial) 25 mcg PRN Q2HR PRN IV pain; Start at 20:30 Acetaminophen/ Hydrocodone Bitart (Lortab 5/325) 1 tab QID PRN PO MODERATE PAIN Last administered on 06/21/17 08:47; Start 06/20/17 at 20:30 Heparin Sodium (Porcine) (Heparin Sq) 5,000 unit Q8HRS SQ Last administered on 06/21/17 05:42; Start 06/20/17 at 22:00; Stop 06/21/17 at 09:52; Status DC Heparin Sodium/ Dextrose 500 ml @ 0 mls/hr CONT PRN IV SEE I/O RECORD; Start at 09:45; Status Cancel Heparin Sodium/ Dextrose 500 ml @ 0 mls/hr CONT PRN IV SEE I/O RECORD Last administered on 06/21/17 10:18; Start 06/21/17 at 09:45 Heparin Sodium (Porcine) (Heparin Sodium) 2,450 unit PRN Q6HRS PRN IV FOR UFH LEVEL LESS THAN 0.2; Start 06/21/17 at 09:45 Active Scripts Active Aspirin Ec (Aspirin) 81 Mg Tablet.dr 81 Mg PO DAILYWBKFT Nystop (Nystatin) 60 Gm Powder 1 Tiffany TP BID Isosorbide Mononitrate Er (Isosorbide Mononitrate) 60 Mg Tab.er.24h 60 Mg PO DAILY 30 Days Escitalopram Oxalate 10 Mg Tablet 10 Mg PO DAILY Pepcid (Famotidine) 20 Mg Tablet 20 Mg PO HS Nitrostat (Nitroglycerin) 0.4 Mg Tab.subl 0.4 Mg SL PRN Q5MIN PRN Reported Clopidogrel (Clopidogrel Bisulfate) 75 Mg Tablet 75 Mg PO DAILY Lisinopril 5 Mg Tablet 1 Tab PO DAILY Metoprolol Tartrate 50 Mg Tablet 50 Mg PO BID Nephro-Prashanth Rx Tablet (Vit B Cmplx 3/Fa/Vit C/Biotin) 1 Each Tablet 1 Each PO DAILY Hydrocodone-Apap 7.5-325 (Hydrocodone Bit/Acetaminophen) 1 Each Tablet 1 Tab PO PRN Q6HRS PRN Calcium Acetate 667 Mg Tablet 667 Mg PO TIDWMEALS Lantus Solostar (Insulin Glargine,Hum.rec.anlog) 100 Unit/1 Ml Insuln.pen 14 Unit SQ QHS Vitals/I & O Vital Sign - Last 24 Hours 06/20/17 06/20/17 06/20/17 06/20/17 17:55 18:30 18:46 19:00 Temp 98.5 98.5 Pulse 91 80 82 Resp 18 20 18 20 B/P (MAP) 108/50 (69) 104/51 (68) 109/51 (70) Pulse Ox 96 98 99 99 O2 Delivery Room Air Room Air Room Air Room Air 06/20/17 06/20/17 06/20/17 06/20/17 19:30 20:00 20:10 20:13 Temp 97.9 97.9 Pulse 80 76 71 Resp 20 18 18 20 B/P (MAP) 110/52 (71) 103/55 (71) 106/27 (53) Pulse Ox 97 98 97 96 O2 Delivery Room Air Room Air Room Air Room Air 06/20/17 06/20/17 06/20/17 06/21/17 22:00 22:04 23:00 03:00 Temp 97.7 97.8 97.7 97.8 Pulse 70 66 61 Resp 18 18 B/P (MAP) 127/42 108/33 (58) 103/31 (55) Pulse Ox 98 98 O2 Delivery Nasal Cannula Nasal Cannula Nasal Cannula O2 Flow Rate 2.0 2.0 2.0 06/21/17 06/21/17 06/21/17 06/21/17 07:00 08:00 08:26 08:27 Temp 97.8 97.8 Pulse 68 68 68 Resp 18 B/P (MAP) 113/39 (63) 113/39 113/39 Pulse Ox 96 O2 Delivery Nasal Cannula Nasal Cannula O2 Flow Rate 2.0 2.0 8/8/17 8/8/17 8/8/17 8/8/17 08:28 08:47 09:52 10:13 Pulse 68 B/P (MAP) 113/39 Pulse Ox 96 96 96 O2 Delivery Nasal Cannula Nasal Cannula Nasal Cannula O2 Flow Rate 2.0 2.0 2.0 Intake and Output 06/20/17 06/20/17 06/21/17 15:00 23:00 07:00 Intake Total 120 ml 460 ml Balance 120 ml 460 ml BRIELLE BRIONES MD Jun 21, 2017 10:53
--- NOTE | 2017-06-21 12:12 | PDOC2 ---
CONSULT Date of Consult Date of Consult DATE: 06/21/17 TIME: 12:08 Reason for Consult Reason for Consult: ESRD Referring Physician Referring Physician: ANALI Identification/Chief Complaint Chief Complaint C PAIN Problems: Source Source: Chart review, Patient History of Present Illness Reason for Visit: THIS IS A 76 YR OLD WITH RECURRENT CHEST PAIN. SHE HAS ESRD AND HAS OP HD ON MWF. SHE WENT TO HD YESTERDAY WITHOUT ANY ISSUES. BUT HAVING CHEST PAIN. HER TROPONIN IS UP. LABS ARE C/W ESRD Past Medical History Cardiovascular: AFIB, CAD, CHF, HTN, NH, Hyperlipidemia, Aortic stenosis Pulmonary: COPD CENTRAL NERVOUS SYSTEM: CVA, Periperal neuropathy GI: Constipation, GERD Heme/Onc: Anemia NOS Hepatobiliary: No pertinent hx Psych: Depression Musculoskeletal: Osteoarthritis Rheumatologic: No pertinent hx Infectious disease: No pertinent hx Renal/: Chronic renal failure Endocrine: Diabetes, Hypothyroidism, Hyperparathyroidism Past Surgical History Past Surgical History: Pacemaker, Appendectomy, Cholecystectomy, Cataract Removal, Hernia Repair, Hysterectomy, Other Family History Family History: Hypertension Social History ALCOHOL: none Drugs: None Lives: with Family Domestic Violence: Neg Current Problem List Problem List Problems Medical Problems: (1) Chest pain Status: Acute Current Medications Current Medications Current Medications Nitroglycerin (Nitrostat) 0.4 mg PRN Q5MIN PRN SL CHEST PAIN; Start 06/20/17 at 18:15 Fentanyl Citrate (Fentanyl 2ml Vial) 25 mcg PRN Q15MIN PRN IV PAIN GREATER THAN 3/10 Last administered on 06/20/17 20:13; Start 06/20/17 at 18:15; Stop 06/21 at 18:14 Aspirin (Ecotrin) 81 mg DAILYWBKFT PO Last administered on 06/21/17 08:27; Start 06/21/17 at 08:00 Clopidogrel Bisulfate (Plavix) 75 mg DAILY PO Last administered on 06/21/17 08: 27; Start 06/21/17 at 09:00 Famotidine (Pepcid) 20 mg HS PO Last administered on 06/20/17 22:04; Start 06/20 at 21:00 Acetaminophen/ Hydrocodone Bitart (Lortab 7.5/325) 1 tab PRN Q6HRS PRN PO SEVERE PAIN Last administered on 06/21/17 10:13; Start 06/20/17 at 20:30 Lisinopril (Prinivil) 5 mg DAILY PO Last administered on 06/21/17 08:27; Start 06/21/17 at 09:00 Metoprolol Tartrate (Lopressor) 50 mg BID PO Last administered on 06/21/17 08: 28; Start 06/20/17 at 21:00 Nitroglycerin (Nitrostat) 0.4 mg PRN Q5MIN PRN SL CHEST PAIN; Start 06/20/17 at 20:30 Nystatin (Nystop) 1 tiffany BID TP Last administered on 06/21/17 08:35; Start at 21:00 Calcium Acetate (Phoslo) 667 mg TIDWMEALS PO Last administered on 06/21/17 08: 27; Start 06/21/17 at 08:00 Escitalopram Oxalate (Lexapro) 10 mg DAILY PO Last administered on 06/21/17 08: 25; Start 06/21/17 at 09:00 Insulin Detemir (Levemir) 14 units QHS SQ Last administered on 06/20/17 22:12; Start 06/20/17 at 21:00 Isosorbide Mononitrate (Imdur) 60 mg DAILY PO Last administered on 06/21/17 08: 26; Start 06/21/17 at 09:00 Vitamin B Complex/ Vitamin C (Tanisha-Prashanth) 1 tab DAILY PO Last administered on 08:27; Start 06/21/17 at 09:00 Insulin Aspart (NovoLOG) 0-9 UNITS TIDWMEALS SQ ; Start 06/21/17 at 08:00 Dextrose (Dextrose 50%-Water Syringe) 12.5 gm PRN Q15MIN PRN IV SEE COMMENTS; Start 06/20/17 at 20:30 Fentanyl Citrate (Fentanyl 2ml Vial) 25 mcg PRN Q2HR PRN IV pain; Start at 20:30 Acetaminophen/ Hydrocodone Bitart (Lortab 5/325) 1 tab QID PRN PO MODERATE PAIN Last administered on 06/21/17 08:47; Start 06/20/17 at 20:30 Heparin Sodium (Porcine) (Heparin Sq) 5,000 unit Q8HRS SQ Last administered on 06/21/17 05:42; Start 06/20/17 at 22:00; Stop 06/21/17 at 09:52; Status DC Heparin Sodium/ Dextrose 500 ml @ 0 mls/hr CONT PRN IV SEE I/O RECORD; Start at 09:45; Status Cancel Heparin Sodium/ Dextrose 500 ml @ 0 mls/hr CONT PRN IV SEE I/O RECORD Last administered on 06/21/17t 10:18; Start 06/21/17 at 09:45 Heparin Sodium (Porcine) (Heparin Sodium) 2,450 unit PRN Q6HRS PRN IV FOR UFH LEVEL LESS THAN 0.2; Start 06/21/17 at 09:45 Active Scripts Active Aspirin Ec (Aspirin) 81 Mg Tablet.dr 81 Mg PO DAILYWBKFT Nystop (Nystatin) 60 Gm Powder 1 Tiffany TP BID Isosorbide Mononitrate Er (Isosorbide Mononitrate) 60 Mg Tab.er.24h 60 Mg PO DAILY 30 Days Escitalopram Oxalate 10 Mg Tablet 10 Mg PO DAILY Pepcid (Famotidine) 20 Mg Tablet 20 Mg PO HS Nitrostat (Nitroglycerin) 0.4 Mg Tab.subl 0.4 Mg SL PRN Q5MIN PRN Reported Clopidogrel (Clopidogrel Bisulfate) 75 Mg Tablet 75 Mg PO DAILY Lisinopril 5 Mg Tablet 1 Tab PO DAILY Metoprolol Tartrate 50 Mg Tablet 50 Mg PO BID Nephro-Prashanth Rx Tablet (Vit B Cmplx 3/Fa/Vit C/Biotin) 1 Each Tablet 1 Each PO DAILY Hydrocodone-Apap 7.5-325 (Hydrocodone Bit/Acetaminophen) 1 Each Tablet 1 Tab PO PRN Q6HRS PRN Calcium Acetate 667 Mg Tablet 667 Mg PO TIDWMEALS Lantus Solostar (Insulin Glargine,Hum.rec.anlog) 100 Unit/1 Ml Insuln.pen 14 Unit SQ QHS Allergies Allergies: Coded Allergies: Sulfa (Sulfonamide Antibiotics) (Verified Allergy, Intermediate, Nausea/ Vomiting, Rash, 09/22/16) morphine (Verified Allergy, Intermediate, itching, 09/22/16) adhesive (Verified Adverse Reaction, Intermediate, Itching, 09/22/16) ROS General: YES: Fatigue, Malaise, Appetite PSYCHOLOGICAL ROS: YES: Anxiety Eyes: Yes Decreased vision HEENT: YES: Heacaches Cardiovascular: yes Chest Pain, yes Orthopnea Gastrointestinal: Yes Constipation Genitourinary: No Other (ANURIA) Musculoskeletal: Yes Muscular Weakness Neurological: Yes Weakness Skin: Yes Dry Skin Physical Exam General: Alert, Oriented X3, Cooperative, No acute distress HEENT: Atraumatic, PERRLA Lungs: Clear to auscultation Heart: Regular rate, No murmurs Abdomen: Normal bowel sounds, Soft, No tenderness Extremities: No clubbing, No edema Neuro: Normal gait, Normal speech, Sensation intact, Cranial nerves 3-12 NL Psych/Mental Status: Mental status NL, Mood NL MUSCULOSKELETAL: No deformity, No swelling Vitals VITALS Vital Signs Date Time Temp Pulse Resp B/P (MAP) Pulse Ox O2 Delivery O2 Flow Rate FiO2 06/21/17 11:00 97.8 61 18 134/46 (75) 96 Nasal Cannula 2.0 97.8 Labs Labs Laboratory Tests Test 06/20/17 18:10 06/20/17 22:01 06/21/17 08:18 06/21/17 08:35 White Blood Count 4.1 x10^3/uL (4.0-11.0) Red Blood Count 2.95 x10^6/uL (3.50-5.40) Hemoglobin 10.0 g/dL (12.0-15.5) Hematocrit 29.5 % (36.0-47.0) Mean Corpuscular Volume 100 fL (79-100) Mean Corpuscular Hemoglobin 34 pg (25-35) Mean Corpuscular Hemoglobin Concent 34 g/dL (31-37) Red Cell Distribution Width 16.1 % (11.5-14.5) Platelet Count 95 x10^3/uL (140-400) Neutrophils (%) (Auto) 69 % (31-73) Lymphocytes (%) (Auto) 10 % (24-48) Monocytes (%) (Auto) 13 % (0-9) Eosinophils (%) (Auto) 7 % (0-3) Basophils (%) (Auto) 1 % (0-3) Neutrophils # (Auto) 2.8 x10^3uL (1.8-7.7) Lymphocytes # (Auto) 0.4 x10^3/uL (1.0-4.8) Monocytes # (Auto) 0.5 x10^3/uL (0.0-1.1) Eosinophils # (Auto) 0.3 x10^3/uL (0.0-0.7) Basophils # (Auto) 0.0 x10^3/uL (0.0-0.2) Sodium Level 139 mmol/L (136-145) Potassium Level 3.9 mmol/L (3.5-5.1) Chloride Level 99 mmol/L (98-107) Carbon Dioxide Level 33 mmol/L (21-32) Anion Gap 7 (6-14) Blood Urea Nitrogen 28 mg/dL (7-20) Creatinine 2.8 mg/dL (0.6-1.0) Estimated GFR (Cockcroft-Gault) 16.4 Glucose Level 311 mg/dL (70-99) Calcium Level 7.2 mg/dL (8.5-10.1) Total Bilirubin 0.3 mg/dL (0.2-1.0) Direct Bilirubin 0.1 mg/dL (0.0-0.2) Aspartate Amino Transf (AST/SGOT) 33 U/L (15-37) Alanine Aminotransferase (ALT/SGPT) 28 U/L (14-59) Alkaline Phosphatase 132 U/L (46-116) Troponin I Quantitative 0.066 ng/mL (0.000-0.055) 6.825 ng/mL (0.000-0.055) BL-Pim-D-Type Natriuretic Peptide 79243 pg/mL (0-449) Total Protein 6.4 g/dL (6.4-8.2) Albumin 2.8 g/dL (3.4-5.0) Glucose (Fingerstick) 164 mg/dL (70-99) 61 mg/dL (70-99) Test 06/21/17 09:50 06/21/17 11:25 Glucose (Fingerstick) 176 mg/dL (70-99) 182 mg/dL (70-99) Laboratory Tests Test 06/20/17 18:10 06/20/17 22:01 06/21/17 08:18 06/21/17 08:35 White Blood Count 4.1 x10^3/uL (4.0-11.0) Red Blood Count 2.95 x10^6/uL (3.50-5.40) Hemoglobin 10.0 g/dL (12.0-15.5) Hematocrit 29.5 % (36.0-47.0) Mean Corpuscular Volume 100 fL (79-100) Mean Corpuscular Hemoglobin 34 pg (25-35) Mean Corpuscular Hemoglobin Concent 34 g/dL (31-37) Red Cell Distribution Width 16.1 % (11.5-14.5) Platelet Count 95 x10^3/uL (140-400) Neutrophils (%) (Auto) 69 % (31-73) Lymphocytes (%) (Auto) 10 % (24-48) Monocytes (%) (Auto) 13 % (0-9) Eosinophils (%) (Auto) 7 % (0-3) Basophils (%) (Auto) 1 % (0-3) Neutrophils # (Auto) 2.8 x10^3uL (1.8-7.7) Lymphocytes # (Auto) 0.4 x10^3/uL (1.0-4.8) Monocytes # (Auto) 0.5 x10^3/uL (0.0-1.1) Eosinophils # (Auto) 0.3 x10^3/uL (0.0-0.7) Basophils # (Auto) 0.0 x10^3/uL (0.0-0.2) Sodium Level 139 mmol/L (136-145) Potassium Level 3.9 mmol/L (3.5-5.1) Chloride Level 99 mmol/L (98-107) Carbon Dioxide Level 33 mmol/L (21-32) Anion Gap 7 (6-14) Blood Urea Nitrogen 28 mg/dL (7-20) Creatinine 2.8 mg/dL (0.6-1.0) Estimated GFR (Cockcroft-Gault) 16.4 Glucose Level 311 mg/dL (70-99) Calcium Level 7.2 mg/dL (8.5-10.1) Total Bilirubin 0.3 mg/dL (0.2-1.0) Direct Bilirubin 0.1 mg/dL (0.0-0.2) Aspartate Amino Transf (AST/SGOT) 33 U/L (15-37) Alanine Aminotransferase (ALT/SGPT) 28 U/L (14-59) Alkaline Phosphatase 132 U/L (46-116) Troponin I Quantitative 0.066 ng/mL (0.000-0.055) 6.825 ng/mL (0.000-0.055) WQ-Ziq-O-Type Natriuretic Peptide 72373 pg/mL (0-449) Total Protein 6.4 g/dL (6.4-8.2) Albumin 2.8 g/dL (3.4-5.0) Glucose (Fingerstick) 164 mg/dL (70-99) 61 mg/dL (70-99) Test 06/21/17 09:50 06/21/17 11:25 Glucose (Fingerstick) 176 mg/dL (70-99) 182 mg/dL (70-99) Assessment/Plan Assessment/Plan IMP ESRD ANEMIA HTN CHEST PAIN AMI PLAN HD TOMORROW CARDIOLOGY EVAL AND TX CHLOE GUAJARDO MD Jun 21, 2017 12:12
--- NOTE | 2017-06-21 15:13 | EKG ---
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
[2017-06-21] MEDS: amLODIPine BESYLATE 2.5 MG TABLET PO SCH (16:29)
[2017-06-21] MEDS: NITROGLYCERIN SUBLINGUAL 0.4 MG BOTTLE OF 25. SL PRN ×2 (17:08→19:38)
--- NOTE | 2017-06-21 17:33 | EKG ---
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 : 1940 Requested By: TIMOTHY RUSSO Order Number: [id number] Reading MD: Measurements Intervals [place] Rate: 61 P: 0 [place]: 174 QRS: 136 QRSD: 170 T: -44 QT: 524 QTc: 529 Interpretive Statements SINUS RHYTHM COMPLEX(ES) WITH ABERRANT INTRAVENTRICULAR CONDUCTION VENTRICULAR PREMATURE COMPLEX(ES) ABNORMAL RIGHT AXIS DEVIATION NON SPECIFIC INTRAVENTRICULAR BLOCK RVH WITH REPOLARIZATION ABNORMALITY QRS(T) CONTOUR ABNORMALITY CONSISTENT WITH HIGH LATERAL INFARCT PROBABLY OLD ABNORMAL ECG RI6.01 Compared to ECG 06/10/2017 03:29:36 Right-axis deviation now present Right ventricular hypertrophy now present Early repolarization now present Myocardial infarct finding now present Ventricular-paced complex(es) or rhythm no longer present
[2017-06-21] MEDS ORDERED: NITROGLYCERIN PREMIX 250 ML IV PRN (20:45)
[2017-06-21] MEDS ORDERED: DARBEPOETIN ALFA 60 MCG/0.3 ML DISP.SYRIN. SQ SCH (21:00)
[2017-06-21] MEDS: FAMOTIDINE 20 MG TABLET. PO SCH (21:27)
[2017-06-21] MEDS: INSULIN DETEMIR 300 UNITS/3 ML INSULN.PEN. SQ SCH (21:39)
[2017-06-22] VITALS (12 sets, daily range): BP systolic 87–131; BP diastolic 44–87
[2017-06-22] MEDS: HYDROcodone/APAP 7.5/325MG 1 TAB TABLET PO PRN (03:14)
[2017-06-22 05:39] LABS: CALCIUM 6.9 mg/dL (8.5-10.1); CREATININE 4.8 mg/dL (0.6-1.0); GFR 8.8; POTASSIUM 3.9 mmol/L (3.5-5.1)
[2017-06-22 05:59] LABS: HEMATOCRIT 24.5 % (36.0-47.0); HEMOGLOBIN 8.5 g/dL (12.0-15.5); RED BLOOD COUNT 2.49 x10^6/uL (3.50-5.40); RED CELL DISTRIBUTION WIDTH 16.1 % (11.5-14.5); WHITE BLOOD COUNT 4.3 x10^3/uL (4.0-11.0)
[2017-06-22] MEDS: HEPARIN 25,000UTS/500ML PREMIX 500 ML IV PRN (06:21)
[2017-06-22] MEDS: INSULIN ASPART 300 UNITS/3 ML INSULN.PEN SQ SCH ×3 (08:00→17:00)
[2017-06-22] MEDS: CALCIUM ACETATE 667 MG CAPSULE PO SCH ×3 (08:00→18:11)
[2017-06-22] MEDS: NYSTATIN TOPICAL POWDER 15GM BOTTLE. TP SCH ×2 (09:00→21:40)
[2017-06-22] MEDS: CLOPIDOGREL BISULFATE 75 MG TABLET PO SCH (09:08)
[2017-06-22] MEDS: ASPIRIN ENTERIC COATED 81 MG TABLET.DR. PO SCH (09:08)
[2017-06-22] MEDS: METOPROLOL TART IMMED RELEASE 50 MG TABLET. PO SCH ×2 (09:09→21:27)
--- NOTE | 2017-06-22 09:44 | PDOC ---
Renal-Progress Notes Subjective Notes Notes MORE CHEST PAIN OVER NIGHT BUT BETTER AFTER NITRO History of Present Illness Hx of present illness STABLE Vitals Vitals Vital Signs Date Time Temp Pulse Resp B/P (MAP) Pulse Ox O2 Delivery O2 Flow Rate FiO2 06/22/17 09:09 63 115/56 06/22/17 08:15 Nasal Cannula 2.0 06/22/17 07:00 98.5 18 97 98.5 Weight Weight [ ] I.O. Intake and Output Intake and Output 06/22/17 07:00 Intake Total 881.5 ml Output Total 0 ml Balance 881.5 ml Intake Oral 400 ml IV Total 481.5 ml Output Urine Total 0 ml # Voids 2 # Bowel Movements 1 Labs Labs Laboratory Tests Test 06/21/17 09:50 06/21/17 11:25 06/21/17 14:25 06/21/17 15:30 Glucose (Fingerstick) 176 mg/dL (70-99) 182 mg/dL (70-99) Troponin I Quantitative 6.004 ng/mL (0.000-0.055) Heparin Anti-Xa Act, Unfractionated 0.49 IU/mL (0.30-0.70) Test 06/21/17 17:29 06/21/17 17:45 06/21/17 20:39 06/21/17 22:10 Glucose (Fingerstick) 99 mg/dL (70-99) 227 mg/dL (70-99) Troponin I Quantitative 4.144 ng/mL (0.000-0.055) Heparin Anti-Xa Act, Unfractionated 0.56 IU/mL (0.30-0.70) Test 06/22/17 05:15 06/22/17 07:18 White Blood Count 4.3 x10^3/uL (4.0-11.0) Red Blood Count 2.49 x10^6/uL (3.50-5.40) Hemoglobin 8.5 g/dL (12.0-15.5) Hematocrit 24.5 % (36.0-47.0) Mean Corpuscular Volume 99 fL (79-100) Mean Corpuscular Hemoglobin 34 pg (25-35) Mean Corpuscular Hemoglobin Concent 35 g/dL (31-37) Red Cell Distribution Width 16.1 % (11.5-14.5) Platelet Count 86 x10^3/uL (140-400) Heparin Anti-Xa Act, Unfractionated 0.52 IU/mL (0.30-0.70) Sodium Level 136 mmol/L (136-145) Potassium Level 3.9 mmol/L (3.5-5.1) Chloride Level 98 mmol/L (98-107) Carbon Dioxide Level 33 mmol/L (21-32) Anion Gap 5 (6-14) Blood Urea Nitrogen 49 mg/dL (7-20) Creatinine 4.8 mg/dL (0.6-1.0) Estimated GFR (Cockcroft-Gault) 8.8 Glucose Level 115 mg/dL (70-99) Calcium Level 6.9 mg/dL (8.5-10.1) Glucose (Fingerstick) 94 mg/dL (70-99) Review of Systems Constitutional: yes: weakness, alert, oriented Ears/Nose/Throat: Yes: no symptom reported Eyes: Yes: no symptom reported Pulmonary: Yes dyspnea Cardiovascular: Yes chest pain Gastrointestional: Yes: constipation Genitourinary: Yes: no symptom reported Musculoskeletal: Yes: no symptom reported Skin: Yes no symptom reported Psychiatric/Neurological: Yes: no symptom reported Physical Exam General Appearance: no apparent distress Skin: warm Respiratory: bilateral CTA Heart: S1S2, RRR Abdomen: soft, bowel sounds present Genitourinary: bladder flat, no mass Extremities: pulses present, no edema Neurology: alert, oriented, follow commands Musculoskeletal: Osteoarthritis Assessment Assessment IMP CHEST PAIN AMI ANEMIA HTN ESRD PLAN ON NITRO GTT HEART CATH TODAY HD TODAY AFTER CATH UF TO CHLOE SCHMIDT MD Jun 22, 2017 09:44
[2017-06-22] MEDS ORDERED: MIDAZOLAM HCL/PF 5 MG/5 ML VIAL. ONE (09:56)
[2017-06-22] MEDS ORDERED: fentaNYL PF VIAL 100 MCG/2 ML VIAL ONE (09:56)
[2017-06-22] MEDS ORDERED: IODIXANOL 320 MG/ML 100 ML VIAL. ONE ×2 (09:57→10:06)
[2017-06-22] MEDS ORDERED: HEPARIN for ARTERIAL LINE 1,500 ML ONE (09:57)
[2017-06-22] MEDS ORDERED: LIDOCAINE 2% 20 ML VIAL. ONE (09:58)
[2017-06-22] MEDS ORDERED: ANTI-COAG MONITOR BY PHARMACY. MC PRN (10:30)
[2017-06-22] MEDS ORDERED: fentaNYL PF VIAL 100 MCG/2 ML VIAL IV ONE (10:45)
[2017-06-22] MEDS ORDERED: MIDAZOLAM HCL/PF 5 MG/5 ML VIAL. IV ONE (10:45)
[2017-06-22] MEDS ORDERED: LIDOCAINE 2% 20 ML VIAL. IJ ONE (10:45)
[2017-06-22] MEDS ORDERED: IODIXANOL 320 MG/ML 100 ML VIAL. IART ONE (10:45)
[2017-06-22] MEDS ORDERED: CONTRAST GIVEN MC PRN (11:00)
--- NOTE | 2017-06-22 11:36 | PDOC ---
PROGRESS NOTES Chief Complaint Chief Complaint 1. Chest pains need to rule out unstable angina 2. KNown CAD with recent PCI 05/2017 left circum flex 3. ESRD on HD MWF 4. Dyslipidemia 5. 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 HTN. controlled 7. DM 2 insulin req, controlled 8. severe EF 55% anemia, chronic dz , ESRD thrombocytopenia, chronic, not clear etiology plan: fu with renal, card cont HD Usual Cath today, still on nitro drip insulin, ssi may need HH when dc ptot History of Present Illness History of Present Illness chest pain overnight, repeated troponin lower than before, but no CKMB done on nitro drip overnight of 06/22 , still going on now REfuses SNU home o2 2l Vitals Vitals Vital Signs Date Time Temp Pulse Resp B/P (MAP) Pulse Ox O2 Delivery O2 Flow Rate FiO2 06/22/17 11:18 19 96 Nasal Cannula 2.0 06/22/17 09:09 63 115/56 06/22/17 07:00 98.5 98.5 Physical Exam General: Alert, Oriented X3, Cooperative, No acute distress Heart: Regular rate, No murmurs Lungs: Clear Abdomen: Normal bowel sounds, Soft, No tenderness Extremities: No clubbing, No edema Skin: No rashes, No breakdown, No significant lesion Labs LABS Laboratory Tests Test 06/21/17 14:25 06/21/17 15:30 06/21/17 17:29 06/21/17 17:45 Troponin I Quantitative 6.004 ng/mL (0.000-0.055) 4.144 ng/mL (0.000-0.055) Heparin Anti-Xa Act, Unfractionated 0.49 IU/mL (0.30-0.70) Glucose (Fingerstick) 99 mg/dL (70-99) Test 06/21/17 20:39 06/21/17 22:10 06/22/17 05:15 06/22/17 07:18 Glucose (Fingerstick) 227 mg/dL (70-99) 94 mg/dL (70-99) Heparin Anti-Xa Act, Unfractionated 0.56 IU/mL (0.30-0.70) 0.52 IU/mL (0.30-0.70) White Blood Count 4.3 x10^3/uL (4.0-11.0) Red Blood Count 2.49 x10^6/uL (3.50-5.40) Hemoglobin 8.5 g/dL (12.0-15.5) Hematocrit 24.5 % (36.0-47.0) Mean Corpuscular Volume 99 fL (79-100) Mean Corpuscular Hemoglobin 34 pg (25-35) Mean Corpuscular Hemoglobin Concent 35 g/dL (31-37) Red Cell Distribution Width 16.1 % (11.5-14.5) Platelet Count 86 x10^3/uL (140-400) Sodium Level 136 mmol/L (136-145) Potassium Level 3.9 mmol/L (3.5-5.1) Chloride Level 98 mmol/L (98-107) Carbon Dioxide Level 33 mmol/L (21-32) Anion Gap 5 (6-14) Blood Urea Nitrogen 49 mg/dL (7-20) Creatinine 4.8 mg/dL (0.6-1.0) Estimated GFR (Cockcroft-Gault) 8.8 Glucose Level 115 mg/dL (70-99) Calcium Level 6.9 mg/dL (8.5-10.1) Review of Systems Review of Systems no fever, chills, r sob Assessment and Plan Assessmemt and Plan Problems Medical Problems: (1) Chest pain Status: Acute Problems: Comment Review of Relevant I have reviewed the following items adrián (where applicable) has been applied. Labs Laboratory Tests Test 06/20/17 18:10 06/20/17 22:01 06/21/17 08:18 06/21/17 08:35 White Blood Count 4.1 x10^3/uL (4.0-11.0) Red Blood Count 2.95 x10^6/uL (3.50-5.40) Hemoglobin 10.0 g/dL (12.0-15.5) Hematocrit 29.5 % (36.0-47.0) Mean Corpuscular Volume 100 fL (79-100) Mean Corpuscular Hemoglobin 34 pg (25-35) Mean Corpuscular Hemoglobin Concent 34 g/dL (31-37) Red Cell Distribution Width 16.1 % (11.5-14.5) Platelet Count 95 x10^3/uL (140-400) Neutrophils (%) (Auto) 69 % (31-73) Lymphocytes (%) (Auto) 10 % (24-48) Monocytes (%) (Auto) 13 % (0-9) Eosinophils (%) (Auto) 7 % (0-3) Basophils (%) (Auto) 1 % (0-3) Neutrophils # (Auto) 2.8 x10^3uL (1.8-7.7) Lymphocytes # (Auto) 0.4 x10^3/uL (1.0-4.8) Monocytes # (Auto) 0.5 x10^3/uL (0.0-1.1) Eosinophils # (Auto) 0.3 x10^3/uL (0.0-0.7) Basophils # (Auto) 0.0 x10^3/uL (0.0-0.2) Sodium Level 139 mmol/L (136-145) Potassium Level 3.9 mmol/L (3.5-5.1) Chloride Level 99 mmol/L (98-107) Carbon Dioxide Level 33 mmol/L (21-32) Anion Gap 7 (6-14) Blood Urea Nitrogen 28 mg/dL (7-20) Creatinine 2.8 mg/dL (0.6-1.0) Estimated GFR (Cockcroft-Gault) 16.4 Glucose Level 311 mg/dL (70-99) Calcium Level 7.2 mg/dL (8.5-10.1) Total Bilirubin 0.3 mg/dL (0.2-1.0) Direct Bilirubin 0.1 mg/dL (0.0-0.2) Aspartate Amino Transf (AST/SGOT) 33 U/L (15-37) Alanine Aminotransferase (ALT/SGPT) 28 U/L (14-59) Alkaline Phosphatase 132 U/L (46-116) Troponin I Quantitative 0.066 ng/mL (0.000-0.055) 6.825 ng/mL (0.000-0.055) JX-Lrp-P-Type Natriuretic Peptide 41186 pg/mL (0-449) Total Protein 6.4 g/dL (6.4-8.2) Albumin 2.8 g/dL (3.4-5.0) Glucose (Fingerstick) 164 mg/dL (70-99) 61 mg/dL (70-99) Test 06/21/17 09:50 06/21/17 11:25 06/21/17 14:25 06/21/17 15:30 Glucose (Fingerstick) 176 mg/dL (70-99) 182 mg/dL (70-99) Troponin I Quantitative 6.004 ng/mL (0.000-0.055) Heparin Anti-Xa Act, Unfractionated 0.49 IU/mL (0.30-0.70) Test 06/21/17 17:29 06/21/17 17:45 06/21/17 20:39 06/21/17 22:10 Glucose (Fingerstick) 99 mg/dL (70-99) 227 mg/dL (70-99) Troponin I Quantitative 4.144 ng/mL (0.000-0.055) Heparin Anti-Xa Act, Unfractionated 0.56 IU/mL (0.30-0.70) Test 06/22/17 05:15 06/22/17 07:18 White Blood Count 4.3 x10^3/uL (4.0-11.0) Red Blood Count 2.49 x10^6/uL (3.50-5.40) Hemoglobin 8.5 g/dL (12.0-15.5) Hematocrit 24.5 % (36.0-47.0) Mean Corpuscular Volume 99 fL (79-100) Mean Corpuscular Hemoglobin 34 pg (25-35) Mean Corpuscular Hemoglobin Concent 35 g/dL (31-37) Red Cell Distribution Width 16.1 % (11.5-14.5) Platelet Count 86 x10^3/uL (140-400) Heparin Anti-Xa Act, Unfractionated 0.52 IU/mL (0.30-0.70) Sodium Level 136 mmol/L (136-145) Potassium Level 3.9 mmol/L (3.5-5.1) Chloride Level 98 mmol/L (98-107) Carbon Dioxide Level 33 mmol/L (21-32) Anion Gap 5 (6-14) Blood Urea Nitrogen 49 mg/dL (7-20) Creatinine 4.8 mg/dL (0.6-1.0) Estimated GFR (Cockcroft-Gault) 8.8 Glucose Level 115 mg/dL (70-99) Calcium Level 6.9 mg/dL (8.5-10.1) Glucose (Fingerstick) 94 mg/dL (70-99) Laboratory Tests Test 06/21/17 14:25 06/21/17 15:30 06/21/17 17:29 06/21/17 17:45 Troponin I Quantitative 6.004 ng/mL (0.000-0.055) 4.144 ng/mL (0.000-0.055) Heparin Anti-Xa Act, Unfractionated 0.49 IU/mL (0.30-0.70) Glucose (Fingerstick) 99 mg/dL (70-99) Test 06/21/17 20:39 06/21/17 22:10 06/22/17 05:15 06/22/17 07:18 Glucose (Fingerstick) 227 mg/dL (70-99) 94 mg/dL (70-99) Heparin Anti-Xa Act, Unfractionated 0.56 IU/mL (0.30-0.70) 0.52 IU/mL (0.30-0.70) White Blood Count 4.3 x10^3/uL (4.0-11.0) Red Blood Count 2.49 x10^6/uL (3.50-5.40) Hemoglobin 8.5 g/dL (12.0-15.5) Hematocrit 24.5 % (36.0-47.0) Mean Corpuscular Volume 99 fL (79-100) Mean Corpuscular Hemoglobin 34 pg (25-35) Mean Corpuscular Hemoglobin Concent 35 g/dL (31-37) Red Cell Distribution Width 16.1 % (11.5-14.5) Platelet Count 86 x10^3/uL (140-400) Sodium Level 136 mmol/L (136-145) Potassium Level 3.9 mmol/L (3.5-5.1) Chloride Level 98 mmol/L (98-107) Carbon Dioxide Level 33 mmol/L (21-32) Anion Gap 5 (6-14) Blood Urea Nitrogen 49 mg/dL (7-20) Creatinine 4.8 mg/dL (0.6-1.0) Estimated GFR (Cockcroft-Gault) 8.8 Glucose Level 115 mg/dL (70-99) Calcium Level 6.9 mg/dL (8.5-10.1) Medications Current Medications Nitroglycerin (Nitrostat) 0.4 mg PRN Q5MIN PRN SL CHEST PAIN; Start 06/20/17 at 18:15; Stop 06/21/17 at 16:44; Status DC Fentanyl Citrate (Fentanyl 2ml Vial) 25 mcg PRN Q15MIN PRN IV PAIN GREATER THAN 3/10 Last administered on 06/20/17 20:13; Start 06/20/17 at 18:15; Stop 06/21 at 18:14; Status DC Aspirin (Ecotrin) 81 mg DAILYWBKFT PO Last administered on 06/22/17 09:08; Start 06/21/17 at 08:00 Clopidogrel Bisulfate (Plavix) 75 mg DAILY PO Last administered on 06/22/17 09: 08; Start 06/21/17 at 09:00 Famotidine (Pepcid) 20 mg HS PO Last administered on 06/21/17 21:27; Start 06/20 at 21:00 Acetaminophen/ Hydrocodone Bitart (Lortab 7.5/325) 1 tab PRN Q6HRS PRN PO SEVERE PAIN Last administered on 06/22/17 03:14; Start 06/20/17 at 20:30 Lisinopril (Prinivil) 5 mg DAILY PO Last administered on 06/21/17 08:27; Start 06/21/17 at 09:00; Stop 06/21/17 at 13:29; Status DC Metoprolol Tartrate (Lopressor) 50 mg BID PO Last administered on 06/22/17 09: 09; Start 06/20/17 at 21:00 Nitroglycerin (Nitrostat) 0.4 mg PRN Q5MIN PRN SL CHEST PAIN Last administered on 06/21/17 19:38; Start 06/20/17 at 20:30 Nystatin (Nystop) 1 tiffany BID TP Last administered on 06/21/17 21:28; Start at 21:00 Calcium Acetate (Phoslo) 667 mg TIDWMEALS PO Last administered on 06/21/17 16: 28; Start 06/21/17 at 08:00 Escitalopram Oxalate (Lexapro) 10 mg DAILY PO Last administered on 06/21/17 08: 25; Start 06/21/17 at 09:00 Insulin Detemir (Levemir) 14 units QHS SQ Last administered on 06/21/17 21:39; Start 06/20/17 at 21:00 Isosorbide Mononitrate (Imdur) 60 mg DAILY PO Last administered on 06/21/17 08: 26; Start 06/21/17 at 09:00 Vitamin B Complex/ Vitamin C (Tanisha-Prashanth) 1 tab DAILY PO Last administered on 08:27; Start 06/21/17 at 09:00 Insulin Aspart (NovoLOG) 0-9 UNITS TIDWMEALS SQ Last administered on 06/21/17 12:24; Start 06/21/17 at 08:00 Dextrose (Dextrose 50%-Water Syringe) 12.5 gm PRN Q15MIN PRN IV SEE COMMENTS; Start 06/20/17 at 20:30 Fentanyl Citrate (Fentanyl 2ml Vial) 25 mcg PRN Q2HR PRN IV pain; Start at 20:30 Acetaminophen/ Hydrocodone Bitart (Lortab 5/325) 1 tab QID PRN PO MODERATE PAIN Last administered on 06/21/17 08:47; Start 06/20/17 at 20:30 Heparin Sodium (Porcine) (Heparin Sq) 5,000 unit Q8HRS SQ Last administered on 06/21/17 05:42; Start 06/20/17 at 22:00; Stop 06/21/17 at 09:52; Status DC Heparin Sodium/ Dextrose 500 ml @ 0 mls/hr CONT PRN IV SEE I/O RECORD; Start at 09:45; Status Cancel Heparin Sodium/ Dextrose 500 ml @ 0 mls/hr CONT PRN IV SEE I/O RECORD Last administered on 06/22/17 06:21; Start 06/21/17 at 09:45 Heparin Sodium (Porcine) (Heparin Sodium) 2,450 unit PRN Q6HRS PRN IV FOR UFH LEVEL LESS THAN 0.2; Start 06/21/17 at 09:45 Darbepoetin James (Aranesp) 60 mcg WEEKLYHS SQ Last administered on 06/21/17 21: 28; Start 06/21/17 at 21:00 Amlodipine Besylate (Norvasc) 2.5 mg DAILY PO Last administered on 06/21/17 16: 29; Start 06/21/17 at 14:00 Nitroglycerin/ Dextrose 250 ml @ 0 mls/hr CONT PRN IV SEE I/O RECORD Last administered on 06/21/17 21:39; Start 06/21/17 at 20:45 Fentanyl Citrate (Fentanyl 2ml Vial) 100 mcg STK-MED ONCE .ROUTE ; Start at 09:56; Stop 06/22/17 at 09:57; Status DC Midazolam HCl (Versed) 5 mg STK-MED ONCE .ROUTE ; Start 06/22/17 at 09:56; Stop 06/22/17 at 09:57; Status DC Heparin Sodium/ Sodium Chloride 1,500 ml @ As Directed STK-MED ONCE .ROUTE ; Start 06/22/17 at 09:57; Stop 06/22/17 at 09:58; Status DC Iodixanol (Visipaque 320) 100 ml STK-MED ONCE .ROUTE ; Start 06/22/17 at 09:57; Stop 06/22/17 at 09:58; Status DC Lidocaine HCl 20 ml STK-MED ONCE .ROUTE ; Start 06/22/17 at 09:58; Stop 06/22/17 at 09:59; Status DC Iodixanol (Visipaque 320) 100 ml STK-MED ONCE .ROUTE ; Start 06/22/17 at 10:06; Stop 06/22/17 at 10:07; Status DC Info (Anti-Coagulation Monitoring By Pharmacy) 1 each PRN DAILY PRN MC SEE COMMENTS; Start 06/22/17 at 10:30 Heparin Sodium/ Sodium Chloride 1,000 unit 1X ONCE IART Last administered on 11:16; Start 06/22/17 at 10:45; Stop 06/22/17 at 10:49; Status DC Heparin Sodium/ Sodium Chloride 1,000 unit 1X ONCE IART Last administered on 11:16; Start 06/22/17 at 10:45; Stop 06/22/17 at 10:49; Status DC Midazolam HCl (Versed) 5 mg 1X ONCE IV Last administered on 06/22/17 11:17; Start 06/22/17 at 10:45; Stop 06/22/17 at 10:49; Status DC Fentanyl Citrate (Fentanyl 2ml Vial) 100 mcg 1X ONCE IV Last administered on 11:18; Start 06/22/17 at 10:45; Stop 06/22/17 at 10:49; Status DC Iodixanol (Visipaque 320) 100 ml 1X ONCE IART Last administered on 06/22/17 11 :17; Start 06/22/17 at 10:45; Stop 06/22/17 at 10:49; Status DC Lidocaine HCl 20 ml 1X ONCE IJ Last administered on 06/22/17 11:16; Start 06/22 at 10:45; Stop 06/22/17 at 10:49; Status DC Info (Do NOT chart on this entry -- for MONITORING) 1 each PRN DAILY PRN MC SEE COMMENTS; Start 06/22/17 at 11:00; Stop 06/24/17 at 10:59 Active Scripts Active Aspirin Ec (Aspirin) 81 Mg Tablet.dr 81 Mg PO DAILYWBKFT Nystop (Nystatin) 60 Gm Powder 1 Tiffany TP BID Isosorbide Mononitrate Er (Isosorbide Mononitrate) 60 Mg Tab.er.24h 60 Mg PO DAILY 30 Days Escitalopram Oxalate 10 Mg Tablet 10 Mg PO DAILY Pepcid (Famotidine) 20 Mg Tablet 20 Mg PO HS Nitrostat (Nitroglycerin) 0.4 Mg Tab.subl 0.4 Mg SL PRN Q5MIN PRN Reported Clopidogrel (Clopidogrel Bisulfate) 75 Mg Tablet 75 Mg PO DAILY Lisinopril 5 Mg Tablet 1 Tab PO DAILY Metoprolol Tartrate 50 Mg Tablet 50 Mg PO BID Nephro-Prashanth Rx Tablet (Vit B Cmplx 3/Fa/Vit C/Biotin) 1 Each Tablet 1 Each PO DAILY Hydrocodone-Apap 7.5-325 (Hydrocodone Bit/Acetaminophen) 1 Each Tablet 1 Tab PO PRN Q6HRS PRN Calcium Acetate 667 Mg Tablet 667 Mg PO TIDWMEALS Lantus Solostar (Insulin Glargine,Hum.rec.anlog) 100 Unit/1 Ml Insuln.pen 14 Unit SQ QHS Vitals/I & O Vital Sign - Last 24 Hours 06/21/17 06/21/17 06/21/17 06/21/17 16:29 16:44 17:08 17:45 Temp 98.7 98.7 Pulse 61 61 62 Resp 18 B/P (MAP) 134/46 134/46 120/41 (67) Pulse Ox 96 97 O2 Delivery Nasal Cannula Nasal Cannula O2 Flow Rate 2.0 2.0 06/21/17 06/21/17 06/21/17 06/21/17 19:14 19:38 20:00 20:02 Temp 98.3 98.3 Pulse 67 70 66 Resp 16 B/P (MAP) 126/39 (68) 127/39 110/71 (84) Pulse Ox 97 O2 Delivery Nasal Cannula Nasal Cannula O2 Flow Rate 1.0 2.0 06/21/17 06/21/17 06/21/17 06/21/17 20:30 21:28 22:30 22:38 Temp 97.7 97.7 Pulse 66 70 63 63 Resp 18 B/P (MAP) 103/54 (70) 127/39 103/54 (70) 112/53 (72) Pulse Ox 96 O2 Delivery Nasal Cannula O2 Flow Rate 1.0 06/21/17 06/22/17 06/22/17 06/22/17 23:00 00:00 01:00 02:00 Pulse 62 62 62 60 B/P (MAP) 104/53 (70) 115/56 (75) 109/48 (68) 94/45 (61) 06/22/17 06/22/17 06/22/17 06/22/17 02:53 03:00 03:14 04:00 Temp 99.0 99.0 Pulse 62 64 62 Resp 20 B/P (MAP) 105/58 (74) 105/58 (74) 87/44 (58) Pulse Ox 97 96 O2 Delivery Nasal Cannula Nasal Cannula O2 Flow Rate 1.0 1.0 06/22/17 06/22/17 06/22/17 06/22/17 04:14 04:51 07:00 08:15 Temp 98.5 98.5 Pulse 60 63 Resp 18 B/P (MAP) 116/58 (77) 115/56 (75) Pulse Ox 96 97 O2 Delivery Nasal Cannula Nasal Cannula Nasal Cannula O2 Flow Rate 1.0 2.0 2.0 06/22/17 06/22/17 09:09 11:18 Pulse 63 Resp 19 B/P (MAP) 115/56 Pulse Ox 96 O2 Delivery Nasal Cannula O2 Flow Rate 2.0 Intake and Output 06/21/17 06/21/17 06/22/17 15:00 23:00 07:00 Intake Total 200 ml 681.5 ml Output Total 0 ml Balance 200 ml 681.5 ml KOURTNEY MUSTAFA MD Jun 22, 2017 11:36
[2017-06-22] MEDS ORDERED: ONDANSETRON PF 4 MG/2 ML VIAL. IV PRN (11:45)
[2017-06-22] MEDS ORDERED: MORPHINE SULFATE 2 MG/ML DISP.SYRIN. IV PRN (11:45)
[2017-06-22] MEDS ORDERED: ACETAMINOPHEN 325 MG TABLET. PO PRN (11:45)
[2017-06-22] MEDS ORDERED: DOCUSATE SODIUM 100 MG CAPSULE. PO PRN (11:45)
[2017-06-22] MEDS ORDERED: hydrALAZINE 20 MG/ML VIAL. IVP PRN (11:45)
[2017-06-22] MEDS: ESCITALOPRAM 5 MG TABLET. PO SCH (12:26)
[2017-06-22] MEDS: ISOSORBIDE MONONITRATE ER 30 MG TAB.ER.24H PO SCH (12:26)
[2017-06-22] MEDS: FOLIC/VIT B COMP W-C (RENAL) TABLET. PO SCH (12:26)
[2017-06-22] MEDS: amLODIPine BESYLATE 2.5 MG TABLET PO SCH (12:26)
--- NOTE | 2017-06-22 14:22 | CARD ---
APPROVED REPORT Procedure Selective coronary angiogram The patient is a 76 year old female with known CAD with previous stents and a new stent to the LCX la st month. She has had recurrent chest pain and a mild elevation in troponin. Heart cath was recomme nded. Risks and benefits were discussed and the patient agreed to proceed. After informed consent was obtained the patient was brought to the record label internship. The area of the right f emoral artery was prepared in the usual manner with betadine, sterile dressings and local anesthetic. An 18 guage needle was used to enter the artery, a wire placed and a 6 Fr catheter placed over the w bindu with predilations with 5 and 6 Fr. dilators due to heavy scarring. A 6 FR JL5 was used for injec tions of the left system. A 6 FR Zachary right catheter was used for injections of the right system . Ther diagnostic catheters were removed. The sheath was removed and sealed with manual pressure. T he patient was returned to the holding area. Findings. Hemodynamics AO: 122/82. Coronaries. Left main. The left main had a 10-15% distal lesion. LAD. The LAD had a proximal 25-30% lesion. The mid stent was patent. A D1 stent was patent. LCX. The LCX had a proximal recently placed stent that was widely patent. The mid vessel had a 40% lesion and OM1 had a 40% lesion. RCA. The RCA was a large dominant vessel with a distal 20% lesion, PDA with a 50% lesion and distal small vessel disease. <Conclusion> Patent stents in the LAD, D1 and LCX. Mild to moderate disease as outlined above. Continue medical treatment.
[2017-06-22] MEDS ORDERED: IV NORMAL SALINE 1000ML BAG 1,000 ML IV PRN (14:37)
[2017-06-22] MEDS ORDERED: DIALYSIS PATIENT. MC PRN (14:45)
[2017-06-22] MEDS ORDERED: 0.9 % SODIUM CHLORIDE 10 ML DISP.SYRIN. IV PRN (15:00)
[2017-06-22] MEDS ORDERED: NITROGLYCERIN SUBLINGUAL 0.4 MG BOTTLE OF 25. SL PRN (15:00)
[2017-06-22] MEDS: HYDROcodone/APAP 5/325MG 1 TAB TABLET PO PRN (15:35)
[2017-06-22] MEDS: traMADol 50 MG TABLET PO PRN ×2 (18:11→21:42)
[2017-06-22] MEDS: FAMOTIDINE 20 MG TABLET. PO SCH (21:23)
[2017-06-22] MEDS: INSULIN DETEMIR 300 UNITS/3 ML INSULN.PEN. SQ SCH (21:28)
[2017-06-23 01:11] LABS: HEP B SURFACE ABDY Non Reactive (.)
[2017-06-23 03:15] VITALS: BP 134/64
[2017-06-23 04:55] LABS: BASO % 1 % (0-3); EOS % 14 % (0-3); HEMOGLOBIN 8.9 g/dL (12.0-15.5); LYMPH % 22 % (24-48); MEAN CORPUSCULAR HEMOGLOBIN 34 pg (25-35); MEAN CORPUSCULAR HGB CONC 34 g/dL (31-37); MEAN CORPUSCULAR VOLUME 99 fL (79-100); MONO % 16 % (0-9); NEUT % 47 % (31-73); PLATELET COUNT 101 x10^3/uL (140-400); RED BLOOD COUNT 2.63 x10^6/uL (3.50-5.40); RED CELL DISTRIBUTION WIDTH 15.8 % (11.5-14.5); WHITE BLOOD COUNT 4.6 x10^3/uL (4.0-11.0)
[2017-06-23 05:03] LABS: CALCIUM 7.8 mg/dL (8.5-10.1); CREATININE 3.1 mg/dL (0.6-1.0); GFR 14.6; POTASSIUM 3.9 mmol/L (3.5-5.1)
[2017-06-23 07:00] VITALS: BP 126/57
[2017-06-23] MEDS: INSULIN ASPART 300 UNITS/3 ML INSULN.PEN SQ SCH ×2 (08:00→12:00)
[2017-06-23] MEDS: CALCIUM ACETATE 667 MG CAPSULE PO SCH ×2 (08:15→12:00)
[2017-06-23] MEDS: FOLIC/VIT B COMP W-C (RENAL) TABLET. PO SCH (08:16)
[2017-06-23] MEDS: ASPIRIN ENTERIC COATED 81 MG TABLET.DR. PO SCH (08:16)
[2017-06-23] MEDS: ESCITALOPRAM 5 MG TABLET. PO SCH (08:16)
[2017-06-23] MEDS: ISOSORBIDE MONONITRATE ER 30 MG TAB.ER.24H PO SCH (08:17)
[2017-06-23] MEDS: amLODIPine BESYLATE 2.5 MG TABLET PO SCH (08:17)
[2017-06-23] MEDS: METOPROLOL TART IMMED RELEASE 50 MG TABLET. PO SCH (08:18)
[2017-06-23] MEDS: NYSTATIN TOPICAL POWDER 15GM BOTTLE. TP SCH (08:18)
[2017-06-23] MEDS: CLOPIDOGREL BISULFATE 75 MG TABLET PO SCH (08:18)
--- NOTE | 2017-06-23 09:36 | PDOC ---
PROGRESS NOTES Chief Complaint Chief Complaint CC chest pain and SOB known CAD with recent PCI LCX ESRD dyslipidemia HTN DM2 severe anemia of chronic disease History of Present Illness History of Present Illness 76 y/o F with CC of chest pain and SOB pt was found in bed AO3 in pleasant spirits pt was unable to get out of bed without assistance, able to transfer last troponin 06/21 4.144 pt wishes to go home, refuses SNU would prefer home health if possible Vitals Vitals Vital Signs Date Time Temp Pulse Resp B/P (MAP) Pulse Ox O2 Delivery O2 Flow Rate FiO2 06/23/17 08:18 67 126/57 06/23/17 07:55 Nasal Cannula 2.0 06/23/17 07:00 98.4 20 97 98.4 Physical Exam General: Alert, Oriented X3, Cooperative, No acute distress Heart: Regular rate, No murmurs Lungs: Clear, Other Abdomen: Normal bowel sounds, Soft, No tenderness Extremities: No clubbing, No edema Skin: No rashes, No breakdown, Other (signs of venous stasis on shins) Labs LABS Laboratory Tests Test 06/22/17 11:50 06/22/17 17:57 06/22/17 20:43 06/23/17 04:10 Glucose (Fingerstick) 80 mg/dL (70-99) 96 mg/dL (70-99) 190 mg/dL (70-99) White Blood Count 4.6 x10^3/uL (4.0-11.0) Red Blood Count 2.63 x10^6/uL (3.50-5.40) Hemoglobin 8.9 g/dL (12.0-15.5) Hematocrit 26.0 % (36.0-47.0) Mean Corpuscular Volume 99 fL (79-100) Mean Corpuscular Hemoglobin 34 pg (25-35) Mean Corpuscular Hemoglobin Concent 34 g/dL (31-37) Red Cell Distribution Width 15.8 % (11.5-14.5) Platelet Count 101 x10^3/uL (140-400) Neutrophils (%) (Auto) 47 % (31-73) Lymphocytes (%) (Auto) 22 % (24-48) Monocytes (%) (Auto) 16 % (0-9) Eosinophils (%) (Auto) 14 % (0-3) Basophils (%) (Auto) 1 % (0-3) Neutrophils # (Auto) 2.1 x10^3uL (1.8-7.7) Lymphocytes # (Auto) 1.0 x10^3/uL (1.0-4.8) Monocytes # (Auto) 0.7 x10^3/uL (0.0-1.1) Eosinophils # (Auto) 0.6 x10^3/uL (0.0-0.7) Basophils # (Auto) 0.0 x10^3/uL (0.0-0.2) Sodium Level 135 mmol/L (136-145) Potassium Level 3.9 mmol/L (3.5-5.1) Chloride Level 99 mmol/L (98-107) Carbon Dioxide Level 32 mmol/L (21-32) Anion Gap 4 (6-14) Blood Urea Nitrogen 25 mg/dL (7-20) Creatinine 3.1 mg/dL (0.6-1.0) Estimated GFR (Cockcroft-Gault) 14.6 Glucose Level 70 mg/dL (70-99) Calcium Level 7.8 mg/dL (8.5-10.1) Test 06/23/17 08:02 06/23/17 08:30 Glucose (Fingerstick) 58 mg/dL (70-99) 72 mg/dL (70-99) Review of Systems Review of Systems pt complains of weakness no NVD Assessment and Plan Assessmemt and Plan CC chest pain and SOB known CAD with recent PCI LCX ESRD dyslipidemia HTN DM2 severe anemia of chronic disease PLAN -cont HD as usual -PTOT as tolerated -continue home meds -continue cardiac monitoring -probable discharge today (pt would like to home health) Problems: Comment Review of Relevant I have reviewed the following items adrián (where applicable) has been applied. Labs Laboratory Tests Test 06/21/17 09:50 06/21/17 11:25 06/21/17 14:25 06/21/17 15:30 Glucose (Fingerstick) 176 mg/dL (70-99) 182 mg/dL (70-99) Troponin I Quantitative 6.004 ng/mL (0.000-0.055) Heparin Anti-Xa Act, Unfractionated 0.49 IU/mL (0.30-0.70) Test 06/21/17 17:29 06/21/17 17:45 06/21/17 20:39 06/21/17 22:10 Glucose (Fingerstick) 99 mg/dL (70-99) 227 mg/dL (70-99) Troponin I Quantitative 4.144 ng/mL (0.000-0.055) Heparin Anti-Xa Act, Unfractionated 0.56 IU/mL (0.30-0.70) Test 06/22/17 05:15 06/22/17 07:18 06/22/17 11:50 06/22/17 17:57 White Blood Count 4.3 x10^3/uL (4.0-11.0) Red Blood Count 2.49 x10^6/uL (3.50-5.40) Hemoglobin 8.5 g/dL (12.0-15.5) Hematocrit 24.5 % (36.0-47.0) Mean Corpuscular Volume 99 fL (79-100) Mean Corpuscular Hemoglobin 34 pg (25-35) Mean Corpuscular Hemoglobin Concent 35 g/dL (31-37) Red Cell Distribution Width 16.1 % (11.5-14.5) Platelet Count 86 x10^3/uL (140-400) Heparin Anti-Xa Act, Unfractionated 0.52 IU/mL (0.30-0.70) Sodium Level 136 mmol/L (136-145) Potassium Level 3.9 mmol/L (3.5-5.1) Chloride Level 98 mmol/L (98-107) Carbon Dioxide Level 33 mmol/L (21-32) Anion Gap 5 (6-14) Blood Urea Nitrogen 49 mg/dL (7-20) Creatinine 4.8 mg/dL (0.6-1.0) Estimated GFR (Cockcroft-Gault) 8.8 Glucose Level 115 mg/dL (70-99) Calcium Level 6.9 mg/dL (8.5-10.1) Hepatitis B Surface Antigen Negative (Negative) Hepatitis B Surface Antibody Non reactive (.) Glucose (Fingerstick) 94 mg/dL (70-99) 80 mg/dL (70-99) 96 mg/dL (70-99) Test 06/22/17 20:43 06/23/17 04:10 06/23/17 08:02 06/23/17 08:30 Glucose (Fingerstick) 190 mg/dL (70-99) 58 mg/dL (70-99) 72 mg/dL (70-99) White Blood Count 4.6 x10^3/uL (4.0-11.0) Red Blood Count 2.63 x10^6/uL (3.50-5.40) Hemoglobin 8.9 g/dL (12.0-15.5) Hematocrit 26.0 % (36.0-47.0) Mean Corpuscular Volume 99 fL (79-100) Mean Corpuscular Hemoglobin 34 pg (25-35) Mean Corpuscular Hemoglobin Concent 34 g/dL (31-37) Red Cell Distribution Width 15.8 % (11.5-14.5) Platelet Count 101 x10^3/uL (140-400) Neutrophils (%) (Auto) 47 % (31-73) Lymphocytes (%) (Auto) 22 % (24-48) Monocytes (%) (Auto) 16 % (0-9) Eosinophils (%) (Auto) 14 % (0-3) Basophils (%) (Auto) 1 % (0-3) Neutrophils # (Auto) 2.1 x10^3uL (1.8-7.7) Lymphocytes # (Auto) 1.0 x10^3/uL (1.0-4.8) Monocytes # (Auto) 0.7 x10^3/uL (0.0-1.1) Eosinophils # (Auto) 0.6 x10^3/uL (0.0-0.7) Basophils # (Auto) 0.0 x10^3/uL (0.0-0.2) Sodium Level 135 mmol/L (136-145) Potassium Level 3.9 mmol/L (3.5-5.1) Chloride Level 99 mmol/L (98-107) Carbon Dioxide Level 32 mmol/L (21-32) Anion Gap 4 (6-14) Blood Urea Nitrogen 25 mg/dL (7-20) Creatinine 3.1 mg/dL (0.6-1.0) Estimated GFR (Cockcroft-Gault) 14.6 Glucose Level 70 mg/dL (70-99) Calcium Level 7.8 mg/dL (8.5-10.1) Laboratory Tests Test 06/22/17 11:50 06/22/17 17:57 06/22/17 20:43 06/23/17 04:10 Glucose (Fingerstick) 80 mg/dL (70-99) 96 mg/dL (70-99) 190 mg/dL (70-99) White Blood Count 4.6 x10^3/uL (4.0-11.0) Red Blood Count 2.63 x10^6/uL (3.50-5.40) Hemoglobin 8.9 g/dL (12.0-15.5) Hematocrit 26.0 % (36.0-47.0) Mean Corpuscular Volume 99 fL (79-100) Mean Corpuscular Hemoglobin 34 pg (25-35) Mean Corpuscular Hemoglobin Concent 34 g/dL (31-37) Red Cell Distribution Width 15.8 % (11.5-14.5) Platelet Count 101 x10^3/uL (140-400) Neutrophils (%) (Auto) 47 % (31-73) Lymphocytes (%) (Auto) 22 % (24-48) Monocytes (%) (Auto) 16 % (0-9) Eosinophils (%) (Auto) 14 % (0-3) Basophils (%) (Auto) 1 % (0-3) Neutrophils # (Auto) 2.1 x10^3uL (1.8-7.7) Lymphocytes # (Auto) 1.0 x10^3/uL (1.0-4.8) Monocytes # (Auto) 0.7 x10^3/uL (0.0-1.1) Eosinophils # (Auto) 0.6 x10^3/uL (0.0-0.7) Basophils # (Auto) 0.0 x10^3/uL (0.0-0.2) Sodium Level 135 mmol/L (136-145) Potassium Level 3.9 mmol/L (3.5-5.1) Chloride Level 99 mmol/L (98-107) Carbon Dioxide Level 32 mmol/L (21-32) Anion Gap 4 (6-14) Blood Urea Nitrogen 25 mg/dL (7-20) Creatinine 3.1 mg/dL (0.6-1.0) Estimated GFR (Cockcroft-Gault) 14.6 Glucose Level 70 mg/dL (70-99) Calcium Level 7.8 mg/dL (8.5-10.1) Test 06/23/17 08:02 06/23/17 08:30 Glucose (Fingerstick) 58 mg/dL (70-99) 72 mg/dL (70-99) Medications Current Medications Nitroglycerin (Nitrostat) 0.4 mg PRN Q5MIN PRN SL CHEST PAIN; Start 06/20/17 at 18:15; Stop 06/21/17 at 16:44; Status DC Fentanyl Citrate (Fentanyl 2ml Vial) 25 mcg PRN Q15MIN PRN IV PAIN GREATER THAN 3/10 Last administered on 06/20/17 20:13; Start 06/20/17 at 18:15; Stop 06/21 at 18:14; Status DC Aspirin (Ecotrin) 81 mg DAILYWBKFT PO Last administered on 06/23/17 08:16; Start 06/21/17 at 08:00 Clopidogrel Bisulfate (Plavix) 75 mg DAILY PO Last administered on 06/23/17 08 :18; Start 06/21/17 at 09:00 Famotidine (Pepcid) 20 mg HS PO Last administered on 06/22/17 21:23; Start 06/20 at 21:00 Acetaminophen/ Hydrocodone Bitart (Lortab 7.5/325) 1 tab PRN Q6HRS PRN PO SEVERE PAIN Last administered on 06/22/17 03:14; Start 06/20/17 at 20:30; Stop at 11:36; Status DC Lisinopril (Prinivil) 5 mg DAILY PO Last administered on 06/21/17 08:27; Start 06/21/17 at 09:00; Stop 06/21/17 at 13:29; Status DC Metoprolol Tartrate (Lopressor) 50 mg BID PO Last administered on 06/23/17 08: 18; Start 06/20/17 at 21:00 Nitroglycerin (Nitrostat) 0.4 mg PRN Q5MIN PRN SL CHEST PAIN Last administered on 06/21/17 19:38; Start 06/20/17 at 20:30 Nystatin (Nystop) 1 tiffany BID TP Last administered on 06/23/17 08:18; Start 06/20 at 21:00 Calcium Acetate (Phoslo) 667 mg TIDWMEALS PO Last administered on 06/23/17 08: 15; Start 06/21/17 at 08:00 Escitalopram Oxalate (Lexapro) 10 mg DAILY PO Last administered on 06/23/17 08 :16; Start 06/21/17 at 09:00 Insulin Detemir (Levemir) 14 units QHS SQ Last administered on 06/22/17 21:28; Start 06/20/17 at 21:00 Isosorbide Mononitrate (Imdur) 60 mg DAILY PO Last administered on 06/23/17 08 :17; Start 06/21/17 at 09:00 Vitamin B Complex/ Vitamin C (Tanisha-Prashanth) 1 tab DAILY PO Last administered on 08:16; Start 06/21/17 at 09:00 Insulin Aspart (NovoLOG) 0-9 UNITS TIDWMEALS SQ Last administered on 06/21/17 12:24; Start 06/21/17 at 08:00 Dextrose (Dextrose 50%-Water Syringe) 12.5 gm PRN Q15MIN PRN IV SEE COMMENTS; Start 06/20/17 at 20:30 Fentanyl Citrate (Fentanyl 2ml Vial) 25 mcg PRN Q2HR PRN IV pain; Start at 20:30 Acetaminophen/ Hydrocodone Bitart (Lortab 5/325) 1 tab QID PRN PO MODERATE PAIN Last administered on 06/22/17 15:35; Start 06/20/17 at 20:30 Heparin Sodium (Porcine) (Heparin Sq) 5,000 unit Q8HRS SQ Last administered on 06/21/17 05:42; Start 06/20/17 at 22:00; Stop 06/21/17 at 09:52; Status DC Heparin Sodium/ Dextrose 500 ml @ 0 mls/hr CONT PRN IV SEE I/O RECORD; Start at 09:45; Status Cancel Heparin Sodium/ Dextrose 500 ml @ 0 mls/hr CONT PRN IV SEE I/O RECORD Last administered on 06/22/17 06:21; Start 06/21/17 at 09:45 Heparin Sodium (Porcine) (Heparin Sodium) 2,450 unit PRN Q6HRS PRN IV FOR UFH LEVEL LESS THAN 0.2; Start 06/21/17 at 09:45 Darbepoetin James (Aranesp) 60 mcg WEEKLYHS SQ Last administered on 06/21/17 21: 28; Start 06/21/17 at 21:00 Amlodipine Besylate (Norvasc) 2.5 mg DAILY PO Last administered on 06/23/17 08 :17; Start 06/21/17 at 14:00 Nitroglycerin/ Dextrose 250 ml @ 0 mls/hr CONT PRN IV SEE I/O RECORD Last administered on 06/21/17 21:39; Start 06/21/17 at 20:45 Fentanyl Citrate (Fentanyl 2ml Vial) 100 mcg STK-MED ONCE .ROUTE ; Start at 09:56; Stop 06/22/17 at 09:57; Status DC Midazolam HCl (Versed) 5 mg STK-MED ONCE .ROUTE ; Start 06/22/17 at 09:56; Stop 06/22/17 at 09:57; Status DC Heparin Sodium/ Sodium Chloride 1,500 ml @ As Directed STK-MED ONCE .ROUTE ; Start 06/22/17 at 09:57; Stop 06/22/17 at 09:58; Status DC Iodixanol (Visipaque 320) 100 ml STK-MED ONCE .ROUTE ; Start 06/22/17 at 09:57; Stop 06/22/17 at 09:58; Status DC Lidocaine HCl 20 ml STK-MED ONCE .ROUTE ; Start 06/22/17 at 09:58; Stop 06/22/17 at 09:59; Status DC Iodixanol (Visipaque 320) 100 ml STK-MED ONCE .ROUTE ; Start 06/22/17 at 10:06; Stop 06/22/17 at 10:07; Status DC Info (Anti-Coagulation Monitoring By Pharmacy) 1 each PRN DAILY PRN MC SEE COMMENTS Last administered on 06/22/17 14:37; Start 06/22/17 at 10:30 Heparin Sodium/ Sodium Chloride 1,000 unit 1X ONCE IART Last administered on 11:16; Start 06/22/17 at 10:45; Stop 06/22/17 at 10:49; Status DC Heparin Sodium/ Sodium Chloride 1,000 unit 1X ONCE IART Last administered on 11:16; Start 06/22/17 at 10:45; Stop 06/22/17 at 10:49; Status DC Midazolam HCl (Versed) 5 mg 1X ONCE IV Last administered on 06/22/17 11:17; Start 06/22/17 at 10:45; Stop 06/22/17 at 10:49; Status DC Fentanyl Citrate (Fentanyl 2ml Vial) 100 mcg 1X ONCE IV Last administered on 11:18; Start 06/22/17 at 10:45; Stop 06/22/17 at 10:49; Status DC Iodixanol (Visipaque 320) 100 ml 1X ONCE IART Last administered on 06/22/17 11 :17; Start 06/22/17 at 10:45; Stop 06/22/17 at 10:49; Status DC Lidocaine HCl 20 ml 1X ONCE IJ Last administered on 06/22/17 11:16; Start 06/22 at 10:45; Stop 06/22/17 at 10:49; Status DC Info (Do NOT chart on this entry -- for MONITORING) 1 each PRN DAILY PRN MC SEE COMMENTS; Start 06/22/17 at 11:00; Stop 06/24/17 at 10:59 Acetaminophen (Tylenol) 650 mg PRN Q6HRS PRN PO FEVER; Start 06/22/17 at 11:45 Ondansetron HCl (Zofran) 4 mg PRN Q6HRS PRN IV NAUSEA/VOMITING; Start 06/22/17 at 11:45 Morphine Sulfate 2 mg PRN Q2HR PRN IV PAIN; Start 06/22/17 at 11:45 Tramadol HCl (Ultram) 50 mg PRN Q6HRS PRN PO PAIN Last administered on 21:42; Start 06/22/17 at 11:45 Hydralazine HCl (Apresoline) 10 mg PRN Q4HRS PRN IVP ELEVATED BP, SEE COMMENTS ; Start 06/22/17 at 11:45 Docusate Sodium (Colace) 100 mg PRN DAILY PRN PO CONSTIPATION; Start 06/22/17 at 11:45 Sodium Chloride 1,000 ml @ 1,000 mls/hr Q1H PRN IV hypotension; Start 06/22/17 at 14:37; Stop 06/22/17 at 20:36; Status DC Info (PHARMACY MONITORING -- do not chart) 1 each PRN DAILY PRN MC SEE COMMENTS ; Start 06/22/17 at 14:45 Sodium Chloride (Normal Saline Flush) 3 ml QSHIFT PRN IV AFTER MEDS AND BLOOD DRAWS; Start 06/22/17 at 15:00 Nitroglycerin (Nitrostat) 0.4 mg PRN Q5MIN PRN SL CHEST PAIN; Start 06/22/17 at 15:00 Active Scripts Active Aspirin Ec (Aspirin) 81 Mg Tablet.dr 81 Mg PO DAILYWBKFT Nystop (Nystatin) 60 Gm Powder 1 Tiffany TP BID Isosorbide Mononitrate Er (Isosorbide Mononitrate) 60 Mg Tab.er.24h 60 Mg PO DAILY 30 Days Escitalopram Oxalate 10 Mg Tablet 10 Mg PO DAILY Pepcid (Famotidine) 20 Mg Tablet 20 Mg PO HS Nitrostat (Nitroglycerin) 0.4 Mg Tab.subl 0.4 Mg SL PRN Q5MIN PRN Reported Clopidogrel (Clopidogrel Bisulfate) 75 Mg Tablet 75 Mg PO DAILY Lisinopril 5 Mg Tablet 1 Tab PO DAILY Metoprolol Tartrate 50 Mg Tablet 50 Mg PO BID Nephro-Prashanth Rx Tablet (Vit B Cmplx 3/Fa/Vit C/Biotin) 1 Each Tablet 1 Each PO DAILY Hydrocodone-Apap 7.5-325 (Hydrocodone Bit/Acetaminophen) 1 Each Tablet 1 Tab PO PRN Q6HRS PRN Calcium Acetate 667 Mg Tablet 667 Mg PO TIDWMEALS Lantus Solostar (Insulin Glargine,Hum.rec.anlog) 100 Unit/1 Ml Insuln.pen 14 Unit SQ QHS Vitals/I & O Vital Sign - Last 24 Hours 06/22/17 06/22/17 06/22/17 06/22/17 11:18 11:27 11:38 12:26 Temp 97.8 97.8 Pulse 60 59 60 Resp 19 19 24 B/P (MAP) 106/55 (72) 123/72 Pulse Ox 96 100 96 O2 Delivery Nasal Cannula Nasal Cannula Nasal Cannula O2 Flow Rate 2.0 2.0 2.0 06/22/17 06/22/17 06/22/17 06/22/17 12:26 12:32 15:35 18:04 Pulse 59 Resp 18 B/P (MAP) 123/72 Pulse Ox 96 96 96 O2 Delivery Nasal Cannula Nasal Cannula Nasal Cannula O2 Flow Rate 2.0 2.0 2.0 06/22/17 06/22/17 06/22/17 06/22/17 18:11 19:15 19:20 19:25 Temp 98.2 98.2 Pulse 68 Resp 20 B/P (MAP) 111/87 (95) Pulse Ox 96 97 O2 Delivery Nasal Cannula Nasal Cannula Nasal Cannula Nasal Cannula O2 Flow Rate 2.0 2.0 2.0 2.0 06/22/17 06/22/17 06/23/17 06/23/17 21:27 23:15 03:15 07:00 Temp 98.5 98.6 98.4 98.5 98.6 98.4 Pulse 111 64 60 67 Resp 17 18 20 B/P (MAP) 87/94 131/75 (93) 134/64 (87) 126/57 (80) Pulse Ox 95 99 97 O2 Delivery Nasal Cannula Nasal Cannula Room Air O2 Flow Rate 2.0 2.0 06/23/17 06/23/17 06/23/17 06/23/17 07:55 08:17 08:17 08:18 Pulse 67 67 67 B/P (MAP) 126/57 126/57 126/57 O2 Delivery Nasal Cannula O2 Flow Rate 2.0 Intake and Output 06/22/17 06/22/17 06/23/17 15:00 23:00 07:00 Intake Total 60 ml Output Total 0 ml Balance 60 ml MARIAM MOJICA III DO Jun 23, 2017 09:35
[2017-06-23 11:00] VITALS: BP 106/40
--- NOTE | 2017-06-23 11:47 | PDOC ---
Renal-Progress Notes Subjective Notes Notes NONE History of Present Illness Hx of present illness STABLE Vitals Vitals Vital Signs Date Time Temp Pulse Resp B/P (MAP) Pulse Ox O2 Delivery O2 Flow Rate FiO2 06/23/17 11:00 98.2 66 18 106/40 (62) 94 Nasal Cannula 98.2 06/23/17 07:55 2.0 Weight Weight [ ] I.O. Intake and Output Intake and Output 06/23/17 07:00 Intake Total 60 ml Output Total 0 ml Balance 60 ml Intake Oral 60 ml Output Urine Total 0 ml # Voids 4 Labs Labs Laboratory Tests Test 06/22/17 11:50 06/22/17 17:57 06/22/17 20:43 06/23/17 04:10 Glucose (Fingerstick) 80 mg/dL (70-99) 96 mg/dL (70-99) 190 mg/dL (70-99) White Blood Count 4.6 x10^3/uL (4.0-11.0) Red Blood Count 2.63 x10^6/uL (3.50-5.40) Hemoglobin 8.9 g/dL (12.0-15.5) Hematocrit 26.0 % (36.0-47.0) Mean Corpuscular Volume 99 fL (79-100) Mean Corpuscular Hemoglobin 34 pg (25-35) Mean Corpuscular Hemoglobin Concent 34 g/dL (31-37) Red Cell Distribution Width 15.8 % (11.5-14.5) Platelet Count 101 x10^3/uL (140-400) Neutrophils (%) (Auto) 47 % (31-73) Lymphocytes (%) (Auto) 22 % (24-48) Monocytes (%) (Auto) 16 % (0-9) Eosinophils (%) (Auto) 14 % (0-3) Basophils (%) (Auto) 1 % (0-3) Neutrophils # (Auto) 2.1 x10^3uL (1.8-7.7) Lymphocytes # (Auto) 1.0 x10^3/uL (1.0-4.8) Monocytes # (Auto) 0.7 x10^3/uL (0.0-1.1) Eosinophils # (Auto) 0.6 x10^3/uL (0.0-0.7) Basophils # (Auto) 0.0 x10^3/uL (0.0-0.2) Sodium Level 135 mmol/L (136-145) Potassium Level 3.9 mmol/L (3.5-5.1) Chloride Level 99 mmol/L (98-107) Carbon Dioxide Level 32 mmol/L (21-32) Anion Gap 4 (6-14) Blood Urea Nitrogen 25 mg/dL (7-20) Creatinine 3.1 mg/dL (0.6-1.0) Estimated GFR (Cockcroft-Gault) 14.6 Glucose Level 70 mg/dL (70-99) Calcium Level 7.8 mg/dL (8.5-10.1) Test 06/23/17 08:02 06/23/17 08:30 Glucose (Fingerstick) 58 mg/dL (70-99) 72 mg/dL (70-99) Review of Systems Constitutional: yes: weakness, alert, oriented Ears/Nose/Throat: Yes: no symptom reported Eyes: Yes: no symptom reported Pulmonary: Yes dyspnea Cardiovascular: Yes chest pain Gastrointestional: Yes: constipation Genitourinary: Yes: no symptom reported Musculoskeletal: Yes: no symptom reported Skin: Yes no symptom reported Psychiatric/Neurological: Yes: no symptom reported Physical Exam General Appearance: no apparent distress Skin: warm Respiratory: bilateral CTA Heart: S1S2, RRR Abdomen: soft, bowel sounds present Genitourinary: bladder flat, no mass Extremities: pulses present, no edema Neurology: alert, oriented, follow commands Musculoskeletal: Osteoarthritis Assessment Assessment IMP CHEST PAIN AMI ANEMIA HTN ESRD PLAN HD TOMORROW OK TO D/C FROM [facility] CHLOE JONES MD Jun 23, 2017 11:47
== END 2017-06-23 13:46 | disposition home health service (06) | DRG 280 ==
LOC: ER 17:37 → 6 SOUTH 20:30 → 2 SOUTH 06-21 13:55
PROVIDERS: ADMIT Internal Medicine; ATTEND Internal Medicine
PROC: B2111ZZ Fluoroscopy of Multiple Coronary Arteries using Low Osmolar Contrast (ICD-10-PCS; principal; 2017-06-22)
DX: I21.3 ST elevation (STEMI) myocardial infarction of unspecified site (principal); N18.6 End stage renal disease; I50.32 Chronic diastolic (congestive) heart failure; I13.2 Hypertensive heart and chronic kidney disease with heart failure and with stage 5 chronic kidney disease, or end stage renal disease; E44.0 Moderate protein-calorie malnutrition; D63.8 Anemia in other chronic diseases classified elsewhere; D69.6 Thrombocytopenia, unspecified; E03.9 Hypothyroidism, unspecified; E11.22 Type 2 diabetes mellitus with diabetic chronic kidney disease; E78.5 Hyperlipidemia, unspecified; I25.10 Atherosclerotic heart disease of native coronary artery without angina pectoris; I25.5 Ischemic cardiomyopathy; I35.0 Nonrheumatic aortic (valve) stenosis; I48.91 Unspecified atrial fibrillation; E11.51 Type 2 diabetes mellitus with diabetic peripheral angiopathy without gangrene; E21.3 Hyperparathyroidism, unspecified; F32.9 Major depressive disorder, single episode, unspecified; E11.42 Type 2 diabetes mellitus with diabetic polyneuropathy; K57.90 Diverticulosis of intestine, part unspecified, without perforation or abscess without bleeding; K59.00 Constipation, unspecified; M19.90 Unspecified osteoarthritis, unspecified site; K21.9 Gastro-esophageal reflux disease without esophagitis; J44.9 Chronic obstructive pulmonary disease, unspecified; Z86.73 Personal history of transient ischemic attack (TIA), and cerebral infarction without residual deficits; Z82.49 Family history of ischemic heart disease and other diseases of the circulatory system; Z90.49 Acquired absence of other specified parts of digestive tract; Z95.5 Presence of coronary angioplasty implant and graft; Z99.2 Dependence on renal dialysis; Z87.01 Personal history of pneumonia (recurrent); Z90.710 Acquired absence of both cervix and uterus; Z68.36 Body mass index [BMI] 36.0-36.9, adult
CPT/HCPCS: 36415; 71010; 80048; 80076; 82962; 83880; 84484; 85027; 85520; 86706; 87340; 87341; 93005; 93454; 96374; 96376; C1769; C1892; J0881; J1644; J1815; J2250; J3010; J3490; 99285-25; J2001

== ENCOUNTER 2017-08-19 19:01 | Inpatient (IN) | payer MEDICARE, OTHER ==
[~2017-08-19] VITALS: Ht 167.6 cm; Wt 99.6 kg
[~2017-08-19 19:01] MED LIST changes: +NAPR250T6 PO
--- NOTE | 2017-08-19 19:07 | PHYS DOC ---
Past Medical History Past Medical History: A-Fib, Arthritis, COPD, CVA, Diabetes-Type II, Hypertension, NC, Renal Failure Additional Past Medical Histor: kidney failure, pacemaker Past Surgical History: Appendectomy, Cholecystectomy, Hysterectomy, Other Additional Past Surgical Histo: FISTULA in right upper extremity, pins left femur, PACEMAKER WITH DEFIB Alcohol Use: None Drug Use: None Adult General Chief Complaint Chief Complaint: chest pain nausea vomiting HPI HPI Patient is a 76 year old female who presents with chest pain with nausea and vomiting. She states she felt nauseated and vomited once before she went to bed and the 5:00 she woke up and vomited again. She states she has pain across her epigastric area that sharp stabbing in nature that comes and goes. She states that she does makes it better or worse. She denies any fevers chills or shortness of breath associated with this. She is unsure if she's ever had pain like this before but states she's had 2 heart attacks in the past one was in 2012 and the other was in 2007. She states she's was retaken aspirin daily and sometimes she takes it sometimes she doesn't. She states she did get aspirin in route. She also took a nitroglycerin at home and she states that did nothing for her pain in addition EMS gave her a nitroglycerin and she states that also did nothing for her pain over the give her headache. She does admit that she hasn't been taking any of her medicines upon further questioning as it doesn't make her feel any better. Of note she was on metoprolol 50 mg twice a day. Review of Systems Review of Systems Constitutional: Denies fever or chills [] Eyes: Denies change in visual acuity, redness, or eye pain [] HENT: Denies nasal congestion or sore throat [] Respiratory: Denies cough or shortness of breath [] Cardiovascular: No additional information not addressed in HPI [] GI: Denies abdominal pain, bloody stools or diarrhea, positive for nausea, vomiting [] : Denies dysuria or hematuria [] Musculoskeletal: Denies back pain or joint pain [] Integument: Denies rash or skin lesions [] Neurologic: Denies headache, focal weakness or sensory changes [] Endocrine: Denies polyuria or polydipsia [] Current Medications Current Medications Current Medications Medications (Trade) Dose Ordered Sig/Payton Start Time Stop Time Status Last Admin Dose Admin Aspirin (Children'S Aspirin) 324 mg 1X ONCE 08/19/17 19:15 08/19/17 19:16 DC Metoprolol Tartrate (Lopressor) 5 mg 1X ONCE 08/19/17 21:30 08/19/17 21:31 DC 08/19/17 21:34 5 MG Multi-Ingredient Mouthwash/Gargle (Gi Cocktail Single Dose) 15 ml 1X ONCE 08/19/17 19:45 08/19/17 19:46 DC 08/19/17 19:58 15 ML Ondansetron HCl (Zofran) 4 mg PRN Q8HRS PRN 08/19/17 21:45 08/20/17 21:44 Allergies Allergies Allergies Coded Allergies Type Severity Reaction Last Updated Verified Sulfa (Sulfonamide Antibiotics) Allergy Intermediate Nausea/Vomiting, Rash 09/22/16 Yes morphine Allergy Intermediate itching 09/22/16 Yes adhesive Adverse Reaction Intermediate Itching 09/22/16 Yes Physical Exam Physical Exam Constitutional: Well developed, well nourished, no acute distress, non-toxic appearance. [] HENT: Normocephalic, atraumatic, bilateral external ears normal, oropharynx moist, no oral exudates, nose normal. [] Eyes: PERRLA, EOMI, conjunctiva normal, no discharge. [] Neck: Normal range of motion, no tenderness, supple, no stridor. [] Cardiovascular:Heart rate regular rhythm, no murmur [] Lungs & Thorax: Bilateral breath sounds clear to auscultation reproducible chest pain in the anterior thorax in the lower sternal Abdomen: Bowel sounds normal, soft, no tenderness, no masses, no pulsatile masses. [] Skin: Warm, dry, no erythema, no rash. [] Back: No tenderness, no CVA tenderness. [] Extremities: No tenderness, no cyanosis, no clubbing, ROM intact, no edema. [] Neurologic: Alert and oriented X 3, normal motor function, normal sensory function, no focal deficits noted. [] Psychologic: Affect normal, judgement normal, mood normal. [] Current Patient Data Vital Signs Vital Signs Date Time Temp Pulse Resp B/P (MAP) Pulse Ox O2 Delivery O2 Flow Rate FiO2 08/19/17 21:34 98 92/54 08/19/17 19:02 98.6 12 95 Room Air 98.6 Lab Values Laboratory Tests Test 08/19/17 19:24 White Blood Count 4.5 x10^3/uL (4.0-11.0) Red Blood Count 3.62 x10^6/uL (3.50-5.40) Hemoglobin 11.7 g/dL (12.0-15.5) L Hematocrit 35.4 % (36.0-47.0) L Mean Corpuscular Volume 98 fL (79-100) Mean Corpuscular Hemoglobin 32 pg (25-35) Mean Corpuscular Hemoglobin Concent 33 g/dL (31-37) Red Cell Distribution Width 14.9 % (11.5-14.5) H Platelet Count 106 x10^3/uL (140-400) L Neutrophils (%) (Auto) 60 % (31-73) Lymphocytes (%) (Auto) 16 % (24-48) L Monocytes (%) (Auto) 18 % (0-9) H Eosinophils (%) (Auto) 5 % (0-3) H Basophils (%) (Auto) 1 % (0-3) Neutrophils # (Auto) 2.7 x10^3uL (1.8-7.7) Lymphocytes # (Auto) 0.7 x10^3/uL (1.0-4.8) L Monocytes # (Auto) 0.8 x10^3/uL (0.0-1.1) Eosinophils # (Auto) 0.2 x10^3/uL (0.0-0.7) Basophils # (Auto) 0.1 x10^3/uL (0.0-0.2) Prothrombin Time 13.2 SEC (11.7-14.0) Prothrombin Time INR 1.1 (0.8-1.1) Sodium Level 137 mmol/L (136-145) Potassium Level 3.2 mmol/L (3.5-5.1) L Chloride Level 97 mmol/L (98-107) L Carbon Dioxide Level 31 mmol/L (21-32) Anion Gap 9 (6-14) Blood Urea Nitrogen 30 mg/dL (7-20) H Creatinine 2.8 mg/dL (0.6-1.0) H Estimated GFR (Cockcroft-Gault) 16.4 Glucose Level 244 mg/dL (70-99) H Calcium Level 8.2 mg/dL (8.5-10.1) L Magnesium Level 2.0 mg/dL (1.8-2.4) Total Bilirubin 0.4 mg/dL (0.2-1.0) Direct Bilirubin 0.1 mg/dL (0.0-0.2) Aspartate Amino Transferase (AST) 28 U/L (15-37) Alanine Aminotransferase (ALT) 24 U/L (14-59) Alkaline Phosphatase 134 U/L (46-116) H Creatine Kinase 50 U/L (26-192) Creatine Kinase MB (Mass) 0.8 ng/mL (0.0-3.6) Creatine Kinase MB Relative Index 1.6 % (0-4) Troponin I Quantitative 0.099 ng/mL (0.000-0.055) PA-Kus-Q-Type Natriuretic Peptide 61713 pg/mL (0-449) H Total Protein 7.4 g/dL (6.4-8.2) Albumin 2.7 g/dL (3.4-5.0) L Lipase 346 U/L (73-393) Laboratory Tests 08/19/17 19:24 Laboratory Tests 08/19/17 19:24 EKG EKG EKG shows a rate of 117 bpm with A. fib with a paced rhythm with occasional PVCs , left axis deviation, without concerning ST elevations, QTC 507 ms, as interpreted by me. Radiology/Procedures Radiology/Procedures APPROVED REPORT Procedure Selective coronary angiogram The patient is a 76 year old female with known CAD with previous stents and a new stent to the LCX last month. She has had recurrent chest pain and a mild elevation in troponin. Heart cath was recommended. Risks and benefits were discussed and the patient agreed to proceed. After informed consent was obtained the patient was brought to the carpenter/labor. The area of the right femoral artery was prepared in the usual manner with betadine, sterile dressings and local anesthetic. An 18 guage needle was used to enter the artery, a wire placed and a 6 Fr catheter placed over the wire with predilations with 5 and 6 Fr. dilators due to heavy scarring. A 6 FR JL5 was used for injections of the left system. A 6 FR Zachary right catheter was used for injections of the right system. Ther diagnostic catheters were removed. The sheath was removed and sealed with manual pressure. The patient was returned to the holding area. Findings. Hemodynamics AO: 122/82. Coronaries. Left main. The left main had a 10-15% distal lesion. LAD. The LAD had a proximal 25-30% lesion. The mid stent was patent. A D1 stent was patent. LCX. The LCX had a proximal recently placed stent that was widely patent. The mid vessel had a 40% lesion and OM1 had a 40% lesion. RCA. The RCA was a large dominant vessel with a distal 20% lesion, PDA with a 50% lesion and distal small vessel disease. <Conclusion> Patent stents in the LAD, D1 and LCX. Mild to moderate disease as outlined above. Continue medical treatment. DICTATED and SIGNED BY: JORDON HALL MD DATE: 06/22/17 1422 CC: JORDON HALL MD; ERIC SANTO MD; BRIELLE BRIONES MD ~ Cardiac Catheterization Severe single vessel coronary disease with hemodynamically significant lesions in the proximal LAD stented with a 3.0 x 23 bare metal stent with 0% residual. Patent stents in the mid LAD and first diagonal. Moderate disease in the left circumflex vessel. Mild disease in the right coronary artery. Mild aortic stenosis. Elevated LVEDP at 26 mmHg. DICTATED and SIGNED BY: JORDON HALL MD DATE: 09/22/16 1741 CC: JORDON HALL MD; ERIC SANTO MD ~ Pharmacologic stress test Conclusion 1. Non diagnostic EKG due to pacing. 2. Fixed apical and inferior defects. 3. Mild LV dysfunction. EF 48% 4. Moderate risk. DICTATED and SIGNED BY: TIMOTHY RUSSO MD DATE: 05/12/17 1641 CC: SILVESTRE FARNSWORTH APRN; UNA BARAJAS MD; ERIC SANTO MD ~ Echocardiogram <Conclusion> The left ventricular systolic function is normal and the ejection fraction is within normal range. The Ejection Fraction is 55%. There is normal LV segmental wall motion. Septal motion consistent with conduction abnormality. There is a pacemaker lead in the right ventricle. There is severe valvular aortic stenosis. Calculated aortic valve area is .9- 1.2 cm2 with maximum pressure gradient of 72 mmHg and mean pressure gradient of 48 mmHg. DICTATED and SIGNED BY: TIMOTHY RUSSO MD DATE: 05/12/17 1517 CC: SILVESTRE FARNSWORTH APRN; TIMOTHY RUSSO MD; UNA BARAJAS MD; ERIC SANTO MD ~ Impressions: Chest pain Coronary artery disease End stage renal disease Severe aortic stenosis Hypertension Peripheral vascular disease Diabetes [facility] ICD Course & Med Decision Making Course & Med Decision Making Pertinent Labs and Imaging studies reviewed. (See chart for details) She presented with chest pain and tachycardia. She has been taking any of her medicines over the last several days and she is likely rebounding. 5 mg IV metoprolol was given for her tachycardia. She does have an elevated troponin of 0.09 I did speak with Dr. Vela who is okay with holding off on heparin at this time until the next troponin is done. Patient is being admitted to the hospitalist in stable condition at this time. Dragon Disclaimer Dragon Disclaimer This electronic medical record was generated, in whole or in part, using a voice recognition dictation system. Departure Departure Impression: Primary Impression: Chest pain Disposition: ADMITTED INPATIENT Admitting Physician: Other Condition: STABLE Referrals: ERIC SANTO MD (PCP) Problem Qualifiers Primary Impression: Chest pain Chest pain type: unspecified Qualified Codes: R07.9 - Chest pain, unspecified BARRINGTON SAVAGE MD Aug 19, 2017 19:07
[2017-08-19] MEDS ORDERED: ASPIRIN CHEWABLE 81 MG TABLET. PO ONE (19:15)
[2017-08-19 19:39] LABS: BASO # 0.1 x10^3/uL (0.0-0.2); BASO % 1 % (0-3); EOS % 5 % (0-3); HEMATOCRIT 35.4 % (36.0-47.0); HEMOGLOBIN 11.7 g/dL (12.0-15.5); LYMPH # 0.7 x10^3/uL (1.0-4.8); LYMPH % 16 % (24-48); MEAN CORPUSCULAR HEMOGLOBIN 32 pg (25-35); MEAN CORPUSCULAR HGB CONC 33 g/dL (31-37); MEAN CORPUSCULAR VOLUME 98 fL (79-100); MONO % 18 % (0-9); NEUT % 60 % (31-73); PLATELET COUNT 106 x10^3/uL (140-400); RED BLOOD COUNT 3.62 x10^6/uL (3.50-5.40); RED CELL DISTRIBUTION WIDTH 14.9 % (11.5-14.5); WHITE BLOOD COUNT 4.5 x10^3/uL (4.0-11.0)
[2017-08-19] MEDS ORDERED: LIDO:MAALOX:DONNATAL 1:1:1 15 ML SINGLE DOSE SWSW ONE (19:45)
[2017-08-19 19:49] LABS: INR 1.1 (0.8-1.1); PROTHROMBIN TIME PATIENT 13.2 SEC (11.7-14.0)
[2017-08-19 19:54] LABS: CALCIUM 8.2 mg/dL (8.5-10.1); CREATININE 2.8 mg/dL (0.6-1.0); GFR 16.4; POTASSIUM 3.2 mmol/L (3.5-5.1)
[2017-08-19 20:05] LABS: ALBUMIN 2.7 g/dL (3.4-5.0); DIRECT BILIRUBIN 0.1 mg/dL (0.0-0.2); TOTAL BILIRUBIN 0.4 mg/dL (0.2-1.0); TOTAL PROTEIN 7.4 g/dL (6.4-8.2)
[2017-08-19 20:06] LABS: CKMB MASS 0.8 ng/mL (0.0-3.6)
[2017-08-19] MEDS ORDERED: METOPROLOL TARTRATE 5 MG/5 ML VIAL. IVP ONE (21:30)
[2017-08-19] MEDS ORDERED: ONDANSETRON PF 4 MG/2 ML VIAL. IV PRN (21:45)
[2017-08-19 23:48] VITALS: BP 108/55
[2017-08-20 03:45] VITALS: BP 97/48
[2017-08-20 06:35] LABS: HEMATOCRIT 32.2 % (36.0-47.0); HEMOGLOBIN 10.8 g/dL (12.0-15.5); MEAN CORPUSCULAR HEMOGLOBIN 33 pg (25-35); MEAN CORPUSCULAR HGB CONC 34 g/dL (31-37); MEAN CORPUSCULAR VOLUME 98 fL (79-100); MONO % 16 % (0-9); NEUT % 53 % (31-73); PLATELET COUNT 97 x10^3/uL (140-400); RED BLOOD COUNT 3.29 x10^6/uL (3.50-5.40); RED CELL DISTRIBUTION WIDTH 15.1 % (11.5-14.5); WHITE BLOOD COUNT 4.3 x10^3/uL (4.0-11.0)
[2017-08-20 06:37] LABS: CALCIUM 7.7 mg/dL (8.5-10.1); CREATININE 3.2 mg/dL (0.6-1.0); POTASSIUM 3.3 mmol/L (3.5-5.1)
[2017-08-20 07:45] VITALS: BP 102/41
[2017-08-20] MEDS ORDERED: NITROGLYCERIN SUBLINGUAL 0.4 MG BOTTLE OF 25. SL PRN ×2 (07:45→11:00)
[2017-08-20 07:49] LABS: EOS % 8 % (0-3); LYMPH % 21 % (24-48)
[2017-08-20 07:50] LABS: BASO % 1 % (0-3); LYMPH # 0.9 x10^3/uL (1.0-4.8)
--- NOTE | 2017-08-20 08:12 | PDOC2 ---
CARDIOLOGY CONSULT NOTE CHEIF COMPLAINT: Chest pain and shortness of breath Problems: HPI: Patient is a 76-year-old woman with multiple comorbidities as noted below who presents to the hospital in the setting of chest pain. She was recently admitted in June and underwent a cardiac catheterization in the setting of an elevated troponin to 6 and this did not reveal any new intravenous lesions. She unfortunately returns today. She intermittently has been taking her medical therapy. She denies any syncope. No palpitations. She does have exertional dyspnea. Unfortunately, in the past she has been reluctant to pursue treatment for her severe aortic stenosis. She has intermittently followed up with our office in our office. At this present time she reports her chest pains improved. She has been started on aspirin and Plavix and a heparin drip given her elevated troponin. 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 Denies any alcohol, tobacco or illicit drug use. FAMHX: Noncontributory CURRENT MEDS: Current Medications Medications (Trade) Dose Ordered Sig/Payton Start Time Stop Time Status Last Admin Dose Admin Aspirin (Children'S Aspirin) 324 mg 1X ONCE 08/19/17 19:15 08/19/17 19:16 DC Metoprolol Tartrate (Lopressor) 5 mg 1X ONCE 08/19/17 21:30 08/19/17 21:31 DC 08/19/17 21:34 5 MG Multi-Ingredient Mouthwash/Gargle (Gi Cocktail Single Dose) 15 ml 1X ONCE 08/19/17 19:45 08/19/17 19:46 DC 08/19/17 19:58 15 ML Nitroglycerin (Nitrostat) 0.4 mg PRN Q5MIN PRN 08/20/17 07:45 08/20/17 07:46 0.4 MG Ondansetron HCl (Zofran) 4 mg PRN Q8HRS PRN 08/19/17 21:45 08/20/17 21:44 ALLERGIES: Allergies Coded Allergies Type Severity Reaction Last Updated Verified Sulfa (Sulfonamide Antibiotics) Allergy Intermediate Nausea/Vomiting, Rash 09/22/16 Yes morphine Allergy Intermediate itching 09/22/16 Yes adhesive Adverse Reaction Intermediate Itching 09/22/16 Yes ROS: Negative for 10 out of 14 systems reviewed also otherwise mentioned above in history of present illness PHYSICAL EXAM: Vital Signs: Vital Signs Date Time Temp Pulse Resp B/P (MAP) Pulse Ox O2 Delivery O2 Flow Rate FiO2 08/20/17 07:46 68 102/41 08/20/17 07:45 98.1 18 98 Nasal Cannula 2.0 98.1 Physical Exam: GEN.: No apparent distress. Alert and oriented. HEENT: Head is normocephalic, atraumatic NECK: Supple. LUNGS: Clear to auscultation. HEART: RRR, S1, S2 present. Diminished peripheral pulses. 4/6systolic murmur consistent with aortic stenosis ABDOMEN: Soft, nontender. Positive bowel sounds. EXTREMITIES: Without any cyanosis. NEUROLOGIC: Normal speech, normal tone PSYCHIATRIC: Normal affect, normal mood. SKIN: No ulcerations DIAGNOSTIC TESTING: Catheter in June 2017 demonstrated three-vessel coronary disease without any significant intravenous lesions. Echocardiogram today demonstrates grossly normal LV function. Lab Laboratory Tests Test 08/19/17 19:24 08/20/17 03:45 08/20/17 07:50 White Blood Count 4.5 x10^3/uL (4.0-11.0) 4.3 x10^3/uL (4.0-11.0) Red Blood Count 3.62 x10^6/uL (3.50-5.40) 3.29 x10^6/uL (3.50-5.40) L Hemoglobin 11.7 g/dL (12.0-15.5) L 10.8 g/dL (12.0-15.5) L Hematocrit 35.4 % (36.0-47.0) L 32.2 % (36.0-47.0) L Mean Corpuscular Volume 98 fL (79-100) 98 fL (79-100) Mean Corpuscular Hemoglobin 32 pg (25-35) 33 pg (25-35) Mean Corpuscular Hemoglobin Concent 33 g/dL (31-37) 34 g/dL (31-37) Red Cell Distribution Width 14.9 % (11.5-14.5) H 15.1 % (11.5-14.5) H Platelet Count 106 x10^3/uL (140-400) L 97 x10^3/uL (140-400) L Neutrophils (%) (Auto) 60 % (31-73) 53 % (31-73) Lymphocytes (%) (Auto) 16 % (24-48) L 21 % (24-48) L Monocytes (%) (Auto) 18 % (0-9) H 16 % (0-9) H Eosinophils (%) (Auto) 5 % (0-3) H 8 % (0-3) H Basophils (%) (Auto) 1 % (0-3) 1 % (0-3) Neutrophils # (Auto) 2.7 x10^3uL (1.8-7.7) 2.3 x10^3uL (1.8-7.7) Lymphocytes # (Auto) 0.7 x10^3/uL (1.0-4.8) L 0.9 x10^3/uL (1.0-4.8) L Monocytes # (Auto) 0.8 x10^3/uL (0.0-1.1) 0.7 x10^3/uL (0.0-1.1) Eosinophils # (Auto) 0.2 x10^3/uL (0.0-0.7) 0.4 x10^3/uL (0.0-0.7) Basophils # (Auto) 0.1 x10^3/uL (0.0-0.2) 0.0 x10^3/uL (0.0-0.2) Prothrombin Time 13.2 SEC (11.7-14.0) Prothromb Time International Ratio 1.1 (0.8-1.1) Sodium Level 137 mmol/L (136-145) 140 mmol/L (136-145) Potassium Level 3.2 mmol/L (3.5-5.1) L 3.3 mmol/L (3.5-5.1) L Chloride Level 97 mmol/L (98-107) L 98 mmol/L (98-107) Carbon Dioxide Level 31 mmol/L (21-32) 35 mmol/L (21-32) H Anion Gap 9 (6-14) 7 (6-14) Blood Urea Nitrogen 30 mg/dL (7-20) H 33 mg/dL (7-20) H Creatinine 2.8 mg/dL (0.6-1.0) H 3.2 mg/dL (0.6-1.0) H Estimated GFR (Cockcroft-Gault) 16.4 14.0 Glucose Level 244 mg/dL (70-99) H 122 mg/dL (70-99) H Calcium Level 8.2 mg/dL (8.5-10.1) L 7.7 mg/dL (8.5-10.1) L Total Bilirubin 0.4 mg/dL (0.2-1.0) Direct Bilirubin 0.1 mg/dL (0.0-0.2) Aspartate Amino Transf (AST/SGOT) 28 U/L (15-37) Alkaline Phosphatase 134 U/L (46-116) H Creatine Kinase 50 U/L (26-192) Creatine Kinase MB (Mass) 0.8 ng/mL (0.0-3.6) Creatine Kinase MB Relative Index 1.6 % (0-4) Total Protein 7.4 g/dL (6.4-8.2) Albumin 2.7 g/dL (3.4-5.0) L Lipase 346 U/L (73-393) Glucose (Fingerstick) 108 mg/dL (70-99) H ASSESSMENT: 1. Chest pain, with typical and atypical features. now resolved. 2. NSTEMI: highest trop 7. Heparin initiated. 3. CAD: Recent PCI/JAISON 05/30/2017 to LCx with patent other stents. on DAPT therapy with ASA and Plavix 4. Chronic CHF with diastolic/systolic dysfunction; 5. Severe ; continue medical therapy 6. ICM: PEARL DIGGER-d(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 V paced. Recent echo with LV improvement; EF at 55% 7. ESRD on HD 8. HTN: Controlled. continue present medications 9. DM2/HLP 10. PVD: incidental finding of 90% calcified stenosis of proximal right SFA No claudication symptoms. Continue medical therapy. Will f/u on an outpatient basis. PLAN: 1. She is poorly compliant with medications. Suspect that her troponin elevation is related to noncompliance with medications and her severe underlying aortic stenosis which the patient has been reluctant to be treated in the past. 2. Monitor on reinitiation of home medical therapy. Reassess symptoms overnight. If she continues to have intermittent chest pain with may reconsider cardiac catheterization and/or aortic valvuloplasty after discussion with the patient. Thank you this consultation we will follow along closely. TIMOTHY RUSSO MD Aug 20, 2017 08:12
[2017-08-20] MEDS ORDERED: HEPARIN for IV BOLUS 10,000 UNIT/10 ML VIAL. IV ONE (08:15)
--- NOTE | 2017-08-20 08:28 | RAD ---
Portable chest, 08/19/2017: History: Mid chest pain Comparison is made to a study from 06/20/2017. A left-sided transvenous pacemaker remains in place with 3 leads extending into the heart, unchanged in positions. A vascular stent overlies the right subclavian/axillary region. The heart is enlarged with prominence of the left ventricle. There is calcific plaquing of the aorta. There are prominent perihilar markings obscuring the underlying pulmonary vascularity. Similar findings were present on the previous study. There is no evidence of pleural fluid or pneumothorax. There is an old healed left humeral neck fracture. IMPRESSION: 1. Cardiomegaly and aortic atherosclerosis. 2. Ongoing parahilar opacities compatible with scarring although a component of chronic or recurrent pulmonary edema may be present.
[2017-08-20] MEDS ORDERED: POTASSIUM CHLORIDE 20 MEQ TABLET.ER. PO ONE (08:30)
[2017-08-20] MEDS: CLOPIDOGREL BISULFATE 75 MG TABLET PO SCH (08:41)
[2017-08-20] MEDS: ASPIRIN ENTERIC COATED 81 MG TABLET.DR. PO SCH (08:41)
[2017-08-20] MEDS: HEPARIN 25,000UTS/500ML PREMIX 500 ML IV PRN (08:59)
[2017-08-20] MEDS ORDERED: hydrALAZINE 20 MG/ML VIAL. IVP PRN (11:00)
[2017-08-20] MEDS ORDERED: DOCUSATE SODIUM 100 MG CAPSULE. PO PRN (11:00)
[2017-08-20] MEDS ORDERED: DEXTROSE 50% 25 GM / 50ML DISP.SYRIN. IV PRN (11:00)
[2017-08-20] MEDS ORDERED: ONDANSETRON PF 4 MG/2 ML VIAL. IV PRN (11:00)
--- NOTE | 2017-08-20 11:25 | PDOC2 ---
CONSULT Date of Consult Date of Consult DATE: 08/20/17 TIME: 11:21 Reason for Consult Reason for Consult: ESRD Referring Physician Referring Physician: Dr valencia Identification/Chief Complaint Chief Complaint CP Problems: Source Source: Chart review, Patient History of Present Illness Reason for Visit: as dictated Past Medical History Cardiovascular: AFIB, CAD, CHF, HTN, [place], Hyperlipidemia, Aortic stenosis Pulmonary: COPD CENTRAL NERVOUS SYSTEM: CVA, Periperal neuropathy GI: Constipation, GERD Heme/Onc: Anemia NOS Hepatobiliary: No pertinent hx Psych: Depression Musculoskeletal: Osteoarthritis Rheumatologic: No pertinent hx Infectious disease: No pertinent hx Renal/: Chronic renal failure Endocrine: Diabetes, Hypothyroidism, Hyperparathyroidism Past Surgical History Past Surgical History: Pacemaker, Appendectomy, Cholecystectomy, Cataract Removal, Hernia Repair, Hysterectomy, Other Family History Family History: Hypertension Social History ALCOHOL: none Drugs: None Lives: with Family Domestic Violence: Neg Current Medications Current Medications Current Medications Aspirin (Children'S Aspirin) 324 mg 1X ONCE PO ; Start 08/19/17 at 19:15; Stop 08/19/17 at 19:16; Status DC Multi-Ingredient Mouthwash/Gargle (Gi Cocktail Single Dose) 15 ml 1X ONCE SWSW Last administered on 08/19/17 19:58; Start 08/19/17 at 19:45; Stop 08/19/17 at 19:46; Status DC Metoprolol Tartrate (Lopressor) 5 mg 1X ONCE IVP Last administered on 21:34; Start 08/19/17 at 21:30; Stop 08/19/17 at 21:31; Status DC Ondansetron HCl (Zofran) 4 mg PRN Q8HRS PRN IV NAUSEA/VOMITING; Start 08/19/17 at 21:45; Stop 08/20/17 at 21:44 Nitroglycerin (Nitrostat) 0.4 mg PRN Q5MIN PRN SL CHEST PAIN Last administered on 08/20/17 07:46; Start 08/20/17 at 07:45 Aspirin (Ecotrin) 81 mg DAILYWBKFT PO Last administered on 08/20/17 08:41; Start 08/20/17 at 08:15 Clopidogrel Bisulfate (Plavix) 75 mg DAILY PO Last administered on 08/20/17 08 :41; Start 08/20/17 at 09:00 Heparin Sodium/ Dextrose 500 ml @ 20 mls/hr CONT PRN IV SEE I/O RECORD Last administered on 08/20/17 08:59; Start 08/20/17 at 08:15 Heparin Sodium (Porcine) (Heparin Sodium) 2,500 unit PRN Q6HRS PRN IV FOR UFH LEVEL LESS THAN 0.2; Start 08/20/17 at 08:15 Heparin Sodium (Porcine) (Heparin Sodium) 4,000 unit 1X ONCE IV Last administered on 08/20/17 08:46; Start 08/20/17 at 08:15; Stop 08/20/17 at 08:29 ; Status DC Potassium Chloride (Klor-Con) 40 meq 1X ONCE PO Last administered on 08:41; Start 08/20/17 at 08:30; Stop 08/20/17 at 08:31; Status DC Famotidine (Pepcid) 20 mg HS PO ; Start 08/20/17 at 21:00 Metoprolol Tartrate (Lopressor) 50 mg BID PO ; Start 08/20/17 at 11:00 Nitroglycerin (Nitrostat) 0.4 mg PRN Q5MIN PRN SL CHEST PAIN; Start 08/20/17 at 11:00 Nystatin (Nystop) 1 tiffany BID TP ; Start 08/20/17 at 11:00 Calcium Acetate (Phoslo) 667 mg TIDWMEALS PO ; Start 08/20/17 at 12:00 Citalopram Hydrobromide (CeleXA) 20 mg DAILY PO ; Start 08/21/17 at 09:00 Insulin Detemir (Levemir) 14 units QHS SQ ; Start 08/20/17 at 21:00; Stop at 21:00; Status DC Vitamin B Complex/ Vitamin C (Tanisha-Prashanth) 1 tab DAILY PO ; Start 08/21/17 at 09: 00 Acetaminophen (Tylenol) 650 mg PRN Q6HRS PRN PO FEVER; Start 08/20/17 at 11:00 Ondansetron HCl (Zofran) 4 mg PRN Q6HRS PRN IV NAUSEA/VOMITING; Start 08/20/17 at 11:00 Hydralazine HCl (Apresoline) 10 mg PRN Q4HRS PRN IVP ELEVATED BP, SEE COMMENTS ; Start 08/20/17 at 11:00 Docusate Sodium (Colace) 100 mg PRN DAILY PRN PO CONSTIPATION; Start 08/20/17 at 11:00 Insulin Detemir (Levemir) 10 units QHS SQ ; Start 08/20/17 at 21:00 Insulin Aspart (NovoLOG) 0-9 UNITS TIDWMEALS SQ ; Start 08/20/17 at 12:00 Dextrose (Dextrose 50%-Water Syringe) 12.5 gm PRN Q15MIN PRN IV SEE COMMENTS; Start 08/20/17 at 11:00 Active Scripts Active Aspirin Ec (Aspirin) 81 Mg Tablet.dr 81 Mg PO DAILYWBKFT Nystop (Nystatin) 60 Gm Powder 1 Tiffany TP BID Isosorbide Mononitrate Er (Isosorbide Mononitrate) 60 Mg Tab.er.24h 60 Mg PO DAILY 30 Days Escitalopram Oxalate 10 Mg Tablet 10 Mg PO DAILY Pepcid (Famotidine) 20 Mg Tablet 20 Mg PO HS Nitrostat (Nitroglycerin) 0.4 Mg Tab.subl 0.4 Mg SL PRN Q5MIN PRN Reported Clopidogrel (Clopidogrel Bisulfate) 75 Mg Tablet 75 Mg PO DAILY Lisinopril 5 Mg Tablet 1 Tab PO DAILY Metoprolol Tartrate 50 Mg Tablet 50 Mg PO BID Nephro-Prashanth Rx Tablet (Vit B Cmplx 3/Fa/Vit C/Biotin) 1 Each Tablet 1 Each PO DAILY Hydrocodone-Apap 7.5-325 (Hydrocodone Bit/Acetaminophen) 1 Each Tablet 1 Tab PO PRN Q6HRS PRN Calcium Acetate 667 Mg Tablet 667 Mg PO TIDWMEALS Lantus Solostar (Insulin Glargine,Hum.rec.anlog) 100 Unit/1 Ml Insuln.pen 14 Unit SQ QHS Allergies Allergies: Coded Allergies: Sulfa (Sulfonamide Antibiotics) (Verified Allergy, Intermediate, Nausea/ Vomiting, Rash, 09/22/16) morphine (Verified Allergy, Intermediate, itching, 09/22/16) adhesive (Verified Adverse Reaction, Intermediate, Itching, 09/22/16) ROS Review of System GEN: no Fevers no Chills EYES: no Visual Complaints ENT: no EN Drainage no Hearing deficiets CVS: no Orthopnea + CP RESP: n SOB on MATHEWS GI: + Nausea + Vomiting : no Dysuria no Urgency HEME: no easy bruising no Palp Ly Nodes NEURO no Focal Weakness no Sz PSYCH: no Suicidal Ideation occ Depression SKIN: no Rashes ENDO: no Polyuria or Polydipsia no Hot/Cold Intolerance MU SK: + Arthraigia no Myalgia Physical Exam Physical Exam General Appearance: Awake Alert Oriented x 3 In no Distress Eyes: VIsion Unchanged Conjunctiva Normal EN: No EN Drainage Mucous Memb. moist Neck: no JVD no JVP Supple no Thyromegaly CVS: S1 S2 ++ Murmur No Gallop No Rub no Edema Resp: no Rales no Rhonchi no Acc. Muscle use GI: BAS +ve NO Bruit Non Tender Non Distended : no CVA tenderness; no Suprapubic Tenderness SKIN: no Rashes Breast Exam deferred Mu.Sk: Adequate ROM no Muscle Atrophy Heme: Unable to palpate Obvious LAD no Splenomegaly NEURO: Good Strength and Tone Cranial Nerves II - XII grossly intact Psych: not Depressed no Active hallucination Vital Signs Vital Signs Date Time Temp Pulse Resp B/P (MAP) Pulse Ox O2 Delivery O2 Flow Rate FiO2 08/20/17 08:26 Nasal Cannula 2.0 08/20/17 07:46 68 102/41 08/20/17 07:45 98.1 18 98 98.1 Assessment & Plan ESRD: Current FLuid and E-lyte status does not necessitate emergent need for Dialysis. Will re-evaluate for Dialysis in am and continue on MWF schedule NSTEMI - on Heparin, h/o VHDz - ECHO ongoing - will co-ordinate [facility] HD on Tuesday Anemia: Epogen as ordered. Transfuse with next HD as needed. HTN: Current BP meds reviewed. See orders for changes. Bone & Mineral: Follow phos and alter binder regimne as needed Low K - replaced Discussed Plan of Care and prognosis etc. at length with pt Labs Labs Laboratory Tests Test 08/19/17 19:24 08/20/17 03:45 08/20/17 07:50 08/20/17 09:36 White Blood Count 4.5 x10^3/uL (4.0-11.0) 4.3 x10^3/uL (4.0-11.0) Red Blood Count 3.62 x10^6/uL (3.50-5.40) 3.29 x10^6/uL (3.50-5.40) Hemoglobin 11.7 g/dL (12.0-15.5) 10.8 g/dL (12.0-15.5) Hematocrit 35.4 % (36.0-47.0) 32.2 % (36.0-47.0) Mean Corpuscular Volume 98 fL (79-100) 98 fL (79-100) Mean Corpuscular Hemoglobin 32 pg (25-35) 33 pg (25-35) Mean Corpuscular Hemoglobin Concent 33 g/dL (31-37) 34 g/dL (31-37) Red Cell Distribution Width 14.9 % (11.5-14.5) 15.1 % (11.5-14.5) Platelet Count 106 x10^3/uL (140-400) 97 x10^3/uL (140-400) Neutrophils (%) (Auto) 60 % (31-73) 53 % (31-73) Lymphocytes (%) (Auto) 16 % (24-48) 21 % (24-48) Monocytes (%) (Auto) 18 % (0-9) 16 % (0-9) Eosinophils (%) (Auto) 5 % (0-3) 8 % (0-3) Basophils (%) (Auto) 1 % (0-3) 1 % (0-3) Neutrophils # (Auto) 2.7 x10^3uL (1.8-7.7) 2.3 x10^3uL (1.8-7.7) Lymphocytes # (Auto) 0.7 x10^3/uL (1.0-4.8) 0.9 x10^3/uL (1.0-4.8) Monocytes # (Auto) 0.8 x10^3/uL (0.0-1.1) 0.7 x10^3/uL (0.0-1.1) Eosinophils # (Auto) 0.2 x10^3/uL (0.0-0.7) 0.4 x10^3/uL (0.0-0.7) Basophils # (Auto) 0.1 x10^3/uL (0.0-0.2) 0.0 x10^3/uL (0.0-0.2) Prothrombin Time 13.2 SEC (11.7-14.0) Prothromb Time International Ratio 1.1 (0.8-1.1) Sodium Level 137 mmol/L (136-145) 140 mmol/L (136-145) Potassium Level 3.2 mmol/L (3.5-5.1) 3.3 mmol/L (3.5-5.1) Chloride Level 97 mmol/L (98-107) 98 mmol/L (98-107) Carbon Dioxide Level 31 mmol/L (21-32) 35 mmol/L (21-32) Anion Gap 9 (6-14) 7 (6-14) Blood Urea Nitrogen 30 mg/dL (7-20) 33 mg/dL (7-20) Creatinine 2.8 mg/dL (0.6-1.0) 3.2 mg/dL (0.6-1.0) Estimated GFR (Cockcroft-Gault) 16.4 14.0 Glucose Level 244 mg/dL (70-99) 122 mg/dL (70-99) Calcium Level 8.2 mg/dL (8.5-10.1) 7.7 mg/dL (8.5-10.1) Magnesium Level 2.0 mg/dL (1.8-2.4) Total Bilirubin 0.4 mg/dL (0.2-1.0) Direct Bilirubin 0.1 mg/dL (0.0-0.2) Aspartate Amino Transf (AST/SGOT) 28 U/L (15-37) Alanine Aminotransferase (ALT/SGPT) 24 U/L (14-59) Alkaline Phosphatase 134 U/L (46-116) Creatine Kinase 50 U/L (26-192) Creatine Kinase MB (Mass) 0.8 ng/mL (0.0-3.6) Creatine Kinase MB Relative Index 1.6 % (0-4) Troponin I Quantitative 0.099 ng/mL (0.000-0.055) 3.273 ng/mL (0.000-0.055) 7.299 ng/mL (0.000-0.055) HI-Bcu-B-Type Natriuretic Peptide 19977 pg/mL (0-449) Total Protein 7.4 g/dL (6.4-8.2) Albumin 2.7 g/dL (3.4-5.0) Lipase 346 U/L (73-393) Glucose (Fingerstick) 108 mg/dL (70-99) Laboratory Tests Test 08/19/17 19:24 08/20/17 03:45 08/20/17 07:50 08/20/17 09:36 White Blood Count 4.5 x10^3/uL (4.0-11.0) 4.3 x10^3/uL (4.0-11.0) Red Blood Count 3.62 x10^6/uL (3.50-5.40) 3.29 x10^6/uL (3.50-5.40) Hemoglobin 11.7 g/dL (12.0-15.5) 10.8 g/dL (12.0-15.5) Hematocrit 35.4 % (36.0-47.0) 32.2 % (36.0-47.0) Mean Corpuscular Volume 98 fL (79-100) 98 fL (79-100) Mean Corpuscular Hemoglobin 32 pg (25-35) 33 pg (25-35) Mean Corpuscular Hemoglobin Concent 33 g/dL (31-37) 34 g/dL (31-37) Red Cell Distribution Width 14.9 % (11.5-14.5) 15.1 % (11.5-14.5) Platelet Count 106 x10^3/uL (140-400) 97 x10^3/uL (140-400) Neutrophils (%) (Auto) 60 % (31-73) 53 % (31-73) Lymphocytes (%) (Auto) 16 % (24-48) 21 % (24-48) Monocytes (%) (Auto) 18 % (0-9) 16 % (0-9) Eosinophils (%) (Auto) 5 % (0-3) 8 % (0-3) Basophils (%) (Auto) 1 % (0-3) 1 % (0-3) Neutrophils # (Auto) 2.7 x10^3uL (1.8-7.7) 2.3 x10^3uL (1.8-7.7) Lymphocytes # (Auto) 0.7 x10^3/uL (1.0-4.8) 0.9 x10^3/uL (1.0-4.8) Monocytes # (Auto) 0.8 x10^3/uL (0.0-1.1) 0.7 x10^3/uL (0.0-1.1) Eosinophils # (Auto) 0.2 x10^3/uL (0.0-0.7) 0.4 x10^3/uL (0.0-0.7) Basophils # (Auto) 0.1 x10^3/uL (0.0-0.2) 0.0 x10^3/uL (0.0-0.2) Prothrombin Time 13.2 SEC (11.7-14.0) Prothromb Time International Ratio 1.1 (0.8-1.1) Sodium Level 137 mmol/L (136-145) 140 mmol/L (136-145) Potassium Level 3.2 mmol/L (3.5-5.1) 3.3 mmol/L (3.5-5.1) Chloride Level 97 mmol/L (98-107) 98 mmol/L (98-107) Carbon Dioxide Level 31 mmol/L (21-32) 35 mmol/L (21-32) Anion Gap 9 (6-14) 7 (6-14) Blood Urea Nitrogen 30 mg/dL (7-20) 33 mg/dL (7-20) Creatinine 2.8 mg/dL (0.6-1.0) 3.2 mg/dL (0.6-1.0) Estimated GFR (Cockcroft-Gault) 16.4 14.0 Glucose Level 244 mg/dL (70-99) 122 mg/dL (70-99) Calcium Level 8.2 mg/dL (8.5-10.1) 7.7 mg/dL (8.5-10.1) Magnesium Level 2.0 mg/dL (1.8-2.4) Total Bilirubin 0.4 mg/dL (0.2-1.0) Direct Bilirubin 0.1 mg/dL (0.0-0.2) Aspartate Amino Transf (AST/SGOT) 28 U/L (15-37) Alanine Aminotransferase (ALT/SGPT) 24 U/L (14-59) Alkaline Phosphatase 134 U/L (46-116) Creatine Kinase 50 U/L (26-192) Creatine Kinase MB (Mass) 0.8 ng/mL (0.0-3.6) Creatine Kinase MB Relative Index 1.6 % (0-4) Troponin I Quantitative 0.099 ng/mL (0.000-0.055) 3.273 ng/mL (0.000-0.055) 7.299 ng/mL (0.000-0.055) CW-Rqx-T-Type Natriuretic Peptide 49230 pg/mL (0-449) Total Protein 7.4 g/dL (6.4-8.2) Albumin 2.7 g/dL (3.4-5.0) Lipase 346 U/L (73-393) Glucose (Fingerstick) 108 mg/dL (70-99) GABI SILVESTRE MD Aug 20, 2017 11:25
[2017-08-20 11:34] VITALS: BP 116/42
--- NOTE | 2017-08-20 11:48 | EKG ---
[facility] [address] [place] [address] Test Date: 2017-08-19 Test Time: 19:10:25 Pat Name: MK IBRD Department: Room: Gender: F Returned Case Inspector: : 1940 Requested By: BARRINGTON SAVAGE Order Number: [id number] Reading MD: Measurements Intervals [place] Rate: 117 P: [place]: QRS: -42 QRSD: 134 T: 134 QT: 360 QTc: 507 Interpretive Statements ATRIAL FIB./FLUTTER WITH RAPID VENTRICULAR RESPONSE VENTRICULAR PREMATURE COMPLEX(ES) ABNORMAL LEFT AXIS DEVIATION NON SPECIFIC INTRAVENTRICULAR BLOCK QRS(T) CONTOUR ABNORMALITY CONSISTENT WITH ANTEROSEPTAL INFARCT PROBABLY OLD RI6.01 Unconfirmed report No previous ECG available for comparison
[2017-08-20] MEDS: CALCIUM ACETATE 667 MG CAPSULE PO SCH ×2 (12:37→17:54)
[2017-08-20] MEDS: METOPROLOL TART IMMED RELEASE 50 MG TABLET. PO SCH ×2 (12:37→21:57)
[2017-08-20] MEDS: NYSTATIN TOPICAL POWDER 15GM BOTTLE. TP SCH ×2 (12:37→21:57)
[2017-08-20] MEDS: INSULIN ASPART 300 UNITS/3 ML INSULN.PEN SQ SCH ×2 (12:40→17:00)
--- NOTE | 2017-08-20 13:59 | PDOC1 ---
History and Physical Date of Admission Date of Admission 08/19/17 Identification/Chief Complaint Chief Complaint chest pain Problems: Source Source: Chart review, Patient History of Present Illness History of Present Illness HPI HPI Patient is a 76 year old female who presents with chest pain x1d. Pt very uncompliant, had 1 stent in 06/2017, but not taking her meds daily. She was lying in bed at about 5pm yesterday, felt substernal chest pain, 8/10, heavy, no radiation, but had diaphoresis, sob, and N/V. denies fever, chills, cough, diarrhea. on ESRD HD MWF. came to ER, was found high troponin, on heparin drip, now chest pain free. Past Medical History Cardiovascular: AFIB, CAD, CHF, HTN, [place], Hyperlipidemia, Aortic stenosis Pulmonary: COPD CENTRAL NERVOUS SYSTEM: CVA, Periperal neuropathy GI: Constipation, GERD Heme/Onc: Anemia NOS Hepatobiliary: No pertinent hx Psych: Depression Rheumatologic: No pertinent hx Infectious disease: No pertinent hx Renal/: Chronic renal failure Endocrine: Diabetes, Hypothyroidism, Hyperparathyroidism Past Surgical History Past Surgical History: Pacemaker, Appendectomy, Cholecystectomy, Cataract Removal, Hernia Repair, Hysterectomy, Other Family History Family History: Hypertension Social History Smoke: No ALCOHOL: none Drugs: None Current Medications Current Medications Current Medications Medications (Trade) Dose Ordered Sig/Payton Start Time Stop Time Status Last Admin Dose Admin Acetaminophen (Tylenol) 650 mg PRN Q6HRS PRN 08/20/17 11:00 Aspirin (Children'S Aspirin) 324 mg 1X ONCE 08/19/17 19:15 08/19/17 19:16 DC Aspirin (Ecotrin) 81 mg DAILYWBKFT 08/20/17 08:15 08/20/17 08:41 81 MG Calcium Acetate (Phoslo) 667 mg TIDWMEALS 08/20/17 12:00 08/20/17 12:37 667 MG Citalopram Hydrobromide (CeleXA) 20 mg DAILY 08/21/17 09:00 Clopidogrel Bisulfate (Plavix) 75 mg DAILY 08/20/17 09:00 08/20/17 08:41 75 MG Dextrose (Dextrose 50%-Water Syringe) 12.5 gm PRN Q15MIN PRN 08/20/17 11:00 Docusate Sodium (Colace) 100 mg PRN DAILY PRN 08/20/17 11:00 Famotidine (Pepcid) 20 mg HS 08/20/17 21:00 Heparin Sodium (Porcine) (Heparin Sodium) 4,000 unit 1X ONCE 08/20/17 08:15 08/20/17 08:29 DC 08/20/17 08:46 4,000 UNIT Heparin Sodium/ Dextrose 500 ml @ 20 mls/hr CONT PRN 08/20/17 08:15 08/20/17 08:59 20 MLS/HR Hydralazine HCl (Apresoline) 10 mg PRN Q4HRS PRN 08/20/17 11:00 Insulin Aspart (NovoLOG) 0-9 UNITS TIDWMEALS 08/20/17 12:00 08/20/17 12:40 4 UNITS Insulin Detemir (Levemir) 10 units QHS 08/20/17 21:00 Metoprolol Tartrate (Lopressor) 50 mg BID 08/20/17 11:00 08/20/17 12:37 50 MG Multi-Ingredient Mouthwash/Gargle (Gi Cocktail Single Dose) 15 ml 1X ONCE 08/19/17 19:45 08/19/17 19:46 DC 08/19/17 19:58 15 ML Nitroglycerin (Nitrostat) 0.4 mg PRN Q5MIN PRN 08/20/17 11:00 Nystatin (Nystop) 1 umm BID 08/20/17 11:00 08/20/17 12:37 1 UMM Ondansetron HCl (Zofran) 4 mg PRN Q6HRS PRN 08/20/17 11:00 Potassium Chloride (Klor-Con) 40 meq 1X ONCE 08/20/17 08:30 08/20/17 08:31 DC 08/20/17 08:41 40 MEQ Vitamin B Complex/ Vitamin C (Tanisha-Prashanth) 1 tab DAILY 08/21/17 09:00 Allergies Allergies Allergies Coded Allergies Type Severity Reaction Last Updated Verified Sulfa (Sulfonamide Antibiotics) Allergy Intermediate Nausea/Vomiting, Rash 09/22/16 Yes morphine Allergy Intermediate itching 09/22/16 Yes adhesive Adverse Reaction Intermediate Itching 09/22/16 Yes ROS Review of System CONSTITUTIONAL: No fever or chills EYES: No recent changes SKIN: No rash or itching CARDIOVASCULAR: No chest pain, syncope, palpitations, or edema RESPIRATORY: No SOB or cough GASTROINTESTINAL: No nausea, vomiting or abdominal pain NEUROLOGICAL: No headaches or weakness ENDOCRINE: No cold or heat intolerance GENITOURINARY: No urgency or frequency of urination MUSCULOSKELETAL: No back pain or joint pain LYMPHATICS: No enlarged lymph nodes PSYCHIATRIC: No anxiety or depression Physical Exam Physical Exam GEN.: No apparent distress. Alert and oriented. HEENT: Head is normocephalic, atraumatic NECK: Supple. LUNGS: Clear to auscultation. HEART: RRR, S1, S2 present. Peripheral pulses intact ABDOMEN: Soft, nontender. Positive bowel sounds. EXTREMITIES: Without any cyanosis. bl leg chronic venous stasis NEUROLOGIC: Normal speech, normal tone PSYCHIATRIC: Normal affect, normal mood. SKIN: No ulcerations Vitals Vitals Vital Signs Date Time Temp Pulse Resp B/P (MAP) Pulse Ox O2 Delivery O2 Flow Rate FiO2 08/20/17 12:37 65 152/70 08/20/17 11:34 95.5 18 100 Nasal Cannula 2.0 95.5 Labs Labs Laboratory Tests Test 08/19/17 19:24 08/20/17 03:45 08/20/17 07:50 08/20/17 09:36 White Blood Count 4.5 x10^3/uL (4.0-11.0) 4.3 x10^3/uL (4.0-11.0) Red Blood Count 3.62 x10^6/uL (3.50-5.40) 3.29 x10^6/uL (3.50-5.40) Hemoglobin 11.7 g/dL (12.0-15.5) 10.8 g/dL (12.0-15.5) Hematocrit 35.4 % (36.0-47.0) 32.2 % (36.0-47.0) Mean Corpuscular Volume 98 fL (79-100) 98 fL (79-100) Mean Corpuscular Hemoglobin 32 pg (25-35) 33 pg (25-35) Mean Corpuscular Hemoglobin Concent 33 g/dL (31-37) 34 g/dL (31-37) Red Cell Distribution Width 14.9 % (11.5-14.5) 15.1 % (11.5-14.5) Platelet Count 106 x10^3/uL (140-400) 97 x10^3/uL (140-400) Neutrophils (%) (Auto) 60 % (31-73) 53 % (31-73) Lymphocytes (%) (Auto) 16 % (24-48) 21 % (24-48) Monocytes (%) (Auto) 18 % (0-9) 16 % (0-9) Eosinophils (%) (Auto) 5 % (0-3) 8 % (0-3) Basophils (%) (Auto) 1 % (0-3) 1 % (0-3) Neutrophils # (Auto) 2.7 x10^3uL (1.8-7.7) 2.3 x10^3uL (1.8-7.7) Lymphocytes # (Auto) 0.7 x10^3/uL (1.0-4.8) 0.9 x10^3/uL (1.0-4.8) Monocytes # (Auto) 0.8 x10^3/uL (0.0-1.1) 0.7 x10^3/uL (0.0-1.1) Eosinophils # (Auto) 0.2 x10^3/uL (0.0-0.7) 0.4 x10^3/uL (0.0-0.7) Basophils # (Auto) 0.1 x10^3/uL (0.0-0.2) 0.0 x10^3/uL (0.0-0.2) Prothrombin Time 13.2 SEC (11.7-14.0) Prothromb Time International Ratio 1.1 (0.8-1.1) Sodium Level 137 mmol/L (136-145) 140 mmol/L (136-145) Potassium Level 3.2 mmol/L (3.5-5.1) 3.3 mmol/L (3.5-5.1) Chloride Level 97 mmol/L (98-107) 98 mmol/L (98-107) Carbon Dioxide Level 31 mmol/L (21-32) 35 mmol/L (21-32) Anion Gap 9 (6-14) 7 (6-14) Blood Urea Nitrogen 30 mg/dL (7-20) 33 mg/dL (7-20) Creatinine 2.8 mg/dL (0.6-1.0) 3.2 mg/dL (0.6-1.0) Estimated GFR (Cockcroft-Gault) 16.4 14.0 Glucose Level 244 mg/dL (70-99) 122 mg/dL (70-99) Calcium Level 8.2 mg/dL (8.5-10.1) 7.7 mg/dL (8.5-10.1) Magnesium Level 2.0 mg/dL (1.8-2.4) Total Bilirubin 0.4 mg/dL (0.2-1.0) Direct Bilirubin 0.1 mg/dL (0.0-0.2) Aspartate Amino Transf (AST/SGOT) 28 U/L (15-37) Alanine Aminotransferase (ALT/SGPT) 24 U/L (14-59) Alkaline Phosphatase 134 U/L (46-116) Creatine Kinase 50 U/L (26-192) Creatine Kinase MB (Mass) 0.8 ng/mL (0.0-3.6) Creatine Kinase MB Relative Index 1.6 % (0-4) Troponin I Quantitative 0.099 ng/mL (0.000-0.055) 3.273 ng/mL (0.000-0.055) 7.299 ng/mL (0.000-0.055) TQ-Sfo-I-Type Natriuretic Peptide 09819 pg/mL (0-449) Total Protein 7.4 g/dL (6.4-8.2) Albumin 2.7 g/dL (3.4-5.0) Lipase 346 U/L (73-393) Glucose (Fingerstick) 108 mg/dL (70-99) Test 08/20/17 11:54 Glucose (Fingerstick) 163 mg/dL (70-99) Laboratory Tests Test 08/19/17 19:24 08/20/17 03:45 08/20/17 07:50 08/20/17 09:36 White Blood Count 4.5 x10^3/uL (4.0-11.0) 4.3 x10^3/uL (4.0-11.0) Red Blood Count 3.62 x10^6/uL (3.50-5.40) 3.29 x10^6/uL (3.50-5.40) Hemoglobin 11.7 g/dL (12.0-15.5) 10.8 g/dL (12.0-15.5) Hematocrit 35.4 % (36.0-47.0) 32.2 % (36.0-47.0) Mean Corpuscular Volume 98 fL (79-100) 98 fL (79-100) Mean Corpuscular Hemoglobin 32 pg (25-35) 33 pg (25-35) Mean Corpuscular Hemoglobin Concent 33 g/dL (31-37) 34 g/dL (31-37) Red Cell Distribution Width 14.9 % (11.5-14.5) 15.1 % (11.5-14.5) Platelet Count 106 x10^3/uL (140-400) 97 x10^3/uL (140-400) Neutrophils (%) (Auto) 60 % (31-73) 53 % (31-73) Lymphocytes (%) (Auto) 16 % (24-48) 21 % (24-48) Monocytes (%) (Auto) 18 % (0-9) 16 % (0-9) Eosinophils (%) (Auto) 5 % (0-3) 8 % (0-3) Basophils (%) (Auto) 1 % (0-3) 1 % (0-3) Neutrophils # (Auto) 2.7 x10^3uL (1.8-7.7) 2.3 x10^3uL (1.8-7.7) Lymphocytes # (Auto) 0.7 x10^3/uL (1.0-4.8) 0.9 x10^3/uL (1.0-4.8) Monocytes # (Auto) 0.8 x10^3/uL (0.0-1.1) 0.7 x10^3/uL (0.0-1.1) Eosinophils # (Auto) 0.2 x10^3/uL (0.0-0.7) 0.4 x10^3/uL (0.0-0.7) Basophils # (Auto) 0.1 x10^3/uL (0.0-0.2) 0.0 x10^3/uL (0.0-0.2) Prothrombin Time 13.2 SEC (11.7-14.0) Prothromb Time International Ratio 1.1 (0.8-1.1) Sodium Level 137 mmol/L (136-145) 140 mmol/L (136-145) Potassium Level 3.2 mmol/L (3.5-5.1) 3.3 mmol/L (3.5-5.1) Chloride Level 97 mmol/L (98-107) 98 mmol/L (98-107) Carbon Dioxide Level 31 mmol/L (21-32) 35 mmol/L (21-32) Anion Gap 9 (6-14) 7 (6-14) Blood Urea Nitrogen 30 mg/dL (7-20) 33 mg/dL (7-20) Creatinine 2.8 mg/dL (0.6-1.0) 3.2 mg/dL (0.6-1.0) Estimated GFR (Cockcroft-Gault) 16.4 14.0 Glucose Level 244 mg/dL (70-99) 122 mg/dL (70-99) Calcium Level 8.2 mg/dL (8.5-10.1) 7.7 mg/dL (8.5-10.1) Magnesium Level 2.0 mg/dL (1.8-2.4) Total Bilirubin 0.4 mg/dL (0.2-1.0) Direct Bilirubin 0.1 mg/dL (0.0-0.2) Aspartate Amino Transf (AST/SGOT) 28 U/L (15-37) Alanine Aminotransferase (ALT/SGPT) 24 U/L (14-59) Alkaline Phosphatase 134 U/L (46-116) Creatine Kinase 50 U/L (26-192) Creatine Kinase MB (Mass) 0.8 ng/mL (0.0-3.6) Creatine Kinase MB Relative Index 1.6 % (0-4) Troponin I Quantitative 0.099 ng/mL (0.000-0.055) 3.273 ng/mL (0.000-0.055) 7.299 ng/mL (0.000-0.055) [id number]-Type Natriuretic Peptide 14217 pg/mL (0-449) Total Protein 7.4 g/dL (6.4-8.2) Albumin 2.7 g/dL (3.4-5.0) Lipase 346 U/L (73-393) Glucose (Fingerstick) 108 mg/dL (70-99) Test 08/20/17 11:54 Glucose (Fingerstick) 163 mg/dL (70-99) VTE Prophylaxis Ordered VTE Prophylaxis Devices: Yes VTE Pharmacological Prophylaxi: No Assessment/Plan Assessment/Plan chest pain, NSTEMI h/o CAD post PCI STABLE chf, diastiolic, EF 55% severe ESRD on HD mwf dm2 htn PAFIB, no AC oa COPD PPM RIGHT arm avf obesity, BMI 35 uncompliance plan: fu with card, may need another cath? on heparin drip cont HD cont home meds, hold lisinopril, imdur given low side BP no AC, on ASA, plavix add levemir, decrease to 10u qhs, add ssi renal consult for HD KOURTNEY MUSTAFA MD Aug 20, 2017 13:59
[2017-08-20 14:56] VITALS: BP 130/37
--- NOTE | 2017-08-20 17:09 | CARD ---
APPROVED REPORT EXAM: Two-dimensional and M-mode echocardiogram with Doppler and color Doppler. Other Information Quality : Average INDICATION Elavated Troponin 2D DIMENSIONS IVSd1.3 (0.7-1.1cm)LVDd4.5 (3.9-5.9cm) PWd1.4 (0.7-1.1cm)LVDs3.8 (2.5-4.0cm) FS (%) 17.0 %SV33.7 ml LVEF(%)35.7 (>50%)CO3.8 L/min LEFT VENTRICLE There is mild concentric left ventricular hypertrophy. The left ventricular systolic function is norm al and the ejection fraction is within normal range. There is normal LV segmental wall motion. GREAT VESSELS The aortic root is normal in size. PERICARDIAL EFFUSION There is no evidence of significant pericardial effusion. Critical Notification Critical Value: No <Conclusion> The left ventricular systolic function is normal and the ejection fraction is within normal range. EF 50-55% There is normal LV segmental wall motion on limited images. Technically difficult study Limited echo for EF only.
[2017-08-20 19:15] VITALS: BP 99/34
--- NOTE | 2017-08-20 19:55 | CONS ---
DATE OF CONSULTATION: 08/20/2017 PRIMARY PHYSICIAN: Dr. Schultz. REASON FOR CONSULTATION: ESRD dialysis. HISTORY OF PRESENT ILLNESS: The patient is a 76-year-old female who I follow for ESRD needs. She dialyzes Tuesday, Tuesday and Tuesday at dialysis, has not missed any treatments that she relates to me and this is not corroborated with the dialysis center, she presented with chest pain. She does have off and on chest pain. She also had nausea and vomiting this time. She denies any fevers, chills. No shortness of breath. She presented here via EMS and did receive nitroglycerin, which did not help much with her pain; however, her troponins did trend upwards. She was diagnosed with non-STEMI and admitted to the hospital on tele and we were asked to see her for the same. Potassium was 3.3 presumably after yesterday's dialysis. Chest x-ray is nonrevealing. Reproducible chest pain is still present on her anterior chest wall. In this setting, we were asked to see her for further evaluation of her ESRD status, no dialysis is planned today pending cardiac evaluation. GABI SILVESTRE MD DR: KELLY/eliezer JOB#: [id number] / [id number]
[2017-08-20] MEDS ORDERED: INSULIN DETEMIR 300 UNITS/3 ML INSULN.PEN. SQ SCH (21:00)
[2017-08-20] MEDS: FAMOTIDINE 20 MG TABLET. PO SCH (21:28)
[2017-08-20] MEDS: INSULIN DETEMIR 300 UNITS/3 ML INSULN.PEN. SQ SCH (21:52)
[2017-08-20 23:00] VITALS: BP 127/56
[2017-08-20] MEDS: ACETAMINOPHEN 325 MG TABLET. PO PRN (23:57)
[2017-08-21] MEDS: HEPARIN for IV BOLUS 10,000 UNIT/10 ML VIAL. IV PRN (01:37)
[2017-08-21 03:15] VITALS: BP 106/49
[2017-08-21] MEDS ORDERED: fentaNYL PF VIAL 100 MCG/2 ML VIAL IV PRN (03:45)
[2017-08-21 07:25] VITALS: BP 135/48
[2017-08-21] MEDS: INSULIN ASPART 300 UNITS/3 ML INSULN.PEN SQ SCH ×3 (08:00→16:50)
[2017-08-21 08:11] LABS: BASO % 1 % (0-3); EOS % 10 % (0-3); HEMATOCRIT 34.2 % (36.0-47.0); HEMOGLOBIN 11.3 g/dL (12.0-15.5); LYMPH # 1.2 x10^3/uL (1.0-4.8); LYMPH % 23 % (24-48); MEAN CORPUSCULAR HEMOGLOBIN 33 pg (25-35); MEAN CORPUSCULAR HGB CONC 33 g/dL (31-37); MEAN CORPUSCULAR VOLUME 99 fL (79-100); MONO % 16 % (0-9); NEUT % 50 % (31-73); PLATELET COUNT 95 x10^3/uL (140-400); RED BLOOD COUNT 3.46 x10^6/uL (3.50-5.40); RED CELL DISTRIBUTION WIDTH 15.2 % (11.5-14.5); WHITE BLOOD COUNT 5.1 x10^3/uL (4.0-11.0)
--- NOTE | 2017-08-21 08:13 | PDOC ---
CARDIOLOGY PROGRESS NOTE SUBJECTIVE: No acute events overnight. Trop downtrending. Denies any pain OBJECTIVE: Vital SIgns: Vital Signs Date Time Temp Pulse Resp B/P (MAP) Pulse Ox O2 Delivery O2 Flow Rate FiO2 08/21/17 03:15 98.1 63 16 106/49 (68) 94 Room Air 98.1 08/20/17 23:00 2.0 Objective: 4/6 systolic murmur No edema. a/o x 3. CURRENT MEDICATIONS: Current Medications Medications (Trade) Dose Ordered Sig/Payton Start Time Stop Time Status Last Admin Dose Admin Acetaminophen (Tylenol) 650 mg PRN Q6HRS PRN 08/20/17 11:00 08/20/17 23:57 650 MG Aspirin (Children'S Aspirin) 324 mg 1X ONCE 08/19/17 19:15 08/19/17 19:16 DC Aspirin (Ecotrin) 81 mg DAILYWBKFT 08/20/17 08:15 08/20/17 08:41 81 MG Calcium Acetate (Phoslo) 667 mg TIDWMEALS 08/20/17 12:00 08/20/17 17:54 667 MG Citalopram Hydrobromide (CeleXA) 20 mg DAILY 08/21/17 09:00 Clopidogrel Bisulfate (Plavix) 75 mg DAILY 08/20/17 09:00 08/20/17 08:41 75 MG Dextrose (Dextrose 50%-Water Syringe) 12.5 gm PRN Q15MIN PRN 08/20/17 11:00 Docusate Sodium (Colace) 100 mg PRN DAILY PRN 08/20/17 11:00 Famotidine (Pepcid) 20 mg HS 08/20/17 21:00 08/20/17 21:28 20 MG Fentanyl Citrate (Fentanyl 2ml Vial) 50 mcg PRN Q6HRS PRN 08/21/17 03:45 Heparin Sodium (Porcine) (Heparin Sodium) 4,000 unit 1X ONCE 08/20/17 08:15 08/20/17 08:29 DC 08/20/17 08:46 4,000 UNIT Heparin Sodium/ Dextrose 500 ml @ 20 mls/hr CONT PRN 08/20/17 08:15 08/20/17 08:59 20 MLS/HR Hydralazine HCl (Apresoline) 10 mg PRN Q4HRS PRN 08/20/17 11:00 Insulin Aspart (NovoLOG) 0-9 UNITS TIDWMEALS 08/20/17 12:00 08/20/17 12:40 4 UNITS Insulin Detemir (Levemir) 10 units QHS 08/20/17 21:00 08/20/17 21:52 10 UNITS Metoprolol Tartrate (Lopressor) 50 mg BID 08/20/17 11:00 08/20/17 21:57 50 MG Multi-Ingredient Mouthwash/Gargle (Gi Cocktail Single Dose) 15 ml 1X ONCE 08/19/17 19:45 08/19/17 19:46 DC 08/19/17 19:58 15 ML Nitroglycerin (Nitrostat) 0.4 mg PRN Q5MIN PRN 08/20/17 11:00 Nystatin (Nystop) 1 umm BID 08/20/17 11:00 08/20/17 21:57 1 UMM Ondansetron HCl (Zofran) 4 mg PRN Q6HRS PRN 08/20/17 11:00 Potassium Chloride (Klor-Con) 40 meq 1X ONCE 08/20/17 08:30 08/20/17 08:31 DC 08/20/17 08:41 40 MEQ Tramadol HCl (Ultram) 50 mg PRN Q6HRS PRN 08/21/17 03:45 Vitamin B Complex/ Vitamin C (Tanisha-Prashanth) 1 tab DAILY 08/21/17 09:00 DIAGNOSTIC TESTING: Trop now down to 4 from 7 ASSESSMENT: 1. NSTEMI 2. Severe aortic stenosis 3. Severe non-compliance 4. ESRD Problems: PLAN: 1. I had a long discussion with the patient about her non-compliance. She frankly admitted that she was a "bad" patient. She is not inclined to taking medications regularly and has not followed up with us on a regular basis. I told her that we can re cath her but if she does not take anti-platelet therapy, it might cause her more jeopardy due to stent thrombosis. She understands and wishes to defer cath for now. 2. She does wish to f/u with [facility] on an outpt basis for TAVR eval. 3. continue present meds otherwise, heparin gtt till tomorrow morning. Start statin. Anticipate DC tomorrow. Thanks. Will follow. TIMOTHY RUSSO MD Aug 21, 2017 08:13
[2017-08-21] MEDS: CALCIUM ACETATE 667 MG CAPSULE PO SCH ×3 (08:23→17:06)
[2017-08-21] MEDS: CITALOPRAM 20 MG TABLET. PO SCH (08:23)
[2017-08-21] MEDS: CLOPIDOGREL BISULFATE 75 MG TABLET PO SCH (08:23)
[2017-08-21] MEDS: METOPROLOL TART IMMED RELEASE 50 MG TABLET. PO SCH ×2 (08:23→20:39)
[2017-08-21] MEDS: ASPIRIN ENTERIC COATED 81 MG TABLET.DR. PO SCH (08:23)
[2017-08-21] MEDS: FOLIC/VIT B COMP W-C (RENAL) TABLET. PO SCH (08:23)
[2017-08-21] MEDS: NYSTATIN TOPICAL POWDER 15GM BOTTLE. TP SCH ×2 (08:23→20:40)
[2017-08-21] MEDS: traMADol 50 MG TABLET PO PRN ×2 (08:26→22:27)
[2017-08-21 09:02] LABS: CALCIUM 7.7 mg/dL (8.5-10.1); GFR 8.4; POTASSIUM 4.3 mmol/L (3.5-5.1)
[2017-08-21 10:30] VITALS: BP 127/52
--- NOTE | 2017-08-21 11:44 | PDOC ---
SUBJECTIVE ROS ESRD DOing and feeling alittle better today CVS: no Orthopnea, + CP RESP: no SOB, no MATHEWS GI: no Nausea, no Vomiting : no Dysuria, no Urgency OBJECTIVE Vital Signs Vital Signs Date Time Temp Pulse Resp B/P (MAP) Pulse Ox O2 Delivery O2 Flow Rate FiO2 08/21/17 10:30 97.9 59 20 127/52 (77) 99 Room Air 97.9 08/21/17 09:26 2.0 I & 0 Intake and Output 08/22/17 07:00 Intake Total 50 ml Balance 50 ml Intake Oral 50 ml # Voids 1 PHYSICAL EXAM Physical Exam General Appearance: Awake Alert Oriented x 3 In no Distress Eyes: VIsion Unchanged Conjunctiva Normal EN: No EN Drainage Mucous Memb. moist Neck: no JVD no JVP Supple no Thyromegaly CVS: S1 S2 ++ Murmur No Gallop No Rub no Edema Resp: no Rales no Rhonchi no Acc. Muscle use GI: BAS +ve NO Bruit Non Tender Non Distended : no CVA tenderness; no Suprapubic Tenderness Assessment & Plan ESRD: Current FLuid and E-lyte status does not necessitate emergent need for Dialysis. Will re-evaluate for Dialysis in am and continue on MWF schedule NSTEMI - on Heparin, h/o VHDz with [facility] - ECHO noted; will co-ordinate [facility] HD on Tuesday if needed Anemia: Epogen as ordered. Transfuse with next HD as needed. HTN: Current BP meds reviewed. See orders for changes. Bone & Mineral: Follow phos and alter binder regimne as needed Low K - replaced Discussed Plan of Care and prognosis etc. at length with pt - reinforced visit with [facility] for TAVR and compliance with Meds. High risk for AMi while on OP HD was also discussed COMMENT/RELEVANT DATA Meds Current Medications Medications (Trade) Dose Ordered Sig/Payton Start Time Stop Time Status Last Admin Dose Admin Acetaminophen (Tylenol) 650 mg PRN Q6HRS PRN 08/20/17 11:00 08/20/17 23:57 650 MG Aspirin (Children'S Aspirin) 324 mg 1X ONCE 08/19/17 19:15 08/19/17 19:16 DC Aspirin (Ecotrin) 81 mg DAILYWBKFT 08/20/17 08:15 08/21/17 08:23 81 MG Atorvastatin Calcium (Lipitor) 40 mg QHS 08/21/17 21:00 Benzocaine (Ora-Jel) 1 umm PRN QID PRN 08/21/17 11:15 Calcium Acetate (Phoslo) 667 mg TIDWMEALS 08/20/17 12:00 08/21/17 11:10 667 MG Citalopram Hydrobromide (CeleXA) 20 mg DAILY 08/21/17 09:00 08/21/17 08:23 20 MG Clopidogrel Bisulfate (Plavix) 75 mg DAILY 08/20/17 09:00 08/21/17 08:23 75 MG Dextrose (Dextrose 50%-Water Syringe) 12.5 gm PRN Q15MIN PRN 08/20/17 11:00 Docusate Sodium (Colace) 100 mg PRN DAILY PRN 08/20/17 11:00 Famotidine (Pepcid) 20 mg HS 08/20/17 21:00 08/20/17 21:28 20 MG Fentanyl Citrate (Fentanyl 2ml Vial) 50 mcg PRN Q6HRS PRN 08/21/17 03:45 Heparin Sodium (Porcine) (Heparin Sodium) 4,000 unit 1X ONCE 08/20/17 08:15 08/20/17 08:29 DC 08/20/17 08:46 4,000 UNIT Heparin Sodium/ Dextrose 500 ml @ 20 mls/hr CONT PRN 08/20/17 08:15 08/20/17 08:59 20 MLS/HR Hydralazine HCl (Apresoline) 10 mg PRN Q4HRS PRN 08/20/17 11:00 Insulin Aspart (NovoLOG) 0-9 UNITS TIDWMEALS 08/20/17 12:00 08/20/17 12:40 4 UNITS Insulin Detemir (Levemir) 10 units QHS 08/20/17 21:00 08/20/17 21:52 10 UNITS Metoprolol Tartrate (Lopressor) 50 mg BID 08/20/17 11:00 08/21/17 08:23 50 MG Multi-Ingredient Mouthwash/Gargle (Gi Cocktail Single Dose) 15 ml 1X ONCE 08/19/17 19:45 08/19/17 19:46 DC 08/19/17 19:58 15 ML Nitroglycerin (Nitrostat) 0.4 mg PRN Q5MIN PRN 08/20/17 11:00 08/21/17 11:12 DC Nystatin (Nystop) 1 umm BID 08/20/17 11:00 08/21/17 08:23 1 UMM Ondansetron HCl (Zofran) 4 mg PRN Q6HRS PRN 08/20/17 11:00 Potassium Chloride (Klor-Con) 40 meq 1X ONCE 08/20/17 08:30 08/20/17 08:31 DC 08/20/17 08:41 40 MEQ Tramadol HCl (Ultram) 50 mg PRN Q6HRS PRN 08/21/17 03:45 08/21/17 08:26 50 MG Vitamin B Complex/ Vitamin C (Tanisha-Prashanth) 1 tab DAILY 08/21/17 09:00 08/21/17 08:23 1 TAB Lab Laboratory Tests Test 08/20/17 11:54 08/20/17 15:35 08/20/17 17:47 08/20/17 21:31 Glucose (Fingerstick) 163 mg/dL (70-99) 117 mg/dL (70-99) 152 mg/dL (70-99) Heparin Anti-Xa Act, Unfractionated 0.33 IU/mL (0.30-0.70) Troponin I Quantitative 7.277 ng/mL (0.000-0.055) Test 08/20/17 22:00 08/20/17 23:55 08/21/17 07:05 08/21/17 07:29 Troponin I Quantitative 4.508 ng/mL (0.000-0.055) 3.761 ng/mL (0.000-0.055) Heparin Anti-Xa Act, Unfractionated 0.17 IU/mL (0.30-0.70) 0.59 IU/mL (0.30-0.70) White Blood Count 5.1 x10^3/uL (4.0-11.0) Red Blood Count 3.46 x10^6/uL (3.50-5.40) Hemoglobin 11.3 g/dL (12.0-15.5) Hematocrit 34.2 % (36.0-47.0) Mean Corpuscular Volume 99 fL (79-100) Mean Corpuscular Hemoglobin 33 pg (25-35) Mean Corpuscular Hemoglobin Concent 33 g/dL (31-37) Red Cell Distribution Width 15.2 % (11.5-14.5) Platelet Count 95 x10^3/uL (140-400) Neutrophils (%) (Auto) 50 % (31-73) Lymphocytes (%) (Auto) 23 % (24-48) Monocytes (%) (Auto) 16 % (0-9) Eosinophils (%) (Auto) 10 % (0-3) Basophils (%) (Auto) 1 % (0-3) Neutrophils # (Auto) 2.5 x10^3uL (1.8-7.7) Lymphocytes # (Auto) 1.2 x10^3/uL (1.0-4.8) Monocytes # (Auto) 0.8 x10^3/uL (0.0-1.1) Eosinophils # (Auto) 0.5 x10^3/uL (0.0-0.7) Basophils # (Auto) 0.0 x10^3/uL (0.0-0.2) Sodium Level 135 mmol/L (136-145) Potassium Level 4.3 mmol/L (3.5-5.1) Chloride Level 96 mmol/L (98-107) Carbon Dioxide Level 30 mmol/L (21-32) Anion Gap 9 (6-14) Blood Urea Nitrogen 45 mg/dL (7-20) Creatinine 5.0 mg/dL (0.6-1.0) Estimated GFR (Cockcroft-Gault) 8.4 Glucose Level 88 mg/dL (70-99) Calcium Level 7.7 mg/dL (8.5-10.1) Glucose (Fingerstick) 89 mg/dL (70-99) GABI SILVESTRE MD Aug 21, 2017 11:44
--- NOTE | 2017-08-21 14:04 | PDOC ---
PROGRESS NOTES Chief Complaint Chief Complaint chest pain, NSTEMI h/o CAD post PCI STABLE chf, diastiolic, EF 55% severe ESRD on HD mwf dm2 htn PAFIB, no AC oa COPD PPM RIGHT arm avf obesity, BMI 35 uncompliance chronic resp failure with hypoxia plan: fu with card,not recommend cath since uncompliance on heparin drip, dc tmr cont HD MWF cont home meds, hold lisinopril, imdur given low side BP no AC, on ASA, plavix add levemir, decrease to 10u qhs, add ssi plan dc tmr if stable History of Present Illness History of Present Illness ROS: NO fever, chills, sob cont chest pain 07/24 on heparin drip pt cont saying not compliant with meds, but willing to try willing to fu with [facility] for TAVR AGREE to do cath, but not recommended by card for now since non compliance Vitals Vitals Vital Signs Date Time Temp Pulse Resp B/P (MAP) Pulse Ox O2 Delivery O2 Flow Rate FiO2 08/21/17 10:30 97.9 59 20 127/52 (77) 99 Room Air 97.9 08/21/17 09:26 2.0 Physical Exam General: Alert, Oriented X3, Cooperative Heart: Regular rate, Normal S1, Normal S2 Lungs: Clear, Other Abdomen: Normal bowel sounds, Soft Extremities: No clubbing, No cyanosis Skin: No rashes Labs LABS Laboratory Tests Test 08/20/17 15:35 08/20/17 17:47 08/20/17 21:31 08/20/17 22:00 Heparin Anti-Xa Act, Unfractionated 0.33 IU/mL (0.30-0.70) Troponin I Quantitative 7.277 ng/mL (0.000-0.055) 4.508 ng/mL (0.000-0.055) Glucose (Fingerstick) 117 mg/dL (70-99) 152 mg/dL (70-99) Test 08/20/17 23:55 08/21/17 07:05 08/21/17 07:29 08/21/17 11:33 Heparin Anti-Xa Act, Unfractionated 0.17 IU/mL (0.30-0.70) 0.59 IU/mL (0.30-0.70) White Blood Count 5.1 x10^3/uL (4.0-11.0) Red Blood Count 3.46 x10^6/uL (3.50-5.40) Hemoglobin 11.3 g/dL (12.0-15.5) Hematocrit 34.2 % (36.0-47.0) Mean Corpuscular Volume 99 fL (79-100) Mean Corpuscular Hemoglobin 33 pg (25-35) Mean Corpuscular Hemoglobin Concent 33 g/dL (31-37) Red Cell Distribution Width 15.2 % (11.5-14.5) Platelet Count 95 x10^3/uL (140-400) Neutrophils (%) (Auto) 50 % (31-73) Lymphocytes (%) (Auto) 23 % (24-48) Monocytes (%) (Auto) 16 % (0-9) Eosinophils (%) (Auto) 10 % (0-3) Basophils (%) (Auto) 1 % (0-3) Neutrophils # (Auto) 2.5 x10^3uL (1.8-7.7) Lymphocytes # (Auto) 1.2 x10^3/uL (1.0-4.8) Monocytes # (Auto) 0.8 x10^3/uL (0.0-1.1) Eosinophils # (Auto) 0.5 x10^3/uL (0.0-0.7) Basophils # (Auto) 0.0 x10^3/uL (0.0-0.2) Sodium Level 135 mmol/L (136-145) Potassium Level 4.3 mmol/L (3.5-5.1) Chloride Level 96 mmol/L (98-107) Carbon Dioxide Level 30 mmol/L (21-32) Anion Gap 9 (6-14) Blood Urea Nitrogen 45 mg/dL (7-20) Creatinine 5.0 mg/dL (0.6-1.0) Estimated GFR (Cockcroft-Gault) 8.4 Glucose Level 88 mg/dL (70-99) Calcium Level 7.7 mg/dL (8.5-10.1) Troponin I Quantitative 3.761 ng/mL (0.000-0.055) Glucose (Fingerstick) 89 mg/dL (70-99) 188 mg/dL (70-99) Comment Review of Relevant I have reviewed the following items adrián (where applicable) has been applied. Labs Laboratory Tests Test 08/19/17 19:24 08/20/17 03:45 08/20/17 07:50 08/20/17 09:36 White Blood Count 4.5 x10^3/uL (4.0-11.0) 4.3 x10^3/uL (4.0-11.0) Red Blood Count 3.62 x10^6/uL (3.50-5.40) 3.29 x10^6/uL (3.50-5.40) Hemoglobin 11.7 g/dL (12.0-15.5) 10.8 g/dL (12.0-15.5) Hematocrit 35.4 % (36.0-47.0) 32.2 % (36.0-47.0) Mean Corpuscular Volume 98 fL (79-100) 98 fL (79-100) Mean Corpuscular Hemoglobin 32 pg (25-35) 33 pg (25-35) Mean Corpuscular Hemoglobin Concent 33 g/dL (31-37) 34 g/dL (31-37) Red Cell Distribution Width 14.9 % (11.5-14.5) 15.1 % (11.5-14.5) Platelet Count 106 x10^3/uL (140-400) 97 x10^3/uL (140-400) Neutrophils (%) (Auto) 60 % (31-73) 53 % (31-73) Lymphocytes (%) (Auto) 16 % (24-48) 21 % (24-48) Monocytes (%) (Auto) 18 % (0-9) 16 % (0-9) Eosinophils (%) (Auto) 5 % (0-3) 8 % (0-3) Basophils (%) (Auto) 1 % (0-3) 1 % (0-3) Neutrophils # (Auto) 2.7 x10^3uL (1.8-7.7) 2.3 x10^3uL (1.8-7.7) Lymphocytes # (Auto) 0.7 x10^3/uL (1.0-4.8) 0.9 x10^3/uL (1.0-4.8) Monocytes # (Auto) 0.8 x10^3/uL (0.0-1.1) 0.7 x10^3/uL (0.0-1.1) Eosinophils # (Auto) 0.2 x10^3/uL (0.0-0.7) 0.4 x10^3/uL (0.0-0.7) Basophils # (Auto) 0.1 x10^3/uL (0.0-0.2) 0.0 x10^3/uL (0.0-0.2) Prothrombin Time 13.2 SEC (11.7-14.0) Prothromb Time International Ratio 1.1 (0.8-1.1) Sodium Level 137 mmol/L (136-145) 140 mmol/L (136-145) Potassium Level 3.2 mmol/L (3.5-5.1) 3.3 mmol/L (3.5-5.1) Chloride Level 97 mmol/L (98-107) 98 mmol/L (98-107) Carbon Dioxide Level 31 mmol/L (21-32) 35 mmol/L (21-32) Anion Gap 9 (6-14) 7 (6-14) Blood Urea Nitrogen 30 mg/dL (7-20) 33 mg/dL (7-20) Creatinine 2.8 mg/dL (0.6-1.0) 3.2 mg/dL (0.6-1.0) Estimated GFR (Cockcroft-Gault) 16.4 14.0 Glucose Level 244 mg/dL (70-99) 122 mg/dL (70-99) Calcium Level 8.2 mg/dL (8.5-10.1) 7.7 mg/dL (8.5-10.1) Magnesium Level 2.0 mg/dL (1.8-2.4) Total Bilirubin 0.4 mg/dL (0.2-1.0) Direct Bilirubin 0.1 mg/dL (0.0-0.2) Aspartate Amino Transf (AST/SGOT) 28 U/L (15-37) Alanine Aminotransferase (ALT/SGPT) 24 U/L (14-59) Alkaline Phosphatase 134 U/L (46-116) Creatine Kinase 50 U/L (26-192) Creatine Kinase MB (Mass) 0.8 ng/mL (0.0-3.6) Creatine Kinase MB Relative Index 1.6 % (0-4) Troponin I Quantitative 0.099 ng/mL (0.000-0.055) 3.273 ng/mL (0.000-0.055) 7.299 ng/mL (0.000-0.055) DA-Lig-O-Type Natriuretic Peptide 47796 pg/mL (0-449) Total Protein 7.4 g/dL (6.4-8.2) Albumin 2.7 g/dL (3.4-5.0) Lipase 346 U/L (73-393) Glucose (Fingerstick) 108 mg/dL (70-99) Test 08/20/17 11:54 08/20/17 15:35 08/20/17 17:47 08/20/17 21:31 Glucose (Fingerstick) 163 mg/dL (70-99) 117 mg/dL (70-99) 152 mg/dL (70-99) Heparin Anti-Xa Act, Unfractionated 0.33 IU/mL (0.30-0.70) Troponin I Quantitative 7.277 ng/mL (0.000-0.055) Test 08/20/17 22:00 08/20/17 23:55 08/21/17 07:05 08/21/17 07:29 Troponin I Quantitative 4.508 ng/mL (0.000-0.055) 3.761 ng/mL (0.000-0.055) Heparin Anti-Xa Act, Unfractionated 0.17 IU/mL (0.30-0.70) 0.59 IU/mL (0.30-0.70) White Blood Count 5.1 x10^3/uL (4.0-11.0) Red Blood Count 3.46 x10^6/uL (3.50-5.40) Hemoglobin 11.3 g/dL (12.0-15.5) Hematocrit 34.2 % (36.0-47.0) Mean Corpuscular Volume 99 fL (79-100) Mean Corpuscular Hemoglobin 33 pg (25-35) Mean Corpuscular Hemoglobin Concent 33 g/dL (31-37) Red Cell Distribution Width 15.2 % (11.5-14.5) Platelet Count 95 x10^3/uL (140-400) Neutrophils (%) (Auto) 50 % (31-73) Lymphocytes (%) (Auto) 23 % (24-48) Monocytes (%) (Auto) 16 % (0-9) Eosinophils (%) (Auto) 10 % (0-3) Basophils (%) (Auto) 1 % (0-3) Neutrophils # (Auto) 2.5 x10^3uL (1.8-7.7) Lymphocytes # (Auto) 1.2 x10^3/uL (1.0-4.8) Monocytes # (Auto) 0.8 x10^3/uL (0.0-1.1) Eosinophils # (Auto) 0.5 x10^3/uL (0.0-0.7) Basophils # (Auto) 0.0 x10^3/uL (0.0-0.2) Sodium Level 135 mmol/L (136-145) Potassium Level 4.3 mmol/L (3.5-5.1) Chloride Level 96 mmol/L (98-107) Carbon Dioxide Level 30 mmol/L (21-32) Anion Gap 9 (6-14) Blood Urea Nitrogen 45 mg/dL (7-20) Creatinine 5.0 mg/dL (0.6-1.0) Estimated GFR (Cockcroft-Gault) 8.4 Glucose Level 88 mg/dL (70-99) Calcium Level 7.7 mg/dL (8.5-10.1) Glucose (Fingerstick) 89 mg/dL (70-99) Test 08/21/17 11:33 Glucose (Fingerstick) 188 mg/dL (70-99) Laboratory Tests Test 08/20/17 15:35 08/20/17 17:47 08/20/17 21:31 08/20/17 22:00 Heparin Anti-Xa Act, Unfractionated 0.33 IU/mL (0.30-0.70) Troponin I Quantitative 7.277 ng/mL (0.000-0.055) 4.508 ng/mL (0.000-0.055) Glucose (Fingerstick) 117 mg/dL (70-99) 152 mg/dL (70-99) Test 08/20/17 23:55 08/21/17 07:05 10/8/17 07:29 08/21/17 11:33 Heparin Anti-Xa Act, Unfractionated 0.17 IU/mL (0.30-0.70) 0.59 IU/mL (0.30-0.70) White Blood Count 5.1 x10^3/uL (4.0-11.0) Red Blood Count 3.46 x10^6/uL (3.50-5.40) Hemoglobin 11.3 g/dL (12.0-15.5) Hematocrit 34.2 % (36.0-47.0) Mean Corpuscular Volume 99 fL (79-100) Mean Corpuscular Hemoglobin 33 pg (25-35) Mean Corpuscular Hemoglobin Concent 33 g/dL (31-37) Red Cell Distribution Width 15.2 % (11.5-14.5) Platelet Count 95 x10^3/uL (140-400) Neutrophils (%) (Auto) 50 % (31-73) Lymphocytes (%) (Auto) 23 % (24-48) Monocytes (%) (Auto) 16 % (0-9) Eosinophils (%) (Auto) 10 % (0-3) Basophils (%) (Auto) 1 % (0-3) Neutrophils # (Auto) 2.5 x10^3uL (1.8-7.7) Lymphocytes # (Auto) 1.2 x10^3/uL (1.0-4.8) Monocytes # (Auto) 0.8 x10^3/uL (0.0-1.1) Eosinophils # (Auto) 0.5 x10^3/uL (0.0-0.7) Basophils # (Auto) 0.0 x10^3/uL (0.0-0.2) Sodium Level 135 mmol/L (136-145) Potassium Level 4.3 mmol/L (3.5-5.1) Chloride Level 96 mmol/L (98-107) Carbon Dioxide Level 30 mmol/L (21-32) Anion Gap 9 (6-14) Blood Urea Nitrogen 45 mg/dL (7-20) Creatinine 5.0 mg/dL (0.6-1.0) Estimated GFR (Cockcroft-Gault) 8.4 Glucose Level 88 mg/dL (70-99) Calcium Level 7.7 mg/dL (8.5-10.1) Troponin I Quantitative 3.761 ng/mL (0.000-0.055) Glucose (Fingerstick) 89 mg/dL (70-99) 188 mg/dL (70-99) Medications Current Medications Aspirin (Children'S Aspirin) 324 mg 1X ONCE PO ; Start 08/19/17 at 19:15; Stop 08/19/17 at 19:16; Status DC Multi-Ingredient Mouthwash/Gargle (Gi Cocktail Single Dose) 15 ml 1X ONCE SWSW Last administered on 08/19/17 19:58; Start 08/19/17 at 19:45; Stop 08/19/17 at 19:46; Status DC Metoprolol Tartrate (Lopressor) 5 mg 1X ONCE IVP Last administered on 21:34; Start 08/19/17 at 21:30; Stop 08/19/17 at 21:31; Status DC Ondansetron HCl (Zofran) 4 mg PRN Q8HRS PRN IV NAUSEA/VOMITING; Start 08/19/17 at 21:45; Stop 08/20/17 at 21:44; Status DC Nitroglycerin (Nitrostat) 0.4 mg PRN Q5MIN PRN SL CHEST PAIN Last administered on 08/20/17 07:46; Start 08/20/17 at 07:45 Aspirin (Ecotrin) 81 mg DAILYWBKFT PO Last administered on 08/21/17 08:23; Start 08/20/17 at 08:15 Clopidogrel Bisulfate (Plavix) 75 mg DAILY PO Last administered on 08/21/17 08 :23; Start 08/20/17 at 09:00 Heparin Sodium/ Dextrose 500 ml @ 20 mls/hr CONT PRN IV SEE I/O RECORD Last administered on 08/20/17 08:59; Start 08/20/17 at 08:15 Heparin Sodium (Porcine) (Heparin Sodium) 2,500 unit PRN Q6HRS PRN IV FOR UFH LEVEL LESS THAN 0.2 Last administered on 08/21/17 01:37; Start 08/20/17 at 08: 15 Heparin Sodium (Porcine) (Heparin Sodium) 4,000 unit 1X ONCE IV Last administered on 08/20/17 08:46; Start 08/20/17 at 08:15; Stop 08/20/17 at 08:29 ; Status DC Potassium Chloride (Klor-Con) 40 meq 1X ONCE PO Last administered on 08:41; Start 08/20/17 at 08:30; Stop 08/20/17 at 08:31; Status DC Famotidine (Pepcid) 20 mg HS PO Last administered on 08/20/17 21:28; Start at 21:00 Metoprolol Tartrate (Lopressor) 50 mg BID PO Last administered on 08/21/17 08: 23; Start 08/20/17 at 11:00 Nitroglycerin (Nitrostat) 0.4 mg PRN Q5MIN PRN SL CHEST PAIN; Start 08/20/17 at 11:00; Stop 08/21/17 at 11:12; Status DC Nystatin (Nystop) 1 tiffany BID TP Last administered on 08/21/17 08:23; Start 08/20/17 at 11:00 Calcium Acetate (Phoslo) 667 mg TIDWMEALS PO Last administered on 08/21/17 11: 10; Start 08/20/17 at 12:00 Citalopram Hydrobromide (CeleXA) 20 mg DAILY PO Last administered on 08/21/17 08:23; Start 08/21/17 at 09:00 Insulin Detemir (Levemir) 14 units QHS SQ ; Start 08/20/17 at 21:00; Stop at 21:00; Status DC Vitamin B Complex/ Vitamin C (Tanisha-Prashanth) 1 tab DAILY PO Last administered on 08:23; Start 08/21/17 at 09:00 Acetaminophen (Tylenol) 650 mg PRN Q6HRS PRN PO FEVER Last administered on 08/20 23:57; Start 08/20/17 at 11:00 Ondansetron HCl (Zofran) 4 mg PRN Q6HRS PRN IV NAUSEA/VOMITING; Start 08/20/17 at 11:00 Hydralazine HCl (Apresoline) 10 mg PRN Q4HRS PRN IVP ELEVATED BP, SEE COMMENTS ; Start 08/20/17 at 11:00 Docusate Sodium (Colace) 100 mg PRN DAILY PRN PO CONSTIPATION; Start 08/20/17 at 11:00 Insulin Detemir (Levemir) 10 units QHS SQ Last administered on 08/20/17 21:52 ; Start 08/20/17 at 21:00 Insulin Aspart (NovoLOG) 0-9 UNITS TIDWMEALS SQ Last administered on 08/21/17 12:00; Start 08/20/17 at 12:00 Dextrose (Dextrose 50%-Water Syringe) 12.5 gm PRN Q15MIN PRN IV SEE COMMENTS; Start 08/20/17 at 11:00 Tramadol HCl (Ultram) 50 mg PRN Q6HRS PRN PO PAIN Last administered on 08:26; Start 08/21/17 at 03:45 Fentanyl Citrate (Fentanyl 2ml Vial) 50 mcg PRN Q6HRS PRN IV PAIN; Start at 03:45 Atorvastatin Calcium (Lipitor) 40 mg QHS PO ; Start 08/21/17 at 21:00 Benzocaine (Ora-Jel) 1 tiffany PRN QID PRN TP ORAL PAIN; Start 08/21/17 at 11:15 Active Scripts Active Aspirin Ec (Aspirin) 81 Mg Tablet.dr 81 Mg PO DAILYWBKFT Nystop (Nystatin) 60 Gm Powder 1 Tiffany TP BID Isosorbide Mononitrate Er (Isosorbide Mononitrate) 60 Mg Tab.er.24h 60 Mg PO DAILY 30 Days Escitalopram Oxalate 10 Mg Tablet 10 Mg PO DAILY Pepcid (Famotidine) 20 Mg Tablet 20 Mg PO HS Nitrostat (Nitroglycerin) 0.4 Mg Tab.subl 0.4 Mg SL PRN Q5MIN PRN Reported Clopidogrel (Clopidogrel Bisulfate) 75 Mg Tablet 75 Mg PO DAILY Lisinopril 5 Mg Tablet 1 Tab PO DAILY Metoprolol Tartrate 50 Mg Tablet 50 Mg PO BID Nephro-Prashanth Rx Tablet (Vit B Cmplx 3/Fa/Vit C/Biotin) 1 Each Tablet 1 Each PO DAILY Hydrocodone-Apap 7.5-325 (Hydrocodone Bit/Acetaminophen) 1 Each Tablet 1 Tab PO PRN Q6HRS PRN Calcium Acetate 667 Mg Tablet 667 Mg PO TIDWMEALS Lantus Solostar (Insulin Glargine,Hum.rec.anlog) 100 Unit/1 Ml Insuln.pen 14 Unit SQ QHS Vitals/I & O Vital Sign - Last 24 Hours 08/20/17 08/20/17 08/20/17 08/20/17 14:56 19:15 19:45 21:57 Temp 98.2 98.9 98.2 98.9 Pulse 64 63 61 Resp 22 17 B/P (MAP) 130/37 (68) 99/34 (55) 109/53 Pulse Ox 98 100 O2 Delivery Nasal Cannula Nasal Cannula Nasal Cannula O2 Flow Rate 2.0 2.0 2.0 08/20/17 08/21/17 08/21/17 08/21/17 23:00 03:15 07:25 07:54 Temp 98.4 98.1 98.3 98.4 98.1 98.3 Pulse 64 63 60 Resp 18 16 18 B/P (MAP) 127/56 (79) 106/49 (68) 135/48 (77) Pulse Ox 100 94 94 O2 Delivery Nasal Cannula Room Air Room Air Nasal Cannula O2 Flow Rate 2.0 2.0 08/21/17 08/21/17 08/21/17 08/21/17 08:23 08:26 09:26 10:30 Temp 97.9 97.9 Pulse 68 59 Resp 20 18 20 B/P (MAP) 135/48 127/52 (77) Pulse Ox 94 94 99 O2 Delivery Nasal Cannula Nasal Cannula Room Air O2 Flow Rate 2.0 2.0 Intake and Output 08/21/17 08/21/17 08/22/17 15:00 23:00 07:00 Intake Total 50 ml Balance 50 ml KOURTNEY MUSTAFA MD Aug 21, 2017 14:04
[2017-08-21 14:40] VITALS: BP 115/77
[2017-08-21 19:35] VITALS: BP 130/52
[2017-08-21] MEDS: ATORVASTATIN CALCIUM 40 MG TABLET. PO SCH (20:39)
[2017-08-21] MEDS: FAMOTIDINE 20 MG TABLET. PO SCH (20:39)
[2017-08-21] MEDS: BENZOCAINE 10% ORAL GEL 7GM TUBE. TP PRN (20:40)
[2017-08-21] MEDS: INSULIN DETEMIR 300 UNITS/3 ML INSULN.PEN. SQ SCH (20:45)
[2017-08-21 23:10] VITALS: BP 144/68
[2017-08-22 03:15] VITALS: BP 121/56
[2017-08-22 07:00] VITALS: BP 130/48
[2017-08-22] MEDS: INSULIN ASPART 300 UNITS/3 ML INSULN.PEN SQ SCH ×3 (08:00→17:00)
[2017-08-22] MEDS: traMADol 50 MG TABLET PO PRN ×2 (08:41→17:42)
[2017-08-22] MEDS: CLOPIDOGREL BISULFATE 75 MG TABLET PO SCH (08:41)
[2017-08-22] MEDS: ASPIRIN ENTERIC COATED 81 MG TABLET.DR. PO SCH (08:42)
[2017-08-22] MEDS: FOLIC/VIT B COMP W-C (RENAL) TABLET. PO SCH (08:42)
[2017-08-22] MEDS: METOPROLOL TART IMMED RELEASE 50 MG TABLET. PO SCH ×2 (08:42→20:58)
[2017-08-22] MEDS: NYSTATIN TOPICAL POWDER 15GM BOTTLE. TP SCH ×2 (08:42→20:57)
[2017-08-22] MEDS: CALCIUM ACETATE 667 MG CAPSULE PO SCH ×3 (08:42→17:41)
[2017-08-22] MEDS: CITALOPRAM 20 MG TABLET. PO SCH (08:42)
[2017-08-22] MEDS ORDERED: ANTI-COAG MONITOR BY PHARMACY. MC PRN (08:45)
[2017-08-22] MEDS ORDERED: IV NORMAL SALINE 1000ML BAG 1,000 ML IV PRN ×2 (08:58)
[2017-08-22] MEDS ORDERED: DIALYSIS PATIENT. MC PRN (09:00)
[2017-08-22] MEDS ORDERED: diphenhydrAMINE 50 MG/ML VIAL IV PRN ×2 (09:00)
[2017-08-22] MEDS: HEPARIN 25,000UTS/500ML PREMIX 500 ML IV PRN (09:49)
[2017-08-22] MEDS: HEPARIN for IV BOLUS 10,000 UNIT/10 ML VIAL. IV PRN (10:51)
--- NOTE | 2017-08-22 11:28 | PDOC ---
Renal-Progress Notes Subjective Notes Notes STILL HAVING SOME SOME, NOW ON HD History of Present Illness Hx of present illness STABLE Vitals Vitals Vital Signs Date Time Temp Pulse Resp B/P (MAP) Pulse Ox O2 Delivery O2 Flow Rate FiO2 08/22/17 09:40 91 Room Air 2.0 08/22/17 08:42 60 130/48 08/22/17 07:00 97.5 18 97.5 Weight Weight [ ] I.O. Intake and Output Intake and Output 08/23/17 07:00 Intake Total 240 ml Balance 240 ml Intake Oral 240 ml Labs Labs Laboratory Tests Test 08/21/17 11:33 08/21/17 16:31 08/21/17 17:55 08/21/17 20:44 Glucose (Fingerstick) 188 mg/dL (70-99) 100 mg/dL (70-99) 148 mg/dL (70-99) Heparin Anti-Xa Act, Unfractionated 0.96 IU/mL (0.30-0.70) Test 08/22/17 01:15 08/22/17 07:44 08/22/17 09:45 Heparin Anti-Xa Act, Unfractionated > 1.10 IU/mL (0.30-0.70) 0.17 IU/mL (0.30-0.70) Glucose (Fingerstick) 102 mg/dL (70-99) Review of Systems Constitutional: yes: weakness, alert, oriented Ears/Nose/Throat: Yes: no symptom reported Eyes: Yes: no symptom reported Pulmonary: Yes dyspnea Cardiovascular: Yes orthopnea Gastrointestional: Yes: no symptom reported Genitourinary: Yes: other (ANURIA) Musculoskeletal: Yes: muscle stiffness Skin: Yes no symptom reported Psychiatric/Neurological: Yes: no symptom reported Endocrine: Yes: no symptom reported Physical Exam General Appearance: no apparent distress Skin: warm Respiratory: decreased breath sounds Heart: S1S2 Abdomen: soft, bowel sounds present Genitourinary: bladder flat Extremities: pulses present, no edema Neurology: alert, oriented Musculoskeletal: Osteoarthritis Assessment Assessment IMP ESRD CHF ANEMIA AORTIC VALVE STENOSIS PLAN HD TODAY UF TO DW ? PERCUTANEOUS AVR CHLOE JONES MD Aug 22, 2017 11:28
[2017-08-22 14:47] VITALS: BP 135/51
--- NOTE | 2017-08-22 14:53 | PDOC ---
PROGRESS NOTES Chief Complaint Chief Complaint chest pain, NSTEMI h/o CAD post PCI STABLE chf, diastiolic, EF 55% severe ESRD on HD mwf dm2 htn PAFIB, no AC oa COPD PPM RIGHT arm avf obesity, BMI 35 uncompliance chronic resp failure with hypoxia plan: fu with card on heparin drip, dc today cont HD MWF cont home meds, hold lisinopril, imdur given low side BP no AC, on ASA, plavix add levemir 10u qhs, add ssi PTOT cath tmr as per card? History of Present Illness History of Present Illness ROS: NO fever, chills, sob cont chest pain 07/24 on heparin drip pt cont saying not compliant with meds, but willing to try willing to fu with [facility] for TAVR AGREE to do cath, but not recommended by card for now since non compliance Vitals Vitals Vital Signs Date Time Temp Pulse Resp B/P (MAP) Pulse Ox O2 Delivery O2 Flow Rate FiO2 08/22/17 14:47 97.7 60 18 135/51 (79) 94 Room Air 97.7 08/22/17 09:40 2.0 Physical Exam General: Alert, Oriented X3, Cooperative Heart: Regular rate, Normal S1, Normal S2 Lungs: Clear, Other Abdomen: Normal bowel sounds, Soft Extremities: No clubbing, No cyanosis Skin: No rashes Labs LABS Laboratory Tests Test 08/21/17 16:31 08/21/17 17:55 08/21/17 20:44 08/22/17 01:15 Glucose (Fingerstick) 100 mg/dL (70-99) 148 mg/dL (70-99) Heparin Anti-Xa Act, Unfractionated 0.96 IU/mL (0.30-0.70) > 1.10 IU/mL (0.30-0.70) Test 08/22/17 07:44 08/22/17 09:45 08/22/17 14:34 Glucose (Fingerstick) 102 mg/dL (70-99) 79 mg/dL (70-99) Heparin Anti-Xa Act, Unfractionated 0.17 IU/mL (0.30-0.70) Comment Review of Relevant I have reviewed the following items adrián (where applicable) has been applied. Labs Laboratory Tests Test 08/20/17 15:35 08/20/17 17:47 08/20/17 21:31 08/20/17 22:00 Heparin Anti-Xa Act, Unfractionated 0.33 IU/mL (0.30-0.70) Troponin I Quantitative 7.277 ng/mL (0.000-0.055) 4.508 ng/mL (0.000-0.055) Glucose (Fingerstick) 117 mg/dL (70-99) 152 mg/dL (70-99) Test 08/20/17 23:55 08/21/17 07:05 08/21/17 07:29 08/21/17 11:33 Heparin Anti-Xa Act, Unfractionated 0.17 IU/mL (0.30-0.70) 0.59 IU/mL (0.30-0.70) White Blood Count 5.1 x10^3/uL (4.0-11.0) Red Blood Count 3.46 x10^6/uL (3.50-5.40) Hemoglobin 11.3 g/dL (12.0-15.5) Hematocrit 34.2 % (36.0-47.0) Mean Corpuscular Volume 99 fL (79-100) Mean Corpuscular Hemoglobin 33 pg (25-35) Mean Corpuscular Hemoglobin Concent 33 g/dL (31-37) Red Cell Distribution Width 15.2 % (11.5-14.5) Platelet Count 95 x10^3/uL (140-400) Neutrophils (%) (Auto) 50 % (31-73) Lymphocytes (%) (Auto) 23 % (24-48) Monocytes (%) (Auto) 16 % (0-9) Eosinophils (%) (Auto) 10 % (0-3) Basophils (%) (Auto) 1 % (0-3) Neutrophils # (Auto) 2.5 x10^3uL (1.8-7.7) Lymphocytes # (Auto) 1.2 x10^3/uL (1.0-4.8) Monocytes # (Auto) 0.8 x10^3/uL (0.0-1.1) Eosinophils # (Auto) 0.5 x10^3/uL (0.0-0.7) Basophils # (Auto) 0.0 x10^3/uL (0.0-0.2) Sodium Level 135 mmol/L (136-145) Potassium Level 4.3 mmol/L (3.5-5.1) Chloride Level 96 mmol/L (98-107) Carbon Dioxide Level 30 mmol/L (21-32) Anion Gap 9 (6-14) Blood Urea Nitrogen 45 mg/dL (7-20) Creatinine 5.0 mg/dL (0.6-1.0) Estimated GFR (Cockcroft-Gault) 8.4 Glucose Level 88 mg/dL (70-99) Calcium Level 7.7 mg/dL (8.5-10.1) Troponin I Quantitative 3.761 ng/mL (0.000-0.055) Glucose (Fingerstick) 89 mg/dL (70-99) 188 mg/dL (70-99) Test 08/21/17 16:31 08/21/17 17:55 08/21/17 20:44 08/22/17 01:15 Glucose (Fingerstick) 100 mg/dL (70-99) 148 mg/dL (70-99) Heparin Anti-Xa Act, Unfractionated 0.96 IU/mL (0.30-0.70) > 1.10 IU/mL (0.30-0.70) Test 08/22/17 07:44 08/22/17 09:45 08/22/17 14:34 Glucose (Fingerstick) 102 mg/dL (70-99) 79 mg/dL (70-99) Heparin Anti-Xa Act, Unfractionated 0.17 IU/mL (0.30-0.70) Laboratory Tests Test 08/21/17 16:31 08/21/17 17:55 08/21/17 20:44 08/22/17 01:15 Glucose (Fingerstick) 100 mg/dL (70-99) 148 mg/dL (70-99) Heparin Anti-Xa Act, Unfractionated 0.96 IU/mL (0.30-0.70) > 1.10 IU/mL (0.30-0.70) Test 08/22/17 07:44 08/22/17 09:45 08/22/17 14:34 Glucose (Fingerstick) 102 mg/dL (70-99) 79 mg/dL (70-99) Heparin Anti-Xa Act, Unfractionated 0.17 IU/mL (0.30-0.70) Medications Current Medications Aspirin (Children'S Aspirin) 324 mg 1X ONCE PO ; Start 08/19/17 at 19:15; Stop 08/19/17 at 19:16; Status DC Multi-Ingredient Mouthwash/Gargle (Gi Cocktail Single Dose) 15 ml 1X ONCE SWSW Last administered on 08/19/17 19:58; Start 08/19/17 at 19:45; Stop 08/19/17 at 19:46; Status DC Metoprolol Tartrate (Lopressor) 5 mg 1X ONCE IVP Last administered on 21:34; Start 08/19/17 at 21:30; Stop 08/19/17 at 21:31; Status DC Ondansetron HCl (Zofran) 4 mg PRN Q8HRS PRN IV NAUSEA/VOMITING; Start 08/19/17 at 21:45; Stop 08/20/17 at 21:44; Status DC Nitroglycerin (Nitrostat) 0.4 mg PRN Q5MIN PRN SL CHEST PAIN Last administered on 08/20/17 07:46; Start 08/20/17 at 07:45 Aspirin (Ecotrin) 81 mg DAILYWBKFT PO Last administered on 08/22/17 08:42; Start 08/20/17 at 08:15 Clopidogrel Bisulfate (Plavix) 75 mg DAILY PO Last administered on 08/22/17 08 :41; Start 08/20/17 at 09:00 Heparin Sodium/ Dextrose 500 ml @ 20 mls/hr CONT PRN IV SEE I/O RECORD Last administered on 08/22/17 09:49; Start 08/20/17 at 08:15 Heparin Sodium (Porcine) (Heparin Sodium) 2,500 unit PRN Q6HRS PRN IV FOR UFH LEVEL LESS THAN 0.2 Last administered on 08/22/17 10:51; Start 08/20/17 at 08: 15 Heparin Sodium (Porcine) (Heparin Sodium) 4,000 unit 1X ONCE IV Last administered on 08/20/17 08:46; Start 08/20/17 at 08:15; Stop 08/20/17 at 08:29 ; Status DC Potassium Chloride (Klor-Con) 40 meq 1X ONCE PO Last administered on 08:41; Start 08/20/17 at 08:30; Stop 08/20/17 at 08:31; Status DC Famotidine (Pepcid) 20 mg HS PO Last administered on 08/21/17 20:39; Start at 21:00; Stop 08/22/17 at 14:30; Status DC Metoprolol Tartrate (Lopressor) 50 mg BID PO Last administered on 08/22/17 08: 42; Start 08/20/17 at 11:00 Nitroglycerin (Nitrostat) 0.4 mg PRN Q5MIN PRN SL CHEST PAIN; Start 08/20/17 at 11:00; Stop 08/21/17 at 11:12; Status DC Nystatin (Nystop) 1 tiffany BID TP Last administered on 08/22/17 08:42; Start 08/20/17 at 11:00 Calcium Acetate (Phoslo) 667 mg TIDWMEALS PO Last administered on 08/22/17 08: 42; Start 08/20/17 at 12:00 Citalopram Hydrobromide (CeleXA) 20 mg DAILY PO Last administered on 08/22/17 08:42; Start 08/21/17 at 09:00 Insulin Detemir (Levemir) 14 units QHS SQ ; Start 08/20/17 at 21:00; Stop at 21:00; Status DC Vitamin B Complex/ Vitamin C (Tanisha-Prashanth) 1 tab DAILY PO Last administered on 08:42; Start 08/21/17 at 09:00 Acetaminophen (Tylenol) 650 mg PRN Q6HRS PRN PO FEVER Last administered on 08/20 23:57; Start 08/20/17 at 11:00 Ondansetron HCl (Zofran) 4 mg PRN Q6HRS PRN IV NAUSEA/VOMITING Last administered on 08/22/17 03:17; Start 08/20/17 at 11:00 Hydralazine HCl (Apresoline) 10 mg PRN Q4HRS PRN IVP ELEVATED BP, SEE COMMENTS ; Start 08/20/17 at 11:00 Docusate Sodium (Colace) 100 mg PRN DAILY PRN PO CONSTIPATION Last administered on 08/22/17 08:41; Start 08/20/17 at 11:00 Insulin Detemir (Levemir) 10 units QHS SQ Last administered on 08/21/17 20:45 ; Start 08/20/17 at 21:00 Insulin Aspart (NovoLOG) 0-9 UNITS TIDWMEALS SQ Last administered on 08/21/17 12:00; Start 08/20/17 at 12:00 Dextrose (Dextrose 50%-Water Syringe) 12.5 gm PRN Q15MIN PRN IV SEE COMMENTS; Start 08/20/17 at 11:00 Tramadol HCl (Ultram) 50 mg PRN Q6HRS PRN PO PAIN Last administered on 08:41; Start 08/21/17 at 03:45 Fentanyl Citrate (Fentanyl 2ml Vial) 50 mcg PRN Q6HRS PRN IV PAIN; Start at 03:45 Atorvastatin Calcium (Lipitor) 40 mg QHS PO Last administered on 08/21/17 20: 39; Start 08/21/17 at 21:00 Benzocaine (Ora-Jel) 1 tiffany PRN QID PRN TP ORAL PAIN Last administered on 20:40; Start 08/21/17 at 11:15 Info (Anti-Coagulation Monitoring By Pharmacy) 1 each PRN DAILY PRN MC SEE COMMENTS; Start 08/22/17 at 08:45 Sodium Chloride 1,000 ml @ 1,000 mls/hr Q1H PRN IV hypotension; Start 08/22/17 at 08:58; Stop 08/22/17 at 14:57 Diphenhydramine HCl (Benadryl) 25 mg 1X PRN PRN IV ITCHING; Start 08/22/17 at 09:00; Stop 08/23/17 at 08:59 Diphenhydramine HCl (Benadryl) 25 mg 1X PRN PRN IV ITCHING; Start 08/22/17 at 09:00; Stop 08/23/17 at 08:59 Sodium Chloride 1,000 ml @ 400 mls/hr Q2H30M PRN IV PATENCY; Start 08/22/17 at 08:58; Stop 08/22/17 at 20:57 Info (PHARMACY MONITORING -- do not chart) 1 each PRN DAILY PRN MC SEE COMMENTS ; Start 08/22/17 at 09:00 Famotidine (Pepcid) 20 mg Q48H PO ; Start 08/23/17 at 21:00 Active Scripts Active Aspirin Ec (Aspirin) 81 Mg Tablet.dr 81 Mg PO DAILYWBKFT Nystop (Nystatin) 60 Gm Powder 1 Tiffany TP BID Isosorbide Mononitrate Er (Isosorbide Mononitrate) 60 Mg Tab.er.24h 60 Mg PO DAILY 30 Days Escitalopram Oxalate 10 Mg Tablet 10 Mg PO DAILY Pepcid (Famotidine) 20 Mg Tablet 20 Mg PO HS Nitrostat (Nitroglycerin) 0.4 Mg Tab.subl 0.4 Mg SL PRN Q5MIN PRN Reported Clopidogrel (Clopidogrel Bisulfate) 75 Mg Tablet 75 Mg PO DAILY Lisinopril 5 Mg Tablet 1 Tab PO DAILY Metoprolol Tartrate 50 Mg Tablet 50 Mg PO BID Nephro-Prashanth Rx Tablet (Vit B Cmplx 3/Fa/Vit C/Biotin) 1 Each Tablet 1 Each PO DAILY Hydrocodone-Apap 7.5-325 (Hydrocodone Bit/Acetaminophen) 1 Each Tablet 1 Tab PO PRN Q6HRS PRN Calcium Acetate 667 Mg Tablet 667 Mg PO TIDWMEALS Lantus Solostar (Insulin Glargine,Hum.rec.anlog) 100 Unit/1 Ml Insuln.pen 14 Unit SQ QHS Vitals/I & O Vital Sign - Last 24 Hours 08/21/17 08/21/17 08/21/17 08/21/17 19:35 20:00 20:39 22:27 Temp 97.8 97.8 Pulse 68 65 Resp 18 20 B/P (MAP) 130/52 (78) 116/52 Pulse Ox 95 O2 Delivery Room Air Room Air 08/21/17 08/21/17 08/22/17 08/22/17 23:10 23:27 03:15 07:00 Temp 98.1 97.4 97.5 98.1 97.4 97.5 Pulse 63 62 60 Resp 18 20 18 18 B/P (MAP) 144/68 (93) 121/56 (77) 130/48 (75) Pulse Ox 94 91 94 O2 Delivery Room Air Room Air Room Air 08/22/17 08/22/17 08/22/17/9/17 07:55 08:41 08:42 09:40 Pulse 60 B/P (MAP) 130/48 Pulse Ox 91 91 O2 Delivery Room Air Room Air Room Air O2 Flow Rate 2.0 2.0 08/22/17 14:47 Temp 97.7 97.7 Pulse 60 Resp 18 B/P (MAP) 135/51 (79) Pulse Ox 94 O2 Delivery Room Air Intake and Output 08/22/17 08/22/17 08/23/17 15:00 23:00 07:00 Intake Total 240 ml Balance 240 ml KOURTNEY MUSTAFA MD Aug 22, 2017 14:53
--- NOTE | 2017-08-22 18:01 | PDOC ---
PROGRESS NOTES Subjective Subjective The patient reports feeling better today. Objective Objective Vital Signs Date Time Temp Pulse Resp B/P (MAP) Pulse Ox O2 Delivery O2 Flow Rate FiO2 08/22/17 17:42 94 Room Air 2.0 08/22/17 14:47 97.7 60 18 135/51 (79) 97.7 Intake and Output 08/23/17 07:00 Intake Total 540 ml Output Total 2 ml Balance 538 ml Intake Oral 540 ml Output Urine Total 2 ml # Bowel Movements 1 Physical Exam Abdomen: Normal bowel sounds Heart: Regular rate General: mild distress Lungs: Other (mildly decreased breath sounds) Assessment Assessment 1. NSTEMI . History of coronary artery disease. Patient feeling better. She does not wish invasive testing or treatment at this time. We'll continue medical treatment. 2. Severe aortic stenosis. Continue medications. Patient states she will consider an outpatient workup at for possible TAVR. 3. Severe non-compliance. Multiple discussions with the patient. 4. ESRD. HD as per the renal service. Comment Review of Relevant I have reviewed the following items adrián (where applicable) has been applied. Labs Laboratory Tests Test 08/20/17 21:31 08/20/17 22:00 08/20/17 23:55 08/21/17 07:05 Glucose (Fingerstick) 152 mg/dL (70-99) Troponin I Quantitative 4.508 ng/mL (0.000-0.055) 3.761 ng/mL (0.000-0.055) Heparin Anti-Xa Act, Unfractionated 0.17 IU/mL (0.30-0.70) 0.59 IU/mL (0.30-0.70) White Blood Count 5.1 x10^3/uL (4.0-11.0) Red Blood Count 3.46 x10^6/uL (3.50-5.40) Hemoglobin 11.3 g/dL (12.0-15.5) Hematocrit 34.2 % (36.0-47.0) Mean Corpuscular Volume 99 fL (79-100) Mean Corpuscular Hemoglobin 33 pg (25-35) Mean Corpuscular Hemoglobin Concent 33 g/dL (31-37) Red Cell Distribution Width 15.2 % (11.5-14.5) Platelet Count 95 x10^3/uL (140-400) Neutrophils (%) (Auto) 50 % (31-73) Lymphocytes (%) (Auto) 23 % (24-48) Monocytes (%) (Auto) 16 % (0-9) Eosinophils (%) (Auto) 10 % (0-3) Basophils (%) (Auto) 1 % (0-3) Neutrophils # (Auto) 2.5 x10^3uL (1.8-7.7) Lymphocytes # (Auto) 1.2 x10^3/uL (1.0-4.8) Monocytes # (Auto) 0.8 x10^3/uL (0.0-1.1) Eosinophils # (Auto) 0.5 x10^3/uL (0.0-0.7) Basophils # (Auto) 0.0 x10^3/uL (0.0-0.2) Sodium Level 135 mmol/L (136-145) Potassium Level 4.3 mmol/L (3.5-5.1) Chloride Level 96 mmol/L (98-107) Carbon Dioxide Level 30 mmol/L (21-32) Anion Gap 9 (6-14) Blood Urea Nitrogen 45 mg/dL (7-20) Creatinine 5.0 mg/dL (0.6-1.0) Estimated GFR (Cockcroft-Gault) 8.4 Glucose Level 88 mg/dL (70-99) Calcium Level 7.7 mg/dL (8.5-10.1) Test 08/21/17 07:29 08/21/17 11:33 08/21/17 16:31 08/21/17 17:55 Glucose (Fingerstick) 89 mg/dL (70-99) 188 mg/dL (70-99) 100 mg/dL (70-99) Heparin Anti-Xa Act, Unfractionated 0.96 IU/mL (0.30-0.70) Test 08/21/17 20:44 08/22/17 01:15 08/22/17 07:44 08/22/17 09:45 Glucose (Fingerstick) 148 mg/dL (70-99) 102 mg/dL (70-99) Heparin Anti-Xa Act, Unfractionated > 1.10 IU/mL (0.30-0.70) 0.17 IU/mL (0.30-0.70) Test 08/22/17 14:34 08/22/17 16:27 Glucose (Fingerstick) 79 mg/dL (70-99) 150 mg/dL (70-99) Laboratory Tests Test 08/21/17 20:44 08/22/17 01:15 08/22/17 07:44 08/22/17 09:45 Glucose (Fingerstick) 148 mg/dL (70-99) 102 mg/dL (70-99) Heparin Anti-Xa Act, Unfractionated > 1.10 IU/mL (0.30-0.70) 0.17 IU/mL (0.30-0.70) Test 08/22/17 14:34 08/22/17 16:27 Glucose (Fingerstick) 79 mg/dL (70-99) 150 mg/dL (70-99) Medications Current Medications Aspirin (Children'S Aspirin) 324 mg 1X ONCE PO ; Start 08/19/17 at 19:15; Stop 08/19/17 at 19:16; Status DC Multi-Ingredient Mouthwash/Gargle (Gi Cocktail Single Dose) 15 ml 1X ONCE SWSW Last administered on 08/19/17 19:58; Start 08/19/17 at 19:45; Stop 08/19/17 at 19:46; Status DC Metoprolol Tartrate (Lopressor) 5 mg 1X ONCE IVP Last administered on 21:34; Start 08/19/17 at 21:30; Stop 08/19/17 at 21:31; Status DC Ondansetron HCl (Zofran) 4 mg PRN Q8HRS PRN IV NAUSEA/VOMITING; Start 08/19/17 at 21:45; Stop 08/20/17 at 21:44; Status DC Nitroglycerin (Nitrostat) 0.4 mg PRN Q5MIN PRN SL CHEST PAIN Last administered on 08/20/17 07:46; Start 08/20/17 at 07:45 Aspirin (Ecotrin) 81 mg DAILYWBKFT PO Last administered on 08/22/17 08:42; Start 08/20/17 at 08:15 Clopidogrel Bisulfate (Plavix) 75 mg DAILY PO Last administered on 08/22/17 08 :41; Start 08/20/17 at 09:00 Heparin Sodium/ Dextrose 500 ml @ 20 mls/hr CONT PRN IV SEE I/O RECORD Last administered on 08/22/17 09:49; Start 08/20/17 at 08:15 Heparin Sodium (Porcine) (Heparin Sodium) 2,500 unit PRN Q6HRS PRN IV FOR UFH LEVEL LESS THAN 0.2 Last administered on 08/22/17 10:51; Start 08/20/17 at 08: 15 Heparin Sodium (Porcine) (Heparin Sodium) 4,000 unit 1X ONCE IV Last administered on 08/20/17 08:46; Start 08/20/17 at 08:15; Stop 08/20/17 at 08:29 ; Status DC Potassium Chloride (Klor-Con) 40 meq 1X ONCE PO Last administered on 08:41; Start 08/20/17 at 08:30; Stop 08/20/17 at 08:31; Status DC Famotidine (Pepcid) 20 mg HS PO Last administered on 08/21/17 20:39; Start at 21:00; Stop 08/22/17 at 14:30; Status DC Metoprolol Tartrate (Lopressor) 50 mg BID PO Last administered on 08/22/17 08: 42; Start 08/20/17 at 11:00 Nitroglycerin (Nitrostat) 0.4 mg PRN Q5MIN PRN SL CHEST PAIN; Start 08/20/17 at 11:00; Stop 08/21/17 at 11:12; Status DC Nystatin (Nystop) 1 tiffany BID TP Last administered on 08/22/17 08:42; Start 08/20/17 at 11:00 Calcium Acetate (Phoslo) 667 mg TIDWMEALS PO Last administered on 08/22/17 17: 41; Start 08/20/17 at 12:00 Citalopram Hydrobromide (CeleXA) 20 mg DAILY PO Last administered on 08/22/17 08:42; Start 08/21/17 at 09:00 Insulin Detemir (Levemir) 14 units QHS SQ ; Start 08/20/17 at 21:00; Stop at 21:00; Status DC Vitamin B Complex/ Vitamin C (Tanisha-Prashanth) 1 tab DAILY PO Last administered on 08:42; Start 08/21/17 at 09:00 Acetaminophen (Tylenol) 650 mg PRN Q6HRS PRN PO FEVER Last administered on 08/20 23:57; Start 08/20/17 at 11:00 Ondansetron HCl (Zofran) 4 mg PRN Q6HRS PRN IV NAUSEA/VOMITING Last administered on 08/22/17 03:17; Start 08/20/17 at 11:00 Hydralazine HCl (Apresoline) 10 mg PRN Q4HRS PRN IVP ELEVATED BP, SEE COMMENTS ; Start 08/20/17 at 11:00 Docusate Sodium (Colace) 100 mg PRN DAILY PRN PO CONSTIPATION Last administered on 08/22/17 08:41; Start 08/20/17 at 11:00 Insulin Detemir (Levemir) 10 units QHS SQ Last administered on 08/21/17 20:45 ; Start 08/20/17 at 21:00 Insulin Aspart (NovoLOG) 0-9 UNITS TIDWMEALS SQ Last administered on 08/21/17 12:00; Start 08/20/17 at 12:00 Dextrose (Dextrose 50%-Water Syringe) 12.5 gm PRN Q15MIN PRN IV SEE COMMENTS; Start 08/20/17 at 11:00 Tramadol HCl (Ultram) 50 mg PRN Q6HRS PRN PO PAIN Last administered on 17:42; Start 08/21/17 at 03:45 Fentanyl Citrate (Fentanyl 2ml Vial) 50 mcg PRN Q6HRS PRN IV PAIN; Start at 03:45 Atorvastatin Calcium (Lipitor) 40 mg QHS PO Last administered on 08/21/17 20: 39; Start 08/21/17 at 21:00 Benzocaine (Ora-Jel) 1 tiffany PRN QID PRN TP ORAL PAIN Last administered on 20:40; Start 08/21/17 at 11:15 Info (Anti-Coagulation Monitoring By Pharmacy) 1 each PRN DAILY PRN MC SEE COMMENTS; Start 08/22/17 at 08:45 Sodium Chloride 1,000 ml @ 1,000 mls/hr Q1H PRN IV hypotension; Start 08/22/17 at 08:58; Stop 08/22/17 at 14:57; Status DC Diphenhydramine HCl (Benadryl) 25 mg 1X PRN PRN IV ITCHING; Start 08/22/17 at 09:00; Stop 08/23/17 at 08:59 Diphenhydramine HCl (Benadryl) 25 mg 1X PRN PRN IV ITCHING; Start 08/22/17 at 09:00; Stop 08/23/17 at 08:59 Sodium Chloride 1,000 ml @ 400 mls/hr Q2H30M PRN IV PATENCY; Start 08/22/17 at 08:58; Stop 08/22/17 at 20:57 Info (PHARMACY MONITORING -- do not chart) 1 each PRN DAILY PRN MC SEE COMMENTS ; Start 08/22/17 at 09:00 Famotidine (Pepcid) 20 mg Q48H PO ; Start 08/23/17 at 21:00 Active Scripts Active Aspirin Ec (Aspirin) 81 Mg Tablet.dr 81 Mg PO DAILYWBKFT Nystop (Nystatin) 60 Gm Powder 1 Tiffany TP BID Isosorbide Mononitrate Er (Isosorbide Mononitrate) 60 Mg Tab.er.24h 60 Mg PO DAILY 30 Days Escitalopram Oxalate 10 Mg Tablet 10 Mg PO DAILY Pepcid (Famotidine) 20 Mg Tablet 20 Mg PO HS Nitrostat (Nitroglycerin) 0.4 Mg Tab.subl 0.4 Mg SL PRN Q5MIN PRN Reported Clopidogrel (Clopidogrel Bisulfate) 75 Mg Tablet 75 Mg PO DAILY Lisinopril 5 Mg Tablet 1 Tab PO DAILY Metoprolol Tartrate 50 Mg Tablet 50 Mg PO BID Nephro-Prashanth Rx Tablet (Vit B Cmplx 3/Fa/Vit C/Biotin) 1 Each Tablet 1 Each PO DAILY Hydrocodone-Apap 7.5-325 (Hydrocodone Bit/Acetaminophen) 1 Each Tablet 1 Tab PO PRN Q6HRS PRN Calcium Acetate 667 Mg Tablet 667 Mg PO TIDWMEALS Lantus Solostar (Insulin Glargine,Hum.rec.anlog) 100 Unit/1 Ml Insuln.pen 14 Unit SQ QHS Vitals/I & O Vital Sign - Last 24 Hours 08/21/17 08/21/17 08/21/17 08/21/17 19:35 20:00 20:39 22:27 Temp 97.8 97.8 Pulse 68 65 Resp 18 20 B/P (MAP) 130/52 (78) 116/52 Pulse Ox 95 O2 Delivery Room Air Room Air 08/21/17 08/21/17 08/22/17 08/22/17 23:10 23:27 03:15 07:00 Temp 98.1 97.4 97.5 98.1 97.4 97.5 Pulse 63 62 60 Resp 18 20 18 18 B/P (MAP) 144/68 (93) 121/56 (77) 130/48 (75) Pulse Ox 94 91 94 O2 Delivery Room Air Room Air Room Air 08/22/17 08/22/17 08/22/17 08/22/17 07:55 08:41 08:42 09:40 Pulse 60 B/P (MAP) 130/48 Pulse Ox 91 91 O2 Delivery Room Air Room Air Room Air O2 Flow Rate 2.0 2.0 08/22/17 08/22/17 14:47 17:42 Temp 97.7 97.7 Pulse 60 Resp 18 B/P (MAP) 135/51 (79) Pulse Ox 94 94 O2 Delivery Room Air Room Air O2 Flow Rate 2.0 Intake and Output 08/22/17 08/22/17 08/23/17 15:00 23:00 07:00 Intake Total 240 ml 300 ml Output Total 2 ml Balance 240 ml 298 ml JORDON HALL MD Aug 22, 2017 18:01
[2017-08-22 19:45] VITALS: BP 111/48
[2017-08-22] MEDS: ATORVASTATIN CALCIUM 40 MG TABLET. PO SCH (20:58)
[2017-08-22] MEDS: INSULIN DETEMIR 300 UNITS/3 ML INSULN.PEN. SQ SCH (21:01)
[2017-08-22] MEDS: ACETAMINOPHEN 325 MG TABLET. PO PRN (21:07)
[2017-08-22] MEDS: BENZOCAINE 10% ORAL GEL 7GM TUBE. TP PRN (21:07)
[2017-08-22 23:10] VITALS: BP 127/52
[2017-08-23 03:15] VITALS: BP 132/40
[2017-08-23] MEDS: traMADol 50 MG TABLET PO PRN ×2 (05:38→11:23)
[2017-08-23 05:39] LABS: HEMATOCRIT 35.2 % (36.0-47.0); HEMOGLOBIN 11.8 g/dL (12.0-15.5); RED BLOOD COUNT 3.62 x10^6/uL (3.50-5.40); RED CELL DISTRIBUTION WIDTH 14.7 % (11.5-14.5); WHITE BLOOD COUNT 3.8 x10^3/uL (4.0-11.0)
[2017-08-23 07:00] VITALS: BP 147/62
[2017-08-23] MEDS: INSULIN ASPART 300 UNITS/3 ML INSULN.PEN SQ SCH ×2 (08:00→12:31)
[2017-08-23] MEDS: CLOPIDOGREL BISULFATE 75 MG TABLET PO SCH (09:01)
[2017-08-23] MEDS: ASPIRIN ENTERIC COATED 81 MG TABLET.DR. PO SCH (09:01)
[2017-08-23] MEDS: NYSTATIN TOPICAL POWDER 15GM BOTTLE. TP SCH (09:01)
[2017-08-23] MEDS: CALCIUM ACETATE 667 MG CAPSULE PO SCH ×2 (09:01→12:28)
[2017-08-23] MEDS: METOPROLOL TART IMMED RELEASE 50 MG TABLET. PO SCH (09:01)
[2017-08-23] MEDS: FOLIC/VIT B COMP W-C (RENAL) TABLET. PO SCH (09:01)
[2017-08-23] MEDS: CITALOPRAM 20 MG TABLET. PO SCH (09:01)
[2017-08-23 11:00] VITALS: BP 149/65
[2017-08-23] MEDS ORDERED: ATOR40TA59 PO (12:01)
--- NOTE | 2017-08-23 12:03 | PDOC ---
Renal-Progress Notes Subjective Notes Notes BETTER History of Present Illness Hx of present illness STABLE Vitals Vitals Vital Signs Date Time Temp Pulse Resp B/P (MAP) Pulse Ox O2 Delivery O2 Flow Rate FiO2 08/23/17 11:23 Room Air 08/23/17 11:00 97.8 57 19 149/65 (93) 96 2.0 97.8 Weight Weight [ ] Labs Labs Laboratory Tests Test 08/22/17 14:34 08/22/17 16:27 08/22/17 20:56 08/23/17 05:10 Glucose (Fingerstick) 79 mg/dL (70-99) 150 mg/dL (70-99) 131 mg/dL (70-99) White Blood Count 3.8 x10^3/uL (4.0-11.0) Red Blood Count 3.62 x10^6/uL (3.50-5.40) Hemoglobin 11.8 g/dL (12.0-15.5) Hematocrit 35.2 % (36.0-47.0) Mean Corpuscular Volume 97 fL (79-100) Mean Corpuscular Hemoglobin 33 pg (25-35) Mean Corpuscular Hemoglobin Concent 34 g/dL (31-37) Red Cell Distribution Width 14.7 % (11.5-14.5) Platelet Count 101 x10^3/uL (140-400) Test 08/23/17 07:31 Glucose (Fingerstick) 137 mg/dL (70-99) Review of Systems Constitutional: yes: weakness, alert, oriented Ears/Nose/Throat: Yes: no symptom reported Eyes: Yes: no symptom reported Pulmonary: Yes dyspnea Cardiovascular: Yes orthopnea Gastrointestional: Yes: no symptom reported Genitourinary: Yes: other (ANURIA) Musculoskeletal: Yes: muscle stiffness Skin: Yes no symptom reported Psychiatric/Neurological: Yes: no symptom reported Endocrine: Yes: no symptom reported Physical Exam General Appearance: no apparent distress Skin: warm Respiratory: decreased breath sounds Heart: S1S2 Abdomen: soft, bowel sounds present Genitourinary: bladder flat Extremities: pulses present, no edema Neurology: alert, oriented Musculoskeletal: Osteoarthritis Assessment Assessment IMP ESRD CHF ANEMIA AORTIC VALVE STENOSIS PLAN HD TOMORROW ? PERCUTANEOUS AVR CHLOE JONES MD Aug 23, 2017 12:03
--- NOTE | 2017-08-23 14:51 | PDOC3 ---
Discharge Summary [facility] Date of Admission: Aug 19, 2017 Discharge Date: Aug 23, 2017 Admitting Diagnosis chest pain, NSTEMI h/o CAD post PCI STABLE chf, diastiolic, EF 55% severe ESRD on HD mwf dm2 htn PAFIB, no AC oa COPD PPM RIGHT arm avf obesity, BMI 35 uncompliance chronic resp failure with hypoxia Problems: CONSULTS card renal Brief Hospital Course Patient is a 76 year old female who presents with chest pain x1d. Pt very uncompliant, had 1 stent in 06/2017, but not taking her meds daily. She was lying in bed at about 5pm yesterday, felt substernal chest pain, 06/23, heavy, no radiation, but had diaphoresis, sob, and N/V. denies fever, chills, cough, diarrhea. on ESRD HD MWF. came to ER, was found high troponin, on heparin drip. Pt cont having chest pain with heparin drip, card didnot recommend cath given her uncompliance which pt admited. heparin drip dced in 2 ds. now chest pain free. should fu [facility] for TAVR. DC TIEM 35MIN General: Alert, Oriented X3, Cooperative Heart: Regular rate, Normal S1, Normal S2 Lungs: Clear, Other Abdomen: Normal bowel sounds, Soft Extremities: No clubbing, No cyanosis Skin: No rashes Patient History: FH: heart attack G8 BROTHER 33 FATHER FH: pneumonia 32 MOTHER Family history: Angina (situation) G8 BROTHER 33 FATHER Family history: Asthma Family history: Autoimmune disease (situation) 32 MOTHER Family history: Cardiomyopathy (situation) G8 BROTHER 33 FATHER Family history: Cardiovascular disease (situation) G8 BROTHER 33 FATHER Family history: Depression (situation) 32 MOTHER Family history: Diabetes mellitus (situation) G8 BROTHER Family history: Hypertension (situation) G8 BROTHER G8 BROTHER 33 FATHER 32 MOTHER Family history: Obesity (situation) 32 MOTHER No Family History of: Cancer confirmed (situation) Family history: Allergy Family history: Alzheimer's disease (situation) Family history: Blood disorder (situation) Family history: Breast disease (situation) Family history: Crohn's disease (situation) Family history: Epilepsy (situation) Family history: Gallbladder disease (situation) Family history: Gastrointestinal disease (situation) Family history: Hemophilia (situation) Family history: Schizophrenia (situation) Family history: Sickle cell trait (situation) Family history: Suicide (situation) Problems: Disposition home CONDITION AT DISCHARGE: Improved, Stable Diet cardiac Scheduled Aspirin (Aspirin Ec), 81 MG PO DAILYWBKFT Atorvastatin Calcium (Atorvastatin Calcium), 40 MG PO QHS Calcium Acetate (Calcium Acetate), 667 MG PO TIDWMEALS, (Reported) Clopidogrel Bisulfate (Clopidogrel), 75 MG PO DAILY, (Reported) Escitalopram Oxalate (Escitalopram Oxalate), 10 MG PO DAILY Famotidine (Pepcid), 20 MG PO HS Insulin Glargine,Hum.rec.anlog (Lantus Solostar), 14 UNIT SQ QHS, (Reported) Lisinopril (Lisinopril), 1 TAB PO DAILY, (Reported) Metoprolol Tartrate (Metoprolol Tartrate), 50 MG PO BID, (Reported) Nystatin (Nystop), 1 YOLIE TP BID Vit B Cmplx 3/Fa/Vit C/Biotin (Nephro-Prashanth Rx Tablet), 1 EACH PO DAILY, ( Reported) Scheduled PRN Hydrocodone Bit/Acetaminophen (Hydrocodone-Apap 7.5-325 ), 1 TAB PO PRN Q6HRS PRN for PAIN, (Reported) Nitroglycerin (Nitrostat), 0.4 MG SL PRN Q5MIN PRN for CHEST PAIN Discontinued Medications Isosorbide Mononitrate (Isosorbide Mononitrate Er), 60 MG PO DAILY Follow Up pcp stephanie in 2 weeks KOURTNEY MUSTAFA MD Aug 23, 2017 14:51
[2017-08-23 15:00] VITALS: BP 133/51
--- NOTE | 2017-08-23 16:22 | PDOC ---
CARDIO Progress Notes Date and Time Date of Service 08/23/2017 Time of Evaluation 1600 Subjective Subjective: No Chest Pain, No shortness of breath, No Palpitations Vitals Vitals Vital Signs Date Time Temp Pulse Resp B/P (MAP) Pulse Ox O2 Delivery O2 Flow Rate FiO2 08/23/17 15:00 97.4 59 19 133/51 (78) 93 Nasal Cannula 2.0 97.4 Weight Weight [ ] Laboratory Labs Laboratory Tests Test 08/22/17 16:27 08/22/17 20:56 08/23/17 05:10 08/23/17 07:31 Glucose (Fingerstick) 150 mg/dL (70-99) 131 mg/dL (70-99) 137 mg/dL (70-99) White Blood Count 3.8 x10^3/uL (4.0-11.0) Red Blood Count 3.62 x10^6/uL (3.50-5.40) Hemoglobin 11.8 g/dL (12.0-15.5) Hematocrit 35.2 % (36.0-47.0) Mean Corpuscular Volume 97 fL (79-100) Mean Corpuscular Hemoglobin 33 pg (25-35) Mean Corpuscular Hemoglobin Concent 34 g/dL (31-37) Red Cell Distribution Width 14.7 % (11.5-14.5) Platelet Count 101 x10^3/uL (140-400) Test 08/23/17 11:33 Glucose (Fingerstick) 159 mg/dL (70-99) Review of Systems Constitutional: yes: weakness, alert, oriented Ears/Nose/Throat: Yes: no symptom reported Eyes: Yes: no symptom reported Pulmonary: Yes dyspnea Cardiovascular: Yes orthopnea Gastrointestional: Yes: no symptom reported Genitourinary: Yes: other (ANURIA) Musculoskeletal: Yes: muscle stiffness Skin: Yes no symptom reported Psychiatric/Neurological: Yes: no symptom reported Endocrine: Yes: no symptom reported Physical Exam HEENT: Neck Supple W Full Motion Chest: Symmetric LUNGS: Clear to Auscultation Heart: S1S2, RRR (paced rhythm), murmurs (4/6 sysotlic murmur to DELFINA border) Abdomen: Soft N/T Extremities: No Calf Tenderness Neurology: alert, oriented, follow commands Assessment Assessment 1. NSTEMI: elevated troponin likely from severe 2. Severe 3. Hx of Severe non-compliance. Multiple discussions with the patient. 4. ESRD. HD per nephrology 5. CAD: previous PCI/BMS/LAD 6. ICM/AICD Recommendations 1. Discussed adherence. Refused repeat LHC. Continue with DAPT 2. Continue with secondary prevention. If she agrees will refer her to for TAVR. 3. Follow up in office. SILVESTRE FARNSWORTH APRN Aug 23, 2017 16:22
[2017-08-23] MEDS ORDERED: FAMOTIDINE 20 MG TABLET. PO SCH (21:00)
== END 2017-08-23 16:40 | disposition home or self-care (01) | DRG 280 ==
LOC: ER 19:01 → ED HOLD 21:30 → 2 SOUTH 23:22
PROVIDERS: ADMIT Internal Medicine Hematology & Oncology; ATTEND Internal Medicine Hematology & Oncology
DX: I21.4 Non-ST elevation (NSTEMI) myocardial infarction (principal); N18.6 End stage renal disease; I13.2 Hypertensive heart and chronic kidney disease with heart failure and with stage 5 chronic kidney disease, or end stage renal disease; J96.11 Chronic respiratory failure with hypoxia; I50.30 Unspecified diastolic (congestive) heart failure; E11.22 Type 2 diabetes mellitus with diabetic chronic kidney disease; I48.91 Unspecified atrial fibrillation; D64.9 Anemia, unspecified; E03.9 Hypothyroidism, unspecified; E66.9 Obesity, unspecified; E78.5 Hyperlipidemia, unspecified; I25.10 Atherosclerotic heart disease of native coronary artery without angina pectoris; I25.5 Ischemic cardiomyopathy; I35.0 Nonrheumatic aortic (valve) stenosis; I73.9 Peripheral vascular disease, unspecified; E21.3 Hyperparathyroidism, unspecified; F32.9 Major depressive disorder, single episode, unspecified; J44.9 Chronic obstructive pulmonary disease, unspecified; K21.9 Gastro-esophageal reflux disease without esophagitis; Z68.35 Body mass index [BMI] 35.0-35.9, adult; Z79.899 Other long term (current) drug therapy; Z81.8 Family history of other mental and behavioral disorders; Z82.0 Family history of epilepsy and other diseases of the nervous system; Z82.5 Family history of asthma and other chronic lower respiratory diseases; Z83.3 Family history of diabetes mellitus; Z86.73 Personal history of transient ischemic attack (TIA), and cerebral infarction without residual deficits; Z90.49 Acquired absence of other specified parts of digestive tract; Z90.710 Acquired absence of both cervix and uterus; I25.2 Old myocardial infarction; Z82.49 Family history of ischemic heart disease and other diseases of the circulatory system; Z83.6 Family history of other diseases of the respiratory system; Z91.14 Patient's other noncompliance with medication regimen; Z90.89 Acquired absence of other organs; Z91.19 Patient's noncompliance with other medical treatment and regimen; Z98.61 Coronary angioplasty status; Z99.2 Dependence on renal dialysis; Z98.49 Cataract extraction status, unspecified eye; Z88.2 Allergy status to sulfonamides; M19.90 Unspecified osteoarthritis, unspecified site
CPT/HCPCS: 36415; 71010; 80048; 80076; 82553; 82962; 83690; 83735; 83880; 84484; 85025; 85027; 85520; 85610; 87340; 87341; 93005; 93306; 96374; J1644; J1815; J2405; J3490; 99285-25